=== PATIENT | female | born 1945 | race Caucasian/White ===

== ENCOUNTER → 2018-03-02 09:19 | Outpatient (CLI) | payer MEDICARE, SELFPAY ==
--- NOTE | 2018-03-02 09:23 | MM_ITS ---
. MM Dig screening mamm BI w/CAD CAD Screening ORDERING PHYSICIAN : Khalif William MD PATIENT AGE: 72 years GENDER: Female COMPARISON: Previous mammograms: 2014, 2016 mammogram studies INDICATION: No hormones. No new complaints. Mother with breast cancer in her 70s TECHNIQUE: Standard CC and MLO images were obtained. R2 CAD reviewed. FINDINGS: Lower density breast bilaterally with no dominant mass nor suspicious calcifications in either breast. Areas of mild asymmetry of appear stable. No significant architectural distortion. RIGHT BREAST: Minor asymmetric area of density Superior retroareolar region appear stable. Not of concern LEFT BREAST: No significant new findings. Stable IMPRESSION: Stable bilateral mammogram no new areas of concern Stable mild asymmetry BI-RADS Category: 2 Benign Finding(s) RECOMMENDED FOLLOW-UP: 1YR - 1 YEAR FOLLOW-UP (A letter has been sent to the patient regarding results of the study.)
== END ==
PROVIDERS: Family Provider Family Medicine; PCP Family Medicine; Visit Provider Family Medicine
DX: Z12.31 Encounter for screening mammogram for malignant neoplasm of breast (principal)
CPT/HCPCS: 77067

== ENCOUNTER → 2018-03-14 11:14 | Outpatient (CLI) | payer MEDICARE, MEDICAID, SELFPAY ==
--- NOTE | 2018-03-14 11:20 | XR_ITS ---
XR chest 2V HISTORY: ITS.REASON: HTN ORDERING PHYSICIAN: Juan Ramachandran MD PATIENT AGE: 73 years COMPARISON: 07/08/2017 FINDINGS: The cardiomediastinal silhouette and pulmonary vascularity are within normal limits. Atelectatic or fibrotic changes are present within the lingula. The remaining lungs are clear. Gastric lap band is present. No acute bony anomalies. IMPRESSION: Atelectatic or fibrotic changes within the lingula otherwise negative chest.
== END ==
PROVIDERS: PCP Family Medicine; Visit Provider Family Medicine
DX: R10.11 Right upper quadrant pain (principal)
CPT/HCPCS: 71046

== ENCOUNTER → 2018-12-13 09:38 | Outpatient (CLI) | payer MEDICARE, MEDICAID, SELFPAY ==
--- NOTE | 2018-12-13 09:47 | XR_ITS ---
XR DEXA axial skeleton HISTORY: ITS.REASON: POST MENOPAUSAL ORDERING PHYSICIAN: Khalif William MD PATIENT AGE: 73 years COMPARISON: None FINDINGS: The BMD measured at the Left femoral neck is 0.694 g/cm squared with a T score of -2.5. This is considered Osteoporotic according to the World Health Organization criteria. Fracture risk is High. Treatment is advised. IMPRESSION: Osteoporosis with high fracture risk. Treatment is advised. Suggest follow-up exam November 2019
== END ==
PROVIDERS: PCP Family Medicine; Visit Provider Family Medicine
DX: Z78.0 Asymptomatic menopausal state (principal)
CPT/HCPCS: 77080

== ENCOUNTER 2019-01-30 10:35 | Outpatient (CLI) | payer MEDICARE, MEDICAID, SELFPAY ==
[2019-01-30 10:41] VITALS: BMI 31.8
[2019-01-30 11:09] LABS: Calcium 8.5 mg/dL (8.5-10.1); Creatinine Clearance Estimated 50 mL/min (50-200); Creatinine,Serum 1.27 mg/dL (0.55-1.02); Estimated Glomerular Filt Rate 41 ml/min (>60); GFR (African American) 50 ML/MIN (>60)
[2019-01-30 11:37] VITALS: BP 158/87; PULSE 80; RESP 18; TEMP 36.6; O2SAT 96
[2019-01-30 12:00] VITALS: BP 160/91; PULSE 80; RESP 18
== END 2019-01-30 12:00 | disposition home or self-care (01) ==
LOC: INF 11:13
PROVIDERS: Visit Provider Family Medicine
DX: M81.0 Age-related osteoporosis without current pathological fracture (principal)
CPT/HCPCS: 82040; 82310; 82565; 96374; J3489

== ENCOUNTER → 2019-05-13 08:03 | Outpatient (POV) | payer MEDICARE, MEDICAID, SELFPAY | PROVIDERS: Visit Provider Nurse Practitioner Family | DX: Z00.00 Encounter for general adult medical examination without abnormal findings (principal) ==

== ENCOUNTER → 2019-07-23 12:52 | Outpatient (CLI) | payer MEDICARE, MEDICAID, SELFPAY | PROVIDERS: PCP Family Medicine; Visit Provider Internal Medicine Gastroenterology | DX: E11.9 Type 2 diabetes mellitus without complications (principal); Z79.4 Long term (current) use of insulin | CPT/HCPCS: 97802 ==

== ENCOUNTER → 2019-08-19 08:37 | Outpatient (CLI) | payer MEDICARE, MEDICAID, SELFPAY ==
--- NOTE | 2019-08-19 08:40 | FL_ITS ---
PROCEDURE: FL SMALL BOWEL FOLLOW THROUGH CLINICAL INDICATION: CHRONIC REGURGITATION, DIARRHEA COMPARISON: ABDPELWO CT abdomen pelvis wo con from 03/14/2018 FINDINGS: Fluoroscopy time: 33 seconds The center mgr exam demonstrates a left gastric lap band in place. Small bowel has an unremarkable appearance. No dilatation obstruction or mucosal abnormalities or strictures are evident. No masses apparent. Spot views of the terminal ileum are unremarkable. There was fairly rapid transit of the contrast through the small bowel with contrast noted throughout the colon at the 45 minutes exam. IMPRESSION: 1. Unremarkable small bowel follow-through other than mild rapid transit time 2. Gastric lap band in place Dictated by: Jasper Pedraza MD 08/19/2019 10:23 Electronically signed by Jasper Pedraza MD in [place] 08/19/2019 10:23
== END ==
PROVIDERS: PCP Family Medicine; Visit Provider Internal Medicine Gastroenterology
DX: R11.10 Vomiting, unspecified (principal); R19.7 Diarrhea, unspecified
CPT/HCPCS: 74250

== ENCOUNTER → 2019-09-09 08:21 | Outpatient (POV) | payer MEDICARE, MEDICAID, SELFPAY | PROVIDERS: PCP Family Medicine; Visit Provider Nurse Practitioner Family | DX: Z00.00 Encounter for general adult medical examination without abnormal findings (principal) ==

== ENCOUNTER → 2019-12-16 08:14 | Outpatient (POV) | payer MEDICARE, MEDICAID, SELFPAY | PROVIDERS: Visit Provider Nurse Practitioner Family | DX: Z00.00 Encounter for general adult medical examination without abnormal findings (principal) ==

== ENCOUNTER → 2019-12-18 08:23 | Outpatient (CLI) | payer MEDICARE, MEDICAID, SELFPAY ==
[2019-12-18 08:30] LABS: Adenovirus F 40/41, stool Not Detected (NotDetected); Astrovirus Not Detected (NotDetected); Campylobacter Not Detected (NotDetected); Clostridium Difficile A/B, PCR Not Detected (NotDetected); Cryptosporidium Not Detected (NotDetected); Cyclospora Cayetanesis Not Detected (NotDetected); Entamoeba histolytica Not Detected (NotDetected); Enteroaggregative E coli Not Detected (NotDetected); Enteropathogenic E coli Not Detected (NotDetected); Enterotoxigenic E coli Not Detected (NotDetected); Giardia lamblia Not Detected (NotDetected); Norovirus Not Detected (NotDetected); Plesimonas Shigalloides, PCR Not Detected (NotDetected); Rotavirus A Not Detected (NotDetected); Salmonella, PCR Not Detected (NotDetected); Sapovirus Not Detected (NotDetected); Shiga-like toxin E coli Not Detected (NotDetected); Shigella Enterovasive E coli Not Detected (NotDetected); Vibrio Cholerae Not Detected (NotDetected); Vibrio, PCR Not Detected (NotDetected); Yersinia Entercolitica, PCR Not Detected (NotDetected)
== END ==
PROVIDERS: Visit Provider Nurse Practitioner Family
DX: R19.7 Diarrhea, unspecified (principal); R11.10 Vomiting, unspecified; R14.0 Abdominal distension (gaseous); R19.4 Change in bowel habit; K30 Functional dyspepsia; E74.31 Sucrase-isomaltase deficiency
CPT/HCPCS: 87506

== ENCOUNTER 2020-01-01 10:53 | Outpatient (CLI) | payer MEDICARE, MEDICAID, SELFPAY ==
[2020-01-01 11:22] VITALS: BP 168/81; PULSE 71; RESP 20; TEMP 36.8; O2SAT 96
[2020-01-01 11:55] VITALS: BP 156/74; PULSE 63; RESP 20; O2SAT 99
== END 2020-01-01 12:00 | disposition home or self-care (01) ==
LOC: INF 10:53
PROVIDERS: Visit Provider Family Medicine
DX: D50.9 Iron deficiency anemia, unspecified (principal); T45.4X5A Adverse effect of iron and its compounds, initial encounter
CPT/HCPCS: 96365; J1439

== ENCOUNTER 2020-01-08 10:44 | Outpatient (CLI) | payer MEDICARE, MEDICAID, SELFPAY ==
[2020-01-08 10:55] VITALS: BP 152/79; PULSE 75; RESP 18; TEMP 36.6; O2SAT 98
[2020-01-08 11:35] VITALS: BP 154/82; PULSE 71; RESP 18
== END 2020-01-08 11:35 | disposition home or self-care (01) ==
LOC: INF 10:44
PROVIDERS: Visit Provider Family Medicine
DX: D50.9 Iron deficiency anemia, unspecified (principal); T45.4X5A Adverse effect of iron and its compounds, initial encounter
CPT/HCPCS: 96365; J1439

== ENCOUNTER → 2020-11-23 09:15 | Outpatient (POV) | payer MEDICARE, MEDICAID, SELFPAY | PROVIDERS: Visit Provider Nurse Practitioner Family | DX: Z00.00 Encounter for general adult medical examination without abnormal findings (principal) ==

== ENCOUNTER → 2021-04-27 09:37 | Outpatient (POV) | payer MEDICARE, MEDICAID, SELFPAY | PROVIDERS: Visit Provider Dermatology | DX: Z00.00 Encounter for general adult medical examination without abnormal findings (principal) ==

== ENCOUNTER → 2021-10-11 11:44 | Outpatient (CLI) | payer MEDICARE, MEDICAID, SELFPAY ==
--- NOTE | 2021-10-11 | CA_ITS ---
APPROVED REPORT Exam: Pharmacologic Technologist: Rachana Abbott Ht: 5 ft 2 in Wt: 190 lbs BSA: 1.87 m2 HR: 87 bpm BP: 126/64 mmHg Indications: Chest tightness Medical History Medications: Lisinopril,,,,, Omeprazole,,,,, Levothyroxine,,,,, Pravastatin,,,,, FOLIC ACID,,,,, Methotrexate,,,,, NovOLOG,,,,, LeveMIR,,,,, Centrum,,,,, AmlodOPINE,,,,, Stress Test Details Test: LEXISCAN HR Resting HR: 87 bpm Max Heart Rate (APMHR): 143.149716 bpm Max HR Achieved: 98 bpm Target HR (85% APMHR): 121.142257 bpm % of APMHR: 68.53 Recovery HR: 86 bpm BP Resting BP: 126.0/64.0 mmHg Max BP: 132.0/66.0 mmHg Recovery BP: 132.0/66.0 mmHg ECG Resting ECG: Normal sinus rhythm Clinical Reason for Termination: Completed Protocol Exercise duration: 04:20 min Highest Stage Achieved: Stress ECG Conclusion Non-diagnostic lexiscan stress test. Patient received the infusion per protocol without chest pain, ST segment changes or arrhythmias. See the nuclear report for further information. Test Summary RECOVERY 04:00 . . 77 . 93/ 44 . . REST 04:06 . . 87 . 126/ 64 . . Stage 1 01:00 . . 93 . . . . Stage 2 01:00 . . 76 . 89/ 44 . . Stage 3 01:00 . . 76 . . . . Stage 4 01:00 . . 77 . 88/ 40 . . Stage 4 01:20 . . 79 . 92/ 48 . Stop exercise at 04:20 RECOVERY 01:00 . . 77 . 97/ 47 . . RECOVERY 02:00 . . 70 . 97/ 47 . . RECOVERY 03:00 . . 54 . 93/ 44 . . RECOVERY 04:00 . . 77 . 93/ 44 . . RECOVERY 05:00 . . 80 . 93/ 44 . . RECOVERY 06:00 . . 96 . 93/ 44 . . RECOVERY 07:00 . . 85 . 93/ 44 . . RECOVERY 07:27 . . 87 . 132/ 66 . . Electronically signed by : Miguel Lynn MD 10/11/2021 19:03:46
--- NOTE | 2021-10-11 11:48 | NM_ITS ---
APPROVED REPORT Exam: Nuclear Stress Test Indication: Chest pain, HTN, DM, High cholesterol Patient Location: Outpatient Stress Tech: Rachana Abbott ME Tech:Marie Rubi, ARRT, RT (R)(N) Ht: 5 ft 2 in Wt: 190 lbs Bra Size: 40B HR: 87 bpm BP: 126/64 mmHg BSA: 1.87 m2 BMI: 34.7 History: Chest pain, HTN, DM, High cholesterol Procedure: Patient received a 0.4 mg of intravenous Lexiscan, resting heart rate 87 bpm, resting blood pressure 126/64 mmHg, with Lexiscan maximum heart rate achived was 98 bpm which is Less than 85 % of the maximum predicted heart rate and blood pressure was 132/66 mmHg. With Lexiscan, patient denied any complaint of chest pain. Electrocardiogram Resting electrocardiogram showed sinus rhythm, with Lexiscan there is less than 1.[address] segment depression noted from the baseline EKG. The EKG portion of the Lexiscan is nondiagnostic. Cardiac Stress and Resting SPECT Images: Cardiac Stress and Resting SPECT images were obtained using technetium 99m Myoview 31.0 mCi stress and 10.43 mCi at rest. Gated SPECT for analysis of segmental wall motion and calculation of the ejection fraction also done. Prone images were also obtained. Cardiac stress and resting SPECT images show uniform myocardial activity without segmental perfusion abnormality, compared right ejection fraction is over 65% with no regional wall motion abnormality, right ventricle is normal size and contractility. Conclusion: 1. The EKG portion of the Lexiscan is nondiagnostic. 2. No scintigraphic evidence of reversible ischemia seen, compared right ejection fraction is over 65% with no regional wall motion abnormality, right ventricle is normal size and contractility. 3. Normal Lexiscan Myoview study. Electronically signed by : Miguel Lynn MD 10/11/2021 19:25:53
--- NOTE | 2021-10-11 12:58 | CA_ITS ---
APPROVED REPORT EXAM: Comprehensive 2D, Doppler, and color-flow Echocardiogram Sales Attendant: Maggi Buitrago CRT Ht: 5 ft 2 in Wt: 109lbs BSA: 1.48 BP: 110/70 mmHg Indications: EDEMA,CP,OBESITY,HTN,DM,HLD 2D Dimensions LVOT 1.60 cm (M/F) 1.5-2.5 LA Volume 34.90 mL LA Volume Index 23.74 mL/m2 (M/F) 16-34 M-Mode Dimensions RVDd 2.81 cm (0.9-2.6) LA Diam 2.95 cm (1.9-4.0) LVDd 3.00 cm (3.5-5.7) Ao Diam 3.70 cm (2.0-3.7) LVDs 2.05 cm (3.5-5.7) IVSd 1.94 cm (0.6-1.1) PWd 0.68 cm (0.6-1.1) EF (Teich) 61.10% FS 31.70% EDV (Teich) 35.00 mL TAPSE 1.69 (<1.7) ESV (Teich) 13.60 mL LV Diastology E Decel Time 147.00 (160-240 msec) E/A Ratio 0.47 MED E' 2.60 (< 7 cm/sec) MED A' 11.60 cm/s E'/MED E' Ratio 20.12 (>14) LAT E' 8.40 (<10 cm/sec) LAT A' 9.40 cm/s E/LAT E' Ratio 6.23 (>14) Aortic Valve AO Peak GR. 8.50 mmHg Mitral Valve MV A Velocity 110.00 (40-130 cm/s) E/A Ratio 0.47 MV Decel. Time 147.00 (160-240 ms) Pulmonary Valve PV Peak Velocity 120.00 (50-150 cm/s) Tricuspid Valve TR P. Velocity 195.00 cm/s RAP Estimate 10.00 mmHg RVSP 25.20 mmHg Left Ventricle Technically difficult study because of the patient factors and poor acoustic windows. Left atrium is mildly enlarged, left ventricle is normal size, mild concentric left ventricular hypertrophy, visually estimated ejection fraction 55% with no regional wall motion abnormality, grade 1 diastolic dysfunction seen without tissue Doppler evidence of raise left atrial pressure. Right Ventricle Right atrium and right ventricle mildly enlarged with normal contractility. Aortic Valve Aortic valve is minimally thickened and fibrosed, there is no aortic stenosis or aortic insufficiency. Mitral Valve Mitral valve is grossly normal, there is trace mitral regurgitation. Tricuspid Valve Tricuspid valve grossly normal, there is trace tricuspid regurgitation, tricuspid regurgitation jet velocity is inadequate for calculation of the right ventricular systolic pressure. Pulmonic Valve Pulmonic valve is poorly visualized. Great Vessels Aortic root is normal size. Inferior vena cava is poorly visualized. Pericardium No significant pericardial effusion noted. Conclusion 1. Technically difficult study because of the patient factors and poor acoustic windows. 2. Mild biatrial alignment, normal left ventricular size, mild concentric left ventricular hypertrophy, visually estimated ejection fraction 55% with no significant motion abnormality, grade 1 diastolic dysfunction seen without tissue Doppler evidence of raise left atrial pressure. 3. Mildly enlarged right ventricle with normal contractility. 4. Trace mitral and tricuspid regurgitation. 5. No significant pericardial effusion noted. 6. Inferior vena cava is poorly visualized. Electronically signed by : Miguel Lynn MD 10/11/2021 21:05:17
--- NOTE | 2021-10-11 13:24 | HMH.ITSHM ---
Current Home Medications as stated by this patient Babs Bruno or claim service representative. []METHOTREXATE CALCIUM SACROSIDASE PROBIOTIC RIFAXIMIN PRAVASTATIN OMEPRAZOLE MULTIVITAMIN METOCLOPRAMIDE LEVOTHYROXINE INSULIN AMLODIPINE
== END ==
PROVIDERS: PCP Family Medicine; Visit Provider Family Medicine
DX: R07.89 Other chest pain (principal); I10 Essential (primary) hypertension; E03.9 Hypothyroidism, unspecified; E11.9 Type 2 diabetes mellitus without complications; R60.0 Localized edema; Z79.4 Long term (current) use of insulin
CPT/HCPCS: 78452; 93017; 93306; A9502; J2785

== ENCOUNTER → 2021-10-13 09:32 | Outpatient (CLI) | payer MEDICARE, MEDICAID, SELFPAY | PROVIDERS: PCP Family Medicine; Visit Provider Nurse Practitioner | DX: Z20.822 Contact with and (suspected) exposure to COVID-19 (principal) | CPT/HCPCS: C9803; U0003; U0005 ==

== ENCOUNTER → 2021-11-15 15:23 | Outpatient (CLI) | payer MEDICARE, MEDICAID, SELFPAY ==
--- NOTE | 2021-11-15 15:25 | MM_ITS ---
PROCEDURE INFORMATION: Exam: MG Bilateral Screening 3D Mammography Exam date and time: 11/15/2021 3:25 PM Age: 76 years old Clinical indication: Encounter for screening mammogram for malignant neoplasm of breast TECHNIQUE: Imaging protocol: Bilateral screening tomosynthesis and 2D mammography including computer-aided detection (CAD) when performed. COMPARISON: 1. MG SCBI MM Dig screening mamm BI w/CAD 03/02/2018 9:39 AM 2. MG DMSB DIG MAMM-SCREEN LESIA 05/06/2016 9:55 AM FINDINGS: MAMMOGRAPHY: Breast composition: The breast tissue is heterogeneously dense, which may obscure small masses. Mass: None. Architectural distortion: None. Calcifications: No suspicious calcifications. Asymmetric density: None. Skin thickening: None. Axillary adenopathy: None. IMPRESSION: No mammographic evidence of malignancy. Annual screening is recommended unless otherwise clinically indicated. ASSESSMENT: BI-RADS Category 1: Negative
== END ==
PROVIDERS: PCP Family Medicine; Visit Provider Family Medicine
DX: Z12.31 Encounter for screening mammogram for malignant neoplasm of breast (principal); N64.4 Mastodynia
CPT/HCPCS: 77063; 77067

== ENCOUNTER → 2021-11-29 15:27 | Outpatient (CLI) | payer MEDICARE, MEDICAID, SELFPAY ==
--- NOTE | 2021-11-29 15:32 | XR_ITS ---
FINAL REPORT CLINICAL HISTORY: THORACIC RADICULOPATHY FINDINGS: THORACIC SPINE SERIES Two views demonstrate no acute fracture. There are mild hypertrophic changes throughout the mid and lower thoracic spine. There is no malalignment. A lap band device is seen in the left upper quadrant. IMPRESSION: No acute process. Reviewed, Interpreted and Dictated by Floyd Abraham MD Transcribed by Za Luna Authenticated by Floyd Abraham MD on 11/29/2021 04:57:54 PM [facility]
== END ==
PROVIDERS: PCP Family Medicine; Visit Provider Family Medicine
DX: M54.14 Radiculopathy, thoracic region (principal)
CPT/HCPCS: 72072

== ENCOUNTER 2021-12-04 10:48 | Emergency (ER) | payer MEDICARE, MEDICAID, SELFPAY ==
[2021-12-04 11:25] VITALS: BP 115/73; PULSE 76; RESP 19; TEMP 37; O2SAT 99; BMI 29.7
--- NOTE | 2021-12-04 11:43 | HMH.EDUTC ---
[facility] [place] Clinical Impression: Sinusitis Qualifiers: Sinusitis location: unspecified location Chronicity: unspecified Qualified Code(s): J32.9 - Chronic sinusitis, unspecified Disposition: Home, Self-Care Condition on Discharge: Good Instructions: Sinusitis, DI for Sinusitis, Amoxicillin and Clavulanic Acid Additional Instructions: *Monitor Temp, Over the counter Motrin or Tylenol as directed/as needed Tylenol every 4 hours and Motrin every 6 hours (as long as your family doctor has told you that you can take it) for fever or pain. and straight to ER if unable to lower temp less than 101.0 after medication given *Warm salt water gargles may help to soothe the throat *Throat Lozenges *Warm fluids like tea with honey may help to soothe the throat *Sleep elevated *Humidifier/Vaporizer *Flonase 2 sprays in each nostril daily but be aware that it may take 2-3 days before you notice improvement Follow up IMMEDIATELY for new or worsening symptoms or no Noticeable improvement over the next 48-72 hours. 911 for difficulty breathing or swallowing You were tested for today for COVID19 your test result should be back in the next 24-48 hours, you may check your results on the [facility] My Health Portal if you have trouble logging on you may call You was given a handout with instructions for Self Quarantine and Self isolation for while you wait on test results and what to do if they are positive If you are positive the Health Dept will be contacting you also Make sure to take your Vitamins Vit. C Vit D and Zinc if you can take them Prescriptions: Benzonatate [Benzonatate 100mg cap] 100 mg PO Q8HP PRN #15 cap PRN Reason: Cough Transmission Status: Pending to [id number] Amoxicillin/Potassium Clav [Augmentin 875-125 Tablet] 1 tab PO Q12H 7 Days #14 tab Transmission Status: Pending to [id number] Referrals: Khalif William MD [Primary Care Provider] - As needed Time of Disposition: 11:55 Medical Decision Making - Yash Inquiry Pt receiving controlled substance: No Yash was queried for this patient: No Vital Signs: 12/04/21 11:25 Temperature 98.6 F Temperature Source Oral Pulse Rate [Right Brachial] 76 Respiratory Rate 19 Blood Pressure [Right Arm] 115/73 Blood Pressure Mean [Right Arm] 87 Blood Pressure Source [Right Arm] Automatic Cuff Blood Pressure Position [Right Arm] Sitting 02 Sat by Pulse Oximetry 99 Oxygen Delivery Method Room Air - Lab Data Lab results reviewed: Yes: I reviewed the patient's lab results. Orders (Tests/Meds): ORDERS Category Date Time Status Covid-19 Nasal PCR ([facility]) Routine Lab 12/04/21 11:34 [place] [facility] [place] - General Stated complaint: cough,runny nose Time Seen by Provider: 12/04/21 11:43 Mode of Arrival: Ambulatory Source of Information: Patient Limitations: No Limitations Description of Symptoms (Recalled from Triage Doc. by RN): PATIENT C/O DRY COUGH, CHEST CONGESTION AND RUNNY NOSE X 2 WEEKS HEENT Symptoms (Recalled from RN notes): Yes Resp Symptoms (Recalled from RN notes): Yes Skin Symptoms (Recalled from RN notes): No MS Symptoms (Recalled from RN notes): No Functional Status (Recalled from RN notes): WNL - History of Present Illness Provider Complaint: Patient state that she has been having cough, sinus congestion and pressure for about 2 weeks that has continued to get worse State that today she wanted to come in and get checked and get tested to make sure she didnt have COVID when it wasnt getting better - Related Data Home Medications Medication Instructions Recorded Confirmed Amlodipine Besylate [Norvasc 5mg 5 mg PO DAILY 03/14/18 01/08/20 tablet] Insulin Detemir [Levemir 100 40 units SQ HS 03/14/18 01/08/20 units/mL 10mL vial] Levothyroxine Sodium 88 mcg PO DAILY 03/14/18 01/08/20 [Levothyroxine 88mcg (0.088mg) Tab] Omeprazole [Omeprazole 40mg 40 mg PO DAILY 03/14/18 01/08/20 Capsule] Pravastatin So
[2021-12-04 11:54] LABS: UTC Influenza A Antigen Negative (Negative); UTC Influenza B Antigen Negative (Negative)
[2021-12-04 12:06] VITALS: BP 115/73; PULSE 76; RESP 19; TEMP 37; O2SAT 99
== END 2021-12-04 12:24 | disposition home or self-care (01) ==
PROVIDERS: Emergency Provider Nurse Practitioner; PCP Family Medicine
DX: J32.9 Chronic sinusitis, unspecified (principal); Z20.822 Contact with and (suspected) exposure to COVID-19; I10 Essential (primary) hypertension; E78.5 Hyperlipidemia, unspecified; E11.9 Type 2 diabetes mellitus without complications; Z79.899 Other long term (current) drug therapy
CPT/HCPCS: G0463; 87804; 99202; C9803; U0003; U0005

== ENCOUNTER → 2021-12-08 10:52 | Outpatient (CLI) | payer MEDICARE, MEDICAID, SELFPAY ==
--- NOTE | 2021-12-08 10:55 | US_ITS ---
PROCEDURE INFORMATION: Exam: US Right Breast, Complete US Left Breast, Complete Exam date and time: 12/08/2021 10:55 AM Age: 76 years old Clinical indication: Bilateral breast and axillary pain x 2 months TECHNIQUE: Imaging protocol: Complete ultrasound of all four quadrants of the Right breast and the retroareolar regions, including ultrasound of the axilla when performed. Complete ultrasound of all four quadrants of the Left breast and the retroareolar regions, including ultrasound of the axilla when performed. COMPARISON: MG MM DIG SCREENING MAMM BI W/CAD 11/15/2021 3:26 PM FINDINGS: Breast: No solid or cystic lesions. Other findings: Sonographic images of both breasts including the retroareolar regions, all 4 quadrants and the axilla do not demonstrate any solid or cystic masses. No architectural distortion or acoustical shadowing. No skin thickening or axillary adenopathy. IMPRESSION: No sonographic evidence of malignancy. Annual mammographic screening is recommended unless otherwise clinically indicated. ASSESSMENT: BI-RADS Category 1: Negative
== END ==
PROVIDERS: PCP Family Medicine; Visit Provider Family Medicine
DX: M54.14 Radiculopathy, thoracic region (principal); N64.4 Mastodynia
CPT/HCPCS: 76641

== ENCOUNTER 2022-02-24 12:46 | Outpatient (CLI) | payer MEDICARE, MEDICAID, SELFPAY ==
[2022-02-24 13:03] VITALS: BP 181/82; PULSE 87; RESP 18; TEMP 36.4; O2SAT 98
[2022-02-24 13:50] VITALS: BP 182/76; PULSE 77; RESP 18
== END 2022-02-24 13:50 | disposition home or self-care (01) ==
LOC: INF 12:48
PROVIDERS: PCP Family Medicine; Visit Provider Family Medicine
DX: D50.8 Other iron deficiency anemias (principal)
CPT/HCPCS: 96365; J1439

== ENCOUNTER 2022-03-02 12:44 | Outpatient (CLI) | payer MEDICARE, MEDICAID, SELFPAY ==
[2022-03-02 13:20] VITALS: BP 146/67; PULSE 81; RESP 18; O2SAT 98
[2022-03-02 13:50] VITALS: BP 127/65; PULSE 75; RESP 16
== END 2022-03-02 13:55 | disposition home or self-care (01) ==
LOC: INF 12:45
PROVIDERS: PCP Internal Medicine; Visit Provider Family Medicine
DX: D50.8 Other iron deficiency anemias (principal)
CPT/HCPCS: 96365; J1439

== ENCOUNTER → 2022-04-05 12:22 | Outpatient (CLI) | payer MEDICARE, MEDICAID, SELFPAY ==
[2022-04-05 14:18] LABS: Basophils % 0.6 % (0.1-2.0); Eosinophils # 0.1 K/mm3 (0.0-0.4); Hematocrit 36.3 % (37.0-47.0); Hemoglobin 11.6 g/dL (12.2-16.2); Lymphocytes # 1.3 K/mm3 (0.7-4.5); Lymphocytes % 24.8 % (10-50); Mean Corpuscular HGB Conc 31.9 g/dL (31.8-35.4); Mean Corpuscular Hemoglobin 28.9 pg (27.0-31.2); Mean Corpuscular Volume 90.5 fl (81-99); Mean Platelet Volume 9.1 fl (7.4-10.4); Monocytes # 0.3 K/mm3 (0.1-1.0); Monocytes % 6.4 % (1.7-9.3); Neutrophils # 3.6 K/mm3 (1.8-7.8); Neutrophils % 66.2 % (37.0-80.0); Platelet Count 247 K/mm3 (142-424); Red Blood Count 4.01 M/mm3 (4.20-5.40); Red Cell Distribution Width 21.6 % (11.5-17.5); White Blood Count 5.4 K/mm3 (4.8-10.8)
[2022-04-05 14:20] LABS: Chloride 102 mmol/L (98-107); Potassium 4.6 mmoL/L (3.5-5.1); Sodium 135 mmol/L (136-145)
[2022-04-05 14:23] LABS: Alanine Aminotransferase 40 U/L (12-78); Albumin Level 3.5 g/dl (3.5-5.0); Albumin/Globulin Ratio 1.2 (1.1-1.8); Alkaline Phosphatase 135 U/L (38-126); Anion Gap 10.6 mEq/L (5-15); Aspartate Amino Transferase 65 U/L (14-36); Bilirubin,Total 0.6 mg/dl (0.2-1.3); Blood Urea Nitrogen 9 mg/dl (7-17); Calcium 9.5 mg/dl (8.4-10.2); Carbon Dioxide 27 mmol/L (22.0-30.0); Cholesterol 150 mg/dl (140-200); Estimated Glomerular Filt Rate 54 ml/min (>60); GFR (African American) 65 ML/MIN (>60); Glucose 246 mg/dl (74-100); Total Protein,Serum 6.5 g/dl (6.3-8.2); Triglycerides 177 mg/dl (30-150); VLDL Cholesterol 35 mg/dL (0-40)
[2022-04-05 14:24] LABS: Chol/HDL Ratio 3.6 (1-3.5); HDL Cholesterol 42 mg/dl (40-60)
[2022-04-05 14:34] LABS: Direct LDL Cholesterol 72.45 mg/dL (100-129)
[2022-04-05 14:54] LABS: Thyroid Stimulating Hormone < 0.02 uIU/mL (0.465-4.68)
[2022-04-05 17:32] LABS: Hemoglobin A1C 6.6 % (4.0-6.0)
[2022-04-05 17:39] LABS: Creatinine,Urine Random 75 mg/dL (Not Estab.)
[2022-04-05 17:40] LABS: Microalbumin/Creatinine Ratio 65.8
== END ==
PROVIDERS: PCP Internal Medicine; Visit Provider Internal Medicine
DX: E11.42 Type 2 diabetes mellitus with diabetic polyneuropathy (principal); E03.9 Hypothyroidism, unspecified; E78.5 Hyperlipidemia, unspecified; I10 Essential (primary) hypertension; Z79.4 Long term (current) use of insulin
CPT/HCPCS: 80053; 80061; 82043; 82570; 83036; 84443; 85025

== ENCOUNTER → 2022-08-16 10:12 | Outpatient (CLI) | payer MEDICARE, MEDICAID, SELFPAY | PROVIDERS: PCP Internal Medicine; Visit Provider Internal Medicine | DX: U07.1 COVID-19 (principal) | CPT/HCPCS: C9803; U0003; U0005 ==

== ENCOUNTER → 2022-10-05 12:41 | Outpatient (CLI) | payer MEDICARE, MEDICAID, SELFPAY ==
[2022-10-05 14:43] LABS: Chloride 95 mmol/L (98-107)
[2022-10-05 14:44] LABS: Potassium 4.6 mmoL/L (3.5-5.1); Sodium 134 mmol/L (136-145)
[2022-10-05 14:46] LABS: Alanine Aminotransferase 45 U/L (12-78); Alkaline Phosphatase 100 U/L (38-126); Aspartate Amino Transferase 79 U/L (14-36); Bilirubin,Total 0.9 mg/dl (0.2-1.3); Blood Urea Nitrogen 10 mg/dl (7-17); Estimated Glomerular Filt Rate 43 ml/min (>60); GFR (African American) 53 ML/MIN (>60)
[2022-10-05 14:47] LABS: Albumin Level 3.9 g/dl (3.5-5.0); Albumin/Globulin Ratio 1.3 (1.1-1.8); Anion Gap 15.6 mEq/L (5-15); Calcium 9.4 mg/dl (8.4-10.2); Carbon Dioxide 28 mmol/L (22.0-30.0); Chol/HDL Ratio 3.2 (1-3.5); Cholesterol 182 mg/dl (140-200); Glucose 344 mg/dl (74-100); HDL Cholesterol 57 mg/dl (40-60); Total Protein,Serum 6.9 g/dl (6.3-8.2); Triglycerides 132 mg/dl (30-150); VLDL Cholesterol 26 mg/dL (0-40)
[2022-10-05 14:58] LABS: Direct LDL Cholesterol 82.84 mg/dL (100-129)
[2022-10-05 18:43] LABS: Hemoglobin A1C 8.9 % (4.0-6.0)
== END ==
PROVIDERS: PCP Internal Medicine; Visit Provider Internal Medicine
DX: E11.42 Type 2 diabetes mellitus with diabetic polyneuropathy (principal); I10 Essential (primary) hypertension; E78.5 Hyperlipidemia, unspecified; Z79.4 Long term (current) use of insulin
CPT/HCPCS: 80053; 80061; 83036

== ENCOUNTER → 2023-03-29 11:46 | Outpatient (CLI) | payer MEDICARE, MEDICAID, SELFPAY ==
[2023-03-29 12:42] LABS: Basophils % 0.7 % (0.1-2.0); Eosinophils # 0.2 K/mm3 (0.0-0.4); Hematocrit 38.8 % (37.0-47.0); Hemoglobin 12.2 g/dL (12.2-16.2); Lymphocytes # 1.7 K/mm3 (0.7-4.5); Lymphocytes % 30.8 % (10-50); Mean Corpuscular HGB Conc 31.5 g/dL (31.8-35.4); Mean Corpuscular Hemoglobin 28.6 pg (27.0-31.2); Mean Corpuscular Volume 90.8 fl (81-99); Mean Platelet Volume 9.2 fl (7.4-10.4); Monocytes # 0.3 K/mm3 (0.1-1.0); Monocytes % 5.5 % (1.7-9.3); Neutrophils # 3.2 K/mm3 (1.8-7.8); Platelet Count 268 K/mm3 (142-424); Red Blood Count 4.28 M/mm3 (4.20-5.40); Red Cell Distribution Width 16.9 % (11.5-17.5); White Blood Count 5.4 K/mm3 (4.8-10.8)
[2023-03-29 13:01] LABS: Chloride 95 mmol/L (98-107); Potassium 4.6 mmoL/L (3.5-5.1); Sodium 135 mmol/L (136-145)
[2023-03-29 13:03] LABS: Blood Urea Nitrogen 14 mg/dl (7-17); Estimated Glomerular Filt Rate 36 ml/min (>60); GFR (African American) 44 ML/MIN (>60)
[2023-03-29 13:04] LABS: Alanine Aminotransferase 49 U/L (12-78); Albumin Level 3.8 g/dl (3.5-5.0); Albumin/Globulin Ratio 1.2 (1.1-1.8); Alkaline Phosphatase 93 U/L (38-126); Anion Gap 17.6 mEq/L (5-15); Aspartate Amino Transferase 84 U/L (14-36); Calcium 9.2 mg/dl (8.4-10.2); Carbon Dioxide 27 mmol/L (22.0-30.0); Chol/HDL Ratio 2.5 (1-3.5); Cholesterol 169 mg/dl (140-200); Globulin 3.3 g/dL (1.3-3.2); Glucose 162 mg/dl (74-100); HDL Cholesterol 68 mg/dl (40-60); Total Protein,Serum 7.1 g/dl (6.3-8.2); Triglycerides 160 mg/dl (30-150); VLDL Cholesterol 32 mg/dL (0-40)
[2023-03-29 13:10] LABS: Microalbumin/Creatinine Ratio 33.9
[2023-03-29 13:16] LABS: Creatinine,Urine Random 173 mg/dL (Not Estab.)
[2023-03-29 13:27] LABS: Direct LDL Cholesterol 82.99 mg/dL (100-129)
[2023-03-29 13:33] LABS: Thyroid Stimulating Hormone 6.52 uIU/mL (0.465-4.68)
[2023-03-29 14:44] LABS: Hemoglobin A1C 9.1 % (4.0-6.0)
== END ==
PROVIDERS: PCP Internal Medicine; Visit Provider Internal Medicine
DX: E11.40 Type 2 diabetes mellitus with diabetic neuropathy, unspecified (principal); E03.9 Hypothyroidism, unspecified; E78.5 Hyperlipidemia, unspecified; I10 Essential (primary) hypertension; Z79.4 Long term (current) use of insulin
CPT/HCPCS: 80053; 80061; 82043; 82570; 83036; 84443; 85025

== ENCOUNTER → 2023-04-06 10:14 | Outpatient (CLI) | payer MEDICARE, MEDICAID, SELFPAY ==
--- NOTE | 2023-04-06 10:18 | US_ITS ---
FINAL REPORT CLINICAL HISTORY: LUQ PAIN FINDINGS: Sonographic images of the abdomen were obtained. There is fatty infiltration of the liver. The gallbladder is surgically absent. The common duct is within normal limits. Limited images of the pancreas are unremarkable. There is borderline splenomegaly. The right kidney measures 9.6 cm in length. The left kidney measures 9.7 cm in length. There is moderate global renal atrophy. There is no evidence of hydronephrosis. The aorta has an unremarkable appearance. Limited images of the inferior vena cava are unremarkable. IMPRESSION: Fatty liver. Borderline splenomegaly. Reviewed, Interpreted and Dictated by Moses Frederick MD Transcribed by Alfreda Burnett Authenticated and [facility]
== END ==
PROVIDERS: PCP Internal Medicine; Visit Provider Internal Medicine
DX: R10.12 Left upper quadrant pain (principal)
CPT/HCPCS: 76700

== ENCOUNTER → 2023-05-10 12:49 | Outpatient (CLI) | payer MEDICARE, MEDICAID, SELFPAY ==
--- NOTE | 2023-05-10 12:57 | CT_ITS ---
FINAL REPORT TECHNIQUE: Axial images through the abdomen and pelvis were performed without contrast. This study was performed with techniques to keep radiation doses as low as reasonably achievable, (ALARA). Individualized dose reduction techniques using automated exposure control or adjustment of mA and/or kV according to the patient's size were employed. CLINICAL HISTORY: Right sided abd pain FINDINGS: ABDOMEN: There is mild scarring in the lung bases. The heart size is normal. The liver has an irregular contour of uncertain significance, may represent cirrhosis. The patient is status post cholecystectomy. Gastric lap band is present. The spleen is normal. No adrenal mass is identified. The aorta is normal in caliber. There is no significant free fluid or adenopathy. There is no nephrolithiasis. There is no hydronephrosis. PELVIS: The appendix is normal. The uterus is heterogeneous with small calcifications, may represent fibroids. There is a questionable cyst in left ovary measuring 2.8 cm. The urinary bladder is unremarkable. There is no significant free fluid or adenopathy. IMPRESSION: Questionable left ovarian cyst. Recommend follow-up ultrasound. Irregular contour of the liver, may represent cirrhosis. Reviewed, Interpreted and Dictated by Raffy Mason III, MD Transcribed by Alfreda Burnett Authenticated and [facility]
== END ==
PROVIDERS: PCP Internal Medicine; Visit Provider Internal Medicine
DX: R10.11 Right upper quadrant pain (principal)
CPT/HCPCS: 74176; 80053; 82150; 85025

== ENCOUNTER → 2023-05-10 14:46 | Outpatient (CLI) | payer MEDICARE, MEDICAID, SELFPAY ==
[2023-05-10 16:25] LABS: Basophils % 0.4 % (0.1-2.0); Eosinophils # 0.2 K/mm3 (0.0-0.4); Eosinophils % 2.4 % (0.1-12.0); Hematocrit 38.9 % (37.0-47.0); Hemoglobin 11.9 g/dL (12.2-16.2); Lymphocytes # 1.3 K/mm3 (0.7-4.5); Lymphocytes % 20.5 % (10-50); Mean Corpuscular HGB Conc 30.6 g/dL (31.8-35.4); Mean Corpuscular Hemoglobin 28.2 pg (27.0-31.2); Mean Platelet Volume 9.4 fl (7.4-10.4); Monocytes # 0.2 K/mm3 (0.1-1.0); Monocytes % 3.9 % (1.7-9.3); Neutrophils # 4.4 K/mm3 (1.8-7.8); Neutrophils % 72.8 % (37.0-80.0); Platelet Count 270 K/mm3 (142-424); Red Blood Count 4.23 M/mm3 (4.20-5.40); Red Cell Distribution Width 17.3 % (11.5-17.5); White Blood Count 6.1 K/mm3 (4.8-10.8)
[2023-05-10 16:45] LABS: Chloride 98 mmol/L (98-107); Sodium 136 mmol/L (136-145)
[2023-05-10 16:46] LABS: Potassium 4.9 mmoL/L (3.5-5.1)
[2023-05-10 16:48] LABS: Alanine Aminotransferase 44 U/L (12-78); Amylase 101 U/L (30-110); Anion Gap 16.9 mEq/L (5-15); Aspartate Amino Transferase 75 U/L (14-36); Blood Urea Nitrogen 14 mg/dl (7-17); Carbon Dioxide 26 mmol/L (22.0-30.0); Estimated Glomerular Filt Rate 36 ml/min (>60); GFR (African American) 44 ML/MIN (>60)
[2023-05-10 16:49] LABS: Albumin Level 3.9 g/dl (3.5-5.0); Albumin/Globulin Ratio 1.2 (1.1-1.8); Alkaline Phosphatase 90 U/L (38-126); Bilirubin,Total 0.6 mg/dl (0.2-1.3); Calcium 9.4 mg/dl (8.4-10.2); Globulin 3.3 g/dL (1.3-3.2); Glucose 169 mg/dl (74-100); Total Protein,Serum 7.2 g/dl (6.3-8.2)
== END ==
PROVIDERS: PCP Internal Medicine; Visit Provider Internal Medicine
DX: R10.11 Right upper quadrant pain (principal)
CPT/HCPCS: 80053; 82150; 85025

== ENCOUNTER 2023-07-01 10:38 | Emergency (ER) | payer MEDICARE, MEDICAID, SELFPAY ==
[2023-07-01 10:44] VITALS: BP 119/52; PULSE 93; O2SAT 95
[2023-07-01 10:46] VITALS: BP 119/52; PULSE 95; RESP 16; TEMP 37.4; O2SAT 96; BMI 31.1
--- NOTE | 2023-07-01 10:47 | HMH.EDGENADL ---
Discharge Plan Disposition Patient Disposition: Home, Self-Care Prescriptions Prescriptions: No Action levothyroxine 75 mcg tablet 75 mcg PO DAILY Patient Comments: TAKE 1 TABLET BY MOUTH ONCE DAILY losartan 100 mg tablet 100 mg PO DAILY Patient Comments: TAKE 1 TABLET BY MOUTH ONCE DAILY folic acid 1 mg tablet 1 mg PO Patient Comments: TAKE 1 TABLET BY MOUTH ONCE DAILY EXCEPT SUNDAYS Farxiga 10 mg tablet 10 mg PO DAILY Patient Comments: TAKE 1 TABLET BY MOUTH ONCE DAILY Rybelsus 3 mg tablet 3 mg PO DAILY amlodipine 5 MG tablet 5 mg PO DAILY Patient Comments: omeprazole 40 MG capsule,delayed release(DR/EC) 40 mg PO DAILY Patient Comments: pravastatin 80 MG tablet 80 mg PO HS Patient Comments: methotrexate sodium 2.5 MG tablet 6 tab PO WEEKLY Patient Comments: insulin detemir U-100 [Levemir U-100 Insulin] 100 UNIT/ML solution 55 units SQ HS Patient Comments: insulin aspart U-100 100 UNIT/ML insulin pen 20 units IN BID Referrals Follow up/Referrals: Luis Maradiaga MD [Primary Care Provider] - See instructions Activity Restrictions/Add. Instructions Additional Instructions/Restrictions: Return to the emergency part with any worsening symptoms or if you change your mind about having a more comprehensive evaluation. Clinical Impressions Clinical Impression: URI (upper respiratory infection) Discharge ED Provider: Jillian Riley General Adult HPI General Chief complaint: Upper Respiratory Infection Stated complaint: cough, diarrhea, weakness Time Seen by Provider: 07/01/23 10:44 History of Present Illness HPI narrative: Patient is a 78-year-old female presenting today stating she just wants to be tested for COVID. She states she has been having some cough myalgias and feeling fatigued. She specifically states that she does not want any other diagnostic testing to be done and just wants to know whether or not she has COVID. She denies any significant shortness of breath any fevers at home or any other symptoms. Related Data Home Medications Medication Instructions Recorded Confirmed amlodipine 5 mg tablet 5 mg PO DAILY blood pressure 03/14/18 06/08/23 insulin detemir U-100 100 unit/mL 55 units SQ HS Diabetes 03/14/18 06/08/23 subcutaneous solution (Levemir U-100 Insulin) methotrexate sodium 2.5 mg tablet 6 tab PO WEEKLY psoriasis 03/14/18 06/08/23 omeprazole 40 mg capsule,delayed 40 mg PO DAILY GERD 03/14/18 06/08/23 release pravastatin 80 mg tablet 80 mg PO HS Cholesterol 03/14/18 06/08/23 insulin aspart U-100 100 unit/mL 20 units IN BID Diabetes 07/11/19 06/08/23 (3 mL) subcutaneous pen dapagliflozin propanediol 10 mg 10 mg PO DAILY 06/08/23 06/08/23 tablet (Farxiga) folic acid 1 mg tablet 1 mg PO 06/08/23 06/08/23 levothyroxine 75 mcg tablet 75 mcg PO DAILY 06/08/23 06/08/23 losartan 100 mg tablet 100 mg PO DAILY 06/08/23 06/08/23 semaglutide 3 mg tablet (Rybelsus) 3 mg PO DAILY 06/08/23 06/08/23 Allergies Allergy/AdvReac Type Severity Reaction Status Date / Time morphine AdvReac Unknown NA-NAUSEA/V Verified 06/08/23 12:41 OMITING PFSH PFSH Disclaimer: The information contained in this section may have been updated after the patient was seen, as this information can be updated by other users. Medical History (Updated 07/01/23 @ 10:49 by Jillian Riley MD) HLD (hyperlipidemia) HTN (hypertension), benign T2DM (type 2 diabetes mellitus) Thyroid disorder Surgical History (Updated 06/08/23 @ 12:44 by Fawn Bowling CMA) History of cholecystectomy Social History Smoking Status: Never smoker alcohol intake: never current occupational status: retired Travel in the last 8 weeks: None household members: spouse housing: house caffeine: Yes ROS Obtained: Yes All systems reviewed & no additional complaints ex
[2023-07-01 10:48] VITALS: BMI 31.1
[2023-07-01 11:00] VITALS: BP 117/60; PULSE 92; O2SAT 96
[2023-07-01 11:11] LABS: Coronavirus 19, PCR Not Detected (NotDetected); Influenza A, PCR Not Detected (NotDetected); Influenza B, PCR Not Detected (NotDetected)
[2023-07-01 11:30] VITALS: BP 124/75; PULSE 91; O2SAT 96
[2023-07-01 11:56] VITALS: BP 124/75; PULSE 90; RESP 19; TEMP 37.4; O2SAT 96
== END 2023-07-01 11:58 | disposition home or self-care (01) ==
PROVIDERS: Emergency Provider Student in an Organized Health Care Education/Training Program; PCP Internal Medicine
DX: J06.9 Acute upper respiratory infection, unspecified (principal); R19.7 Diarrhea, unspecified; R53.1 Weakness; E11.9 Type 2 diabetes mellitus without complications; I10 Essential (primary) hypertension; E78.5 Hyperlipidemia, unspecified; E07.9 Disorder of thyroid, unspecified
CPT/HCPCS: 87636; 99283

== ENCOUNTER → 2023-07-04 13:03 | Outpatient (CLI) | payer MEDICARE, MEDICAID, SELFPAY ==
[2023-07-04 16:14] LABS: Alanine Aminotransferase 44 U/L (12-78); Albumin Level 3.2 g/dl (3.5-5.0); Alkaline Phosphatase 106 U/L (38-126); Anion Gap 13.4 mEq/L (5-15); Aspartate Amino Transferase 114 U/L (14-36); Bilirubin,Total 0.6 mg/dl (0.2-1.3); Blood Urea Nitrogen 16 mg/dl (7-17); Calcium 8.3 mg/dl (8.4-10.2); Carbon Dioxide 25 mmol/L (22.0-30.0); Chloride 102 mmol/L (98-107); Cholesterol 111 mg/dl (140-200); Estimated Glomerular Filt Rate 36 ml/min (>60); GFR (African American) 44 ML/MIN (>60); Globulin 3.2 g/dL (1.3-3.2); Glucose 95 mg/dl (74-100); HDL Cholesterol 22 mg/dl (40-60); Iron 55 ug/dL (37-170); Potassium 4.4 mmoL/L (3.5-5.1); Sodium 136 mmol/L (136-145); Total Protein,Serum 6.4 g/dl (6.3-8.2); Triglycerides 160 mg/dl (30-150); VLDL Cholesterol 32 mg/dL (0-40)
[2023-07-04 16:25] LABS: Direct LDL Cholesterol 63.24 mg/dL (100-129)
[2023-07-04 16:35] LABS: Total Iron Binding Capacity 282 ug/dL (265-497)
[2023-07-20 09:42] LABS: Hepatitis B Core Antibody, IgM Negative; Hepatitis B Surf Ab Quant <3.1; Hepatitis C Antibody Non Reactive
== END ==
PROVIDERS: PCP Internal Medicine; Visit Provider Internal Medicine
DX: E11.42 Type 2 diabetes mellitus with diabetic polyneuropathy (principal); Z79.4 Long term (current) use of insulin; I10 Essential (primary) hypertension; E03.9 Hypothyroidism, unspecified; K74.60 Unspecified cirrhosis of liver
CPT/HCPCS: 80053; 80061; 83036; 83540; 83550; 86706; 87380

== ENCOUNTER → 2023-07-10 08:24 | Outpatient (CLI) | payer MEDICARE, MEDICAID, SELFPAY ==
[2023-07-11 21:08] LABS: Calprotectin, Fecal 262 ug/g (0-120)
[2023-07-13 18:19] LABS: Pancreatic Elastase, Fecal 266 (>200)
[2023-07-20 10:38] LABS: Fibrosis Score 0.58; Fibrosis Stage F2
[2023-07-20 10:39] LABS: NASH Grade N3-SEVERE NASH; NASH Score 0.84; Steatosis Grade S2-S3
[2023-07-20 10:40] LABS: Alpha 2-Macroglobulins, Qn 274; Apolipoprotein A-1 82; Bilirubin, Total 0.3; GGT 43; Haptoglobin 153
[2023-07-20 10:41] LABS: ALT (SGPT) P5P 26; AST (SGOT) P5P 49; Cholesterol, Total 90
[2023-07-20 10:42] LABS: Glucose 111; Triglycerides 120
== END ==
PROVIDERS: PCP Internal Medicine; Visit Provider Nurse Practitioner
DX: K76.0 Fatty (change of) liver, not elsewhere classified (principal); R19.5 Other fecal abnormalities
CPT/HCPCS: 82656; 83993

== ENCOUNTER → 2023-07-12 09:46 | Outpatient (CLI) | payer MEDICARE, MEDICAID, SELFPAY ==
--- NOTE | 2023-07-12 09:46 | NM_ITS ---
FINAL REPORT TECHNIQUE: Sequential anterior images were obtained after the ingestion of 2 whole eggs, white bread toast 2 with butter, and a 6 ounce cup of water radiolabeled with 0.51 mCi technetium 99M sulfur colloid. CLINICAL HISTORY: vomiting /fullness 10:00 am .51 mci tc sulfur colloid injected into 2 whole eggs white bread toasted with butter 6 oz cup of water COMPARISON: None FINDINGS: GASTRIC EMPTYING SCAN Static images show normal emptying of the stomach into the small bowel. Based on the time activity curve, the estimated half-emptying time is 93 minutes. IMPRESSION: Normal gastric emptying study. Reviewed, Interpreted and Dictated by Raffy Mason III, MD Transcribed by Tracey Jones Authenticated and . [facility]
== END ==
PROVIDERS: PCP Internal Medicine; Visit Provider Nurse Practitioner
DX: K76.0 Fatty (change of) liver, not elsewhere classified (principal); R19.5 Other fecal abnormalities
CPT/HCPCS: 78264; A9541

== ENCOUNTER 2023-08-03 07:54 | Day surgery (SDC) | payer MEDICARE, MEDICAID, SELFPAY ==
[2023-08-03 08:12] VITALS: BP 151/64; PULSE 86; RESP 18; TEMP 37.1; O2SAT 96; BMI 34.9
[2023-08-03 08:29] LABS: POC Glucose,Bedside 135 (70-110)
--- NOTE | 2023-08-03 08:32 | P.PNANES_ITS ---
[facility] Disclaimer: The information contained in this section may have been updated after the patient was seen, as this information can be updated by other users. Medical History HLD (hyperlipidemia) HTN (hypertension), benign T2DM (type 2 diabetes mellitus) Thyroid disorder Surgical History History of cholecystectomy Hx of laparoscopic gastric banding Family History Other Family history of cancer Family history of stroke Social History Smoking Status: Never smoker alcohol intake: never substance use type: denies use current occupational status: retired Travel in the last 8 weeks: None household members: spouse housing: house lives independently: No marital status: caffeine: No H Anesthesia Checklist Patient Identification Patient Identification: Arm Band and Other: Structural Data Admitted From: Home Planned Operative Procedure/s: EGD Consent for Planned Operative Procedure(s) Verified: Yes Verified Documents: Surgical Consent and History and Physical NPO Status Verified Time NPO: 00:00 Additional verifications Patient : No Anesthesia Reactions: No Hx Blood Transfusions: No Blood Transfusion Reaction: No Cephalosporin Allergy: No Previous Colonoscopy: Yes Airway Assessment Mallampati Score:: Class II C-Spine Mobility Assessed: Yes TMJ Mobility Assessed: Yes Dentition: Partials Neurological Assessment Level of Consciousness: Awake, Alert, Appropriate and Follows Commands Hx Seizures: No Numbness or tingling in extremities: No Anesthesia Plan Anesthesia Risk discussed: Yes ASA Class: II Anesthesia Type: MAC Preoperative Comments Pre-Operative Comments: IDDM. Acid reflux. History of banding 14 yearsago.
[2023-08-03 08:56] VITALS: O2SAT 92
--- NOTE | 2023-08-03 09:08 | HMH.SCOPE ---
Procedure: Date: 08/03/23 Patient Date of :: 1945 Procedure Performed:: EGD & bougie dilation Indications:: Nausea/Vomiting, Dysphagia Performing Provider:: Annie Hicks MD Referring Provider:: Chika Hicks APRN Sedation:: Propofol Procedure:: The gastroscope was gently passed through the incisoral orifice into the oral cavity and under direct visualization the esophagus was intubated. The endoscope was passed down the esophagus, through the stomach, and into the duodenum. Color, texture, mucosa, and anatomy of the esophagus, stomach, and duodenum were carefully examined with the scope. Findings:: Oropharynx: normal Esophagus: normal EG Junction: intact at 40 cm, bougie dilation performed with 56F dilator Cardia: Superior migration of lap band noted, now positioned near EG Junction, out of position Fundus: normal Body: normal Antrum: normal Duodenal bulb: normal Duodenum (second and third portion): normal Impression: Previously placed lap band out of position causing dysphagia symptoms Nausea/vomiting secondary to overflow of food due to volume consumed Recommendations:: Removal of lap band will improve symptoms, especially since patient has already gained all of her previous weight back. Complications:: None Estimated blood obtained (mL): 0 Colonoscopy Component Colonoscopy Component Was a colonoscopy performed during today's procedure?: No
[2023-08-03 09:15] VITALS: BP 145/78; PULSE 80; RESP 18; TEMP 36.4; O2SAT 96
[2023-08-03 09:25] VITALS: BP 137/72; PULSE 79; RESP 18; TEMP 36.4; O2SAT 97
[2023-08-03 09:35] VITALS: BP 132/69; PULSE 72; RESP 18; TEMP 36.4; O2SAT 98
[2023-08-03 09:51] VITALS: BP 139/70; PULSE 70; RESP 18; TEMP 36.6; O2SAT 96
== END 2023-08-03 09:51 | disposition home or self-care (01) ==
PROVIDERS: PCP Internal Medicine; Visit Provider Internal Medicine Gastroenterology
PROC: 0DJ08ZZ Inspection of Upper Intestinal Tract, Via Natural or Artificial Opening Endoscopic (ICD-10-PCS; CPT 43235; principal; 2023-08-03 09:00)
DX: K95.09 Other complications of gastric band procedure (principal); R13.10 Dysphagia, unspecified; R11.2 Nausea with vomiting, unspecified; E11.9 Type 2 diabetes mellitus without complications
CPT/HCPCS: 43248; 82962

== ENCOUNTER 2023-11-02 23:43 | Emergency (ER) | payer MEDICARE, MEDICAID, SELFPAY ==
[2023-11-02 23:44] VITALS: BP 149/99; PULSE 90; RESP 18; TEMP 36.9; O2SAT 96; BMI 36.6
--- NOTE | 2023-11-02 23:45 | ECG_ITS ---
APPROVED REPORT Exam: Resting ECG HR:90 bpm ECG Measurements Heart Rate 90 AXES WY 199 P 68 QRSd 81 QRS 68 QT 380 T 76 QTc 428 Conclusion SINUS RHYTHM LOW QRS VOLTAGE IN PRECORDIAL LEADS [QRS DEFLECTION < 1.0 mV IN CHEST LEADS] BORDERLINE ECG UNCONFIRMED REPORT Electronically signed by : Khalif Cleveland MD 11/03/2023 08:26:52
--- NOTE | 2023-11-02 23:45 | XR_ITS ---
PROCEDURE INFORMATION: Exam: XR Chest Exam date and time: 11/02/2023 11:52 PM Age: 78 years old Clinical indication: Sternal or substernal pain; Additional info: Cp TECHNIQUE: Imaging protocol: Radiologic exam of the chest. Views: 1 view. COMPARISON: DX CXR2V XR chest 2V 03/14/2018 11:27 AM FINDINGS: Lungs: Unremarkable. No consolidation. Pleural spaces: Unremarkable. No pleural effusion. No pneumothorax. Heart/Mediastinum: Unremarkable. No cardiomegaly. Bones/joints: Unremarkable. IMPRESSION: No acute findings.
--- NOTE | 2023-11-02 23:45 | HMH.EDGENADL ---
Discharge Plan Disposition Patient Disposition: Home, Self-Care Condition: Good Chief Complaint: Chest Pain Prescriptions Prescriptions: No Action losartan 100 mg tablet 100 mg PO DAILY Patient Comments: TAKE 1 TABLET BY MOUTH ONCE DAILY Farxiga 10 mg tablet 10 mg PO DAILY Patient Comments: TAKE 1 TABLET BY MOUTH ONCE DAILY folic acid 1 mg tablet 1 mg PO WEEKLY Patient Comments: TAKE 1 TABLET BY MOUTH ONCE DAILY EXCEPT SUNDAYS levothyroxine 75 mcg tablet 88 mcg PO DAILY Patient Comments: TAKE 1 TABLET BY MOUTH ONCE DAILY Rybelsus 7 mg tablet PO furosemide 40 mg tablet 40 mg PO DAILY (DME) Accu-Chek Guide test strips Strip See Rx Instructions .ROUTE .MEDSUPPLY Qty: 10 Rx Instructions: As directed (DME) insulin syringe-needle U-100 [BD Veo Insulin Syringe UF] 1 mL 31 gauge x 15/64 syringe See Rx Instructions .ROUTE .MEDSUPPLY Qty: 10 Patient Comments: USE 1 SYRINGE ONCE DAILY Rx Instructions: As directed (DME) pen needle, diabetic [BD Ultra-Fine Short Pen Needle] 31 gauge x 5/16 needle See Rx Instructions .ROUTE .MEDSUPPLY Qty: 1200 Patient Comments: USE DIRECTED FOR INSULIN PENS Rx Instructions: As directed amlodipine 5 MG tablet 5 mg PO DAILY Patient Comments: omeprazole 40 MG capsule,delayed release(DR/EC) 40 mg PO DAILY Patient Comments: pravastatin 80 MG tablet 80 mg PO HS Patient Comments: methotrexate sodium 2.5 MG tablet 6 tab PO WEEKLY Patient Comments: Levemir U-100 Insulin 100 UNIT/ML solution 55 units SQ HS Patient Comments: insulin aspart U-100 [Novolog FlexPen U-100 Insulin] 100 UNIT/ML insulin pen 20 units IN BID Referrals Follow up/Referrals: Provider,Referral, MD [Primary Care Provider] - See instructions Clinical Impressions Clinical Impression: Chest pain Instructions Patient Instructions: DI for Atypical Chest Pain, DI for Chest Pain, Heart Failure Discharge ED Provider: Bertram Hong General Adult HPI General Chief complaint: Chest Pain Stated complaint: Chest pain Time Seen by Provider: 11/02/23 23:44 History of Present Illness HPI narrative: Patient has a PMHx significant for hypertension, hyperlipidemia, diabetes, hypothyroidism who presents to the ED with complaints of chest pain. Patient notes that around 11:00 this evening, she was watching a movie when she had sudden onset of chest pain. Patient denies any nausea, vomiting, diaphoresis associated with the chest pain. Patient notes that the chest pain was on the left side of her chest, not radiating anywhere. Patient describes the pain as a pressure sensation. Patient denies any prior cardiac history. Negative blood thinners. Related Data Home Medications Medication Instructions Recorded Confirmed amlodipine 5 mg tablet 5 mg PO DAILY blood pressure 03/14/18 11/01/23 insulin detemir U-100 100 unit/mL 55 units SQ HS Diabetes 03/14/18 11/01/23 subcutaneous solution (Levemir U-100 Insulin) methotrexate sodium 2.5 mg tablet 6 tab PO WEEKLY psoriasis 03/14/18 11/01/23 omeprazole 40 mg capsule,delayed 40 mg PO DAILY GERD 03/14/18 11/01/23 release pravastatin 80 mg tablet 80 mg PO HS Cholesterol 03/14/18 11/01/23 insulin aspart U-100 100 unit/mL 20 units IN BID Diabetes 07/11/19 11/01/23 (3 mL) subcutaneous pen (Novolog FlexPen U-100 Insulin aspart) dapagliflozin propanediol 10 mg 10 mg PO DAILY . 06/08/23 11/01/23 tablet (Farxiga) losartan 100 mg tablet 100 mg PO DAILY BP 06/08/23 11/01/23 blood sugar diagnostic (Accu-Chek #10 ea 10/05/23 11/01/23 Guide test strips) folic acid 1 mg tablet 1 mg PO WEEKLY . 10/05/23 11/01/23 furosemide 40 mg tablet 40 mg PO DAILY 10/05/23 11/01/23 insulin syringe-needle U-100 1 mL #10 ea 10/05/23 11/01/23 31 gauge x 15/64 (BD Veo Insulin Syringe Ultra-F
[2023-11-02 23:57] LABS: Basophils % 0.3 % (0.1-2.0); Eosinophils # 0.1 K/mm3 (0.0-0.4); Hematocrit 30.7 % (37.0-47.0); Lymphocytes # 1.1 K/mm3 (0.7-4.5); Lymphocytes % 17.9 % (10-50); Mean Corpuscular HGB Conc 32.7 g/dL (31.8-35.4); Mean Corpuscular Volume 82.7 fl (81-99); Mean Platelet Volume 8.9 fl (7.4-10.4); Monocytes # 0.3 K/mm3 (0.1-1.0); Monocytes % 4.6 % (1.7-9.3); Neutrophils # 4.5 K/mm3 (1.8-7.8); Neutrophils % 75.2 % (37.0-80.0); Platelet Count 281 K/mm3 (142-424); Red Blood Count 3.71 M/mm3 (4.20-5.40)
[2023-11-03 00:01] VITALS: BP 130/54; PULSE 86; RESP 16; O2SAT 95
[2023-11-03 00:03] LABS: Lactic Acid 2.4 mmol/L (0.7-2.1)
[2023-11-03 00:04] LABS: Alanine Aminotransferase 39 U/L (12-78); Albumin Level 3.8 g/dl (3.5-5.0); Alkaline Phosphatase 95 U/L (38-126); Anion Gap 9.2 mEq/L (5-15); Aspartate Amino Transferase 56 U/L (14-36); Bilirubin,Total 0.5 mg/dl (0.2-1.3); Blood Urea Nitrogen 14 mg/dl (7-17); Calcium 8.5 mg/dl (8.4-10.2); Carbon Dioxide 28 mmol/L (22.0-30.0); Chloride 94 mmol/L (98-107); Creatinine Clearance Estimated 41 mL/min (50-200); Estimated Glomerular Filt Rate 31 ml/min (>60); GFR (African American) 38 ML/MIN (>60); Globulin 3.8 g/dL (1.3-3.2); Glucose 209 mg/dl (74-100); Potassium 3.2 mmoL/L (3.5-5.1); Sodium 128 mmol/L (136-145); Total Protein,Serum 7.6 g/dl (6.3-8.2)
[2023-11-03 00:30] VITALS: BP 130/60; PULSE 82; RESP 15; O2SAT 97
[2023-11-03 00:51] LABS: Troponin I < 0.01 ng/ml (0.00-0.034)
[2023-11-03 01:00] VITALS: BP 129/63; PULSE 80; RESP 20; O2SAT 94
[2023-11-03 02:13] LABS: Troponin I < 0.01 ng/ml (0.00-0.034)
--- NOTE | 2023-11-03 02:16 | PC.NURSE ---
in room talking with patient at this time.
[2023-11-03 02:27] VITALS: BP 134/63; PULSE 83; RESP 18; TEMP 36.7; O2SAT 96
== END 2023-11-03 02:35 | disposition home or self-care (01) ==
PROVIDERS: Emergency Provider Emergency Medicine; PCP Internal Medicine
DX: R07.9 Chest pain, unspecified (principal); I10 Essential (primary) hypertension; E78.5 Hyperlipidemia, unspecified; E11.9 Type 2 diabetes mellitus without complications; E03.9 Hypothyroidism, unspecified
CPT/HCPCS: 71045; 80053; 83605; 84484; 85025; 93005; 99285

== ENCOUNTER → 2023-11-10 10:53 | Outpatient (CLI) | payer MEDICARE, MEDICAID, SELFPAY ==
--- NOTE | 2023-11-10 10:53 | CA_ITS ---
APPROVED REPORT EXAM: Comprehensive 2D, Doppler, and color-flow Echocardiogram Windows Application Packager: Sparkle Lincoln RT(R) Ht: 5 ft 2 in Wt: 200lbs BSA: 1.91 BP: 117/69 mmHg Indications: abn EKG, pre op to remove lap band, DM, HTN, hyperlipidemia, CP 2D Dimensions Left Atrium 2.94 cm F: 2.7 - 3.8 LA Volume 19.90 mL LVOT 1.78 cm (M/F) 1.5-2.5 LA Volume Index 10.42 mL/m2 (M/F) 16-34 EF AP4 52.20 % GL Strain -15.9 % M-Mode Dimensions RVDd 2.85 cm (0.9-2.6) LVDd 3.99 cm (3.5-5.7) Ao Diam 2.56 cm (2.0-3.7) LVDs 2.85 cm (3.5-5.7) IVSd 1.15 cm (0.6-1.1) PWd 1.10 cm (0.6-1.1) EF (Teich) 55.60% FS 28.60% EDV (Teich) 69.60 mL ESV (Teich) 30.90 mL LV Diastology E Decel Time 181 (160-240 msec) E/A Ratio 0.5 MED E' 6.2 (>= 7 cm/sec) E'/MED E' Ratio 9.95 (<= 14) LAT E' 9.7 (>= 10 cm/sec) E/LAT E' Ratio 6.36 (<= 14) Mitral Valve MV E Max Daron. 62.0 (40-130 cm/s) MV A Velocity 127.0 (40-130 cm/s) E/A Ratio 0.49 MV Decel. Time 181 (160-240 ms) Left Ventricle The left ventricle is normal size. The left ventricular systolic function is normal. The left ventricular ejection fraction is within the normal range. There is increased LV wall thickness. There is normal LV segmental wall motion. Transmitral Doppler flow pattern suggests impaired LV relaxation. LVEF is 55%. Right Ventricle The right ventricle is mildly dilated. The right ventricular systolic function is normal. Atria The left atrium size is normal. The right atrium size is normal. There is no Doppler evidence of interatrial shunt. Aortic Valve The aortic valve is mildly thickened. Aortic sclerosis, but no evidence of aortic stenosis. Trace aortic regurgitation. Mitral Valve The mitral valve leaflets are mildly thickened. No evidence of mitral valve stenosis. Trace mitral regurgitation. Tricuspid Valve The tricuspid valve leaflets are thin and pliable. Trace tricuspid regurgitation. There is insufficient TR jet to estimate RVSP. Pulmonic Valve The pulmonary valve is normal in structure. Trace pulmonic regurgitation. Great Vessels The aortic root is normal in size. IVC is normal in size and collapses >50% with inspiration. Pericardium There is no pericardial effusion. Other Information Study Quality: Fair Conclusion Normal biventricular systolic function. Mild RV dilation. No hemodynamically significant aortic stenosis or regurgitation. Electronically signed by : Anupama Stevens MD 11/14/2023 10:39:10
== END ==
PROVIDERS: PCP Internal Medicine; Visit Provider Nurse Practitioner Family
DX: I10 Essential (primary) hypertension (principal); R07.9 Chest pain, unspecified
CPT/HCPCS: 93306

== ENCOUNTER 2024-01-08 17:01 | Outpatient (CLI) | payer MEDICARE, SELFPAY ==
[2024-01-08 17:30] LABS: Basophils % 0.2 % (0.1-2.0); Eosinophils # 0.3 K/mm3 (0.0-0.4); Eosinophils % 4.1 % (0.1-12.0); Hematocrit 30.4 % (37.0-47.0); Hemoglobin 9.7 g/dL (12.2-16.2); Lymphocytes # 1.4 K/mm3 (0.7-4.5); Lymphocytes % 19.5 % (10-50); Mean Corpuscular HGB Conc 31.9 g/dL (31.8-35.4); Mean Corpuscular Hemoglobin 26.4 pg (27.0-31.2); Mean Corpuscular Volume 82.7 fl (81-99); Monocytes # 0.7 K/mm3 (0.1-1.0); Neutrophils # 4.9 K/mm3 (1.8-7.8); Neutrophils % 66.3 % (37.0-80.0); Platelet Count 234 K/mm3 (142-424); Red Blood Count 3.68 M/mm3 (4.20-5.40); Red Cell Distribution Width 20.5 % (11.5-17.5); White Blood Count 7.4 K/mm3 (4.8-10.8)
[2024-01-08 17:50] LABS: Alanine Aminotransferase 36 U/L (12-78); Albumin Level 3.6 g/dl (3.5-5.0); Albumin/Globulin Ratio 1.1 (1.1-1.8); Alkaline Phosphatase 103 U/L (38-126); Aspartate Amino Transferase 57 U/L (14-36); Bilirubin,Total 0.5 mg/dl (0.2-1.3); Blood Urea Nitrogen 19 mg/dl (7-17); Calcium 9.1 mg/dl (8.4-10.2); Carbon Dioxide 26 mmol/L (22.0-30.0); Chloride 101 mmol/L (98-107); Chol/HDL Ratio 3.1 (1-3.5); Cholesterol 153 mg/dl (140-200); Estimated Glomerular Filt Rate 36 ml/min (>60); GFR (African American) 44 ML/MIN (>60); Globulin 3.3 g/dL (1.3-3.2); Glucose 196 mg/dl (74-100); HDL Cholesterol 50 mg/dl (40-60); Sodium 136 mmol/L (136-145); Total Protein,Serum 6.9 g/dl (6.3-8.2); Triglycerides 147 mg/dl (30-150); VLDL Cholesterol 29 mg/dL (0-40)
[2024-01-08 18:01] LABS: Direct LDL Cholesterol 68.89 mg/dL (100-129)
[2024-01-08 18:58] LABS: Microalbumin/Creatinine Ratio 50.8
[2024-01-08 19:03] LABS: Creatinine,Urine Random 82 mg/dL (Not Estab.)
[2024-01-08 20:04] LABS: Hemoglobin A1C 8.6 % (4.0-6.0)
[2024-01-09 11:59] LABS: Iron 37 ug/dL (37-170)
[2024-01-09 12:13] LABS: Total Iron Binding Capacity 402 ug/dL (265-497)
[2024-01-09 12:34] LABS: Vitamin B12 896 pg/mL (239-931)
[2024-01-09 12:35] LABS: Folate > 20.00 ng/mL
== END 2024-01-08 23:59 ==
LOC: LAB.DROPOF 17:01
PROVIDERS: PCP Internal Medicine; Visit Provider Internal Medicine
DX: E11.42 Type 2 diabetes mellitus with diabetic polyneuropathy; D64.9 Anemia, unspecified; E78.5 Hyperlipidemia, unspecified; I10 Essential (primary) hypertension; E03.9 Hypothyroidism, unspecified; K74.60 Unspecified cirrhosis of liver; Z79.4 Long term (current) use of insulin
CPT/HCPCS: 80053; 80061; 82043; 82570; 82607; 82746; 83036; 83540; 83550; 84443; 85025

== ENCOUNTER 2024-04-08 12:58 | Outpatient (CLI) | payer MEDICARE, SELFPAY ==
[2024-04-08 14:03] LABS: Basophils % 0.6 % (0.1-2.0); Eosinophils # 0.2 K/mm3 (0.0-0.4); Eosinophils % 2.9 % (0.1-12.0); Hematocrit 29.9 % (37.0-47.0); Hemoglobin 8.9 g/dL (12.2-16.2); Lymphocytes % 15.9 % (10-50); Mean Corpuscular HGB Conc 29.7 g/dL (31.8-35.4); Mean Corpuscular Hemoglobin 24.9 pg (27.0-31.2); Mean Corpuscular Volume 83.8 fl (81-99); Mean Platelet Volume 8.8 fl (7.4-10.4); Monocytes # 0.8 K/mm3 (0.1-1.0); Monocytes % 12.5 % (1.7-9.3); Neutrophils # 4.2 K/mm3 (1.8-7.8); Platelet Count 216 K/mm3 (142-424); Red Blood Count 3.57 M/mm3 (4.20-5.40); Red Cell Distribution Width 21.5 % (11.5-17.5); White Blood Count 6.1 K/mm3 (4.8-10.8)
[2024-04-08 14:46] LABS: Alanine Aminotransferase 33 U/L (12-78); Albumin Level 3.7 g/dl (3.5-5.0); Albumin/Globulin Ratio 1.1 (1.1-1.8); Alkaline Phosphatase 86 U/L (38-126); Amylase 80 U/L (30-110); Anion Gap 13.5 mEq/L (5-15); Aspartate Amino Transferase 51 U/L (14-36); Bilirubin,Total 0.6 mg/dl (0.2-1.3); Blood Urea Nitrogen 21 mg/dl (7-17); Carbon Dioxide 28 mmol/L (22.0-30.0); Chloride 97 mmol/L (98-107); Estimated Glomerular Filt Rate 36 ml/min (>60); GFR (African American) 44 ML/MIN (>60); Globulin 3.5 g/dL (1.3-3.2); Glucose 322 mg/dl (74-100); Potassium 4.5 mmoL/L (3.5-5.1); Sodium 134 mmol/L (136-145); Total Protein,Serum 7.2 g/dl (6.3-8.2)
[2024-04-08 15:58] LABS: Hemoglobin A1C 9.2 % (4.0-6.0)
== END 2024-04-08 23:59 | disposition home or self-care (01) ==
LOC: LAB.DROPOF 13:00
PROVIDERS: PCP Internal Medicine; Visit Provider Internal Medicine
DX: E03.9 Hypothyroidism, unspecified (principal); E11.42 Type 2 diabetes mellitus with diabetic polyneuropathy; I10 Essential (primary) hypertension; R10.11 Right upper quadrant pain; K74.60 Unspecified cirrhosis of liver; Z79.4 Long term (current) use of insulin; Z79.84 Long term (current) use of oral hypoglycemic drugs
CPT/HCPCS: 80053; 82150; 83036; 85025

== ENCOUNTER 2024-07-15 14:31 | Outpatient (CLI) | payer MEDICARE, SELFPAY ==
[2024-07-15 12:36] LABS: Basophils % 0.3 % (0.1-2.0); Eosinophils # 0.1 K/mm3 (0.0-0.4); Eosinophils % 1.6 % (0.1-12.0); Hematocrit 34.5 % (37.0-47.0); Hemoglobin 10.2 g/dL (12.2-16.2); Lymphocytes # 0.7 K/mm3 (0.7-4.5); Lymphocytes % 9.1 % (10-50); Mean Corpuscular HGB Conc 29.5 g/dL (31.8-35.4); Mean Corpuscular Hemoglobin 26.1 pg (27.0-31.2); Mean Corpuscular Volume 88.3 fl (81-99); Mean Platelet Volume 8.8 fl (7.4-10.4); Monocytes # 0.3 K/mm3 (0.1-1.0); Monocytes % 3.9 % (1.7-9.3); Neutrophils # 6.7 K/mm3 (1.8-7.8); Neutrophils % 85.2 % (37.0-80.0); Platelet Count 249 K/mm3 (142-424); Red Blood Count 3.91 M/mm3 (4.20-5.40); Red Cell Distribution Width 19.5 % (11.5-17.5); White Blood Count 7.9 K/mm3 (4.8-10.8)
[2024-07-15 12:39] LABS: MANUAL DIFFERENTIAL MANUAL DIFFERENTIAL (MANUAL DIFF)
[2024-07-15 12:54] LABS: Hemoglobin A1C 9.9 % (4.0-6.0)
[2024-07-15 13:02] LABS: Lymphocytes % 11 % (10-50); Monocytes % 4 % (2-9); Neutrophils % 85 % (42-76); Total Cells Counted 100
[2024-07-15 13:03] LABS: Platelet Estimate Normal; RBC Morphology Normal
[2024-07-15 13:15] LABS: Alanine Aminotransferase 34 U/L (12-78); Albumin Level 3.1 g/dl (3.5-5.0); Albumin/Globulin Ratio 0.9 (1.1-1.8); Alkaline Phosphatase 89 U/L (38-126); Anion Gap 8.9 mEq/L (5-15); Aspartate Amino Transferase 56 U/L (14-36); Bilirubin,Total 0.6 mg/dl (0.2-1.3); Blood Urea Nitrogen 15 mg/dl (7-17); Calcium 8.9 mg/dl (8.4-10.2); Carbon Dioxide 26 mmol/L (22.0-30.0); Chloride 101 mmol/L (98-107); Chol/HDL Ratio 3.2 (1-3.5); Cholesterol 126 mg/dl (140-200); Estimated Glomerular Filt Rate 43 ml/min (>60); GFR (African American) 52 ML/MIN (>60); Globulin 3.3 g/dL (1.3-3.2); Glucose 234 mg/dl (74-100); HDL Cholesterol 40 mg/dl (40-60); Potassium 3.9 mmoL/L (3.5-5.1); Sodium 132 mmol/L (136-145); Total Protein,Serum 6.4 g/dl (6.3-8.2); Triglycerides 160 mg/dl (30-150); VLDL Cholesterol 32 mg/dL (0-40)
[2024-07-15 13:27] LABS: Direct LDL Cholesterol 54.92 mg/dL (100-129)
[2024-07-15 13:44] LABS: Thyroid Stimulating Hormone 3.78 uIU/mL (0.465-4.68)
[2024-07-15 14:15] LABS: Vitamin B12 > 1000 pg/mL (239-931)
== END 2024-07-15 23:59 | disposition home or self-care (01) ==
LOC: LAB.DROPOF 14:31
PROVIDERS: PCP Internal Medicine; Visit Provider Internal Medicine
DX: E11.42 Type 2 diabetes mellitus with diabetic polyneuropathy (principal); I10 Essential (primary) hypertension; E78.5 Hyperlipidemia, unspecified; E03.9 Hypothyroidism, unspecified; D64.9 Anemia, unspecified; Z79.4 Long term (current) use of insulin; Z79.84 Long term (current) use of oral hypoglycemic drugs; Z79.85 Long-term (current) use of injectable non-insulin antidiabetic drugs
CPT/HCPCS: 80050; 80053; 80061; 82607; 83036; 84443; 85007; 85025

== ENCOUNTER 2024-10-21 07:15 | Outpatient (CLI) | payer MEDICARE, MEDICAID, SELFPAY ==
--- NOTE | 2024-10-21 07:16 | CA_ITS ---
APPROVED REPORT EXAM: Comprehensive 2D, Doppler, and color-flow Echocardiogram Ship Runner: Maggi Buitrago CRT Ht: 5 ft 1 in Wt: 231lbs BSA: 2.01 BP: 136/74 mmHg Indications: Abnormal ECG, Murmur, Diabetes, Obesity, Hyperlipidemia, Hypertension/HDD M-Mode Dimensions RVDd 3.45 cm (0.9-2.6) LA Diam 3.41 cm (1.9-4.0) LVDd 3.89 cm (3.5-5.7) LVDs 2.49 cm (3.5-5.7) IVSd 1.57 cm (0.6-1.1) PWd 0.96 cm (0.6-1.1) EF (Teich) 66.30% FS 36.00% EDV (Teich) 65.50 mL TAPSE 2.30 (<1.7) ESV (Teich) 22.10 mL LV Diastology E Decel Time 390 (160-240 msec) E/A Ratio 0.69 MED A' 15.70 cm/s LAT A' 16.20 cm/s Aortic Valve XAVIER Index 1.17 cm2/m2 AoV Peak Daron. 186.0 (50-130 cm/s) AO Peak GR. 14.10 mmHg AO Mean GR. 7.20 (<5 mmHg) AO VTI 39.0 (18-25 cm) XAVIER (VTI) 2.40 (2.5-4.5 cm2) Mitral Valve MV A Velocity 119.0 (40-130 cm/s) E/A Ratio 0.69 Tricuspid Valve TR P. Velocity 270.00 cm/s RAP Estimate 10.00 mmHg RVSP 39.10 mmHg Left Ventricle The left ventricle is normal size. The left ventricular systolic function is normal. The left ventricular ejection fraction is within the normal range. There is increased LV wall thickness. There is normal LV segmental wall motion. Transmitral Doppler flow pattern suggests impaired LV relaxation. LVEF is 55%. Right Ventricle The right ventricle is mildly dilated. The right ventricular systolic function is normal. Atria The left atrium size is normal. The right atrium size is normal. There is no Doppler evidence of interatrial shunt. Aortic Valve Aortic valve is mildly thickened. Trace aortic regurgitation. Borderline mild aortic stenosis is present. Peak velocity 2.1 m/s. Mean AV gradient 11 mmHg. Max AV gradient 20 mmHg. XAVIER by continuity equation is 2.0 cm???. Mitral Valve The mitral valve is normal in structure. No evidence of mitral valve stenosis. Trace mitral regurgitation. Tricuspid Valve Tricuspid valve is grossly normal in structure and function. Trace tricuspid regurgitation. There is insufficient TR jet to estimate RVSP. Pulmonic Valve The pulmonary valve is normal in structure. Mild pulmonic regurgitation. Great Vessels The aortic root is normal in size. The ascending aorta is normal in size. IVC is normal in size and collapses >50% with inspiration. Pericardium There is no pericardial effusion. Other Information Study Quality: Fair Conclusion Normal biventricular systolic function. Mild RV dilation Borderline mild (Peak velocity 2.1 m/s. Mean AV gradient 11 mmHg. Max AV gradient 20 mmHg. XAVIER by continuity equation is 2.0 cm???). Mild PI. Electronically signed by : Anupama Stevens MD 10/28/2024 14:16:37
--- NOTE | 2024-10-21 07:16 | US_ITS ---
FINAL REPORT TECHNIQUE: Sonographic images of the abdomen were obtained in all four quadrants. CLINICAL HISTORY: Suspect ascites COMPARISON: 04/06/2023 FINDINGS: LIVER: There is increased echogenicity consistent with fatty infiltration.. No focal hepatic lesion or intrahepatic biliary dilatation. GALLBLADDER: The gallbladder is surgically absent. The common duct measures 4 mm. This is within normal limits for age. PANCREAS: Unremarkable. RIGHT KIDNEY: 10.8 cm. No hydronephrosis, mass or stone. LEFT KIDNEY: 10.5 cm. No hydronephrosis, mass or stone. SPLEEN: 14.8 cm, enlarged. No focal splenic lesion. AORTA/IVC: No abdominal aortic aneurysm. Visualized IVC within normal limits. OTHER: No ascites. IMPRESSION: Fatty infiltration of the liver. Splenomegaly. Gallbladder surgically absent, without evidence of biliary ductal dilatation. Reviewed, Interpreted and Dictated by Felipa Solano MD Transcribed by Any Braun Authenticated and [facility]
--- NOTE | 2024-10-21 07:16 | XR_ITS ---
FINAL REPORT CLINICAL HISTORY: Posterior neck pain FINDINGS: 5 views of the cervical spine were obtained. There is no prior exam for comparison. There is no acute fracture or malalignment through C6. The cervicothoracic junction is not well-evaluated due to overlapping soft tissue. There is mild multilevel degenerative disc disease. The precervical soft tissues are normal. IMPRESSION: Limited evaluation of the cervicothoracic junction, otherwise no acute cervical spine abnormality. Degenerative disc disease. Consider CT or MRI if pain persists. Reviewed, Interpreted and Dictated by Felipa Solano MD Transcribed by Portia [place] Authenticated and . [facility]
--- NOTE | 2024-10-21 07:16 | XR_ITS ---
FINAL REPORT CLINICAL HISTORY: Mid back pain COMPARISON: 11/29/2021 FINDINGS: AP, lateral, and swimmer's views of the thoracic spine were obtained. There is no acute fracture or acute malalignment. There is multilevel degenerative disc disease that has progressed since the prior exam. There is no acute paraspinal abnormality. IMPRESSION: Progressing degenerative disc disease without acute abnormality. If pain persists, consider MRI or CT. Reviewed, Interpreted and Dictated by Felipa Solano MD Transcribed by Portia Park Authenticated and [facility]
== END 2024-10-21 23:59 | disposition home or self-care (01) ==
LOC: RAD 07:16
PROVIDERS: PCP Internal Medicine; Visit Provider Internal Medicine
DX: M54.6 Pain in thoracic spine (principal); K76.0 Fatty (change of) liver, not elsewhere classified; R16.1 Splenomegaly, not elsewhere classified; R19.8 Other specified symptoms and signs involving the digestive system and abdomen; R01.1 Cardiac murmur, unspecified; R60.0 Localized edema; M54.2 Cervicalgia
CPT/HCPCS: 72052; 72072; 76700; 93306

== ENCOUNTER 2024-12-26 15:26 | Outpatient (CLI) | payer MEDICARE, MEDICAID, SELFPAY ==
--- NOTE | 2024-12-26 15:33 | CA_ITS ---
FINAL REPORT TECHNIQUE: Multiple transverse and longitudinal images were performed of the right femoral-popliteal deep venous system with augmentation and compression maneuvers. CLINICAL HISTORY: redness and swelling of right lower leg x 3 days COMPARISON: None FINDINGS: Right lower extremity duplex ultrasound demonstrates normal flow in the deep venous system. There is no abnormal echogenicity to suggest thrombus. There is normal compression and augmentation. IMPRESSION: No evidence of right lower extremity DVT. Reviewed, Interpreted and Dictated by Floyd Abraham MD Transcribed by Any Braun Authenticated and [facility]
[2024-12-26 17:34] LABS: Basophils # 0.1 K/mm3 (0-0.2); Basophils % 0.6 % (0.1-2.0); Eosinophils # 0.4 K/mm3 (0.0-0.4); Eosinophils % 4.6 % (0.1-12.0); Hematocrit 25.7 % (37.0-47.0); Hemoglobin 7.4 g/dL (12.2-16.2); Lymphocytes # 1.8 K/mm3 (0.7-4.5); Mean Corpuscular HGB Conc 28.8 g/dL (31.8-35.4); Mean Corpuscular Hemoglobin 22.2 pg (27.0-31.2); Mean Corpuscular Volume 76.9 fl (81-99); Mean Platelet Volume 10.9 fl (7.4-10.4); Monocytes # 1.2 K/mm3 (0.1-1.0); Monocytes % 15.2 % (1.7-9.3); Neutrophils # 4.4 K/mm3 (1.8-7.8); Platelet Count 237 K/mm3 (142-424); Red Blood Count 3.34 M/mm3 (4.20-5.40); Red Cell Distribution Width 16.6 % (11.5-17.5); White Blood Count 7.9 K/mm3 (4.8-10.8)
[2024-12-26 19:01] LABS: Alanine Aminotransferase 25 U/L (12-78); Albumin Level 3.7 g/dl (3.5-5.0); Alkaline Phosphatase 116 U/L (38-126); Anion Gap 13.8 mEq/L (5-15); Aspartate Amino Transferase 49 U/L (14-36); Bilirubin,Total 0.5 mg/dl (0.2-1.3); Blood Urea Nitrogen 17 mg/dl (7-17); Calcium 8.8 mg/dl (8.4-10.2); Carbon Dioxide 25 mmol/L (22.0-30.0); Chloride 102 mmol/L (98-107); Chol/HDL Ratio 2.2 (1-3.5); Cholesterol 120 mg/dl (140-200); Estimated Glomerular Filt Rate 36 ml/min (>60); GFR (African American) 44 ML/MIN (>60); Globulin 3.8 g/dL (1.3-3.2); Glucose 219 mg/dl (74-100); HDL Cholesterol 54 mg/dl (40-60); Magnesium 2.1 mg/dl (1.6-2.3); Potassium 3.8 mmoL/L (3.5-5.1); Sodium 137 mmol/L (136-145); Total Protein,Serum 7.5 g/dl (6.3-8.2); Triglycerides 108 mg/dl (30-150); VLDL Cholesterol 22 mg/dL (0-40)
[2024-12-26 19:12] LABS: Direct LDL Cholesterol 47.19 mg/dL (100-129)
[2024-12-27 05:13] LABS: Hemoglobin A1C 10.8 % (4.0-6.0)
[2024-12-27 05:34] LABS: Microalbumin/Creatinine Ratio 190.8
[2024-12-27 05:38] LABS: Creatinine,Urine Random 12 mg/dL (Not Estab.)
[2024-12-27 11:02] LABS: Iron 35 ug/dL (37-170)
[2024-12-27 11:11] LABS: Total Iron Binding Capacity 402 ug/dL (265-497)
== END 2024-12-26 23:59 | disposition home or self-care (01) ==
LOC: RT 15:28
PROVIDERS: PCP Internal Medicine; Visit Provider Internal Medicine
DX: M79.604 Pain in right leg (principal); R60.0 Localized edema; I10 Essential (primary) hypertension; E03.9 Hypothyroidism, unspecified; E11.42 Type 2 diabetes mellitus with diabetic polyneuropathy; E11.22 Type 2 diabetes mellitus with diabetic chronic kidney disease; N18.9 Chronic kidney disease, unspecified; K74.60 Unspecified cirrhosis of liver; E78.2 Mixed hyperlipidemia; R25.2 Cramp and spasm; D64.9 Anemia, unspecified
CPT/HCPCS: 80053; 80061; 82043; 82570; 83036; 83540; 83550; 83735; 84443; 85025; 93971

== ENCOUNTER 2024-12-29 14:21 | Observation (INO) | payer MEDICARE, MEDICAID, SELFPAY ==
[2024-12-29] VITALS (15 sets, daily range): BP systolic 121–159; BP diastolic 51–71; PULSE 67–78; RESP 17–20; TEMP 36.7–36.8; O2SAT 92–99; BMI 45.7; BMI 44.1
--- NOTE | 2024-12-29 15:01 | HMH.EDGENADL ---
Discharge Plan Disposition Patient Disposition: Admitted Condition: Fair Clinical Impressions Clinical Impression: Anemia Discharge ED Provider: Julio Moreno Adult HPI <Julio Moreno MD - Last Filed: 12/29/24 23:05> General Chief complaint: Extremity Problem,Nontraumatic Stated complaint: pain in R leg Time Seen by Provider: 12/29/24 15:01 Mode of Arrival: Wheelchair Limitations: No Limitations Description of Symptoms (Recalled from ER Triage Doc. by RN): Patient presents with pain to the right hip/thigh. Patient states she has been having these pain intermittently. States she was seen at the PCP on and was told she may have shingles on her back and was also given an antibiotic shot for a bacterial infection in her bilateral lower legs. Patient states she also had an ultrasound done here at [facility] and it was negative. History of Present Illness HPI narrative: Patient is an 79-year-old female with a history of diabetes, neuropathy, lower extremity edema on furosemide, LACEY cirrhosis, CKD. Patient presents today due to worsening pain in her right leg. Per my review the MR, she was seen on and had Levaquin prescribed for cellulitis of her right lower extremity, she reports that that is been improving, however her pain has been getting worse. She was also diagnosed with shingles recently. She reports the pain has been throughout her right lower extremity, but is now focal in her right groin area. She denies any vomiting, diarrhea, dysuria, hematuria. She is still passing gas and having bowel movements. She reports that there used to be a rash over this area, but has improved. Patient was reports worsening swelling of the right lower extremity, per my review the EMR she had a DVT study that was -3 days ago. Per my review of the EMR, her hemoglobin was 7.6 earlier this week, she is denying any signs or symptoms of bleeding. Related Data Home Medications ?Medication ?Instructions ?Recorded ?Confirmed blood sugar diagnostic (Accu-Chek #10 ea 10/05/23 12/29/24 Guide test strips) polysaccharide iron complex 180 mg 180 mg PO DAILY 07/15/24 12/29/24 iron capsule (Pro Fe) levofloxacin 750 mg tablet 750 mg PO Q48H 12/30/24 12/30/24 Previous Rx's ?Medication ?Instructions ?Recorded folic acid 1 mg tablet 1 mg PO .COMPLEX . #72 tabs 07/17/24 dapagliflozin propanediol 10 mg 10 mg PO DAILY . #90 tabs 07/03/24 tablet (Farxiga) insulin syringe-needle U-100 1 mL #10 ea 07/22/24 31 gauge x 15/64 (BD Veo Insulin Syringe Ultra-Fine) pen needle, diabetic 31 gauge x #1,200 ea 07/23/24 5/16 (BD Ultra-Fine Short Pen Needle) pravastatin 80 mg tablet 80 mg PO HS Cholesterol #90 tabs 08/02/24 losartan 100 mg tablet See Rx Instructions .Route 09/03/24 .COMPLEX #90 tabs omeprazole 40 mg capsule,delayed 40 mg PO DAILY GERD #90 caps 09/12/24 release furosemide 40 mg tablet 40 mg PO DAILY #90 tabs 10/14/24 insulin glargine 100 unit/mL (3 60 unit (0.6 mL) SQ HS #15 mL 10/14/24 mL) subcutaneous pen (Lantus Solostar U-100 Insulin) semaglutide 2 mg/dose (8 mg/3 mL) 2 mg (0.75 mL) SQ WEEKLY #3 mL 10/14/24 subcutaneous pen injector insulin aspart U-100 100 unit/mL 20 unit (0.2 mL) SQ BID Diabetes 12/25/24 (3 mL) subcutaneous pen (Novolog #15 mL FlexPen U-100 Insulin aspart) spironolactone 50 mg tablet 100 mg (2 x 50 mg) PO DAILY #60 12/26/24 tabs levothyroxine 100 mcg capsule 100 mcg PO DAILY #90 caps 12/27/24 Allergies Allergy/AdvReac Type Severity Reaction Status Date / Time morphine AdvReac Unknown NA-NAUSEA/V Verified 12/26/24 14:05 OMITING [facility] <Julio Moreno MD - Last Filed: 12/29/24 23:05> [facility] Disclaimer: The information contained in this section may have been updated after the patient was seen, as this information can be updated by other users. Medical History Abnormal electrocardiogram [ECG] [EKG] Pre-operative cardiovascular examination HLD (hyperlipidemia) HTN (hypertension), benign Thyroid disorder T2DM (type 2 diabetes mellitus) Surgical History Hx of laparoscopic gastric banding History of cholecystectomy Family History Other Family history of cancer Family history of stroke Social History (Updated 12/29/24 @ 23:22 by Sherine Zavala RN) Smoking Status: Never smoker alcohol intake: never substance use type: denies use current occupational status: retired Travel in the last 8 weeks: None household members: spouse housing: house lives independently: No marital status: caffeine: No Have you lived/traveled outside [place] in past 30 days?: No Contact w/someone who lives/traveled outside [place] past 30 days?: No Exposure to someone with infectious disease in past 14 days?: No Do you have a fever (greater than 100.4 F or 38 C)?: No Have you tested positive for COVID-19: No Exposed to someone with COVID-19 in past 14 days?: No Do you have a sore throat?: No Do you have a cough?: No Do you have any weakness?: No Are you experiencing any nausea/vomitting?: No Do you have any diarrhea?: No Are you experiencing any unusual bleeding?: No Do you have any muscle aches/pain?: No Do you have any abdominal pain?: No Are you experiencing loss of taste or smell?: No Other Medical History Have you received the Flu Vaccine for this season: Yes Have you received the Pneumonia Vaccine: Yes <Julio Moreno MD - Last Filed: 12/29/24 23:05> ROS Obtained: Yes All systems reviewed & no additional complaints except as documented Physical Exam <Julio Moreno MD - Last Filed: 12/29/24 23:05> General General appearance: alert and in no apparent distress Head Head exam: atraumatic and normocephalic Eye Eye exam: Present PERRL and EOMI ENT ENT exam: Present normal oropharynx Neck Neck exam: Present full ROM and trachea midline Chest Chest inspection: Present symmetric chest wall rise Respiratory Respiratory exam: Present normal lung sounds bilaterally; Absent stridor Cardiovascular Cardiovascular exam: Present regular rate and normal rhythm Abdominal Exam Abdominal exam: Present soft and tenderness (rlq); Absent distention Extremities Exam Extremities exam: Present full ROM Neurological Exam Neurological exam: Present alert and oriented X3 Psychiatric Psychiatric exam: Present normal mood Skin Skin exam: Present warm, dry and rash (Erythematous, macules over the right flank extending in a linear distribution around to the right lower quadrant of the abdomen, various stages of healing, no active drainage. Also confluent erythema over the distal right foreleg improving per patient blanching) Medical Decision Making <Julio Moreno MD - Last Filed: 12/29/24 23:05> Medical Records Screening: Per USPSTF and CDC recommendations, given the prevalence of disease in our region, it is our hospital?s policy to screen for HIV and viral Hepatitis for all patients aged 18 and over and those with ongoing risk factors. Yash Inquiry Pt receiving controlled substance: Yes Yash was queried for this patient: Yes Risks and benefits of using a controlled substance: were discussed with pt by me Vital Signs: 12/29/24 14:39 12/29/24 15:00 12/29/24 15:48 Pulse Rate 67 69 Pulse Rate [Radial] 67 Respiratory Rate 20 Blood Pressure 135/60 133/71 Blood Pressure [R Arm] 159/60 H Blood Pressure Mean [R Arm] 93 Blood Pressure Source [R Arm] Automatic Cuff 02 Sat by Pulse Oximetry 99 95 98 Oxygen Delivery Method Room Air Room Air Room Air 12/29/24 16:31 12/29/24 16:45 12/29/24 17:00 Pulse Rate 73 70 72 Pulse Rate [Radial] Respiratory Rate Blood Pressure 130/62 125/55 L 138/57 L Blood Pressure [R Arm] Blood Pressure Mean [R Arm] Blood Pressure Source [R Arm] 02 Sat by Pulse Oximetry 94 L 96 95 Oxygen Delivery Method Room Air Room Air Room Air 12/29/24 17:15 12/29/24 17:31 12/29/24 17:45 Pulse Rate 72 69 68 Pulse Rate [Radial] Respiratory Rate Blood Pressure 130/59 L 122/51 L 125/57 L Blood Pressure [R Arm] Blood Pressure Mean [R Arm] Blood Pressure Source [R Arm] 02 Sat by Pulse Oximetry 96 95 94 L Oxygen Delivery Method Room Air Room Air Room Air 12/29/24 18:01 12/29/24 18:15 12/29/24 18:30 Pulse Rate 70 75 72 Pulse Rate [Radial] Respiratory Rate Blood Pressure 121/59 L 126/58 L 128/63 Blood Pressure [R Arm] Blood Pressure Mean [R Arm] Blood Pressure Source [R Arm] 02 Sat by Pulse Oximetry 95 96 96 Oxygen Delivery Method Room Air Room Air Room Air Lab Data Lab Results 12/29/24 15:05: WBC 7.8, RBC 3.26 L, Hgb 7.1 L, Hct 24.4 L, MCV 74.8 L, MCH 21.8 L, MCHC 29.1 L, RDW 16.8, Plt Count 232, MPV 10.3, Neut % (Auto) 55.2, Lymph % (Auto) 25.6, Mckenzie % (Auto) 14.9 H, Eos % (Auto) 2.6, Baso % (Auto) 0.8, Neut # (Auto) 4.3, Lymph # (Auto) 2.0, Mckenzie # (Auto) 1.2 H, Eos # (Auto) 0.2, Baso # (Auto) 0.1, Sodium 133 L, Potassium 4.1, Chloride 97 L, Carbon Dioxide 26, Anion Gap 14.1, BUN 21 H, Creatinine 1.50 H, Estimated Creat Clear 24, Estimated GFR 33 L, Est GFR ( Amer) 40 L, Glucose 366 H, Lactate 1.8, Calcium 8.9, Magnesium 1.4 L, Total Bilirubin 0.7, AST 56 H, ALT 28, Alkaline Phosphatase 109, NT-Pro-B Natriuret Pep 143, Total Protein 7.9, Albumin 3.9, Globulin 4.0 H, Albumin/Globulin Ratio 1.0 L, Lipase 55, HIV Ag/Ab Combo Qual Negative 12/29/24 16:00: Blood Type A Positive, Antibody Screen Negative 12/30/24 06:50 12/29/24 15:05 Orders (Tests/Meds): ED MEDICATIONS Generic Name Dose Route Start Last Admin Trade Name Freq PRN Reason Stop Dose Admin Acetaminophen 650 mg 12/29/24 19:35 12/30/24 03:51 Acetaminophen 325mg Tab PO 01/28/25 19:34 650 mg Q4HP PRN Administration Fever or Mild Pain (1-3) Dapagliflozin 10 mg 12/30/24 09:00 Dapagliflozin Propanediol 10 Mg Tablet PO 01/29/25 08:59 DAILY REGGIE Furosemide 40 mg 12/30/24 09:00 Furosemide 40 Mg Tablet PO 01/29/25 08:59 DAILY REGGIE Gabapentin 100 mg 12/30/24 09:00 Gabapentin 100mg Capsule PO 01/29/25 08:59 TID REGGIE Insulin Glargine 60 unit 12/29/24 21:00 12/29/24 21:53 Insulin Glargine 100 Units/Ml 3ml Flexpen SUBCUT 01/28/25 20:59 60 units HS REGGIE Administration Insulin Human Lispro 20 unit 12/30/24 09:00 Humalog 100 Units/Ml 10ml Vial (Ssi) SUBCUT 01/29/25 08:59 BID REGGIE Protocol Insulin Human Lispro 0 unit 12/30/24 06:00 12/30/24 06:30 Humalog 100 Units/Ml 10ml Vial (Ssi) SUBCUT 01/29/25 05:59 6 unit ACHS REGGIE Administration Protocol Levothyroxine Sodium 100 mcg 12/30/24 09:00 Levothyroxine 100mcg (0.1mg) Tab PO 01/29/25 08:59 DAILYDM [facility] Methocarbamol 500 mg 12/30/24 07:15 Methocarbamol 500mg Tablet PO 01/29/25 01:17 BIDP PRN Muscle Pain Ondansetron HCl 4 mg 12/29/24 19:35 Ondansetron 4mg/2ml Vial IV 01/28/25 19:34 Q8HP PRN Nausea Pantoprazole Sodium 40 mg 12/29/24 21:00 12/29/24 21:52 Pantoprazole 40mg Tablet PO 01/28/25 20:59 40 mg HS REGGIE Administration Pravastatin Sodium 80 mg 12/30/24 21:00 Pravastatin 40mg Tab PO 01/29/25 20:59 HS [facility] Spironolactone 100 mg 12/30/24 09:00 Spironolactone 25mg Tablet PO 01/29/25 08:59 DAILY [facility] Discontinued Medications Generic Name Dose Route Start Last Admin Trade Name Freq PRN Reason Stop Dose Admin Acetaminophen 500 mg 12/29/24 15:33 12/29/24 15:42 Acetaminophen 500mg Tab PO 12/29/24 15:34 500 mg ONCE ONE Administration Hydrocodone Bitart/Acetaminophen 1 tab 12/29/24 16:44 12/29/24 16:50 Hydrocodone/Apap 5/325 Mg Tablet PO 12/29/24 16:45 1 tab ONCE ONE Administration Gabapentin 200 mg 12/29/24 15:33 12/29/24 15:42 Gabapentin 100mg Capsule PO 12/29/24 15:34 200 mg ONCE ONE Administration Insulin Human Lispro 0 unit 12/29/24 21:00 12/29/24 21:54 Humalog 100 Units/Ml 10ml Vial (Ssi) SUBCUT 01/28/25 20:59 12 unit ACHS REGGIE Administration Protocol Iopamidol 75 ml 12/29/24 16:07 12/29/24 16:07 Iopamidol-370 (76%);100ml Bottle IV 12/29/24 16:08 75 ml ONCE ONE Administration Lidocaine 1 each 12/29/24 17:56 12/29/24 17:59 Lidocaine 5% Transdermal Patch TP 12/29/24 17:57 1 each ONCE ONE Administration Methocarbamol 500 mg 12/29/24 18:09 12/29/24 18:11 Methocarbamol 500mg Tablet PO 12/29/24 18:10 500 mg ONCE ONE Administration Methocarbamol 500 mg 12/30/24 01:18 12/30/24 01:36 Methocarbamol 500mg Tablet PO 01/29/25 08:59 500 mg BID PRN Administration Muscle Pain Non-Formulary Medication 20 unit 12/29/24 21:00 12/29/24 21:37 Insulin Aspart U-100 [Novolog Flexpen U-100 Insulin] SUBCUT 01/28/25 20:59 Not Given BID REGGIE Non-Formulary Medication 80 mg 12/29/24 21:00 12/29/24 21:52 Pravastatin PO 01/28/25 20:59 80 mg HS REGGIE Administration Sodium Chloride 10 ml 12/29/24 16:07 12/29/24 16:07 Sodium Chloride 0.9% 10ml Syr (Rad Only) IV 01/28/25 16:06 10 ml NEEDED PRN Administration Maintain IV Site ORDERS Category Date Time Status Type and Screen Stat BBK 12/29/24 16:[address] abdomen pelvis w con Stat Cat Scan 12/29/24 15:33 Completed Consult to Case Management [CONS] Routine Cons 12/29/24 19:35 Active BNP [NT Pro Brain Natriuretic Pep.] Stat Lab 12/29/24 15:05 Completed Basic Metabolic Panel AMLAB Lab 12/30/24 06:50 Received Basic Metabolic Panel AMLAB Lab 12/31/24 06:00 Ordered Basic Metabolic Panel AMLAB Lab 01/01/25 06:00 Ordered Complete Blood Count Auto Diff AMLAB Lab 12/30/24 06:50 Completed Complete Blood Count Auto Diff AMLAB Lab 12/31/24 06:00 Ordered Complete Blood Count Auto Diff AMLAB Lab 01/01/25 06:00 Ordered Complete Blood Count Auto Diff AMLAB Lab 01/02/25 06:00 Ordered Complete Blood Count Auto Diff Stat Lab 12/29/24 15:05 Completed Comprehensive Metabolic Panel Stat Lab 12/29/24 15:05 Completed HIV Combo Stat Lab 12/29/24 15:05 Completed Hepatitis C Ab Qual. W/ RFX Stat Lab 12/29/24 06:50 Received Lactic Acid Stat Lab 12/29/24 15:05 Completed Lipase Stat Lab 12/29/24 15:05 Completed Magnesium AMLAB Lab 12/30/24 06:50 Received Magnesium Stat Lab 12/29/24 15:05 Completed Medical Decision Narrative: In summary, this 79-year-old female presents to the emergency department today with rash, right lower quadrant abdominal pain, . On initial evaluation patient is afebrile, hemodynamically stable and in no acute distress. On exam, has a confluent rash consistent with shingles over the right flank in a dermatomal distribution, improving she is focally tender over right lower quadrant of her abdomen, suspect that this could just be secondary to her shingles that was previously there, although there is no rash currently present, given this in conjunction with her comorbidities, felt reasonable to proceed with CT abdomen. Will treat with Neurontin and Tylenol for pain and obtain labs.. Differential diagnosis includes but is not limited to shingles, neuropathy, appendicitis, intra-abdominal abscess, bowel obstruction, GI bleeding, acute blood loss anemia. Based on these concerns, I ordered CBC, CMP, lipase, magnesium, lactate. I reviewed prior records including as above in the HPI. Patient received Tylenol, Robaxin, [place], lidocaine patch for treatment. Labs personally reviewed demonstrate mildly elevated creatinine, consistent when compared with prior, mild hyponatremia, mild hypomagnesemia, otherwise unremarkable. Lipase in the normal limits. Notably, patient is anemic with a hemoglobin of 7.1, which is down from 7.42 days ago 7.42 days ago and 10 as of June. Reports generalized weakness, has had falls at home, lives at home alone, does not feel safe going home in this current condition. CT imaging personally interpreted demonstrate complex cyst versus neoplasm on kidney, adnexal cystic lesion, esophageal edema and inflammation, cirrhosis and portal hypertension without decompensation, inguinal external iliac chain adenopathy, inflammatory changes around the right iliopsoas muscle, small pleural effusion, scattered lung nodules acute fracture lateral segment right seventh rib. Not in any acute respiratory distress.. I suspect most likely that this is neuropathy secondary to patient's Vesicular likely shingles rash in that dermatome, treated with gabapentin and Robaxin and feels better on reassessment. Nevertheless, given that she is anemic and continuing to drop, I suspect that she will be below 7 within the coming days. Her hemodynamics are stable here, but after shared decision making, risks and benefits were discussed and ultimately decided that admission to the hospital would be safest given patient lives at home alone. I had an interactive discussion with the hospitalist who agrees to admit the patient to service for further workup and further management patient returns to their service in hemodynamically stable. Of note, social determinants of health include poor health literacy. At this time it was felt that the patient was safe to be discharged home. The patient was in agreement with this plan. The patient was given strict return precautions prior to being discharged from the emergency department. <Donovan Hawthorne MD - Last Filed: 12/30/24 07:47> Vital Signs: 12/29/24 14:39 12/29/24 15:00 12/29/24 15:48 Pulse Rate 67 69 Pulse Rate [Radial] 67 Respiratory Rate 20 Blood Pressure 135/60 133/71 Blood Pressure [R Arm] 159/60 H Blood Pressure Mean [R Arm] 93 Blood Pressure Source [R Arm] Automatic Cuff 02 Sat by Pulse Oximetry 99 95 98 Oxygen Delivery Method Room Air Room Air Room Air 12/29/24 16:31 12/29/24 16:45 12/29/24 17:00 Pulse Rate 73 70 72 Pulse Rate [Radial] Respiratory Rate Blood Pressure 130/62 125/55 L 138/57 L Blood Pressure [R Arm] Blood Pressure Mean [R Arm] Blood Pressure Source [R Arm] 02 Sat by Pulse Oximetry 94 L 96 95 Oxygen Delivery Method Room Air Room Air Room Air 12/29/24 17:15 12/29/24 17:31 12/29/24 17:45 Pulse Rate 72 69 68 Pulse Rate [Radial] Respiratory Rate Blood Pressure 130/59 L 122/51 L 125/57 L Blood Pressure [R Arm] Blood Pressure Mean [R Arm] Blood Pressure Source [R Arm] 02 Sat by Pulse Oximetry 96 95 94 L Oxygen Delivery Method Room Air Room Air Room Air 12/29/24 18:01 12/29/24 18:15 12/29/24 18:30 Pulse Rate 70 75 72 Pulse Rate [Radial] Respiratory Rate Blood Pressure 121/59 L 126/58 L 128/63 Blood Pressure [R Arm] Blood Pressure Mean [R Arm] Blood Pressure Source [R Arm] 02 Sat by Pulse Oximetry 95 96 96 Oxygen Delivery Method Room Air Room Air Room Air Lab Data Lab Results 12/29/24 15:05: WBC 7.8, RBC 3.26 L, Hgb 7.1 L, Hct 24.4 L, MCV 74.8 L, MCH 21.8 L, MCHC 29.1 L, RDW 16.8, Plt Count 232, MPV 10.3, Neut % (Auto) 55.2, Lymph % (Auto) 25.6, Mckenzie % (Auto) 14.9 H, Eos % (Auto) 2.6, Baso % (Auto) 0.8, Neut # (Auto) 4.3, Lymph # (Auto) 2.0, Mckenzie # (Auto) 1.2 H, Eos # (Auto) 0.2, Baso # (Auto) 0.1, Sodium 133 L, Potassium 4.1, Chloride 97 L, Carbon Dioxide 26, Anion Gap 14.1, BUN 21 H, Creatinine 1.50 H, Estimated Creat Clear 24, Estimated GFR 33 L, Est GFR ( Amer) 40 L, Glucose 366 H, Lactate 1.8, Calcium 8.9, Magnesium 1.4 L, Total Bilirubin 0.7, AST 56 H, ALT 28, Alkaline Phosphatase 109, NT-Pro-B Natriuret Pep 143, Total Protein 7.9, Albumin 3.9, Globulin 4.0 H, Albumin/Globulin Ratio 1.0 L, Lipase 55, HIV Ag/Ab Combo Qual Negative 12/29/24 16:00: Blood Type A Positive, Antibody Screen Negative Orders (Tests/Meds): ED MEDICATIONS Generic Name Dose Route Start Last Admin Trade Name Freq PRN Reason Stop Dose Admin Acetaminophen 650 mg 12/29/24 19:35 12/30/24 03:51 Acetaminophen 325mg Tab PO 01/28/25 19:34 650 mg Q4HP PRN Administration Fever or Mild Pain (1-3) Dapagliflozin 10 mg 12/30/24 09:00 Dapagliflozin Propanediol 10 Mg Tablet PO 01/29/25 08:59 DAILY REGGIE Furosemide 40 mg 12/30/24 09:00 Furosemide 40 Mg Tablet PO 01/29/25 08:59 DAILY REGGIE Gabapentin 100 mg 12/30/24 09:00 Gabapentin 100mg Capsule PO 01/29/25 08:59 TID REGGIE Insulin Glargine 60 unit 12/29/24 21:00 12/29/24 21:53 Insulin Glargine 100 Units/Ml 3ml Flexpen SUBCUT 01/28/25 20:59 60 units HS REGGIE Administration Insulin Human Lispro 20 unit 12/30/24 09:00 Humalog 100 Units/Ml 10ml Vial (Ssi) SUBCUT 01/29/25 08:59 BID REGGIE Protocol Insulin Human Lispro 0 unit 12/30/24 06:00 12/30/24 06:30 Humalog 100 Units/Ml 10ml Vial (Ssi) SUBCUT 01/29/25 05:59 6 unit ACHS REGGIE Administration Protocol Levothyroxine Sodium 100 mcg 12/30/24 09:00 Levothyroxine 100mcg (0.1mg) Tab PO 01/29/25 08:59 DAILYDM REGGIE Methocarbamol 500 mg 12/30/24 07:15 Methocarbamol 500mg Tablet PO 01/29/25 01:17 BIDP PRN Muscle Pain Ondansetron HCl 4 mg 12/29/24 19:35 Ondansetron 4mg/2ml Vial IV 01/28/25 19:34 Q8HP PRN Nausea Pantoprazole Sodium 40 mg 12/29/24 21:00 12/29/24 21:52 Pantoprazole 40mg Tablet PO 01/28/25 20:59 40 mg HS REGGIE Administration Pravastatin Sodium 80 mg 12/30/24 21:00 Pravastatin 40mg Tab PO 01/29/25 20:59 HS REGGIE Spironolactone 100 mg 12/30/24 09:00 Spironolactone 25mg Tablet PO 01/29/25 08:59 DAILY REGGIE Discontinued Medications Generic Name Dose Route Start Last Admin Trade Name Freq PRN Reason Stop Dose Admin Acetaminophen 500 mg 12/29/24 15:33 12/29/24 15:42 Acetaminophen 500mg Tab PO 12/29/24 15:34 500 mg ONCE ONE Administration Hydrocodone Bitart/Acetaminophen 1 tab 12/29/24 16:44 12/29/24 16:50 Hydrocodone/Apap 5/325 Mg Tablet PO 12/29/24 16:45 1 tab ONCE ONE Administration Gabapentin 200 mg 12/29/24 15:33 12/29/24 15:42 Gabapentin 100mg Capsule PO 12/29/24 15:34 200 mg ONCE ONE Administration Insulin Human Lispro 0 unit 12/29/24 21:00 12/29/24 21:54 Humalog 100 Units/Ml 10ml Vial (Ssi) SUBCUT 01/28/25 20:59 12 unit ACHS REGGIE Administration Protocol Iopamidol 75 ml 12/29/24 16:07 12/29/24 16:07 Iopamidol-370 (76%);100ml Bottle IV 12/29/24 16:08 75 ml ONCE ONE Administration Lidocaine 1 each 12/29/24 17:56 12/29/24 17:59 Lidocaine 5% Transdermal Patch TP 12/29/24 17:57 1 each ONCE ONE Administration Methocarbamol 500 mg 12/29/24 18:09 12/29/24 18:11 Methocarbamol 500mg Tablet PO 12/29/24 18:10 500 mg ONCE ONE Administration Methocarbamol 500 mg 12/30/24 01:18 12/30/24 01:36 Methocarbamol 500mg Tablet PO 01/29/25 08:59 500 mg BID PRN Administration Muscle Pain Non-Formulary Medication 20 unit 12/29/24 21:00 12/29/24 21:37 Insulin Aspart U-100 [Novolog Flexpen U-100 Insulin] SUBCUT 01/28/25 20:59 Not Given BID REGGIE Non-Formulary Medication 80 mg 12/29/24 21:00 12/29/24 21:52 Pravastatin PO 01/28/25 20:59 80 mg HS REGGIE Administration Sodium Chloride 10 ml 12/29/24 16:07 12/29/24 16:07 Sodium Chloride 0.9% 10ml Syr (Rad Only) IV 01/28/25 16:06 10 ml NEEDED PRN Administration Maintain IV Site ORDERS Category Date Time Status Type and Screen Stat BBK 12/29/24 16:[address] abdomen pelvis w con Stat Cat Scan 12/29/24 15:33 Completed Consult to Case Management [CONS] Routine Cons 12/29/24 19:35 Active BNP [NT Pro Brain Natriuretic Pep.] Stat Lab 12/29/24 15:05 Completed Basic Metabolic Panel AMLAB Lab 12/30/24 06:50 Received Basic Metabolic Panel AMLAB Lab 12/31/24 06:00 Ordered Basic Metabolic Panel AMLAB Lab 01/01/25 06:00 Ordered Complete Blood Count Auto Diff AMLAB Lab 12/30/24 06:50 Completed Complete Blood Count Auto Diff AMLAB Lab 12/31/24 06:00 Ordered Complete Blood Count Auto Diff AMLAB Lab 01/01/25 06:00 Ordered Complete Blood Count Auto Diff AMLAB Lab 01/02/25 06:00 Ordered Complete Blood Count Auto Diff Stat Lab 12/29/24 15:05 Completed Comprehensive Metabolic Panel Stat Lab 12/29/24 15:05 Completed HIV Combo Stat Lab 12/29/24 15:05 Completed Hepatitis C Ab Qual. W/ RFX Stat Lab 12/29/24 06:50 Received Lactic Acid Stat Lab 12/29/24 15:05 Completed Lipase Stat Lab 12/29/24 15:05 Completed Magnesium AMLAB Lab 12/30/24 06:50 Received Magnesium Stat Lab 12/29/24 15:05 Completed Medical Decision Narrative: In summary, this 79-year-old female presents to the emergency department today with rash, right lower quadrant abdominal pain, . On initial evaluation patient is afebrile, hemodynamically stable and in no acute distress. On exam, has a confluent rash consistent with shingles over the right flank in a dermatomal distribution, improving she is focally tender over right lower quadrant of her abdomen, suspect that this could just be secondary to her shingles that was previously there, although there is no rash currently present, given this in conjunction with her comorbidities, felt reasonable to proceed with CT abdomen. Will treat with Neurontin and Tylenol for pain and obtain labs.. Differential diagnosis includes but is not limited to shingles, neuropathy, appendicitis, intra-abdominal abscess, bowel obstruction, GI bleeding, acute blood loss anemia. Based on these concerns, I ordered CBC, CMP, lipase, magnesium, lactate. I reviewed prior records including as above in the HPI. Patient received Tylenol, Robaxin, [place], lidocaine patch for treatment. Labs personally reviewed demonstrate mildly elevated creatinine, consistent when compared with prior, mild hyponatremia, mild hypomagnesemia, otherwise unremarkable. Lipase in the normal limits. Notably, patient is anemic with a hemoglobin of 7.1, which is down from 7.42 days ago 7.42 days ago and 10 as of June. Reports generalized weakness, has had falls at home, lives at home alone, does not feel safe going home in this current condition. CT imaging personally interpreted demonstrate complex cyst versus neoplasm on kidney, adnexal cystic lesion, esophageal edema and inflammation, cirrhosis and portal hypertension without decompensation, inguinal external iliac chain adenopathy, inflammatory changes around the right iliopsoas muscle, small pleural effusion, scattered lung nodules acute fracture lateral segment right seventh rib. Not in any acute respiratory distress.. I suspect most likely that this is neuropathy secondary to patient's Vesicular likely shingles rash in that dermatome, treated with gabapentin and Robaxin and feels better on reassessment. Nevertheless, given that she is anemic and continuing to drop, I suspect that she will be below 7 within the coming days. Her hemodynamics are stable here, but after shared decision making, risks and benefits were discussed and ultimately decided that admission to the hospital would be safest given patient lives at home alone. I had an interactive discussion with the hospitalist who agrees to admit the patient to service for further workup and further management patient returns to their service in hemodynamically stable. Of note, social determinants of health include poor health literacy. Critical Care <Julio Moreno MD - Last Filed: 12/29/24 23:05> Critical Care Time Critical Care Time: No
[2024-12-29 15:25] LABS: Lactic Acid 1.8 mmol/L (0.7-2.1)
[2024-12-29 15:26] LABS: Alanine Aminotransferase 28 U/L (12-78); Albumin Level 3.9 g/dl (3.5-5.0); Alkaline Phosphatase 109 U/L (38-126); Anion Gap 14.1 mEq/L (5-15); Aspartate Amino Transferase 56 U/L (14-36); Bilirubin,Total 0.7 mg/dl (0.2-1.3); Blood Urea Nitrogen 21 mg/dl (7-17); Calcium 8.9 mg/dl (8.4-10.2); Carbon Dioxide 26 mmol/L (22.0-30.0); Chloride 97 mmol/L (98-107); Creatinine Clearance Estimated 24 mL/min (50-200); Estimated Glomerular Filt Rate 33 ml/min (>60); GFR (African American) 40 ML/MIN (>60); Glucose 366 mg/dl (74-100); Potassium 4.1 mmoL/L (3.5-5.1); Sodium 133 mmol/L (136-145); Total Protein,Serum 7.9 g/dl (6.3-8.2)
[2024-12-29 15:28] LABS: Basophils # 0.1 K/mm3 (0-0.2); Basophils % 0.8 % (0.1-2.0); Eosinophils # 0.2 K/mm3 (0.0-0.4); Eosinophils % 2.6 % (0.1-12.0); Hematocrit 24.4 % (37.0-47.0); Hemoglobin 7.1 g/dL (12.2-16.2); Lymphocytes % 25.6 % (10-50); Mean Corpuscular HGB Conc 29.1 g/dL (31.8-35.4); Mean Corpuscular Hemoglobin 21.8 pg (27.0-31.2); Mean Corpuscular Volume 74.8 fl (81-99); Mean Platelet Volume 10.3 fl (7.4-10.4); Monocytes # 1.2 K/mm3 (0.1-1.0); Monocytes % 14.9 % (1.7-9.3); Neutrophils # 4.3 K/mm3 (1.8-7.8); Neutrophils % 55.2 % (37.0-80.0); Platelet Count 232 K/mm3 (142-424); Red Blood Count 3.26 M/mm3 (4.20-5.40); Red Cell Distribution Width 16.8 % (11.5-17.5); White Blood Count 7.8 K/mm3 (4.8-10.8)
--- NOTE | 2024-12-29 15:33 | CT_ITS ---
PROCEDURE INFORMATION: Exam: CT Abdomen And Pelvis With Contrast Exam date and time: 12/29/2024 3:59 PM Age: 79 years old Clinical indication: Abdominal pain; Localized; Right lower quadrant (rlq); Additional info: Rlq abd ttp TECHNIQUE: Imaging protocol: Computed tomography of the abdomen and pelvis with contrast. Radiation optimization: All CT scans at this facility use at least one of these dose optimization techniques: automated exposure control; mA and/or kV adjustment per patient size (includes targeted exams where dose is matched to clinical indication); or iterative reconstruction. Contrast material: ISOVUE; Contrast volume: 75 ml; Contrast route: IV; COMPARISON: CT ABDOMEN PELVIS WO CON 05/10/2023 1:47 PM FINDINGS: Lungs: Scarring/atelectasis at the lung bases without acute findings. Scattered sub 6 mm lung nodules. Pleural spaces: Small right pleural effusion with right basal compressive atelectasis. Esophagus: Mild thickening of the distal esophagus. Diaphragm: Moderate hiatal hernia. Liver: Liver has a nodular contour and there is relative hypertrophy of the caudate lobe, consistent with cirrhosis. Diffuse decrease in hepatic parenchymal density, consistent with fatty infiltration. Gallbladder and biliary ducts: Cholecystectomy. There is no evidence of biliary ductal dilation. Pancreas: Diffuse atrophy of the pancreatic parenchyma. There is no pancreatic duct dilation. Spleen: Normal. No splenomegaly. Adrenal glands: Normal. No mass. Kidneys and ureters: Bilateral renal cortical scarring. 9 mm exophytic right kidney lower pole enhancing lesion. Bilateral extrarenal pelvises. No definitive hydronephrosis or hydroureter. Portosystemic collateral circulation through the left renal and gonadal plexus. Stomach and bowel: Gastric band is in place and without complications. Diffuse colonic diverticulosis. Severe constipation. There is no evidence of intestinal obstruction. Appendix: No evidence of appendicitis. Intraperitoneal space: Unremarkable. No free air. No significant fluid collection. Vasculature: Portal venous system is patent. Mild atherosclerotic calcification of the arterial vasculature. Lymph nodes: Slightly prominent lymph nodes in the right inguinal region and right external iliac chain, measuring 1.4 cm and retaining normal morphology. Urinary bladder: Unremarkable as visualized. Reproductive: 6 cm x 4.4 cm cystic lesion in the left adnexa with internal septations. Punctate calcified uterine myomas or vascular calcifications. Bones/joints: There are healed right rib fractures. Displaced acute fracture lateral segment right 7th rib. Moderate multilevel degenerative changes of the spine. Soft tissues: Mild thickening and surrounding inflammatory changes throughout the right iliopsoas muscles and slightly surrounding the right iliac vessels. Chronic focal skin thickening in the ventral abdominal wall (probably injection sites). Mild left body wall edema. IMPRESSION: 1. Subcentimeter right kidney lower pole exophytic complex cyst or small neoplasm (RCC). Follow-up nonemergent ultrasound is recommended for better characterization. 2. 6 x 4.4 cm complex left adnexal cystic lesion.Further evaluation with prompt non-emergent ultrasound or prompt non-emergent MRI is recommended to characterize. (Reference: Hal) 3. Mild distal esophageal edema or esophageal inflammation suggested. 4. Cirrhosis and sequela of portal hypertension without decompensation. 5. Right inguinal and external iliac chain adenopathy, felt to be reactive. 6. Mild inflammatory changes surrounding the right iliopsoas muscle (with suggested mild intramuscular edema) and right iliac vessels, etiology of which is unclear (no large hematomas or fluid collections). Question muscle strain or recent catheterization. 7. Small right pleural effusion with right basal compressive atelectasis. 8. Scattered sub 6 mm lung nodules. For patients at low risk (minimal or absent history of smoking and of other known risk factors), no routine follow-up is indicated. For patients at high risk (history of smoking or of other known risk factors), consider optional CT Chest at 12 months. (Reference: Hilton) 9. Displaced acute fracture lateral segment right 7th rib. REFERENCES: 1. Hal et al. Management of Incidental Adnexal Findings on CT and MRI: A White Paper of the ACR Incidental Findings Committee, J Am Leonie Radiol. 2019;17(2):248-254. 2. Hilton Gaspar, et al. Guidelines for Management of Incidental Pulmonary Nodules Detected on CT Images: From the Fleischner Society 2017. Radiology. 2017;284(1):228-243.
[2024-12-29 15:35] LABS: NT Pro Brain Natriuretic Pep. 143 pg/mL (0-450)
[2024-12-29] MEDS: ACETAMINOPHEN 500MG TAB 500 MG PO (15:42)
[2024-12-29] MEDS: GABAPENTIN 100MG CAPSULE 200 MG PO (15:42)
--- NOTE | 2024-12-29 15:53 | PC.NURSE ---
family at bs
--- NOTE | 2024-12-29 15:55 | HMH.ITSTN ---
no fluids needed before ct scan per
--- NOTE | 2024-12-29 15:59 | PC.NURSE ---
pt back to room
[2024-12-29] MEDS: IOPAMIDOL-370 (76%);100ML BOTTLE 75 ML IV (16:07)
[2024-12-29] MEDS: SODIUM CHLORIDE 0.9% 10ML SYR (RAD ONLY) 10 ML IV (16:07)
[2024-12-29 16:11] LABS: Lipase 55 U/L (23-300); Magnesium 1.4 mg/dl (1.6-2.3)
--- NOTE | 2024-12-29 16:44 | PC.NURSE ---
rounded on pt at this time, pt adjusted in the bed.
[2024-12-29] MEDS: HYDROCODONE/APAP 5/325 MG TABLET 1 TAB PO (16:50)
--- NOTE | 2024-12-29 16:52 | PC.NURSE ---
I rounded on the pt. I took her a warm blanket. no needs voiced. call butler in reach.
[2024-12-29 17:43] LABS: HIV Combo NEGATIVE (Negative)
--- NOTE | 2024-12-29 17:51 | PC.NURSE ---
pt complains of increased pain. repositioned pt. awaiting
[2024-12-29] MEDS: LIDOCAINE 5% TRANSDERMAL PATCH 1 EACH TP (17:59)
[2024-12-29] MEDS: METHOCARBAMOL 500MG TABLET 500 MG PO (18:11)
--- NOTE | 2024-12-29 18:41 | PC.NURSE ---
HS aware of admission
--- NOTE | 2024-12-29 19:17 | PC.NURSE ---
report called to [facility]. pt reports her pain is much improved
--- NOTE | 2024-12-29 19:30 | PC.WOUNDNOTE ---
patient states feeling much better at this time. Waiting to be transported to floor
--- NOTE | 2024-12-29 19:54 | PC.NURSE ---
Patient arrived to floor from ED at 19:47.
[2024-12-29 21:08] LABS: POC Glucose,Bedside 449 (70-110)
[2024-12-29] MEDS: PATIENT'S OWN HOME MEDICATION (Pravastatin 80 mg tablet) 80 EACH PO (21:52)
[2024-12-29] MEDS: PANTOPRAZOLE 40MG TABLET 40 MG PO (21:52)
[2024-12-29] MEDS: INSULIN GLARGINE 100 UNITS/ML 3ML FLEXPEN 60 UNIT SUBCUT (21:53)
[2024-12-29] MEDS: humaLOG 100 UNITS/ML 10ML VIAL (SSI) SUBCUT (21:54)
--- NOTE | 2024-12-29 22:06 | P.HP_ITS ---
<Statement entered by Don Ayoub MD - 12/31/24 12:46> I personally evaluated patient and agree with plan of care outlined by the BOTTOM MAN. History of Present Illness *Admission Date: 12/29/24 *Reason for visit:: Right lower extremity pain *History of present illness: This is an 79-year-old female with multiple comorbidities, including type 2 diabetes mellitus, neuropathy, lower extremity edema on furosemide, nonalcoholic steatohepatitis (LACEY) cirrhosis, and chronic kidney disease, presents with escalating right lower extremity pain. She was seen several days ago and prescribed levofloxacin for right leg cellulitis, which appears to have improved clinically; however, her pain has intensified and now primarily involves her right groin region. She also has a recent history of shingles, initially manifesting as a dermatomal rash over her right flank and lower abdomen, which is now resolving. The patient denies gastrointestinal or urinary symptoms and reports ongoing bowel movements. A prior DVT ultrasound study in November was negative. Adult daughter reports patient's spouse committed suicide earlier this last year after undergoing treatment for throat cancer. States that since that she has had an overall decline in health and ability to care for self. On examination, she is afebrile, hemodynamically stable, and not in acute distress. Laboratory workup reveals microcytic anemia (hemoglobin 7.1 g/dL) and an elevated creatinine of 1.50 mg/dL, consistent with her known chronic kidney disease. Blood glucose is high at 366 mg/dL. Abdominal and pelvic CT imaging demonstrates a subcentimeter, possibly complex cystic or neoplastic lesion in the right renal lower pole, a larger complex cystic lesion in the left adnexa, and radiologic evidence of cirrhosis with portal hypertension but no evidence of new or acute decompensation. There is also a small right pleural effusion with associated atelectasis and mild inflammatory changes surrounding the right iliopsoas muscle and iliac vessels, possibly related to muscle strain or a recent procedure. These findings, coupled with her reported improvement in cellulitis and resolution of the shingles rash, raise the possibility that her persistent right groin pain may be largely neuropathic (post-herpetic neuralgia) or musculoskeletal in origin. The patient?s anemia, diabetes management, and pain control will also need further evaluation and hospitalization given her overall clinical complexity. [facility] Disclaimer: The information contained in this section may have been updated after the patient was seen, as this information can be updated by other users. Medical History Abnormal electrocardiogram [ECG] [EKG] Pre-operative cardiovascular examination HLD (hyperlipidemia) HTN (hypertension), benign Thyroid disorder T2DM (type 2 diabetes mellitus) Surgical History Hx of laparoscopic gastric banding History of cholecystectomy Family History Other Family history of cancer Family history of stroke Social History (Updated 12/29/24 @ 23:22 by Sherine Zavala RN) Smoking Status: Never smoker alcohol intake: never substance use type: denies use current occupational status: retired Travel in the last 8 weeks: None household members: spouse housing: house lives independently: No marital status: caffeine: No Have you lived/traveled outside [place] in past 30 days?: No Contact w/someone who lives/traveled outside US past 30 days?: No Exposure to someone with infectious disease in past 14 days?: No Do you have a fever (greater than 100.4 F or 38 C)?: No Have you tested positive for COVID-19: No Exposed to someone with COVID-19 in past 14 days?: No Do you have a sore throat?: No Do you have a cough?: No Do you have any weakness?: No Are you experiencing any nausea/vomitting?: No Do you have any diarrhea?: No Are you experiencing any unusual bleeding?: No Do you have any muscle aches/pain?: No Do you have any abdominal pain?: No Are you experiencing loss of taste or smell?: No Other Medical History Have you received the Flu Vaccine for this season: Yes Have you received the Pneumonia Vaccine: Yes Review of Systems Review of Systems Review of systems (narrative): 13 point review of systems negative except as listed in HPI Meds Home Medications and Allergies Home Medications ?Medication ?Instructions ?Recorded ?Confirmed ?Type blood sugar diagnostic (Accu-Chek #10 ea 10/05/23 12/29/24 History Guide test strips) folic acid 1 mg tablet 1 mg PO .COMPLEX . #72 tabs 06/12/24 12/29/24 Rx dapagliflozin propanediol 10 mg 10 mg PO DAILY . #90 tabs 07/03/24 12/29/24 Rx tablet (Farxiga) polysaccharide iron complex 180 mg 180 mg PO DAILY 07/15/24 12/29/24 History iron capsule (Pro Fe) insulin syringe-needle U-100 1 mL #10 ea 07/22/24 12/29/24 Rx 31 gauge x 15/64 (BD Veo Insulin Syringe Ultra-Fine) pen needle, diabetic 31 gauge x #1,200 ea 07/23/24 12/29/24 Rx 5/16 (BD Ultra-Fine Short Pen Needle) pravastatin 80 mg tablet 80 mg PO HS Cholesterol #90 tabs 08/02/24 12/29/24 Rx losartan 100 mg tablet See Rx Instructions .Route 09/03/24 12/29/24 Rx .COMPLEX #90 tabs omeprazole 40 mg capsule,delayed 40 mg PO DAILY GERD #90 caps 09/12/24 12/29/24 Rx release furosemide 40 mg tablet 40 mg PO DAILY #90 tabs 10/14/24 12/29/24 Rx insulin glargine 100 unit/mL (3 60 unit (0.6 mL) SQ HS #15 mL 10/14/24 12/29/24 Rx mL) subcutaneous pen (Lantus Solostar U-100 Insulin) semaglutide 2 mg/dose (8 mg/3 mL) 2 mg (0.75 mL) SQ WEEKLY #3 mL 10/14/24 12/29/24 Rx subcutaneous pen injector insulin aspart U-100 100 unit/mL 20 unit (0.2 mL) SQ BID Diabetes 12/25/24 12/29/24 Rx (3 mL) subcutaneous pen (Novolog #15 mL FlexPen U-100 Insulin aspart) levofloxacin 750 mg tablet 750 mg PO .COMPLEX #7 tabs 12/26/24 12/29/24 Rx spironolactone 50 mg tablet 100 mg (2 x 50 mg) PO DAILY #60 12/26/24 12/29/24 Rx tabs levothyroxine 100 mcg capsule 100 mcg PO DAILY #90 caps 12/27/24 12/29/24 Rx New Prescriptions to Start Prescriptions: Allergies Allergy/AdvReac Type Severity Reaction Status Date / Time morphine AdvReac Unknown NA-NAUSEA/V Verified 12/26/24 14:05 OMITING Exam Data for Last 24 hours Vital signs and Labs for Last 24 Hours: Temp Pulse Resp BP Pulse Ox O2 Del Method 98.0 F 69 17 131/57 L 92 L Room Air 12/29/24 20:05 12/29/24 20:05 12/29/24 20:05 12/29/24 20:05 12/29/24 20:05 12/29/24 20:05 Laboratory Results - last 24 hr 12/29/24 15:05: WBC 7.8, RBC 3.26 L, Hgb 7.1 L, Hct 24.4 L, MCV 74.8 L, MCH 21.8 L, MCHC 29.1 L, RDW 16.8, Plt Count 232, MPV 10.3, Neut % (Auto) 55.2, Lymph % (Auto) 25.6, [place] % (Auto) 14.9 H, Eos % (Auto) 2.6, Baso % (Auto) 0.8, Neut # (Auto) 4.3, Lymph # (Auto) 2.0, [place] # (Auto) 1.2 H, Eos # (Auto) 0.2, Baso # (Auto) 0.1, Sodium 133 L, Potassium 4.1, Chloride 97 L, Carbon Dioxide 26, Anion Gap 14.1, BUN 21 H, Creatinine 1.50 H, Estimated Creat Clear 24, Estimated GFR 33 L, Est GFR ( Amer) 40 L, Glucose 366 H, Lactate 1.8, Calcium 8.9, Magnesium 1.4 L, Total Bilirubin 0.7, AST 56 H, ALT 28, Alkaline Phosphatase 109, NT-Pro-B Natriuret Pep 143, Total Protein 7.9, Albumin 3.9, Globulin 4.0 H, Albumin/Globulin Ratio 1.0 L, Lipase 55, HIV Ag/Ab Combo Qual Negative 12/29/24 16:00: Blood Type A Positive, Antibody Screen Negative 12/29/24 20:56: POC Glucose 449 H* I & O for Last 24 hours: Intake & Output 12/26/24 12/27/24 12/28/24 12/29/24 23:59 23:59 23:59 23:59 Output Total 0 / 0 Balance 0 / 0 Weight 108.862 kg Constitutional Constitutional: no acute distress *Routine HEENT Exam Head: Present normocephalic Eye: Present EOMI and PERRL ENT: Present mucous membranes moist *Routine Neck Exam Neck: Present supple; Absent lymphadenopathy *Routine Respiratory Exam Respiratory: Present CTA bilaterally *Routine Cardiovascular Exam Cardiovascular: Present RRR *Routine Abdominal Exam Abdominal: Present soft and normoactive bowel sounds; Absent tenderness *Routine Rectal Exam Rectal:: deferred *Routine Genitalia Exam Genitalia:: deferred *Routine Extremities Exam Extremities: Absent cyanosis, clubbing or edema *Routine Skin Exam Skin: Present erythema, warm and rash Comments: Skin is warm, dry. Erythematous macules over the right flank, extending linearly to the right lower quadrant, in various stages of healing without active drainage. Confluent erythema over the distal right foreleg is improving per patient and blanches on exam. *Routine Neurological Exam Neurological: Present alert and oriented X3 Assessment and Plan *Assessment and plan (1) Anemia: Status: Acute Category: Medical Code(s): D64.9 - Anemia, unspecified (2) Cellulitis of right leg without foot: Status: Acute Category: Medical Code(s): L03.115 - Cellulitis of right lower limb (3) Fatty liver disease, nonalcoholic: Problem Comment: I suspect the patient also has cirrhosis of the liver with fluid retention and peripheral edema. Status: Chronic Category: Medical Code(s): K76.0 - Fatty (change of) liver, not elsewhere classified (4) Thyroid disorder: Status: Acute Category: Medical Code(s): E07.9 - Disorder of thyroid, unspecified (5) 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 Qualifiers: Diabetes mellitus prison insulin use: with prison use Qualified Code(s): E11.42 - Type 2 diabetes mellitus with diabetic polyneuropathy; Z79.4 - snf (current) use of insulin Category: Medical Code(s): E11.42 - Type 2 diabetes mellitus with diabetic polyneuropathy (6) Edema of right lower leg: Status: Acute Category: Medical Code(s): R60.0 - Localized edema Plan Medical decision making: The patient presents with worsening right lower extremity and groin pain in the setting of recently treated cellulitis and a history of shingles, raising concern for post-herpetic neuralgia, musculoskeletal strain, or a developing deep infection. Given the increasing focal pain, right inguinal lymphadenopathy, and mild inflammatory changes on imaging near the iliopsoas muscle, further evaluation is warranted to rule out a deep-seated infection, abscess, or evolving osteomyelitis. Laboratory findings reveal microcytic anemia (Hgb 7.1 g/dL), CKD (eGFR 33 mL/min/1.73m?), and controlled inflammatory markers, though no overt signs of systemic infection. Given the patient?s recent functional decline following her spouse?s suicide, case management consultation to assist factors contributing to her worsening health status. Right Lower Extremity and Groin Pain * Likely multifactorial: previously treated cellulitis (improved with levofloxacin), recent shingles suggesting possible post-herpetic neuralgia, and mild inflammatory changes near the right iliopsoas muscle on imaging. * Continue to monitor for infection signs, continue prescribed Levaquin * Continue gabapentin * Recommend Tylenol for minor pain due to CKD * Encourage physical therapy or gentle exercises to prevent deconditioning. * Reevaluate imaging if symptoms persist or worsen. Shingles (Herpes Zoster), Improving Rash * Rash is healing, no active drainage. * Ensure adequate analgesia for possible residual neuralgic pain. * Consider antiviral therapy if any concern for ongoing viral activity (most effective if started early). * Watch for skin breakdown or secondary infection. Diabetes Mellitus type II * Poorly controlled, recent A1c 10.1 * Glucose was elevated at 366 mg/dL. * Continue Lantus 60 units nightly, convert NovoLog 20 units twice daily for Humalog due to formulary * Add sliding scale * Monitor blood glucose closely * Consider diabetic education or endocrinology referral given current poor control. Chronic Kidney Disease and Anemia * Creatinine 1.50 mg/dL (eGFR ~33 mL/min/1.73 m?), hemoglobin 7.1 g/dL with microcytic indices. * Check for iron deficiency (iron studies, reticulocyte count). * Consider IV iron supplementation if oral iron is ineffective or not tolerated. * Avoid nephrotoxic agents and reassess furosemide dosing/volume status. * Monitor hemoglobin LACEY Cirrhosis * Known cirrhosis with no acute decompensation per imaging. * Continue routine surveillance * Minimize hepatotoxic medications. Psychosocial / Functional Decline * Daughter reports significant decline following spouse?s suicide earlier this year. * Consult case management * Encourage mental health evaluation or grief counseling. Patient is DNR/DNI Recommend diabetic diet Right renal lesion recommend outpatient renal ultrasound for characterization. Complex left adnexal cystic lesion recommend non-emergent ultrasound or MRI. Hold anticoagulant due to anemia, DVT prophylaxis with SCDs not recommended due to cellulitis GI prophylaxis continue Protonix
[2024-12-30] VITALS (14 sets, daily range): BP systolic 117–155; BP diastolic 53–79; PULSE 69–86; RESP 17–20; TEMP 36.3–36.9; O2SAT 93–99; BMI 44.1
[2024-12-30] MEDS: METHOCARBAMOL 500MG TABLET 500 MG PO (01:36)
[2024-12-30 01:44] LABS: POC Glucose,Bedside 282 (70-110)
[2024-12-30] MEDS: ACETAMINOPHEN 325MG TAB 650 MG PO ×4 (03:51→21:09)
--- NOTE | 2024-12-30 03:57 | PC.NURSE ---
Pt is A/O X 4. She is able to ambulate to BR with standby assist and use of walker. Pt complains of pain to right groin, medicated with Robaxin and Tylenol this shift. FSBS at 449 at 9 pm. Novalog ordered from med rec but not available. Notified DATA SECURITY COORDINATOR Daljit Montesinos of pts BS and med not being available. Plan to continue with Lantus and Humalog, see MAR . Random FSBS around 2 am was 282. Pt also reports that she has an appointment with GI, Dr Hernandez on to f/u with cirrhosis.
[2024-12-30] MEDS: humaLOG 100 UNITS/ML 10ML VIAL (SSI) SUBCUT ×4 (06:30→21:13)
[2024-12-30 06:41] LABS: POC Glucose,Bedside 267 (70-110)
[2024-12-30 07:05] LABS: Basophils # 0.1 K/mm3 (0-0.2); Basophils % 0.7 % (0.1-2.0); Eosinophils # 0.3 K/mm3 (0.0-0.4); Eosinophils % 4.3 % (0.1-12.0); Hematocrit 23.4 % (37.0-47.0); Lymphocytes # 2.1 K/mm3 (0.7-4.5); Lymphocytes % 28.2 % (10-50); Mean Corpuscular HGB Conc 28.6 g/dL (31.8-35.4); Mean Corpuscular Hemoglobin 21.6 pg (27.0-31.2); Mean Corpuscular Volume 75.5 fl (81-99); Mean Platelet Volume 9.7 fl (7.4-10.4); Monocytes # 1.1 K/mm3 (0.1-1.0); Monocytes % 14.4 % (1.7-9.3); Neutrophils # 3.9 K/mm3 (1.8-7.8); Neutrophils % 51.7 % (37.0-80.0); Platelet Count 208 K/mm3 (142-424); Red Cell Distribution Width 16.8 % (11.5-17.5); White Blood Count 7.5 K/mm3 (4.8-10.8)
[2024-12-30 07:21] LABS: Hemoglobin 6.7 g/dL (12.2-16.2)
[2024-12-30 07:29] LABS: Anion Gap 11.9 mEq/L (5-15); Blood Urea Nitrogen 21 mg/dl (7-17); Calcium 8.6 mg/dl (8.4-10.2); Carbon Dioxide 26 mmol/L (22.0-30.0); Chloride 100 mmol/L (98-107); Creatinine Clearance Estimated 23 mL/min (50-200); Estimated Glomerular Filt Rate 33 ml/min (>60); GFR (African American) 40 ML/MIN (>60); Glucose 219 mg/dl (74-100); Magnesium 2.2 mg/dl (1.6-2.3); Potassium 3.9 mmoL/L (3.5-5.1); Sodium 134 mmol/L (136-145)
[2024-12-30 07:49] LABS: Iron 30 ug/dL (37-170)
[2024-12-30 08:09] LABS: Total Iron Binding Capacity 348 ug/dL (265-497)
--- NOTE | 2024-12-30 08:19 | HMH.PHAINT1 ---
Pharmacy Intervention Comments: home medication list verified using list from outpatient pharmacy, PCP office notes and pt interview
[2024-12-30] MEDS: DAPAGLIFLOZIN PROPANEDIOL 10 MG TABLET PO (08:24)
[2024-12-30] MEDS: humaLOG 100 UNITS/ML 10ML VIAL (SSI) 20 UNIT SUBCUT ×2 (08:24→21:13)
[2024-12-30] MEDS: LEVOTHYROXINE 100MCG (0.1MG) TAB 100 MCG PO (08:24)
[2024-12-30] MEDS: FUROSEMIDE 40 MG TABLET PO (08:24)
[2024-12-30] MEDS: GABAPENTIN 100MG CAPSULE 100 MG PO ×3 (08:24→21:10)
[2024-12-30 09:25] LABS: Ferritin 8.25 ng/ml (11.1-264)
--- NOTE | 2024-12-30 09:46 | US_ITS ---
PROCEDURE: US PELVIC CLINICAL INDICATION: right adnexal pain with complex cyst on CT COMPARISON: CT CT ABDOMEN PELVIS W CON from 12/29/2024 FINDINGS: Transabdominal sonographic images of the pelvis were obtained. UTERUS: 10.3cm x 5.7 cmx 4.0cm anteverted with a combined endometrial thickness of 4.8mm. There are multiple small calcifications throughout the myometrium. LEFT OVARY: 3.7 cmx5.7 cmx2.9cm with a volume of 32.5ml. There is a cyst measuring 3.7 cm x 2.9 cm x 2.5 cm There are 2 other small cysts within the ovary measuring 2.2 cm in size. There are thin baez between these cysts and no excrescences within the cysts. RIGHT OVARY: 2.5cmx 2.2cmx1.9 cm with a volume of 5.4ml. Both ovaries are seen. Doppler flow to both ovaries are seen. There is no fluid in the cul-de-sac. IMPRESSION: 1. Anteverted uterus enlarged in size and normal in shape. The endometrium is thin measuring 4.8 mm. 2. There are multiple calcifications throughout the uterus, likely age related. 3. The right ovary is seen and appears atrophic. The left ovary contains at least 3 cysts, the largest of which is 3.7 cm. The cysts have thin baez and no solid components or excrescences. ( Low malignant potential 1-10%.) Suggest an outpatient gynecology consult. 4. No fluid in the cul-de-sac. Dictated by: Alirio Morocho MD 12/30/2024 11:26 Alirio Morocho MD in [place] 12/30/2024 11:26
[2024-12-30 10:24] LABS: Hepatitis C Ab Qual. W/ RFX NEGATIVE (Negative)
[2024-12-30 10:28] LABS: Vitamin B12 > 1000 pg/mL (239-931)
[2024-12-30] MEDS: SPIRONOLACTONE 25MG TABLET 50 MG PO (11:28)
[2024-12-30] MEDS: levoFLOXacin 750 MG TABLET PO (11:28)
[2024-12-30 11:42] LABS: POC Glucose,Bedside 221 (70-110)
[2024-12-30] MEDS: FUROSEMIDE 40MG/4ML VIAL 40 MG IV ×2 (12:18→16:10)
--- NOTE | 2024-12-30 12:21 | HMH.PTEV ---
Physical Therapy Evaluation Rehab PT IP Evaluation Start: 12/29/24 22:30 Freq: ONCE Status: Active Protocol: Document 12/30/24 12:16 VIPUL (Rec: 12/30/24 12:21 PHORANGIE [id number]) Subjective/History History History 79-year-old female with multiple comorbidities, including type 2 diabetes mellitus, neuropathy, lower extremity edema on furosemide, nonalcoholic steatohepatitis (LACEY) cirrhosis, and chronic kidney disease, presents with escalating right lower extremity pain. She was seen several days ago and prescribed levofloxacin for right leg cellulitis, which appears to have improved clinically; however, her pain has intensified and now primarily involves her right groin region. She also has a recent history of shingles, initially manifesting as a dermatomal rash over her right flank and lower abdomen, which is now resolving. She reports she lives alone, 2-3 NATALY the home, and now uses a RW for all ambulation. She has difficulty getting in/out of bathtub due to R LE pain now. Subjective Subjective Currently she reports tenderness in her R lower leg, but no pain. She agrees to OOB mobility assessment. Currently getting 1 unit PRBCs due to low Hg of 6.7 this am. No symptoms due to her anemia at this time. Rehab PT IP Eval Objective Appearance Patient Behavior Appropriate Patient Orientation Person,Place,Time Difficulty following instructions none Speech Pattern Clear Ambulation Patient Able to Ambulate Yes Ambulation Observation IP General Gait Pattern Observation Wide Based Gait Ambulation Distance (feet) 20 Ambulation Assistive Device Rolling Walker Ambulation Ability Contact Guard/Hand Hold Balance Ability to Arise Able, uses arms to help Sitting Balance Steady, safe Standing Balance Steady, wide stance Dynamic Sitting Balance Ability Good Dynamic Standing Balance Ability Good Transfers Bed Transfer Ability Minimal x 1 (25% assist) Chair Transfer Ability Contact Guard/Hand Hold Sit to Stand Bed Transfer Ability Contact Guard/Hand Hold Sit to Stand Chair Transfer Ability Contact Guard/Hand Hold MMT All Extremities PT MMT WFL Rehab PT IP prob,goals,plan Problems Date of Evaluation: 12/30/24 PT IP Problems Bed Mobility,Transfers,Gait Rehab Potential Rehab Potential Good Plan PT Intervention Plan Bed Mobility,Transfers,Gait, Therapeutic Exercise PT Plan Frequency Daily Duration LOS Discharge Goals Bed Transfer Ability Contact Guard/Hand Hold Sit to Stand Chair Transfer Ability Supervision/Stand by Ambulation Assistive Device Rolling Walker Ambulation Distance (feet) 40 Discharge Plan PT Discharge Plan Pt is currently appropriate to return home once medically stable for d/c. Recommend BSC and home health therapy after return home. Skilled therapy is indicated to improve pt transfers, increase ambulation tolerance, and improve strength in order to return pt to [facility]. Eval Complexity Eval Charge Codes 89138 - High Complexity PHYSICIAN CERTIFICATION: I certify the specified therapy services for Babs Bruno are required, authorized, and reviewed every 30 days.
[2024-12-30 14:32] LABS: Microscopic, Urine URINE MICROSCOPIC (MICROSCOPIC)
[2024-12-30 14:44] LABS: Hematocrit 28.2 % (37.0-47.0)
[2024-12-30 14:50] LABS: Hemoglobin 8.4 g/dL (12.2-16.2)
[2024-12-30 14:58] LABS: Appearance,Urine CLEAR (Clear); Bilirubin,Urine Negative (Negative); Blood, Urine Negative (Negative); Color,Urine YELLOW (Yellow); Glucose,Urine (UA) 1+ (Negative); Ketones,Urine Negative (Negative); Leukocyte Esterase,Urine Negative (Negative); Nitrate,Urine Negative (Negative); Protein,Urine Negative (Negative); Urobilinogen,Urine 0.2 EU/dl (0.2)
[2024-12-30 15:49] LABS: WBC,Urine Occasional #/hpf (0-3)
--- NOTE | 2024-12-30 15:56 | P.CONS_ITS ---
History of Present Illness *Admission Date: 12/29/24 *History of present illness: This is an 79-year-old female with multiple comorbidities, including type 2 diabetes mellitus, neuropathy, lower extremity edema on furosemide, nonalcoholic steatohepatitis (SALINAS) cirrhosis, and chronic kidney disease, presents with escalating right lower extremity pain. She was seen several days ago and prescribed levofloxacin for right leg cellulitis, which appears to have improved clinically; however, her pain has intensified and now primarily involves her right groin region. She also has a recent history of shingles, initially manifesting as a dermatomal rash over her right flank and lower abdomen, which is now resolving. The patient denies gastrointestinal or urinary symptoms and reports ongoing bowel movements. A prior DVT ultrasound study in November was negative. Adult daughter reports patient's spouse committed suicide earlier this last year after undergoing treatment for throat cancer. States that since that she has had an overall decline in health and ability to care for self. On examination, she is afebrile, hemodynamically stable, and not in acute distress. Laboratory workup reveals microcytic anemia (hemoglobin 7.1 g/dL) and an elevated creatinine of 1.50 mg/dL, consistent with her known chronic kidney disease. Blood glucose is high at 366 mg/dL. Abdominal and pelvic CT imaging demonstrates a subcentimeter, possibly complex cystic or neoplastic lesion in the right renal lower pole, a larger complex cystic lesion in the left adnexa, and radiologic evidence of cirrhosis with portal hypertension but no evidence of new or acute decompensation. There is also a small right pleural effusion with associated atelectasis and mild inflammatory changes surrounding the right iliopsoas muscle and iliac vessels, possibly related to muscle strain or a recent procedure. These findings, coupled with her reported improvement in cellulitis and resolution of the shingles rash, raise the possibility that her persistent right groin pain may be largely neuropathic (post-herpetic neuralgia) or musculoskeletal in origin. The patient?s anemia, diabetes management, and pain control will also need further evaluation and hospitalization given her overall clinical complexity. per admission H&P - The patient was seen in [address] Chika Hicks after imaging found splenomegaly. She was diagnosed with [place] and estimated stage II fibrosis on lab work. Repeat CT scan does note early changes of cirrhosis with splenomegaly in 2022. Patient has no memory of any of these diagnoses. Seen by primary care this past fall and noted findings of fatty liver disease and cirrhosis. She was scheduled for outpatient appointment with our GI office tomorrow for the findings of cirrhosis but had an incidental fall at home and is currently inpatient. Hemoglobin found to be as low as 6.7. Patient reports she was diagnosed with anemia placed on iron supplements about 6 weeks ago. She received 1 unit packed red cells since admission and hemoglobin has improved to 8.4. CT scan upon admission noted cirrhosis with portal hypertension and possible atrophied pancreas. She also had severe constipation. She reports she has a bowel movement daily and did not know that she was constipated. She does report abdominal distention and bloating. Her last EGD was likely 10 years or more ago. Last colonoscopy 6 or 7 years ago. She denies any melena or hematochezia. She denies any alcohol or NSAID use. She does have a history of a Lap-Band placement. Concern for portal hypertension given the splenomegaly and bilateral lower extremity edema. She is on spironolactone and Lasix. [facility] Disclaimer: The information contained in this section may have been updated after the patient was seen, as this information can be updated by other users. Medical History Abnormal electrocardiogram [ECG] [EKG] Pre-operative cardiovascular examination HLD (hyperlipidemia) HTN (hypertension), benign Thyroid disorder T2DM (type 2 diabetes mellitus) Surgical History Hx of laparoscopic gastric banding History of cholecystectomy Family History Other Family history of cancer Family history of stroke Social History (Updated 12/29/24 @ 23:22 by Sherine Zavala RN) Smoking Status: Never smoker alcohol intake: never substance use type: denies use current occupational status: retired Travel in the last 8 weeks: None household members: spouse housing: house lives independently: No marital status: caffeine: No Have you lived/traveled outside [place] in past 30 days?: No Contact w/someone who lives/traveled outside [place] past 30 days?: No Exposure to someone with infectious disease in past 14 days?: No Do you have a fever (greater than 100.4 F or 38 C)?: No Have you tested positive for COVID-19: No Exposed to someone with COVID-19 in past 14 days?: No Do you have a sore throat?: No Do you have a cough?: No Do you have any weakness?: No Are you experiencing any nausea/vomitting?: No Do you have any diarrhea?: No Are you experiencing any unusual bleeding?: No Do you have any muscle aches/pain?: No Do you have any abdominal pain?: No Are you experiencing loss of taste or smell?: No Review of Systems Review of Systems Review of systems:: pertinent systems reviewed and negative unless documented below Constitutional Constitutional: Reports system reviewed and no additional complaints, except as documented and Reports frequent falls Eyes Eyes: Reports system reviewed and no additional complaints, except as documented ENT Ears, Nose, Mouth, and Throat: Reports system reviewed and no additional complaints, except as documented *Cardiovascular Cardiovascular: Reports system reviewed and no additional complaints, except as documented *Respiratory Respiratory: Reports system reviewed and no additional complaints, except as documented *Gastrointestinal Gastrointestinal: Denies abdominal pain, Reports bloating, Reports constipation, Denies hematochezia, Denies melena, Denies nausea and Denies vomiting *Genitourinary Genitourinary: Reports system reviewed and no additional complaints, except as documented *Musculoskeletal Musculoskeletal: Reports system reviewed and no additional complaints, except as documented Integumentary/Breasts Skin/Breast: Denies rash *Neurologic Neurologic: Reports system reviewed and no additional complaints, except as documented and Reports frequent falls Meds Home Medications and Allergies Home Medications ?Medication ?Instructions ?Recorded ?Confirmed ?Type blood sugar diagnostic (Accu-Chek #10 ea 10/05/23 12/29/24 History Guide test strips) polysaccharide iron complex 180 mg 180 mg PO DAILY 07/15/24 12/29/24 History iron capsule (Pro Fe) insulin syringe-needle U-100 1 mL #10 ea 07/22/24 12/29/24 Rx 31 gauge x 15/64 (BD Veo Insulin Syringe Ultra-Fine) pen needle, diabetic 31 gauge x #1,200 ea 07/23/24 12/29/24 Rx 5/16 (BD Ultra-Fine Short Pen Needle) pravastatin 80 mg tablet 80 mg PO HS Cholesterol #90 tabs 08/02/24 12/29/24 Rx furosemide 40 mg tablet 40 mg PO DAILY #90 tabs 10/14/24 12/29/24 Rx insulin glargine 100 unit/mL (3 60 unit (0.6 mL) SQ HS #15 mL 10/14/24 12/29/24 Rx mL) subcutaneous pen (Lantus Solostar U-100 Insulin) semaglutide 2 mg/dose (8 mg/3 mL) 2 mg (0.75 mL) SQ WEEKLY #3 mL 10/14/24 12/29/24 Rx subcutaneous pen injector spironolactone 50 mg tablet 100 mg (2 x 50 mg) PO DAILY #60 12/26/24 12/29/24 Rx tabs dapagliflozin propanediol 10 mg 10 mg PO DAILY 12/30/24 12/29/24 History tablet (Farxiga) folic acid 1 mg tablet 1 mg PO MOTUWETHFRSA 12/30/24 12/30/24 History insulin aspart U-100 100 unit/mL 20 unit SQ BID 12/30/24 12/29/24 History (3 mL) subcutaneous pen (Novolog FlexPen U-100 Insulin aspart) levofloxacin 750 mg tablet 750 mg PO Q48H 12/30/24 12/30/24 History levothyroxine 88 mcg tablet 88 mcg PO DAILY 12/30/24 12/30/24 History losartan 100 mg tablet 100 mg PO DAILY 12/30/24 12/30/24 History omeprazole 40 mg capsule,delayed 40 mg PO DAILY 12/30/24 12/29/24 History release New Prescriptions to Start Prescriptions: Allergies Allergy/AdvReac Type Severity Reaction Status Date / Time morphine AdvReac Unknown NA-NAUSEA/V Verified 12/26/24 14:05 OMITING Exam (Inpt) Vital signs and Labs for Last 24 Hours: Temp Pulse Resp BP Pulse Ox O2 Del Method 97.7 F 72 18 143/65 H 96 Room Air 12/30/24 13:15 12/30/24 13:15 12/30/24 13:15 12/30/24 13:15 12/30/24 13:15 12/30/24 14:32 Laboratory Results - last 24 hr 12/29/24 06:50: HCV Ab FACUNDO w/Rflx PCR Qn Negative 12/29/24 15:05: Magnesium 1.4 L, Lipase 55, HIV Ag/Ab Combo Qual Negative 12/29/24 16:00: Blood Type A Positive, Antibody Screen Negative, Crossmatch (AHG) See Detail 12/29/24 20:56: POC Glucose 449 H* 12/30/24 01:35: POC Glucose 282 H 12/30/24 06:26: POC Glucose 267 H 12/30/24 06:50: WBC 7.5, RBC 3.10 L, Hgb 6.7 L*, Hct 23.4 L, MCV 75.5 L, MCH 21.6 L, MCHC 28.6 L, RDW 16.8, Plt Count 208, MPV 9.7, Neut % (Auto) 51.7, Lymph % (Auto) 28.2, [place] % (Auto) 14.4 H, Eos % (Auto) 4.3, Baso % (Auto) 0.7, Neut # (Auto) 3.9, Lymph # (Auto) 2.1, [place] # (Auto) 1.1 H, Eos # (Auto) 0.3, Baso # (Auto) 0.1, Sodium 134 L, Potassium 3.9, Chloride 100, Carbon Dioxide 26, Anion Gap 11.9, BUN 21 H, Creatinine 1.50 H, Estimated Creat Clear 23, Estimated GFR 33 L, Est GFR ( Amer) 40 L, Glucose 219 H D, Calcium 8.6, Magnesium 2.2 D, Iron 30 L, TIBC 348, Iron Saturation 8.71584 L, Ferritin 8.25 L, Vitamin B12 > 1000 H, Blood Type Confirm A Positive 12/30/24 11:32: POC Glucose 221 H 12/30/24 14:20: Hgb 8.4 L D, Hct 28.2 L 12/30/24 14:25: Urine Color Yellow, Urine Appearance Clear, Urine pH 6.0, Ur Specific [place] 1.010, Urine Protein Negative, Urine Glucose (UA) 1+, Urine Ketones Negative, Urine Blood Negative, Urine Nitrate Negative, Urine Bilirubin Negative, Urine Urobilinogen 0.2, Ur Leukocyte Esterase Negative, Urine RBC None, Urine WBC Occasional, Ur Squamous Epith Cells 5-10, Urine Bacteria None I & O for Labs for Last 24 Hours: Intake & Output 12/28/24 12/29/24 12/30/24 12/31/24 11:59 11:59 11:59 11:59 Intake Total 0 250 Output Total 0 600 Balance 0 -350 Weight 108.862 kg Constitutional: no acute distress, obese and cooperative Head: Present normocephalic and atraumatic Neck: Present normal inspection Respiratory: Present CTA bilaterally Cardiac: Present Regular Rate and Regular Rhythm GI: Present soft, distention (Moderately distended with gas) and normal bowel sounds; Absent tenderness Skin: Absent rash Results Labs 12/30/24 14:20 12/30/24 06:50 Labs: Laboratory Results - last 24 hr 12/29/24 06:50: HCV Ab FACUNDO w/Rflx PCR Qn Negative 12/29/24 15:05: Magnesium 1.4 L, Lipase 55, HIV Ag/Ab Combo Qual Negative 12/29/24 16:00: Blood Type A Positive, Antibody Screen Negative, Crossmatch (AHG) See Detail 12/29/24 20:56: POC Glucose 449 H* 12/30/24 01:35: POC Glucose 282 H 12/30/24 06:26: POC Glucose 267 H 12/30/24 06:50: WBC 7.5, RBC 3.10 L, Hgb 6.7 L*, Hct 23.4 L, MCV 75.5 L, MCH 21.6 L, MCHC 28.6 L, RDW 16.8, Plt Count 208, MPV 9.7, Neut % (Auto) 51.7, Lymph % (Auto) 28.2, [place] % (Auto) 14.4 H, Eos % (Auto) 4.3, Baso % (Auto) 0.7, Neut # (Auto) 3.9, Lymph # (Auto) 2.1, [place] # (Auto) 1.1 H, Eos # (Auto) 0.3, Baso # (Auto) 0.1, Sodium 134 L, Potassium 3.9, Chloride 100, Carbon Dioxide 26, Anion Gap 11.9, BUN 21 H, Creatinine 1.50 H, Estimated Creat Clear 23, Estimated GFR 33 L, Est GFR ( Amer) 40 L, Glucose 219 H D, Calcium 8.6, Magnesium 2.2 D, Iron 30 L, TIBC 348, Iron Saturation 8.99544 L, Ferritin 8.25 L, Vitamin B12 > 1000 H, Blood Type Confirm A Positive 12/30/24 11:32: POC Glucose 221 H 12/30/24 14:20: Hgb 8.4 L D, Hct 28.2 L 12/30/24 14:25: Urine Color Yellow, Urine Appearance Clear, Urine pH 6.0, Ur Specific [place] 1.010, Urine Protein Negative, Urine Glucose (UA) 1+, Urine Ketones Negative, Urine Blood Negative, Urine Nitrate Negative, Urine Bilirubin Negative, Urine Urobilinogen 0.2, Ur Leukocyte Esterase Negative, Urine RBC None, Urine WBC Occasional, Ur Squamous Epith Cells 5-10, Urine Bacteria None Assessment and Plan *Assessment and plan (1) Anemia: Status: Acute Category: Medical Code(s): D64.9 - Anemia, unspecified (2) Cirrhosis of liver: Status: Chronic Category: Medical Code(s): K74.60 - Unspecified cirrhosis of liver (3) Peripheral edema: Status: Chronic Category: Medical Code(s): R60.0 - Localized edema (4) Portal hypertension: Status: Acute Category: Medical Code(s): K76.6 - Portal hypertension (5) Fatty liver disease, nonalcoholic: Problem Comment: I suspect the patient also has cirrhosis of the liver with fluid retention and peripheral edema. Status: Chronic Category: Medical Code(s): K76.0 - Fatty (change of) liver, not elsewhere classified Plan 1. anemia Hemoglobin as low as 7.1 even though patient has been on iron supplements for 6 weeks. She denies any melena even prior to starting the iron supplements. She did get 1 unit packed red cells bringing her hemoglobin up to 8.4. She is on Protonix. Concern for active GI bleed due to varices or other abnormality related to cirrhosis. See below. After discussion with Dr. Hernandez will schedule panendoscopy tomorrow n.p.o. at midnight bowel prep tonight. 2. Fatty liver disease/cirrhosis of liver/peripheral edema/portal hypertension Looks like possible findings of fatty liver disease and cirrhosis on CT scan as far back as 2022, FibroSure testing estimated stage II fibrosis and stage III SALINAS in 2022 after seeing Chika Hicks. Findings concerning for cirrhosis including splenomegaly seen this past fall with primary care and she was scheduled for appointment with our office tomorrow for possible cirrhosis. CT scan during this hospitalization notes likely findings of cirrhosis splenomegaly and portal hypertension. Patient is obese with a BMI greater than 44, hyperlipidemia, type 2 diabetes. Patient denies any known history of liver disease in herself or her family. She denies any history of cirrhosis and did not remember having seen GI for liver disease in 2022. Would recommend a full liver workup as an outpatient. She has had mild elevations of AST persistently over multiple lab draws over the past couple of years. I would like to see her after discharge in the office for cirrhosis follow-up. Continue furosemide and spironolactone. Will estimate MELD score in the morning.
[2024-12-30 16:26] LABS: POC Glucose,Bedside 187 (70-110)
--- NOTE | 2024-12-30 17:00 | PC.NURSE ---
Patient alert and oriented. VSS. On room air. 1 unit PRBC's transfused for Hgb of 6.7 with recheck hgb of 8.4 posttransfusion. Up with 1 and FWW to BR for voids. One BM. NPO throughout day pending GI consult. Currently scheduled for EGD and colonoscopy 12/31/24. Family at bedside throughout shift. States understanding of plan.
[2024-12-30 19:47] LABS: Occult Blood,Stool Negative (Negative)
[2024-12-30] MEDS: PRAVASTATIN 40MG TAB 80 MG PO (21:10)
[2024-12-30] MEDS: INSULIN GLARGINE 100 UNITS/ML 3ML FLEXPEN 60 UNIT SUBCUT (21:10)
[2024-12-30] MEDS: PANTOPRAZOLE 40MG TABLET 40 MG PO (21:10)
[2024-12-30] MEDS: PEG-ELECTROLYTE SOLN 4000ML BOTTLE 4000 ML PO (21:17)
[2024-12-30 21:43] LABS: POC Glucose,Bedside 374 (70-110)
--- NOTE | 2024-12-30 22:33 | EXP.PN ---
Subjective *Date: 12/30/24 *Time: 22:33 Exam Data for Last 24 hours Vital signs and Labs for Last 24 Hours: Temp Pulse Resp BP Pulse Ox O2 Del Method 97.5 F L 75 18 120/53 L 94 L Room Air 12/30/24 20:00 12/30/24 20:00 12/30/24 20:00 12/30/24 20:00 12/30/24 20:00 12/30/24 21:00 Laboratory Results - last 24 hr 12/29/24 06:50: HCV Ab FACUNDO w/Rflx PCR Qn Negative 12/29/24 16:00: Blood Type A Positive, Antibody Screen Negative, Crossmatch (AHG) See Detail 12/30/24 01:35: POC Glucose 282 H 12/30/24 06:26: POC Glucose 267 H 12/30/24 06:50: WBC 7.5, RBC 3.10 L, Hgb 6.7 L*, Hct 23.4 L, MCV 75.5 L, MCH 21.6 L, MCHC 28.6 L, RDW 16.8, Plt Count 208, MPV 9.7, Neut % (Auto) 51.7, Lymph % (Auto) 28.2, [place] % (Auto) 14.4 H, Eos % (Auto) 4.3, Baso % (Auto) 0.7, Neut # (Auto) 3.9, Lymph # (Auto) 2.1, [place] # (Auto) 1.1 H, Eos # (Auto) 0.3, Baso # (Auto) 0.1, Sodium 134 L, Potassium 3.9, Chloride 100, Carbon Dioxide 26, Anion Gap 11.9, BUN 21 H, Creatinine 1.50 H, Estimated Creat Clear 23, Estimated GFR 33 L, Est GFR ( Amer) 40 L, Glucose 219 H D, Calcium 8.6, Magnesium 2.2 D, Iron 30 L, TIBC 348, Iron Saturation 8.90755 L, Ferritin 8.25 L, Vitamin B12 > 1000 H, Blood Type Confirm A Positive 12/30/24 11:32: POC Glucose 221 H 12/30/24 14:20: Hgb 8.4 L D, Hct 28.2 L 12/30/24 14:25: Urine Color Yellow, Urine Appearance Clear, Urine pH 6.0, Ur Specific [place] 1.010, Urine Protein Negative, Urine Glucose (UA) 1+, Urine Ketones Negative, Urine Blood Negative, Urine Nitrate Negative, Urine Bilirubin Negative, Urine Urobilinogen 0.2, Ur Leukocyte Esterase Negative, Urine RBC None, Urine WBC Occasional, Ur Squamous Epith Cells 5-10, Urine Bacteria None 12/30/24 16:09: POC Glucose 187 H 12/30/24 18:46: Stool Occult Blood Negative 12/30/24 21:02: POC Glucose 374 H* I & O for Last 24 hours: Intake & Output 12/27/24 12/28/24 12/29/24 12/30/24 23:59 23:59 23:59 23:59 Intake Total 250 / 250 Output Total 0 / 0 600 / 600 Balance 0 / 0 -350 / -350 Weight 108.862 kg 108.862 kg Assessment and Plan *Assessment and plan (1) Cirrhosis of liver: Status: Chronic Category: Medical Code(s): K74.60 - Unspecified cirrhosis of liver Plan Babs Bruno is a 79-year-old female who was admitted for acute on chronic anemia. #Decompensated cirrhosis, suspected LACEY #Acute on chronic microcytic anemia ? Suspected LACEY cirrhosis, no alcohol use. No history of hepatitis. ? Initial hemoglobin 6.7 MCV 75.5, improved to 8.4 after 1 unit PRBC. ? Calculate MELD score after PT/INR results. ? Bilateral lower extremity pitting edema 2+. ? No evidence of ascites on CT abdomen/pelvis. ? Acute anemia suspicious for variceal bleed. GI consulted, plan for scope in the morning. ? IV Lasix 40 mg twice daily, spironolactone 50 mg. ? Follow-up hepatitis panel, AFP, ceruloplasmin. ? Follow up CBC, CMP, PT/INR in the morning. #Uncontrolled type 2 diabetes ? Hemoglobin A1c 10.8%. ? Lantus 60 units nightly scheduled. ? Start Lantus 20 units in the morning. ? Continue Farxiga 10 mg. ? Consider starting metformin on discharge. #Right kidney lesion, complex cyst versus neoplasm. ? Seen on CT. Follow-up renal ultrasound. #Right inguinal pain ? CT abdomen/pelvis suggests inflammation. Also suggests right seventh rib fracture. Suspect fall. Will follow-up tomorrow. #Physical deconditioning ? PT/OT consulted, recommend home health with PT on discharge. DNR DVT prophylaxis: SCDs
[2024-12-31] VITALS (16 sets, daily range): BP systolic 103–157; BP diastolic 39–72; PULSE 65–81; RESP 15–20; TEMP 36.3–37.1; O2SAT 94–98
--- NOTE | 2024-12-31 | US_ITS ---
FINAL REPORT TECHNIQUE: Ultrasound images of the kidneys and bladder were obtained. CLINICAL HISTORY: .rt cyst noted on ct-- obesity FINDINGS: The right kidney measures 10 cm in length. It is normal in echogenicity. There is no hydronephrosis. The left kidney measures 10 cm in length. It is normal in echogenicity. There is no hydronephrosis. The urinary bladder is unremarkable. IMPRESSION: No hydronephrosis. Reviewed, Interpreted and Dictated by Floyd Abraham MD Transcribed by Sonja Vicente Authenticated and [facility]
[2024-12-31 00:38] LABS: POC Glucose,Bedside 145 (70-110)
[2024-12-31] MEDS: ACETAMINOPHEN 325MG TAB 650 MG PO ×3 (01:02→14:19)
--- NOTE | 2024-12-31 01:38 | PC.NURSE ---
SCD's at bedside but unable to wear at this time because pt is getting bowel prep and toileting frequently
--- NOTE | 2024-12-31 02:53 | PC.NURSE ---
Contacted Moses Rojas at this time, Pt c/o 09/05 pain in left groin, pt crying and upset. New orders for dilaudid 0.5 mg IV ONCE
[2024-12-31] MEDS: HYDROMORPHONE 2MG/ML SYRINGE 0.5 MG IV (03:01)
[2024-12-31 03:13] LABS: POC Glucose,Bedside 127 (70-110)
--- NOTE | 2024-12-31 05:11 | PC.NURSE ---
Pt has c/o mild to severe groin pain this shift and has been treated per JAN. Pt has tolerated Golytely well this shift and has had several BM's this shift. Pt BM's are not quite clear at this time, however pt has approx 480ml left of Golytely left to consume. Pt had remained in good spirits and admits that she hasn't rested at all this shift.
[2024-12-31 06:06] LABS: POC Glucose,Bedside 151 (70-110)
[2024-12-31 06:09] LABS: Basophils # 0.1 K/mm3 (0-0.2); Basophils % 0.6 % (0.1-2.0); Eosinophils # 0.4 K/mm3 (0.0-0.4); Eosinophils % 4.2 % (0.1-12.0); Hematocrit 27.8 % (37.0-47.0); Hemoglobin 8.2 g/dL (12.2-16.2); Lymphocytes # 2.4 K/mm3 (0.7-4.5); Lymphocytes % 24.4 % (10-50); Mean Corpuscular HGB Conc 29.5 g/dL (31.8-35.4); Mean Corpuscular Hemoglobin 21.9 pg (27.0-31.2); Mean Corpuscular Volume 74.3 fl (81-99); Monocytes # 1.3 K/mm3 (0.1-1.0); Monocytes % 13.4 % (1.7-9.3); Neutrophils # 5.5 K/mm3 (1.8-7.8); Neutrophils % 56.6 % (37.0-80.0); Platelet Count 252 K/mm3 (142-424); Red Blood Count 3.74 M/mm3 (4.20-5.40); Red Cell Distribution Width 16.6 % (11.5-17.5); White Blood Count 9.8 K/mm3 (4.8-10.8)
[2024-12-31 06:11] LABS: Chloride 96 mmol/L (98-107)
[2024-12-31 06:12] LABS: Potassium 3.6 mmoL/L (3.5-5.1); Sodium 132 mmol/L (136-145)
[2024-12-31 06:14] LABS: Blood Urea Nitrogen 21 mg/dl (7-17); Creatinine Clearance Estimated 21 mL/min (50-200); Estimated Glomerular Filt Rate 31 ml/min (>60); GFR (African American) 38 ML/MIN (>60)
[2024-12-31 06:15] LABS: Anion Gap 12.6 mEq/L (5-15); Calcium 8.3 mg/dl (8.4-10.2); Carbon Dioxide 27 mmol/L (22.0-30.0); Glucose 140 mg/dl (74-100)
[2024-12-31 06:16] LABS: INR 0.99 (0.9-1.1); Prothrombin Time 10.9 seconds (9.2-12.1)
[2024-12-31 08:13] LABS: AFP, Tumor Marker 2.2 ng/mL (0.0-9.2); HBsAg Screen Negative (Negative); HCV Ab Non Reactive (Non Reactive); Hep A Ab, IGM Negative (Negative); Hep B Core Ab, IgM Negative (Negative)
[2024-12-31 08:32] LABS: Albumin Level 3.7 g/dl (3.5-5.0); Chloride 96 mmol/L (98-107); Potassium 3.7 mmoL/L (3.5-5.1); Sodium 132 mmol/L (136-145)
[2024-12-31 08:35] LABS: Alanine Aminotransferase 27 U/L (12-78); Albumin/Globulin Ratio 0.9 (1.1-1.8); Alkaline Phosphatase 118 U/L (38-126); Anion Gap 14.7 mEq/L (5-15); Aspartate Amino Transferase 53 U/L (14-36); Bilirubin,Total 0.7 mg/dl (0.2-1.3); Blood Urea Nitrogen 21 mg/dl (7-17); Calcium 8.3 mg/dl (8.4-10.2); Carbon Dioxide 25 mmol/L (22.0-30.0); Creatinine Clearance Estimated 21 mL/min (50-200); Estimated Glomerular Filt Rate 31 ml/min (>60); GFR (African American) 38 ML/MIN (>60); Globulin 4.3 g/dL (1.3-3.2); Glucose 140 mg/dl (74-100)
[2024-12-31] MEDS: GABAPENTIN 100MG CAPSULE 100 MG PO ×3 (09:22→20:44)
[2024-12-31] MEDS: DAPAGLIFLOZIN PROPANEDIOL 10 MG TABLET PO (09:22)
[2024-12-31] MEDS: INSULIN GLARGINE 100 UNITS/ML 10ML VIAL 20 UNIT SUBCUT (09:23)
[2024-12-31] MEDS: LEVOTHYROXINE 100MCG (0.1MG) TAB 100 MCG PO (09:23)
[2024-12-31] MEDS: SPIRONOLACTONE 25MG TABLET 50 MG PO (09:23)
[2024-12-31] MEDS: FUROSEMIDE 40MG/4ML VIAL 40 MG IV (09:25)
[2024-12-31 11:36] LABS: POC Glucose,Bedside 198 (70-110)
--- NOTE | 2024-12-31 11:40 | PC.NURSE ---
Patient to preop holding area
--- NOTE | 2024-12-31 11:55 | EXP.HP ---
History of Present Illness *Admission Date: 12/29/24 *History of present illness: This is an 79-year-old female with multiple comorbidities, including type 2 diabetes mellitus, neuropathy, lower extremity edema on furosemide, nonalcoholic steatohepatitis (SALINAS) cirrhosis, and chronic kidney disease, presents with escalating right lower extremity pain. She was seen several days ago and prescribed levofloxacin for right leg cellulitis, which appears to have improved clinically; however, her pain has intensified and now primarily involves her right groin region. She also has a recent history of shingles, initially manifesting as a dermatomal rash over her right flank and lower abdomen, which is now resolving. The patient denies gastrointestinal or urinary symptoms and reports ongoing bowel movements. A prior DVT ultrasound study in November was negative. Adult daughter reports patient's spouse committed suicide earlier this last year after undergoing treatment for throat cancer. States that since that she has had an overall decline in health and ability to care for self. On examination, she is afebrile, hemodynamically stable, and not in acute distress. Laboratory workup reveals microcytic anemia (hemoglobin 7.1 g/dL) and an elevated creatinine of 1.50 mg/dL, consistent with her known chronic kidney disease. Blood glucose is high at 366 mg/dL. Abdominal and pelvic CT imaging demonstrates a subcentimeter, possibly complex cystic or neoplastic lesion in the right renal lower pole, a larger complex cystic lesion in the left adnexa, and radiologic evidence of cirrhosis with portal hypertension but no evidence of new or acute decompensation. There is also a small right pleural effusion with associated atelectasis and mild inflammatory changes surrounding the right iliopsoas muscle and iliac vessels, possibly related to muscle strain or a recent procedure. These findings, coupled with her reported improvement in cellulitis and resolution of the shingles rash, raise the possibility that her persistent right groin pain may be largely neuropathic (post-herpetic neuralgia) or musculoskeletal in origin. The patient?s anemia, diabetes management, and pain control will also need further evaluation and hospitalization given her overall clinical complexity. per admission H&P The patient was seen in [address] Chika Hicks after imaging found splenomegaly. She was diagnosed with Salinas and estimated stage II fibrosis on lab work. Repeat CT scan does note early changes of cirrhosis with splenomegaly in 2022. Patient has no memory of any of these diagnoses. Seen by primary care this past fall and noted findings of fatty liver disease and cirrhosis. She was scheduled for outpatient appointment with our GI office tomorrow for the findings of cirrhosis but had an incidental fall at home and is currently inpatient. Hemoglobin found to be as low as 6.7. Patient reports she was diagnosed with anemia placed on iron supplements about 6 weeks ago. She received 1 unit packed red cells since admission and hemoglobin has improved to 8.4. CT scan upon admission noted cirrhosis with portal hypertension and possible atrophied pancreas. She also had severe constipation. She reports she has a bowel movement daily and did not know that she was constipated. She does report abdominal distention and bloating. Her last EGD was likely 10 years or more ago. Last colonoscopy 6 or 7 years ago. She denies any melena or hematochezia. She denies any alcohol or NSAID use. She does have a history of a Lap-Band placement. Concern for portal hypertension given the splenomegaly and bilateral lower extremity edema. She is on spironolactone and Lasix. [facility] Disclaimer: The information contained in this section may have been updated after the patient was seen, as this information can be updated by other users. Medical History Abnormal electrocardiogram [ECG] [EKG] Pre-operative cardiovascular examination HLD (hyperlipidemia) HTN (hypertension), benign Thyroid disorder T2DM (type 2 diabetes mellitus) Surgical History Hx of laparoscopic gastric banding History of cholecystectomy Family History Other Family history of cancer Family history of stroke Social History (Updated 12/29/24 @ 23:22 by Sherine Zavala RN) Smoking Status: Never smoker alcohol intake: never substance use type: denies use current occupational status: retired Travel in the last 8 weeks: None household members: spouse housing: house lives independently: No marital status: caffeine: No Other Medical History Have you received the Flu Vaccine for this season: Yes Have you received the Pneumonia Vaccine: Yes Review of Systems Review of Systems Review of systems (narrative): Negative Constitutional Constitutional: Reports frequent falls *Cardiovascular Comments: Negative *Gastrointestinal Comments: Negative *Genitourinary Comments: Negative *Musculoskeletal Comments: Negative *Neurologic Neurologic: Reports system reviewed and no additional complaints, except as documented and Reports frequent falls Comments: Negative Meds Home Medications and Allergies Home Medications ?Medication ?Instructions ?Recorded ?Confirmed ?Type blood sugar diagnostic (Accu-Chek #10 ea 10/05/23 12/29/24 History Guide test strips) polysaccharide iron complex 180 mg 180 mg PO DAILY 07/15/24 12/29/24 History iron capsule (Pro Fe) insulin syringe-needle U-100 1 mL #10 ea 07/22/24 12/29/24 Rx 31 gauge x 15/64 (BD Veo Insulin Syringe Ultra-Fine) pen needle, diabetic 31 gauge x #1,200 ea 07/23/24 12/29/24 Rx 5/16 (BD Ultra-Fine Short Pen Needle) pravastatin 80 mg tablet 80 mg PO HS Cholesterol #90 tabs 08/02/24 12/29/24 Rx furosemide 40 mg tablet 40 mg PO DAILY #90 tabs 10/14/24 12/29/24 Rx insulin glargine 100 unit/mL (3 60 unit (0.6 mL) SQ HS #15 mL 10/14/24 12/29/24 Rx mL) subcutaneous pen (Lantus Solostar U-100 Insulin) semaglutide 2 mg/dose (8 mg/3 mL) 2 mg (0.75 mL) SQ WEEKLY #3 mL 10/14/24 12/29/24 Rx subcutaneous pen injector spironolactone 50 mg tablet 100 mg (2 x 50 mg) PO DAILY #60 12/26/24 12/29/24 Rx tabs dapagliflozin propanediol 10 mg 10 mg PO DAILY 12/30/24 12/29/24 History tablet (Farxiga) folic acid 1 mg tablet 1 mg PO MOTUWETHFRSA 12/30/24 12/30/24 History insulin aspart U-100 100 unit/mL 20 unit SQ BID 12/30/24 12/29/24 History (3 mL) subcutaneous pen (Novolog FlexPen U-100 Insulin aspart) levofloxacin 750 mg tablet 750 mg PO Q48H 12/30/24 12/30/24 History levothyroxine 88 mcg tablet 88 mcg PO DAILY 12/30/24 12/30/24 History losartan 100 mg tablet 100 mg PO DAILY 12/30/24 12/30/24 History omeprazole 40 mg capsule,delayed 40 mg PO DAILY 12/30/24 12/29/24 History release New Prescriptions to Start Prescriptions: Allergies Allergy/AdvReac Type Severity Reaction Status Date / Time morphine AdvReac Unknown NA-NAUSEA/V Verified 12/26/24 14:05 OMITING Exam Data for Last 24 hours Vital signs and Labs for Last 24 Hours: Temp Pulse Resp BP Pulse Ox O2 Del Method 97.6 F 76 20 135/68 97 Room Air 12/31/24 08:00 12/31/24 08:00 12/31/24 08:00 12/31/24 08:00 12/31/24 08:00 12/31/24 11:00 Laboratory Results - last 24 hr 12/29/24 16:00: Crossmatch (AHG) See Detail 12/30/24 10:20: Tumor Marker AFP 2.2, Hepatitis A IgM Ab Negative, Hep Bs Antigen Negative, Hep B Core IgM Ab Negative, Hepatitis C Antibody Non reactive, HCV RNA PCR Test Info Comment 12/30/24 14:20: Hgb 8.4 L D, Hct 28.2 L 12/30/24 14:25: Urine Color Yellow, Urine Appearance Clear, Urine pH 6.0, Ur Specific [place] 1.010, Urine Protein Negative, Urine Glucose (UA) 1+, Urine Ketones Negative, Urine Blood Negative, Urine Nitrate Negative, Urine Bilirubin Negative, Urine Urobilinogen 0.2, Ur Leukocyte Esterase Negative, Urine RBC None, Urine WBC Occasional, Ur Squamous Epith Cells 5-10, Urine Bacteria None 12/30/24 16:09: POC Glucose 187 H 12/30/24 18:46: Stool Occult Blood Negative 12/30/24 21:02: POC Glucose 374 H* 12/31/24 00:24: POC Glucose 145 H 12/31/24 02:59: POC Glucose 127 H 12/31/24 05:54: POC Glucose 151 H 12/31/24 06:00: WBC 9.8 D, RBC 3.74 L, Hgb 8.2 L, Hct 27.8 L, MCV 74.3 L, MCH 21.9 L, MCHC 29.5 L, RDW 16.6, Plt Count 252, MPV 10.0, Neut % (Auto) 56.6, Lymph % (Auto) 24.4, [place] % (Auto) 13.4 H, Eos % (Auto) 4.2, Baso % (Auto) 0.6, Neut # (Auto) 5.5, Lymph # (Auto) 2.4, [place] # (Auto) 1.3 H, Eos # (Auto) 0.4, Baso # (Auto) 0.1, PT 10.9, INR 0.99, Sodium 132 L 12/31/24 06:00: Sodium 132 L, Potassium 3.6 12/31/24 06:00: Potassium 3.7, Chloride 96 L 12/31/24 06:00: Chloride 96 L, Carbon Dioxide 27 12/31/24 06:00: Carbon Dioxide 25, Anion Gap 12.6 12/31/24 06:00: Anion Gap 14.7, BUN 21 H 12/31/24 06:00: BUN 21 H, Creatinine 1.60 H 12/31/24 06:00: Creatinine 1.60 H, Estimated Creat Clear 21 12/31/24 06:00: Estimated Creat Clear 21, Estimated GFR 31 L 12/31/24 06:00: Estimated GFR 31 L, Est GFR ( Amer) 38 L 12/31/24 06:00: Est GFR ( Amer) 38 L, Glucose 140 H D 12/31/24 06:00: Glucose 140 H, Calcium 8.3 L 12/31/24 06:00: Calcium 8.3 L, Total Bilirubin 0.7, AST 53 H, ALT 27, Alkaline Phosphatase 118, Total Protein 8.0, Albumin 3.7, Globulin 4.3 H, Albumin/Globulin Ratio 0.9 L 12/31/24 11:20: POC Glucose 198 H I & O for Last 24 hours: Intake & Output 12/28/24 12/29/24 12/30/24 12/31/24 23:59 23:59 23:59 23:59 Intake Total 250 / 250 Output Total 0 / 0 600 / 600 0 / 0 Balance 0 / 0 -350 / -350 0 / 0 Weight 240 lb 240 lb *Routine HEENT Exam Head: Present normocephalic Eye: Present EOMI and PERRL ENT: Present mucous membranes moist *Routine Neck Exam Neck: Present supple *Routine Respiratory Exam Respiratory: Present CTA bilaterally *Routine Cardiovascular Exam Cardiovascular: Present RRR *Routine Abdominal Exam Abdominal: Present soft and normoactive bowel sounds; Absent tenderness *Routine Rectal Exam Rectal:: deferred *Routine Genitalia Exam Genitalia:: deferred *Routine Extremities Exam Extremities: Absent cyanosis, clubbing or edema *Routine Skin Exam Skin: Present warm; Absent rash *Routine Neurological Exam Neurological: Present alert and oriented X3 Assessment and Plan *Assessment and plan (1) Anemia: Status: Acute Category: Medical Code(s): D64.9 - Anemia, unspecified (2) Portal hypertension: Status: Acute Category: Medical Code(s): K76.6 - Portal hypertension (3) Cirrhosis of liver: Status: Chronic Category: Medical Code(s): K74.60 - Unspecified cirrhosis of liver Plan A/P: 1. Anemia with evidence of cirrhosis and portal hypertension is the preprocedural diagnosis. The patient will be anesthetized/sedated using MAC sedation. The patient has been seen and examined. Cardiac and lung assessment prior to the examination is stable. Proceed with planned diagnostic panendoscopy
--- NOTE | 2024-12-31 11:56 | HMH.PROCNOTE ---
[facility] Procedure Note Date: 12/31/24 Time: 12:13 Procedure Note:: Upper Endoscopy Procedure Report: Esophagogastroduodenoscopy with cold biopsies and APC ablation Endoscopost: George Hernandez II, MD Referring Physician: Luis Maradiaga MD Date of Procedure: December 31, 2024 Equipment: Olympus GIF 190 standard upper endoscope Sedation: MAC sedation Indications: Mrs. Bruno is an 79-year-old female with Salinas and cirrhosis. Her CAT scan does note early changes of cirrhosis with splenomegaly from 2022. Her CAT scan on admission this time shows cirrhosis with portal hypertension and atrophied pancreas. She has had regular bowel function but CAT scan showed marked obstipation. The patient also has anemia and her hemoglobin was 6.7. She was started on iron supplements about 6 weeks ago. She received 1 unit of PRBCs. She still has microcytic indices with hemoglobin 7.1. Iron is 30. Her iron saturation is 8.6% and her ferritin was 8.25. The patient reports no melena, hematochezia or bright red blood per rectum. She reports no hematemesis. She has no abdominal pain, heartburn, reflux or dysphagia. Procedure: Prior to the procedure, a history and physical exam was performed, and patient's medications and allergies were reviewed. The risks, benefits and alternatives of the sedation and procedure were discussed with the patient. All questions were answered and informed consent was obtained. The patient was brought to the procedure room. Patient identification and proposed procedure were verified by the physician and the nurse. The patient was placed in a left lateral decubitus position and the scope was passed under direct vision. Throughout the procedure, the patient's blood pressure, pulse, and oxygen saturations were monitored continuously. The upper GI endoscopy was accomplished without difficulty. The patient tolerated the procedure well. Findings: The scope was passed directly into the upper esophagus and advanced to the third portion of the duodenum. The post bulbar duodenum and duodenal bulb were normal with normal mucosa and conniventes. The scope was withdrawn through a normal duodenal bulb and pylorus into the stomach. The antrum was normal. There was some micronodular reticular chronic gastritis of the body and fundus and biopsies were taken to rule out H. pylori. There was no evidence of portal gastropathy or GAVE. There was a AVMs/angiodysplasia in the cardia region near the GE junction upon retroflexion was some small amount of heme identified and was slightly larger AVM. This was ablated using APC ablation. Upon retroflexion there was no gastric or fundic varices. There was evidence of prior fundoplication with some recurrent 2 to 3 cm hiatal hernia. The scope was then withdrawn into the esophagus. There was no evidence of reflux esophagitis. There were very faint small grade 1 esophageal varices without stigmata. The remainder of the esophageal mucosa was normal. Impression: 1. 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 Nodular/micronodular chronic gastritis?rule out H. pylori 3. Very small flat grade 1 esophageal varices without stigmata?no other signs of portal hypertension 4. Prior fundoplication with small recurrent hiatal hernia Plan: I will follow-up the biopsies and proceed with diagnostic colonoscopy. I will order Venofer parenteral iron infusion.
--- NOTE | 2024-12-31 12:13 | P.PCN_ITS ---
[facility] Procedure Note Date: 12/31/24 Time: 12:28 Procedure Note:: Colonoscopy Procedure Report: Colonoscopy with cold snare polypectomy Endoscopist: George Hernandez II, MD Referring physician: Luis Maradiaga MD Date of Procedure: December 31, 2024 Equipment: Olympus 190 variable stiffness pediatric colonoscope Sedation: MAC sedation Indication: Mrs. Bruno is an 79-year-old female with Salinas and cirrhosis. Her CAT scan does note early changes of cirrhosis with splenomegaly from 2022. Her CAT scan on admission this time shows cirrhosis with portal hypertension and atrophied pancreas. She has had regular bowel function but CAT scan showed marked obstipation. The patient also has anemia and her hemoglobin was 6.7. She was started on iron supplements about 6 weeks ago. She received 1 unit of PRBCs. She still has microcytic indices with hemoglobin 7.1. Iron is 30. Her iron saturation is 8.6% and her ferritin was 8.25. The patient reports no melena, hematochezia or bright red blood per rectum. The patient's last colonoscopy was 6 or 7 years ago. She reports no use of alcohol or NSAIDs. She reports no abdominal pain or weight loss. Procedure: Prior to the procedure, a history and physical exam was performed, and patient's medications and allergies were reviewed. The risks, benefits and alternatives of the sedation and procedure were discussed with the patient. All questions were answered and informed consent was obtained. The patient was brought to the procedure room. Patient identification and proposed procedure were verified by the physician and the nurse. The patient was placed in a left lateral decubitus position and the scope was passed under direct vision. Throughout the procedure, the patient's blood pressure, pulse, and oxygen saturations were monitored continuously. The colonoscopy was accomplished without difficulty. The patient tolerated the procedure well. Findings: On digital rectal examination there was normal rectal tone. There were no external hemorrhoids. The colonoscope was introduced through the anal canal to the rectum and advanced to the cecum. The ileocecal valve and appendiceal orifice were identified. There was a marked amount of fecal residue in the cecum impairing visualization of the cecal cap. There were 5 polyps (ascending x 2 (4 and 5 mm), transverse x 2 (6 and 9 mm) and sigmoid x 1 (3 mm)). These were all removed via cold snare polypectomy. There were scattered diverticuli throughout the descending and sigmoid colon (LEFT colon). The rectum itself was normal. Upon retroflexion within the rectum there were grade 1-2 internal hemorrhoids. The preparation was fair throughout with [place] Preparation Score of 6-7 out of 9. The cecal time was 14 minutes. Impression: 1. Colonic polyps x 5 (ranging in size from 3 to 9 mm) 2. Left-sided diverticulosis 3. Grade 1-2 internal hemorrhoids Plan: I will follow-up the polyp histology. There was no etiology for the patient's iron deficiency anemia or chronic GI blood loss from the lower digestive tract. I am going to recommend Hemoccult testing and if positive would consider PillCam. I would also recommend parenteral Venofer iron infusion. Would recommend carvedilol 3.125 mg twice daily for primary pharmacologic prophylaxis of her portal hypertension and small varices. The patient did have a prior fecal elastase that was borderline (fecal elastase 266 mcg/g) with evidence of pancreatic atrophy on scan. Would consider adding Creon. I will follow-up polyp histology. The patient did not have full preparation with good visibility of the cecum and a couple of areas in colon. However, with her comorbidities, I am not convinced that she will need repeat surveillance. I will discuss findings with patient and family.
--- NOTE | 2024-12-31 12:36 | EXP.ANES.CKL ---
[facility] Disclaimer: The information contained in this section may have been updated after the patient was seen, as this information can be updated by other users. Medical History Abnormal electrocardiogram [ECG] [EKG] Pre-operative cardiovascular examination HLD (hyperlipidemia) HTN (hypertension), benign Thyroid disorder T2DM (type 2 diabetes mellitus) Surgical History Hx of laparoscopic gastric banding History of cholecystectomy Family History Other Family history of cancer Family history of stroke Social History (Updated 12/29/24 @ 23:22 by Sherine Zavala RN) Smoking Status: Never smoker alcohol intake: never substance use type: denies use current occupational status: retired Travel in the last 8 weeks: None household members: spouse housing: house lives independently: No marital status: caffeine: No [facility] Anesthesia Checklist Patient Identification Patient Identification: Arm Band Structural Data Admitted From: Home Planned Operative Procedure/s: EGD/Colonoscopy Consent for Planned Operative Procedure(s) Verified: Yes Verified Documents: Surgical Consent and History and Physical NPO Status Verified Time NPO: 00:00 Additional verifications Anesthesia Reactions: No Hx Blood Transfusions: No Blood Transfusion Reaction: No Airway Assessment Mallampati Score:: Class II C-Spine Mobility Assessed: Yes TMJ Mobility Assessed: Yes Neurological Assessment Level of Consciousness: Awake, Alert and Appropriate Anesthesia Plan Anesthesia Risk discussed: Yes Anesthesia Plan: Verified ASA Class: III Anesthesia Type: MAC
--- NOTE | 2024-12-31 12:42 | CARE MANAGER ---
Most recent lab results Calcium 8.3 mg/dl (8.4-10.2) L 12/31/24 06:00 Calcium 8.3 mg/dl (8.4-10.2) L 12/31/24 06:00 Magnesium 2.2 mg/dl (1.6-2.3) D 12/30/24 06:50
--- NOTE | 2024-12-31 13:07 | P.PN_ITS ---
Subjective *Date: 12/31/24 *Time: 21:32 Interval history: Patient still having some right inguinal spasming pain intermittently. No nausea or vomiting. Denies any chest pain or shortness of breath. Stable on room air. Afebrile Medical Exam Vital signs and Labs for Last 24 Hours: Vital Signs Temp Pulse Pulse Resp BP BP Pulse Ox 12/31/24 12:53 79 17 132/69 97 12/31/24 12:43 78 16 111/43 L 96 12/31/24 12:33 97.3 F L 81 15 103/39 L 95 12/31/24 11:59 12/31/24 11:00 12/31/24 09:37 12/31/24 09:20 12/31/24 08:00 97.6 F 76 20 135/68 97 12/31/24 06:48 12/31/24 05:00 12/31/24 03:04 98.8 F 75 18 139/62 96 12/31/24 03:00 12/31/24 01:00 12/30/24 21:00 12/30/24 20:00 12/30/24 20:00 97.5 F L 75 18 120/53 L 94 L 12/30/24 18:49 12/30/24 17:00 12/30/24 15:58 98 F 73 19 138/60 95 12/30/24 14:32 12/30/24 13:15 12/30/24 13:15 97.7 F 72 18 143/65 H 96 O2 Del Method O2 Flow Rate 12/31/24 12:53 Room Air 12/31/24 12:43 Room Air 12/31/24 12:33 Nasal Cannula 2 12/31/24 11:59 Nasal Cannula 5 12/31/24 11:00 Room Air 12/31/24 09:37 Room Air 12/31/24 09:20 Room Air 12/31/24 08:00 Room Air 12/31/24 06:48 Room Air 12/31/24 05:00 Room Air 12/31/24 03:04 12/31/24 03:00 Room Air 12/31/24 01:00 Room Air 12/30/24 21:00 Room Air 12/30/24 20:00 Room Air 12/30/24 20:00 Room Air 12/30/24 18:49 Room Air 12/30/24 17:00 Room Air 12/30/24 15:58 Room Air 12/30/24 14:32 Room Air 12/30/24 13:15 Room Air 12/30/24 13:15 Intake and Output 12/30/24 12/31/24 12/31/24 23:59 07:59 15:59 Output Total 0 / 600 0 / 0 0 / 0 Balance 0 / -350 0 / 0 0 / 0 Output: Output, Urine Amount 0 / 600 0 / 0 0 / 0 Other: Number of Unmeasured Voids 2 1 1 Number of Bowel Movements 3 2 1 Laboratory Results - last 24 hr 12/29/24 16:00: Crossmatch (AHG) See Detail 12/30/24 10:20: Ceruloplasmin 31.0, Tumor Marker AFP 2.2, Hepatitis A IgM Ab Negative, Hep Bs Antigen Negative, Hep B Core IgM Ab Negative, Hepatitis C Antibody Non reactive, HCV RNA PCR Test Info Comment 12/30/24 14:20: Hgb 8.4 L D, Hct 28.2 L 12/30/24 14:25: Urine Color Yellow, Urine Appearance Clear, Urine pH 6.0, Ur Specific [place] 1.010, Urine Protein Negative, Urine Glucose (UA) 1+, Urine Ketones Negative, Urine Blood Negative, Urine Nitrate Negative, Urine Bilirubin Negative, Urine Urobilinogen 0.2, Ur Leukocyte Esterase Negative, Urine RBC None, Urine WBC Occasional, Ur Squamous Epith Cells 5-10, Urine Bacteria None 12/30/24 16:09: POC Glucose 187 H 12/30/24 18:46: Stool Occult Blood Negative 12/30/24 21:02: POC Glucose 374 H* 12/31/24 00:24: POC Glucose 145 H 12/31/24 02:59: POC Glucose 127 H 12/31/24 05:54: POC Glucose 151 H 12/31/24 06:00: WBC 9.8 D, RBC 3.74 L, Hgb 8.2 L, Hct 27.8 L, MCV 74.3 L, MCH 21.9 L, MCHC 29.5 L, RDW 16.6, Plt Count 252, MPV 10.0, Neut % (Auto) 56.6, Lymph % (Auto) 24.4, [place] % (Auto) 13.4 H, Eos % (Auto) 4.2, Baso % (Auto) 0.6, Neut # (Auto) 5.5, Lymph # (Auto) 2.4, [place] # (Auto) 1.3 H, Eos # (Auto) 0.4, Baso # (Auto) 0.1, PT 10.9, INR 0.99, Sodium 132 L 12/31/24 06:00: Sodium 132 L, Potassium 3.6 12/31/24 06:00: Potassium 3.7, Chloride 96 L 12/31/24 06:00: Chloride 96 L, Carbon Dioxide 27 12/31/24 06:00: Carbon Dioxide 25, Anion Gap 12.6 12/31/24 06:00: Anion Gap 14.7, BUN 21 H 12/31/24 06:00: BUN 21 H, Creatinine 1.60 H 12/31/24 06:00: Creatinine 1.60 H, Estimated Creat Clear 21 12/31/24 06:00: Estimated Creat Clear 21, Estimated GFR 31 L 12/31/24 06:00: Estimated GFR 31 L, Est GFR ( Amer) 38 L 12/31/24 06:00: Est GFR ( Amer) 38 L, Glucose 140 H D 12/31/24 06:00: Glucose 140 H, Calcium 8.3 L 12/31/24 06:00: Calcium 8.3 L, Total Bilirubin 0.7, AST 53 H, ALT 27, Alkaline Phosphatase 118, Total Protein 8.0, Albumin 3.7, Globulin 4.3 H, Albumin/Globulin Ratio 0.9 L 12/31/24 11:20: POC Glucose 198 H I & O for Labs for Last 24 Hours: Intake & Output 12/28/24 12/29/24 12/30/24 12/31/24 23:59 23:59 23:59 23:59 Intake Total 250 / 250 Output Total 0 / 0 600 / 600 0 / 0 Balance 0 / 0 -350 / -350 0 / 0 Weight 108.862 kg 108.862 kg Constitutional: Present no acute distress, morbidly obese and cooperative Head: Present atraumatic and normocephalic ENT: Present normal exam Respiratory: Present normal respiratory effort; Absent rhonchi, wheezes or crackles Cardiac: Present Reg Rate and Rhythm GI: Present soft, tenderness (Mild right lower quadrant and epigastric discomfort. No rebound or guarding) and normal bowel sounds; Absent distention Extremities: Present normal inspection, full ROM and edema (2+ to knees) Skin: Present intact; Absent erythema Comment:: Stasis changes of right lower extremity with flaking Neuro: Present Grossly Intact, alert, awake, oriented x 3 and moves all extremities Assessment and Plan *Assessment and plan (1) Anemia: Status: Acute Category: Medical Code(s): D64.9 - Anemia, unspecified (2) Cirrhosis of liver: Status: Chronic Category: Medical Code(s): K74.60 - Unspecified cirrhosis of liver (3) Portal hypertension: Status: Acute Category: Medical Code(s): K76.6 - Portal hypertension (4) Chronic kidney disease: Status: Chronic Category: Medical Code(s): N18.9 - Chronic kidney disease, unspecified (5) 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 Qualifiers: Diabetes mellitus 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 Qualified Code(s): E11.42 - Type 2 diabetes mellitus with diabetic polyneuropathy; 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 Taken for EGD and colonoscopy today. Discussed case with GI. Will monitor overnight. Overall doing better. Hemoglobin responded well to transfusion. Problems addressed as follows: #Decompensated cirrhosis, suspected LACEY #Acute on chronic microcytic anemia ? Suspected LACEY cirrhosis, no alcohol use. No history of hepatitis. Portal hypertension on abdominal imaging. -Taken for EGD and colonoscopy today. Discussed case with GI, patient had AVMs and small varices that were not significant or needing banding. Recommend continue pantoprazole. Recommend initiating carvedilol 3.125 mg twice daily. -Hemoglobin stable after transfusion. 8.2 this morning. Repeat CBC, CMP, magnesium ordered for the morning. - Bilateral lower extremity pitting edema 2+. Concerning for secondary to cirr hosis versus CHF. Patient also complains of orthopnea. -Continue diuretics with IV Lasix 80 mg twice daily, spironolactone 50 mg p.o. daily. - Follow-up hepatitis panel, AFP, ceruloplasmin. #Uncontrolled type 2 diabetes ? Hemoglobin A1c 10.8%. ? Lantus 60 units nightly scheduled. ? Start Lantus 20 units in the morning. ? Continue Farxiga 10 mg. ? Sliding scale insulin and fingersticks ACHS. #Right kidney lesion, complex cyst versus neoplasm. ? Seen on CT. Follow-up renal ultrasound. #Right inguinal pain ? CT abdomen/pelvis suggests inflammation. Also suggests right seventh rib fracture. Suspect fall. Continue methocarbamol 500 mg every 6 hours as needed for muscle spasm. White count normal at 9.8. Low concern for infection. #Physical deconditioning ? PT/OT consulted, recommend home health with PT on discharge. DNR DVT prophylaxis: SCDs Diabetic diet
[2024-12-31] MEDS: IRON SUCROSE COMPLEX 200 MG in 0.9 % SODIUM CHLORIDE 100 ML 220 MG IV (14:20)
--- NOTE | 2024-12-31 15:02 | SW/DCPLANNER ---
Addendum entered by Martha Patel 01/02/25 10:04: I have updated Radha gresham/ [facility] that patient will discharge home today. Original Note: Therapy recommended home health services. Patient is agreeable to home health and does not have a preferred agency. Information sent to [facility] and accepted. GERALD Hunter
[2024-12-31] MEDS: METHOCARBAMOL 500MG TABLET 500 MG PO ×2 (15:37→21:46)
[2024-12-31] MEDS: humaLOG 100 UNITS/ML 10ML VIAL (SSI) SUBCUT ×2 (16:50→20:53)
[2024-12-31] MEDS: FUROSEMIDE 40MG/4ML VIAL 80 MG IV (16:51)
[2024-12-31 16:53] LABS: POC Glucose,Bedside 196 (70-110)
--- NOTE | 2024-12-31 17:00 | PC.NURSE ---
Patient sleeping and states she does not want to eat at this time. Family instructed to let nurse know when patient is ready to eat so Creon can be administered.
[2024-12-31 17:24] LABS: Hematocrit 27.2 % (37.0-47.0); Hemoglobin 7.9 g/dL (12.2-16.2)
--- NOTE | 2024-12-31 17:55 | PC.NURSE ---
Patient alert and oriented. VSS. Up with 1 to BR or BSC for voids. Robaxin and tylenol for bilateral groin pain. EGD and colonoscopy completed. Will continue aggressive diuresis. Family states understanding of measuring urine output. Possible discharge tomorrow pending morning labs. Family at bedside throughout shift
[2024-12-31] MEDS: LIPASE/PROTEASE/AMYLASE 1 EACH CAPSULE.DR PO (18:59)
[2024-12-31] MEDS: PRAVASTATIN 40MG TAB 80 MG PO (20:44)
[2024-12-31] MEDS: CARVEDILOL 3.125MG TABLET 3.125 MG PO (20:44)
[2024-12-31] MEDS: PANTOPRAZOLE 40MG TABLET 40 MG PO (20:44)
[2024-12-31] MEDS: INSULIN GLARGINE 100 UNITS/ML 3ML FLEXPEN 60 UNIT SUBCUT (20:53)
[2024-12-31 22:24] LABS: POC Glucose,Bedside 336 (70-110)
[2025-01-01] VITALS: BP 139/64; PULSE 77; RESP 17; TEMP 36.9; O2SAT 92
[2025-01-01] MEDS: METHOCARBAMOL 500MG TABLET 500 MG PO ×3 (03:07→20:22)
--- NOTE | 2025-01-01 03:46 | PC.NURSE ---
Pt. is alert and orientated x 4. She was sitting up in chair at change of shift. Pt. assisted into bedPt. states she sleeps in a recliner at home. Pt. c/o right groin pain. BLE swollen , scaley, . Pt. up to bathroom with assist x 1 and use of wheeled walker. pt. able to put weight on the right leg. Pt. medicated with Robaxin for pain and it has helped decrease the groin pain. at 0300 Pt. assisted outo fo bed to bathroom and than settled in the recliner. she did not want to go back to bed. legs elevated. Lotion applied to BLE. VSS> Personal items and call butler in reach.
[2025-01-01 04:00] VITALS: BP 136/58; PULSE 66; RESP 16; TEMP 36.7; O2SAT 97; BMI 44.1
[2025-01-01 06:13] LABS: POC Glucose,Bedside 273 (70-110)
[2025-01-01] MEDS: humaLOG 100 UNITS/ML 10ML VIAL (SSI) SUBCUT ×4 (06:15→20:24)
[2025-01-01 06:51] LABS: Basophils % 0.6 % (0.1-2.0); Eosinophils # 0.3 K/mm3 (0.0-0.4); Eosinophils % 3.4 % (0.1-12.0); Hematocrit 26.3 % (37.0-47.0); Hemoglobin 7.4 g/dL (12.2-16.2); Lymphocytes # 1.8 K/mm3 (0.7-4.5); Lymphocytes % 24.3 % (10-50); Mean Corpuscular HGB Conc 28.1 g/dL (31.8-35.4); Mean Corpuscular Hemoglobin 21.4 pg (27.0-31.2); Mean Corpuscular Volume 76.2 fl (81-99); Mean Platelet Volume 10.4 fl (7.4-10.4); Monocytes % 13.8 % (1.7-9.3); Neutrophils # 4.1 K/mm3 (1.8-7.8); Neutrophils % 56.5 % (37.0-80.0); Platelet Count 215 K/mm3 (142-424); Red Blood Count 3.45 M/mm3 (4.20-5.40); Red Cell Distribution Width 16.9 % (11.5-17.5); White Blood Count 7.3 K/mm3 (4.8-10.8)
[2025-01-01 06:58] LABS: Albumin Level 3.5 g/dl (3.5-5.0); Chloride 96 mmol/L (98-107); Sodium 132 mmol/L (136-145)
[2025-01-01 07:01] LABS: Alanine Aminotransferase 25 U/L (12-78); Alkaline Phosphatase 100 U/L (38-126); Aspartate Amino Transferase 61 U/L (14-36); Bilirubin,Total 0.4 mg/dl (0.2-1.3); Blood Urea Nitrogen 21 mg/dl (7-17); Carbon Dioxide 29 mmol/L (22.0-30.0); Creatinine Clearance Estimated 19 mL/min (50-200); Estimated Glomerular Filt Rate 27 ml/min (>60); GFR (African American) 33 ML/MIN (>60); Globulin 3.5 g/dL (1.3-3.2)
[2025-01-01 07:02] LABS: Calcium 8.2 mg/dl (8.4-10.2); Glucose 237 mg/dl (74-100)
[2025-01-01] MEDS: LIPASE/PROTEASE/AMYLASE 1 EACH CAPSULE.DR PO ×3 (07:04→17:23)
[2025-01-01] MEDS: LEVOTHYROXINE 100MCG (0.1MG) TAB 100 MCG PO (07:04)
[2025-01-01 07:41] VITALS: BP 117/57; PULSE 76; RESP 18; TEMP 36.8; O2SAT 96
[2025-01-01] MEDS: GABAPENTIN 100MG CAPSULE 100 MG PO ×3 (09:33→20:22)
[2025-01-01] MEDS: CARVEDILOL 3.125MG TABLET 3.125 MG PO ×2 (09:34→20:22)
[2025-01-01] MEDS: DAPAGLIFLOZIN PROPANEDIOL 10 MG TABLET PO (09:34)
[2025-01-01] MEDS: SPIRONOLACTONE 25MG TABLET 50 MG PO (09:34)
[2025-01-01] MEDS: FUROSEMIDE 40MG/4ML VIAL 80 MG IV ×2 (09:35→17:23)
[2025-01-01] MEDS: ACETAMINOPHEN 325MG TAB 650 MG PO ×2 (09:38→20:20)
[2025-01-01] MEDS: INSULIN GLARGINE 100 UNITS/ML 10ML VIAL 20 UNIT SUBCUT (09:42)
--- NOTE | 2025-01-01 09:42 | PC.NURSE ---
Unable to scan 20 unit lantus. Dose confirmed by Loli DUARTE. Order confirmed by Jane DUARTE
[2025-01-01 11:18] LABS: POC Glucose,Bedside 286 (70-110)
[2025-01-01 11:24] VITALS: BP 110/45; PULSE 70; RESP 20; TEMP 36.4; O2SAT 96
--- NOTE | 2025-01-01 11:50 | PC.NURSE ---
Patient sleeping. Family request to let patient sleep and give meds when she wakes up
[2025-01-01] MEDS: levoFLOXacin 500MG TAB 500 MG PO (12:23)
[2025-01-01 14:41] VITALS: BMI 44.1
--- NOTE | 2025-01-01 15:07 | P.PN_ITS ---
Subjective *Date: 01/01/25 *Time: 16:19 Interval history: Feeling this morning. Diuresing well. -2-1/2 L since admission. Upper leg/groin pain responded well to muscle relaxer. Slept well last night. Stable on room air. No bowel movements in the past 24 hours. Denies any chest pain or shortness of breath. Medical Exam Vital signs and Labs for Last 24 Hours: Vital Signs Temp Pulse Resp BP Pulse Ox O2 Del Method 01/01/25 14:56 Room Air 01/01/25 13:00 Room Air 01/01/25 11:24 97.5 F L 70 20 110/45 L 96 Room Air 01/01/25 11:00 Room Air 01/01/25 09:20 Room Air 01/01/25 07:41 98.3 F 76 18 117/57 L 96 Room Air 01/01/25 06:42 Room Air 01/01/25 05:00 Room Air 01/01/25 04:00 98.0 F 66 16 136/58 L 97 Room Air 01/01/25 03:00 Room Air 01/01/25 01:00 Room Air 01/01/25 00:00 98.5 F 77 17 139/64 92 L Room Air 12/31/24 23:00 Room Air 12/31/24 21:00 Room Air 12/31/24 20:00 Room Air 12/31/24 20:00 98.4 F 73 16 157/72 H 97 Room Air 12/31/24 18:45 Room Air 12/31/24 16:44 Room Air 12/31/24 16:20 97.7 F 65 16 122/53 L 94 L Room Air 12/31/24 15:20 Room Air 12/31/24 15:10 70 16 129/61 96 Room Air Intake and Output 12/31/24 01/01/25 01/01/25 23:59 07:59 15:59 Intake Total 120 / 720 240 / 1460 1220 / 1460 Output Total 1150 / 1850 1100 / 1600 500 / 1600 Balance -1030 / -1130 -860 / -140 720 / -140 Intake: Intake, Oral Amount 120 / 720 240 / 1460 1220 / 1460 Output: Output, Urine Amount 1150 / 1850 1100 / 1600 500 / 1600 Other: Number of Voids 1 Number of Unmeasured Voids 1 0 Number of Bowel Movements 1 Weight 108.862 kg 109 kg Patient Weight 01/01/25 23:59 Weight 109 kg Laboratory Results - last 24 hr 12/31/24 16:42: POC Glucose 196 H 12/31/24 17:15: Hgb 7.9 L, Hct 27.2 L 12/31/24 20:41: POC Glucose 336 H* 01/01/25 05:19: WBC 7.3 D, RBC 3.45 L, Hgb 7.4 L, Hct 26.3 L, MCV 76.2 L, MCH 21.4 L, MCHC 28.1 L, RDW 16.9, Plt Count 215, MPV 10.4, Neut % (Auto) 56.5, Lymph % (Auto) 24.3, [place] % (Auto) 13.8 H, Eos % (Auto) 3.4, Baso % (Auto) 0.6, Neut # (Auto) 4.1, Lymph # (Auto) 1.8, [place] # (Auto) 1.0, Eos # (Auto) 0.3, Baso # (Auto) 0.0, Sodium 132 L, Potassium 4.0, Chloride 96 L, Carbon Dioxide 29, Anion Gap 11.0, BUN 21 H, Creatinine 1.80 H, Estimated Creat Clear 19, Estimated GFR 27 L, Est GFR ( Amer) 33 L, Glucose 237 H D, Calcium 8.2 L, Magnesium 2.0, Total Bilirubin 0.4, AST 61 H, ALT 25, Alkaline Phosphatase 100, Total Protein 7.0, Albumin 3.5, Globulin 3.5 H, Albumin/Globulin Ratio 1.0 L 01/01/25 06:03: POC Glucose 273 H 01/01/25 11:09: POC Glucose 286 H I & O for Labs for Last 24 Hours: Intake & Output 12/29/24 12/30/24 12/31/24 01/01/25 23:59 23:59 23:59 23:59 Intake Total 250 / 250 480 / 720 1460 / 1460 Output Total 0 / 0 600 / 600 1550 / 1850 1600 / 1600 Balance 0 / 0 -350 / -350 -1070 / -1130 -140 / -140 Weight 108.862 kg 108.862 kg 109 kg Constitutional: Present no acute distress, morbidly obese and cooperative Head: Present atraumatic and normocephalic ENT: Present normal exam Respiratory: Present normal respiratory effort; Absent rhonchi, wheezes or crackles Cardiac: Present Reg Rate and Rhythm GI: Present soft, tenderness (Mild right lower quadrant and epigastric discomfort. No rebound or guarding) and normal bowel sounds; Absent distention Extremities: Present normal inspection, full ROM and edema (2+ to knees) Skin: Present intact; Absent erythema Comment:: Stasis changes of right lower extremity with flaking Neuro: Present Grossly Intact, alert, awake, oriented x 3 and moves all extremities Assessment and Plan *Assessment and plan (1) Anemia: Status: Acute Category: Medical Code(s): D64.9 - Anemia, unspecified (2) Cirrhosis of liver: Status: Chronic Category: Medical Code(s): K74.60 - Unspecified cirrhosis of liver (3) Portal hypertension: Status: Acute Category: Medical Code(s): K76.6 - Portal hypertension (4) Chronic kidney disease: Status: Chronic Category: Medical Code(s): N18.9 - Chronic kidney disease, unspecified (5) 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 Qualifiers: Diabetes mellitus fdc 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 Qualified Code(s): E11.42 - Type 2 diabetes mellitus with diabetic polyneuropathy; Z79.4 - 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 Taken for EGD and colonoscopy today. Discussed case with GI. Will monitor overnight. Overall doing better. Hemoglobin responded well to trans fusion. Slight drop in hemoglobin today. Bump in kidney function. Will monitor 1 more night. Problems addressed as follows: #Decompensated cirrhosis, suspected LACEY #Acute on chronic microcytic anemia ? Suspected LACEY cirrhosis, no alcohol use. No history of hepatitis. Portal hypertension on abdominal imaging. -Taken for EGD and colonoscopy 12/31/2024. Found to have AVMs. No overt signs of bleeding however hemoglobin dropped today to 7.4. Will order repeat CBC, CMP, magnesium for the morning. -Continue carvedilol 3.125 mg twice daily -Continue pantoprazole 40 mg nightly - Bilateral lower extremity pitting edema 2+. Concerning for secondary to cirrhosis versus CHF. Patient also complains of orthopnea. -Continue diuretics with IV Lasix 80 mg twice daily, spironolactone 50 mg p.o. daily. -2-1/2 L since admission. -Slight bump in kidney function, BUN 21, creatinine 1.8. Close monitoring with diuresis. Repeat BMP ordered for this evening - Follow-up hepatitis panel, AFP, ceruloplasmin. #Uncontrolled type 2 diabetes ? Hemoglobin A1c 10.8%. Morning glucose 237 ? Lantus 60 units nightly scheduled. ? Continue Lantus 20 units in the morning. ? Continue Farxiga 10 mg. ? Sliding scale insulin and fingersticks ACHS. #Right kidney lesion, complex cyst versus neoplasm. ? Seen on CT. no hydronephrosis on ultrasound. #Right inguinal pain ? CT abdomen/pelvis suggests inflammation. Also suggests right seventh rib fracture. Suspect fall. Continue methocarbamol 500 mg every 6 hours as needed for muscle spasm. White count normal at 7.3. Low concern for infection. #Physical deconditioning: PT/OT consulted, recommend home health with PT on discharge. DNR DVT prophylaxis: SCDs Diabetic diet
[2025-01-01 16:00] VITALS: BP 121/56; PULSE 66; RESP 19; TEMP 36.6; O2SAT 97
--- NOTE | 2025-01-01 16:17 | EXP.MED.FU ---
Subjective *Date: 01/01/25 *Time: 16:23 Interval history: Patient tolerated panendoscopy well. She is sitting up in a chair out of bed interacting with family. She has no current complaints. Hemoglobin has dropped from 7.9 down to 7.4 overnight. MELD score equals to 17 but with low sodium since admission and mild elevation of creatinine. Has received 1 units of packed red cells since admission and 1 infusion IV iron, Venofer. APC ablation on AVM/angiodysplasia on EGD. No findings of blood loss on colonoscopy yesterday. Exam Data for Last 24 hours Vital signs and Labs for Last 24 Hours: Temp Pulse Resp BP Pulse Ox O2 Del Method O2 Flow Rate 97.5 F L 70 20 110/45 L 96 Room Air 2 01/01/25 11:24 01/01/25 11:24 01/01/25 11:24 01/01/25 11:24 01/01/25 11:24 01/01/25 14:56 12/31/24 12:33 Laboratory Results - last 24 hr 12/31/24 16:42: POC Glucose 196 H 12/31/24 17:15: Hgb 7.9 L, Hct 27.2 L 12/31/24 20:41: POC Glucose 336 H* 01/01/25 05:19: WBC 7.3 D, RBC 3.45 L, Hgb 7.4 L, Hct 26.3 L, MCV 76.2 L, MCH 21.4 L, MCHC 28.1 L, RDW 16.9, Plt Count 215, MPV 10.4, Neut % (Auto) 56.5, Lymph % (Auto) 24.3, [place] % (Auto) 13.8 H, Eos % (Auto) 3.4, Baso % (Auto) 0.6, Neut # (Auto) 4.1, Lymph # (Auto) 1.8, [place] # (Auto) 1.0, Eos # (Auto) 0.3, Baso # (Auto) 0.0, Sodium 132 L, Potassium 4.0, Chloride 96 L, Carbon Dioxide 29, Anion Gap 11.0, BUN 21 H, Creatinine 1.80 H, Estimated Creat Clear 19, Estimated GFR 27 L, Est GFR ( Amer) 33 L, Glucose 237 H D, Calcium 8.2 L, Magnesium 2.0, Total Bilirubin 0.4, AST 61 H, ALT 25, Alkaline Phosphatase 100, Total Protein 7.0, Albumin 3.5, Globulin 3.5 H, Albumin/Globulin Ratio 1.0 L 01/01/25 06:03: POC Glucose 273 H 01/01/25 11:09: POC Glucose 286 H I & O for Last 24 hours: Intake & Output 12/30/24 12/31/24 01/01/25 01/02/25 11:59 11:59 11:59 11:59 Intake Total 0 250 1220 720 Output Total 0 600 3150 Balance 0 -350 -1930 720 Weight 108.862 kg 108.862 kg 109 kg Assessment and Plan *Assessment and plan (1) Portal hypertension: Status: Acute Category: Medical Code(s): K76.6 - Portal hypertension (2) Anemia: Status: Acute Category: Medical Code(s): D64.9 - Anemia, unspecified (3) Cirrhosis of liver: Status: Chronic Category: Medical Code(s): K74.60 - Unspecified cirrhosis of liver (4) Gastritis: Status: Acute Category: Medical Code(s): K29.70 - Gastritis, unspecified, without bleeding (5) Morbid obesity: Status: Chronic Category: Medical Code(s): E66.01 - Morbid (severe) obesity due to excess calories (6) Fatty liver disease, nonalcoholic: Status: Chronic Category: Medical Code(s): K76.0 - Fatty (change of) liver, not elsewhere classified Plan 1. iron deficiency anemia EGD/colonoscopy yesterday. 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 No etiology for the ABEL on colonoscopy. Patient will need Hemoccult testing and if positive may need PillCam. She did get 1 unit of packed red cells while hospitalized and 1 dose of parenteral Venofer. Hemoglobin is 7.4 this morning. Continue p.o. iron. 2. Cirrhosis carvedilol 3.125 mg twice daily for primary pharmacologic prophylaxis of her portal hypertension and small varices. CT scan during this hospitalization notes likely findings of cirrhosis splenomegaly and portal hypertension. Patient is obese with a BMI greater than 44, hyperlipidemia, type 2 diabetes. Would recommend a full liver workup as an outpatient. She has had mild elevations of AST persistently over multiple lab draws over the past couple of years. I would like to see her after discharge in the office for cirrhosis follow-up. Continue furosemide and spironolactone. Current MELD score equals 17 but with persistent low sodium and elevated creatinine since admission affecting result. Would likely improve as an outpatient and we can repeat labs then.
[2025-01-01 16:41] LABS: Hematocrit 27.1 % (37.0-47.0); Hemoglobin 7.8 g/dL (12.2-16.2)
[2025-01-01 16:53] LABS: Anion Gap 11.3 mEq/L (5-15); Blood Urea Nitrogen 22 mg/dl (7-17); Calcium 8.5 mg/dl (8.4-10.2); Carbon Dioxide 29 mmol/L (22.0-30.0); Chloride 96 mmol/L (98-107); Creatinine Clearance Estimated 17 mL/min (50-200); Estimated Glomerular Filt Rate 24 ml/min (>60); GFR (African American) 29 ML/MIN (>60); Glucose 293 mg/dl (74-100); Potassium 4.3 mmoL/L (3.5-5.1); Sodium 132 mmol/L (136-145)
--- NOTE | 2025-01-01 17:41 | PC.NURSE ---
Patient alert and oriented. VSS. On room air. Up to BR with 1 and FWW for voids. Robaxin one time for bilateral groin discomfort. Possible discharge home tomorrow pending morning labs. Family at bedside throughout day
[2025-01-01 20:00] VITALS: BP 140/80; PULSE 69; RESP 18; TEMP 36.7; O2SAT 96
[2025-01-01] MEDS: PRAVASTATIN 40MG TAB 80 MG PO (20:22)
[2025-01-01] MEDS: PANTOPRAZOLE 40MG TABLET 40 MG PO (20:22)
[2025-01-01] MEDS: INSULIN GLARGINE 100 UNITS/ML 3ML FLEXPEN 60 UNIT SUBCUT (20:24)
[2025-01-01 21:02] LABS: POC Glucose,Bedside 279 (70-110)
--- NOTE | 2025-01-01 22:49 | PC.NURSE ---
At this time, the patient started to complain of 10/10 pain in both of her legs. Patient appeared tearful upon assessment and could not get comfortable. Crystal VEGA was paged to obtain new orders to address her severe pain. Recent blood pressure (140/80) and allergy to morphine was noted.
[2025-01-01] MEDS: HYDROMORPHONE 2MG/ML SYRINGE 0.25 MG IV (23:56)
[2025-01-02] VITALS: BP 115/63; PULSE 70; RESP 17; TEMP 36.9; O2SAT 94
[2025-01-02 04:00] VITALS: BP 127/59; PULSE 75; RESP 18; TEMP 36.9; O2SAT 93; BMI 43.4
--- NOTE | 2025-01-02 04:23 | PC.NURSE ---
Patient is alert and oriented x4. Patient was observed to have wakeful periods and resting periods (eyes closed, respirations even and unlabored on room air) throughout the night. Her friend has remained at the bedside this shift. She has had complaints of significant leg pains/spasms this shift. Methocarbamol and Tylenol were administered per MAR due to left leg pain, first; a one time dose of Dilautid was administered per JAN due to a second round of severe pain, concerning both legs. Patient has reported satisfaction and relief of her pain since after receiving Dilautid. Other scheduled medications were administered per MAR as well. ACHS fingersticks performed. She has remained up to chair for the majority of the shift, stating that she is more comfortable. Her legs have remained elevated; SCDs remained removed due to leg pain/cellulitis. Both lower extremities have moderate swelling, and the right leg appeared to be more red than the left upon assessment. She has an abrasion on her nose due to a fall at home. During auscultation, lung sounds were diminished, S1/S2 heart sounds could be heard, and bowel sounds were active. Patient has been ambulating to the bathroom with assistance by friend/staff; she tolerates ambulation fairly. Vital signs remain relatively stable. At this time, the patient is resting up to chair without any further complaints. No acute changes noted thus far. Call light within reach.
[2025-01-02] MEDS: humaLOG 100 UNITS/ML 10ML VIAL (SSI) SUBCUT (06:10)
[2025-01-02] MEDS: LEVOTHYROXINE 100MCG (0.1MG) TAB 100 MCG PO (06:11)
[2025-01-02 06:15] LABS: Basophils # 0.1 K/mm3 (0-0.2); Basophils % 0.5 % (0.1-2.0); Eosinophils # 0.4 K/mm3 (0.0-0.4); Eosinophils % 3.8 % (0.1-12.0); Hematocrit 27.1 % (37.0-47.0); Hemoglobin 7.9 g/dL (12.2-16.2); Lymphocytes # 2.4 K/mm3 (0.7-4.5); Lymphocytes % 24.7 % (10-50); Mean Corpuscular HGB Conc 29.2 g/dL (31.8-35.4); Mean Corpuscular Hemoglobin 22.1 pg (27.0-31.2); Mean Corpuscular Volume 75.9 fl (81-99); Mean Platelet Volume 9.8 fl (7.4-10.4); Monocytes # 1.3 K/mm3 (0.1-1.0); Monocytes % 13.8 % (1.7-9.3); Neutrophils # 5.4 K/mm3 (1.8-7.8); Neutrophils % 55.2 % (37.0-80.0); Platelet Count 231 K/mm3 (142-424); Red Blood Count 3.57 M/mm3 (4.20-5.40); Red Cell Distribution Width 16.9 % (11.5-17.5); White Blood Count 9.7 K/mm3 (4.8-10.8)
[2025-01-02 06:19] LABS: Albumin Level 3.5 g/dl (3.5-5.0); Chloride 92 mmol/L (98-107); Potassium 4.3 mmoL/L (3.5-5.1); Sodium 130 mmol/L (136-145)
[2025-01-02 06:21] LABS: Blood Urea Nitrogen 26 mg/dl (7-17); Creatinine Clearance Estimated 17 mL/min (50-200); Estimated Glomerular Filt Rate 24 ml/min (>60); GFR (African American) 29 ML/MIN (>60)
[2025-01-02 06:22] LABS: Alanine Aminotransferase 26 U/L (12-78); Albumin/Globulin Ratio 0.9 (1.1-1.8); Alkaline Phosphatase 107 U/L (38-126); Anion Gap 11.3 mEq/L (5-15); Aspartate Amino Transferase 58 U/L (14-36); Bilirubin,Total 0.5 mg/dl (0.2-1.3); Calcium 8.3 mg/dl (8.4-10.2); Carbon Dioxide 31 mmol/L (22.0-30.0); Globulin 3.7 g/dL (1.3-3.2); Glucose 228 mg/dl (74-100); Total Protein,Serum 7.2 g/dl (6.3-8.2)
[2025-01-02 06:26] LABS: POC Glucose,Bedside 264 (70-110)
[2025-01-02] MEDS: LIPASE/PROTEASE/AMYLASE 1 EACH CAPSULE.DR PO (06:55)
[2025-01-02 07:43] VITALS: BP 118/83; PULSE 74; RESP 18; TEMP 36.7; O2SAT 95
[2025-01-02] MEDS: INSULIN GLARGINE 100 UNITS/ML 10ML VIAL 20 UNIT SUBCUT (08:15)
[2025-01-02] MEDS: GABAPENTIN 100MG CAPSULE 100 MG PO (08:15)
[2025-01-02] MEDS: FUROSEMIDE 40MG/4ML VIAL 40 MG IV (08:15)
[2025-01-02] MEDS: DAPAGLIFLOZIN PROPANEDIOL 10 MG TABLET PO (08:15)
[2025-01-02] MEDS: SPIRONOLACTONE 25MG TABLET 50 MG PO (08:15)
[2025-01-02] MEDS: CARVEDILOL 3.125MG TABLET 3.125 MG PO (08:15)
--- NOTE | 2025-01-02 09:27 | EXP.DC.SUM ---
General Admission date:: 12/29/24 Discharge date: 01/02/25 HPI HPI HPI: This is an 79-year-old female with multiple comorbidities, including type 2 diabetes mellitus, neuropathy, lower extremity edema on furosemide, nonalcoholic steatohepatitis (SALINAS) cirrhosis, and chronic kidney disease, presents with escalating right lower extremity pain. She was seen several days ago and prescribed levofloxacin for right leg cellulitis, which appears to have improved clinically; however, her pain has intensified and now primarily involves her right groin region. She also has a recent history of shingles, initially manifesting as a dermatomal rash over her right flank and lower abdomen, which is now resolving. The patient denies gastrointestinal or urinary symptoms and reports ongoing bowel movements. A prior DVT ultrasound study in November was negative. Adult daughter reports patient's spouse committed suicide earlier this last year after undergoing treatment for throat cancer. States that since that she has had an overall decline in health and ability to care for self. On examination, she is afebrile, hemodynamically stable, and not in acute distress. Laboratory workup reveals microcytic anemia (hemoglobin 7.1 g/dL) and an elevated creatinine of 1.50 mg/dL, consistent with her known chronic kidney disease. Blood glucose is high at 366 mg/dL. Abdominal and pelvic CT imaging demonstrates a subcentimeter, possibly complex cystic or neoplastic lesion in the right renal lower pole, a larger complex cystic lesion in the left adnexa, and radiologic evidence of cirrhosis with portal hypertension but no evidence of new or acute decompensation. There is also a small right pleural effusion with associated atelectasis and mild inflammatory changes surrounding the right iliopsoas muscle and iliac vessels, possibly related to muscle strain or a recent procedure. These findings, coupled with her reported improvement in cellulitis and resolution of the shingles rash, raise the possibility that her persistent right groin pain may be largely neuropathic (post-herpetic neuralgia) or musculoskeletal in origin. The patient?s anemia, diabetes management, and pain control will also need further evaluation and hospitalization given her overall clinical complexity. per admission H&P The patient was seen in [address] Chika Hicks after imaging found splenomegaly. She was diagnosed with Salinas and estimated stage II fibrosis on lab work. Repeat CT scan does note early changes of cirrhosis with splenomegaly in 2022. Patient has no memory of any of these diagnoses. Seen by primary care this past fall and noted findings of fatty liver disease and cirrhosis. She was scheduled for outpatient appointment with our GI office tomorrow for the findings of cirrhosis but had an incidental fall at home and is currently inpatient. Hemoglobin found to be as low as 6.7. Patient reports she was diagnosed with anemia placed on iron supplements about 6 weeks ago. She received 1 unit packed red cells since admission and hemoglobin has improved to 8.4. CT scan upon admission noted cirrhosis with portal hypertension and possible atrophied pancreas. She also had severe constipation. She reports she has a bowel movement daily and did not know that she was constipated. She does report abdominal distention and bloating. Her last EGD was likely 10 years or more ago. Last colonoscopy 6 or 7 years ago. She denies any melena or hematochezia. She denies any alcohol or NSAID use. She does have a history of a Lap-Band placement. Concern for portal hypertension given the splenomegaly and bilateral lower extremity edema. She is on spironolactone and Lasix. Hospital Course Hospital Course Hospital Course: Babs Bruno is a 79-year-old female who presented with right lower extremity pain. On exam found to have worsening acute on chronic anemia. Admitted for further workup of her acute on chronic anemia. Taken for EGD and colonoscopy during admission. Found to have AVM but no overt signs of bleeding. Responded to transfusion. Hemoglobin remained stable. Adjustments were made to her regimen with diuretics for her volume overload/edema. Also diagnosed with cirrhosis during admission. Will follow with GI as an outpatient. Stable to discharge home with family for further care as an outpatient. Problems addressed as follows: #Decompensated cirrhosis, suspected SALINAS #Acute on chronic microcytic anemia ? Suspected SALINAS cirrhosis, no alcohol use. No history of hepatitis. Portal hypertension on abdominal imaging. Taken for EGD and colonoscopy 12/31/2024. Found to have AVMs. No overt signs of bleeding however hemoglobin dropped today to 7.4. Small nonsignificant varices also seen. Continue carvedilol 3.125 mg twice daily and pantoprazole 40 mg nightly. Bilateral lower extremity pitting edema 2+. Concerning for secondary to cirrhosis versus CHF. Patient also complains of orthopnea. Treated with IV Lasix during admission along with initiation of Cipro Actamin. Was negative at least 2-2 mission continue Bumex 2 mg daily and spironolactone 50 mg daily. BUN 26, creatinine 2.0 on day of discharge. Electrolytes stable with potassium 4.3. Needs repeat labs in 1 to 2 weeks with follow-up. Further workup for cirrhosis etiology per GI. #Uncontrolled type 2 diabetes ? Hemoglobin A1c 10.8%. Morning glucoses remained elevated. Adjustments made to insulin regimen during admission. Transition to Lantus 45 units twice daily. Continue Farxiga 10 mg daily. Resume her mealtime insulin with NovoLog 20 units twice daily. Recommend repeat A1c in 3 months to evaluate for improvement. #Right kidney lesion, consistent with complex cyst: Seen on CT. no hydronephrosis on ultrasound. #Right inguinal pain: CT abdomen/pelvis suggests inflammation. Also suggests right seventh rib fracture. Suspect fall. Continue methocarbamol 500 mg every 6 hours as needed for muscle spasm. White count normal at 7.3. Low concern for infection. Intermittent spasms responded to methocarbamol. If no improvement in the coming weeks, recommend further management as an outpatient. #Physical deconditioning: PT/OT consulted, recommend home health with PT on discharge. Total time spent on discharge 35 minutes in counseling, documentation, chart review, and direct care with patient. Exam Data for Last 24 hours Vital signs and Labs for Last 24 Hours: Temp Pulse Resp BP Pulse Ox O2 Del Method O2 Flow Rate 98.1 F 74 18 118/83 95 Room Air 2 01/02/25 07:43 01/02/25 07:43 01/02/25 07:43 01/02/25 07:43 01/02/25 07:43 01/02/25 09:00 01/01/25 20:00 Laboratory Results - last 24 hr 01/01/25 11:09: POC Glucose 286 H 01/01/25 16:31: Hgb 7.8 L, Hct 27.1 L, Sodium 132 L, Potassium 4.3, Chloride 96 L, Carbon Dioxide 29, Anion Gap 11.3, BUN 22 H, Creatinine 2.00 H, Estimated Creat Clear 17, Estimated GFR 24 L, Est GFR ( Amer) 29 L, Glucose 293 H D, Calcium 8.5 01/01/25 20:15: POC Glucose 279 H 01/02/25 05:49: POC Glucose 264 H 01/02/25 05:58: WBC 9.7 D, RBC 3.57 L, Hgb 7.9 L, Hct 27.1 L, MCV 75.9 L, MCH 22.1 L, MCHC 29.2 L, RDW 16.9, Plt Count 231, MPV 9.8, Neut % (Auto) 55.2, Lymph % (Auto) 24.7, Weld % (Auto) 13.8 H, Eos % (Auto) 3.8, Baso % (Auto) 0.5, Neut # (Auto) 5.4, Lymph # (Auto) 2.4, Weld # (Auto) 1.3 H, Eos # (Auto) 0.4, Baso # (Auto) 0.1, Sodium 130 L, Potassium 4.3, Chloride 92 L, Carbon Dioxide 31 H, Anion Gap 11.3, BUN 26 H, Creatinine 2.00 H, Estimated Creat Clear 17, Estimated GFR 24 L, Est GFR ( Amer) 29 L, Glucose 228 H D, Calcium 8.3 L, Total Bilirubin 0.5, AST 58 H, ALT 26, Alkaline Phosphatase 107, Total Protein 7.2, Albumin 3.5, Globulin 3.7 H, Albumin/Globulin Ratio 0.9 L I & O for Last 24 hours: Intake & Output 12/30/24 12/31/24 01/01/25 01/02/25 23:59 23:59 23:59 23:59 Intake Total 250 / 250 480 / 720 2540 / 2894 474 / 474 Output Total 600 / 600 1550 / 1850 1600 / 1600 0 / 0 Balance -350 / -350 -1070 / -1130 940 / 1294 474 / 474 Weight 108.862 kg 109 kg 107.2 kg Constitutional Constitutional: no acute distress, morbidly obese, chronically ill appearing and cooperative *Routine HEENT Exam Head: Present normocephalic Eye: Present EOMI and PERRL ENT: Present mucous membranes moist Comments: Abrasion on tip of nose *Routine Neck Exam Neck: Present supple; Absent lymphadenopathy *Routine Respiratory Exam Respiratory: Present CTA bilaterally; Absent rhonchi, wheezes or crackles *Routine Cardiovascular Exam Cardiovascular: Present RRR *Routine Abdominal Exam Abdominal: Present soft and normoactive bowel sounds; Absent tenderness or distended *Routine Rectal Exam Patient deferred: visual exam *Routine Exam Patient deferred: external exam *Routine Extremities Exam Extremities: Present edema (2+ to knees); Absent cyanosis or clubbing *Routine Skin Exam Skin: Present intact and warm; Absent rash Comments: Stasis changes of right lower extremity *Routine Neurological Exam Neurological: Present alert, oriented X3 and moving all extremities; Absent altered mental status Results Data Completed and Pending Labs on day of discharge: Labs from last 24 hours 01/02/25 01/02/25 01/01/25 05:58 05:49 20:15 WBC 9.7 D RBC 3.57 L Hgb 7.9 L Hct 27.1 L MCV 75.9 L MCH 22.1 L MCHC 29.2 L RDW 16.9 Plt Count 231 MPV 9.8 Neut % (Auto) 55.2 Lymph % (Auto) 24.7 Weld % (Auto) 13.8 H Eos % (Auto) 3.8 Baso % (Auto) 0.5 Neut # (Auto) 5.4 Lymph # (Auto) 2.4 Weld # (Auto) 1.3 H Eos # (Auto) 0.4 Baso # (Auto) 0.1 Sodium 130 L Potassium 4.3 Chloride 92 L Carbon Dioxide 31 H Anion Gap 11.3 BUN 26 H Creatinine 2.00 H Estimated Creat Clear 17 Estimated GFR 24 L Est GFR ( Amer) 29 L Glucose 228 H D POC Glucose 264 H 279 H Calcium 8.3 L Total Bilirubin 0.5 AST 58 H ALT 26 Alkaline Phosphatase 107 Total Protein 7.2 Albumin 3.5 Globulin 3.7 H Albumin/Globulin Ratio 0.9 L 01/01/25 01/01/25 16:31 11:09 WBC RBC Hgb 7.8 L Hct 27.1 L MCV MCH MCHC RDW Plt Count MPV Neut % (Auto) Lymph % (Auto) Weld % (Auto) Eos % (Auto) Baso % (Auto) Neut # (Auto) Lymph # (Auto) Weld # (Auto) Eos # (Auto) Baso # (Auto) Sodium 132 L Potassium 4.3 Chloride 96 L Carbon Dioxide 29 Anion Gap 11.3 BUN 22 H Creatinine 2.00 H Estimated Creat Clear 17 Estimated GFR 24 L Est GFR ( Amer) 29 L Glucose 293 H D POC Glucose 286 H Calcium 8.5 Total Bilirubin AST ALT Alkaline Phosphatase Total Protein Albumin Globulin Albumin/Globulin Ratio DS: Diagnosis Discharge Diagnosis (1) Anemia: Status: Acute Code(s): D64.9 - Anemia, unspecified (2) Cirrhosis of liver: Status: Chronic Code(s): K74.60 - Unspecified cirrhosis of liver (3) Portal hypertension: Status: Acute Code(s): K76.6 - Portal hypertension (4) Gastritis: Status: Acute Code(s): K29.70 - Gastritis, unspecified, without bleeding (5) Morbid obesity: Status: Chronic Code(s): E66.01 - Morbid (severe) obesity due to excess calories (6) Fatty liver disease, nonalcoholic: Status: Chronic Code(s): K76.0 - Fatty (change of) liver, not elsewhere classified (7) Hypothyroidism: Status: Chronic Code(s): E03.9 - Hypothyroidism, unspecified (8) 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 Code(s): E11.42 - Type 2 diabetes mellitus with diabetic polyneuropathy Qualifiers: Diabetes mellitus exterminator termite insulin use: with prison use Qualified Code(s): E11.42 - Type 2 diabetes mellitus with diabetic polyneuropathy; Z79.4 - jail (current) use of insulin (9) Chronic kidney disease: Status: Chronic Code(s): N18.9 - Chronic kidney disease, unspecified (10) HTN (hypertension), benign: Status: Chronic Code(s): I10 - Essential (primary) hypertension Meds Home Medications and Allergies Home Medications ?Medication ?Instructions ?Recorded ?Confirmed ?Type blood sugar diagnostic (Accu-Chek #10 ea 10/05/23 12/29/24 History Guide test strips) polysaccharide iron complex 180 mg 180 mg PO DAILY 07/15/24 12/29/24 History iron capsule (Pro Fe) insulin syringe-needle U-100 1 mL #10 ea 07/22/24 12/29/24 Rx 31 gauge x 15/64 (BD Veo Insulin Syringe Ultra-Fine) pen needle, diabetic 31 gauge x #1,200 ea 07/23/24 12/29/24 Rx 5/16 (BD Ultra-Fine Short Pen Needle) pravastatin 80 mg tablet 80 mg PO HS Cholesterol #90 tabs 08/02/24 12/29/24 Rx semaglutide 2 mg/dose (8 mg/3 mL) 2 mg (0.75 mL) SQ WEEKLY #3 mL 10/14/24 12/29/24 Rx subcutaneous pen injector dapagliflozin propanediol 10 mg 10 mg PO DAILY 12/30/24 12/29/24 History tablet (Farxiga) folic acid 1 mg tablet 1 mg PO MOTUWETHFRSA 12/30/24 12/30/24 History insulin aspart U-100 100 unit/mL 20 unit SQ BID 12/30/24 12/29/24 History (3 mL) subcutaneous pen (Novolog FlexPen U-100 Insulin aspart) omeprazole 40 mg capsule,delayed 40 mg PO DAILY 12/30/24 12/29/24 History release bumetanide 2 mg tablet 2 mg PO DAILY #30 tabs 01/02/25 Rx carvedilol 3.125 mg tablet 3.125 mg PO BID 30 days #60 tabs 01/02/25 Rx gabapentin 100 mg capsule 100 mg PO TID 30 days #90 caps 01/02/25 Rx insulin glargine 100 unit/mL (3 45 unit (0.45 mL) SQ BID 30 days 01/02/25 Rx mL) subcutaneous pen (Lantus #27 mL Solostar U-100 Insulin) levothyroxine 100 mcg tablet 100 mcg PO DAILYDM 30 days #30 tabs 01/02/25 Rx (Synthroid) [id number] 1 cap PO AC 30 days #90 caps 01/02/25 Rx 36,000-114,000-180,000 unit capsule,delay rel (Creon) methocarbamol 500 mg tablet 500 mg PO Q12HP PRN Muscle Spasm 01/02/25 Rx 30 days #60 tabs pantoprazole 40 mg tablet,delayed 40 mg PO HS 30 days #30 tabs 01/02/25 Rx release spironolactone 50 mg tablet 50 mg PO DAILY #30 tabs 01/02/25 12/29/24 Rx New Prescriptions to Start Prescriptions: clayanide Gill,Caleb carvedilol Gill,Caleb gabapentin Gill,Caleb insulin glargine [Lantus Solostar U-100 Insulin] Gill,Caleb levothyroxine [Synthroid] Gill,Caleb bqnnjz-eegechid-efdqriv [Creon] Gill,Caleb methocarbamol Gill,Caleb pantoprazole Gill,Caleb Allergies Allergy/AdvReac Type Severity Reaction Status Date / Time morphine AdvReac Unknown NA-NAUSEA/V Verified 12/26/24 14:05 OMITING Discharge Plan Disposition Patient Disposition: Home Health Service Condition: Fair Discharge Order Discharge Orders: Discharge Order (Routine); Ordered 01/02/25 Ordered By: Caleb Garland Follow up Plan Follow up with: Luis Maradiaga MD [Primary Care Provider] - 01/08/25 11:00 am Saira Torrez APRN [Nurse Practitioner] - 01/23/25 10:30 am Prescriptions/Medication Reconciliation: New carvedilol 3.125 mg Tablet 3.125 mg PO BID 30 Days Qty: 60 0RF levothyroxine [Synthroid] 100 mcg Tablet 100 mcg PO DAILYDM 30 Days Qty: 30 0RF pantoprazole 40 mg Tablet,Delayed Release (Dr/Ec) 40 mg PO HS 30 Days Qty: 30 0RF Creon 36,000-114,000- 180,000 unit Capsule,Delayed Release(Dr/Ec) 1 cap PO AC 30 Days Qty: 90 0RF methocarbamol 500 mg Tablet 500 mg PO Q12HP PRN (Reason: Muscle Spasm) 30 Days Qty: 60 0RF gabapentin 100 mg Capsule 100 mg PO TID 30 Days Qty: 90 0RF bumetanide 2 mg tablet 2 mg PO DAILY Qty: 30 0RF Continued Pro Fe 180 mg iron capsule 180 mg PO DAILY Patient Comments: TAKE 1 CAPSULE BY MOUTH ONCE DAILY FOR 90 DAYS (DME) Accu-Chek Guide test strips Strip See Rx Instructions .ROUTE .MEDSUPPLY Qty: 10 Rx Instructions: As directed semaglutide 2 mg/dose (8 mg/3 mL) pen injector 2 mg SQ WEEKLY Qty: 3 2RF (DME) insulin syringe-needle U-100 [BD Veo Insulin Syringe UF] 1 mL 31 gauge x 15/64 syringe See Rx Instructions .ROUTE .MEDSUPPLY Qty: 10 6RF Rx Instructions: As directed (DME) pen needle, diabetic [BD Ultra-Fine Short Pen Needle] 31 gauge x 5/16 needle See Rx Instructions .ROUTE .MEDSUPPLY Qty: 1200 0RF Rx Instructions: use one 4 times daily pravastatin 80 mg tablet 80 mg PO HS Qty: 90 1RF folic acid 1 mg tablet 1 mg PO MOTUWETHFRSA Rx Instructions: 1 TAB EVERYDAY EXCEPT MONDAY insulin aspart U-100 [Novolog FlexPen U-100 Insulin] 100 unit/mL (3 mL) insulin pen 20 unit SQ BID dapagliflozin propanediol [Farxiga] 10 mg tablet 10 mg PO DAILY omeprazole 40 mg capsule,delayed release(DR/EC) 40 mg PO DAILY Changed spironolactone 50 mg tablet 50 mg PO DAILY Qty: 30 2RF insulin glargine [Lantus Solostar U-100 Insulin] 100 unit/mL (3 mL) insulin pen 45 unit SQ BID 30 Days Qty: 27 5RF Discontinued furosemide 40 mg tablet 40 mg PO DAILY Qty: 90 1RF levofloxacin 750 mg tablet 750 mg PO Q48H Rx Instructions: 750 mg orally Every other day; LAST DOSE ~01/11/25 levothyroxine 88 mcg tablet 88 mcg PO DAILY Patient Comments: TAKE 1 TABLET BY MOUTH ONCE DAILY losartan 100 mg tablet 100 mg PO DAILY Other Ambulatory Orders: Complete Blood Count Auto Diff (Routine) Timeframe: 3 Days Facility: [facility] - Location: Laboratory Ordered By: Caleb Garland Comprehensive Metabolic Panel (Routine) Timeframe: 3 Days Facility: [facility] - Location: Laboratory Ordered By: Caleb Garland Problem Reconciliation Problems Reviewed?: Yes Patient Discharge Instructions ACTIVITY: Continue current activity DIET: continue same diet Patient Instructions: DI for Cellulitis -- Adult, Cirrhosis, Anemia, DI for Cirrhosis Print Language: Tamazight Providers Primary Care Provider: Luis Maradiaga Admit Provider: Don Ayoub Attending Provider: Don Ayoub
--- NOTE | 2025-01-03 10:20 | SW/DCPLANNER ---
Spoke with patients child day care center worker on the phone. Patient's child day care center worker stated that patient had a rough night. Patient's child day care center worker stated that they were able to get most of her new medicine picked up and that the rest they were picking up today. Patient's child day care center worker stated that they are aware of her upcoming appointments. Patient's child day care center worker stated that they have no concerns or questions at this time. [employer]
== END 2025-01-02 10:36 | disposition home health service (06) ==
LOC: ER 15:04 → 2ND 18:49
PROVIDERS: Emergency Medicine; Internal Medicine Adolescent Medicine; Internal Medicine Gastroenterology; Nurse Practitioner Family; Admitting Provider Student in an Organized Health Care Education/Training Program; Emergency Provider Emergency Medicine; PCP Internal Medicine; Visit Provider Student in an Organized Health Care Education/Training Program
PROC: 0DJ08ZZ Inspection of Upper Intestinal Tract, Via Natural or Artificial Opening Endoscopic (ICD-10-PCS; CPT 45378; principal; 2024-12-31 12:00)
DX: R16.1 Splenomegaly, not elsewhere classified (principal); E11.65 Type 2 diabetes mellitus with hyperglycemia; E11.42 Type 2 diabetes mellitus with diabetic polyneuropathy; K75.81 Nonalcoholic steatohepatitis (NASH); E78.5 Hyperlipidemia, unspecified; E66.01 Morbid (severe) obesity due to excess calories; E83.42 Hypomagnesemia; E87.1 Hypo-osmolality and hyponatremia; E03.9 Hypothyroidism, unspecified; D50.8 Other iron deficiency anemias; K44.9 Diaphragmatic hernia without obstruction or gangrene; K64.1 Second degree hemorrhoids; K76.6 Portal hypertension; K29.50 Unspecified chronic gastritis without bleeding; K57.90 Diverticulosis of intestine, part unspecified, without perforation or abscess without bleeding; I85.10 Secondary esophageal varices without bleeding; B02.29 Other postherpetic nervous system involvement; Z79.4 Long term (current) use of insulin; Z68.41 Body mass index [BMI] 40.0-44.9, adult; Z79.85 Long-term (current) use of injectable non-insulin antidiabetic drugs; Z79.01 Long term (current) use of anticoagulants; Z79.890 Hormone replacement therapy; Z79.84 Long term (current) use of oral hypoglycemic drugs; Z91.81 History of falling; Z55.6 Problems related to health literacy; Z60.2 Problems related to living alone
CPT/HCPCS: 43239; 45385; 36415; 74177; 76770; 76856; 80048; 80053; 80074; 81001; 82105; 82272; 82390; 82607; 82728; 82962; 83540; 83550; 83605; 83690; 83735; 83880; 85014; 85018; 85025; 85610; 86803; 86850; 87389; 97163; 97530; 99285; G0328; G0378; J1171; J1756; J1940; P9016; Q9967

== ENCOUNTER 2025-01-08 15:40 | Outpatient (CLI) | payer MEDICARE, MEDICAID, SELFPAY ==
[2025-01-08 17:18] LABS: Basophils % 0.6 % (0.1-2.0); Eosinophils # 0.3 K/mm3 (0.0-0.4); Eosinophils % 3.6 % (0.1-12.0); Hematocrit 31.4 % (37.0-47.0); Hemoglobin 9.1 g/dL (12.2-16.2); Lymphocytes # 2.3 K/mm3 (0.7-4.5); Lymphocytes % 32.2 % (10-50); Mean Corpuscular Hemoglobin 22.4 pg (27.0-31.2); Mean Corpuscular Volume 77.1 fl (81-99); Monocytes % 13.5 % (1.7-9.3); Neutrophils # 3.6 K/mm3 (1.8-7.8); Neutrophils % 49.7 % (37.0-80.0); Platelet Count 242 K/mm3 (142-424); Red Blood Count 4.07 M/mm3 (4.20-5.40); White Blood Count 7.2 K/mm3 (4.8-10.8)
[2025-01-08 17:58] LABS: Alanine Aminotransferase 35 U/L (12-78); Albumin/Globulin Ratio 0.9 (1.1-1.8); Alkaline Phosphatase 119 U/L (38-126); Anion Gap 17.6 mEq/L (5-15); Aspartate Amino Transferase 67 U/L (14-36); Bilirubin,Total 0.8 mg/dl (0.2-1.3); Blood Urea Nitrogen 32 mg/dl (7-17); Calcium 9.4 mg/dl (8.4-10.2); Carbon Dioxide 30 mmol/L (22.0-30.0); Chloride 93 mmol/L (98-107); Estimated Glomerular Filt Rate 29 ml/min (>60); GFR (African American) 35 ML/MIN (>60); Globulin 4.3 g/dL (1.3-3.2); Glucose 261 mg/dl (74-100); Potassium 4.6 mmoL/L (3.5-5.1); Sodium 136 mmol/L (136-145); Total Protein,Serum 8.3 g/dl (6.3-8.2)
== END 2025-01-08 23:59 | disposition home or self-care (01) ==
LOC: LAB.DROPOF 01-09 12:49
PROVIDERS: PCP Internal Medicine; Visit Provider Internal Medicine
DX: K74.60 Unspecified cirrhosis of liver (principal); E11.42 Type 2 diabetes mellitus with diabetic polyneuropathy; Z79.4 Long term (current) use of insulin; I10 Essential (primary) hypertension; D64.9 Anemia, unspecified
CPT/HCPCS: 80053; 85025

== ENCOUNTER 2025-01-16 11:10 | Observation (INO) | payer MEDICARE, MEDICAID, SELFPAY ==
[2025-01-16] VITALS (13 sets, daily range): BP systolic 106–141; BP diastolic 56–97; PULSE 63–73; RESP 12–20; TEMP 36.3–36.8; O2SAT 95–99; BMI 42.5
[2025-01-16 11:44] LABS: Basophils % 0.5 % (0.1-2.0); Eosinophils # 0.2 K/mm3 (0.0-0.4); Eosinophils % 3.7 % (0.1-12.0); Hemoglobin 9.1 g/dL (12.2-16.2); Lymphocytes % 35.7 % (10-50); Mean Corpuscular HGB Conc 29.4 g/dL (31.8-35.4); Mean Corpuscular Hemoglobin 22.4 pg (27.0-31.2); Mean Corpuscular Volume 76.4 fl (81-99); Mean Platelet Volume 10.2 fl (7.4-10.4); Monocytes # 0.7 K/mm3 (0.1-1.0); Neutrophils # 2.7 K/mm3 (1.8-7.8); Neutrophils % 46.7 % (37.0-80.0); Platelet Count 254 K/mm3 (142-424); Red Blood Count 4.06 M/mm3 (4.20-5.40); Red Cell Distribution Width 18.9 % (11.5-17.5); White Blood Count 5.7 K/mm3 (4.8-10.8)
[2025-01-16 11:45] LABS: Albumin Level 4.2 g/dl (3.5-5.0); Chloride 99 mmol/L (98-107); Sodium 137 mmol/L (136-145)
[2025-01-16 11:48] LABS: Alanine Aminotransferase 31 U/L (12-78); Albumin/Globulin Ratio 0.8 (1.1-1.8); Alkaline Phosphatase 121 U/L (38-126); Aspartate Amino Transferase 42 U/L (14-36); Bilirubin,Total 0.7 mg/dl (0.2-1.3); Blood Urea Nitrogen 33 mg/dl (7-17); Calcium 9.1 mg/dl (8.4-10.2); Carbon Dioxide 28 mmol/L (22.0-30.0); Creatinine Clearance Estimated 15 mL/min (50-200); Estimated Glomerular Filt Rate 19 ml/min (>60); GFR (African American) 24 ML/MIN (>60); Glucose 288 mg/dl (74-100); Total Protein,Serum 9.2 g/dl (6.3-8.2)
--- NOTE | 2025-01-16 11:50 | ECG_ITS ---
APPROVED REPORT Exam: Resting ECG HR:68 bpm ECG Measurements Heart Rate 68 AXES AR 202 P 57 QRSd 98 QRS 13 QT 421 T 49 QTc 439 Conclusion SINUS RHYTHM LOW QRS VOLTAGE IN PRECORDIAL LEADS [QRS DEFLECTION < 1.0 mV IN CHEST LEADS] POSSIBLE ANTERIOR MYOCARDIAL INFARCTION , OF INDETERMINATE AGE [30 ms Q WAVE IN V3/V4, OR R < 0.2 mV IN V4] ABNORMAL ECG UNCONFIRMED REPORT Electronically signed by : Ying Palomo, 01/16/2025 16:36:29
[2025-01-16 11:55] LABS: Coronavirus 19, PCR Not Detected (NotDetected); Influenza A, PCR Not Detected (NotDetected); Influenza B, PCR Not Detected (NotDetected)
--- NOTE | 2025-01-16 11:58 | PC.NURSE ---
pt ambulatory to bathroom with walker and assistance with staff
[2025-01-16 12:03] LABS: Microscopic, Urine URINE MICROSCOPIC (MICROSCOPIC)
[2025-01-16 12:08] LABS: Free T4 (Free Thyroxine) 1.42 ng/dl (0.78-2.19)
--- NOTE | 2025-01-16 12:15 | PC.NURSE ---
pt resting in bed no needs at bs call light in reach and family in room
[2025-01-16 12:17] LABS: Appearance,Urine CLOUDY (Clear); Bilirubin,Urine Negative (Negative); Blood, Urine TRACE-I (Negative); Color,Urine YELLOW (Yellow); Glucose,Urine (UA) 3+ (Negative); Ketones,Urine Negative (Negative); Leukocyte Esterase,Urine 1+ (Negative); Nitrate,Urine Negative (Negative); Protein,Urine Negative (Negative); Specific Gravity, Urine 1.015 (1.005-1.030); Urobilinogen,Urine 0.2 EU/dl (0.2)
[2025-01-16 12:19] LABS: Thyroid Stimulating Hormone 7.93 uIU/mL (0.465-4.68)
--- NOTE | 2025-01-16 12:38 | PC.NURSE ---
EC RN rounded on the pt. no new complaints at this time. pt taken a bottle of water to drink. no other needs voiced. call butler in reach.
[2025-01-16 12:57] LABS: Bacteria,Urine 2+ /lpf; RBC,Urine Occasional #/hpf (0-3); Squamous Epithelial Cell,Urine 20-50 #/hpf (0-5); WBC,Urine 20-50 #/hpf (0-3); Yeast,Urine 4+ /lpf
--- NOTE | 2025-01-16 13:18 | PC.NURSE ---
rounded on pt at this time. pt assisted with adjustments in the bed.
--- NOTE | 2025-01-16 13:23 | XR_ITS ---
FINAL REPORT CLINICAL HISTORY: Weakness COMPARISON: 11/02/2023 FINDINGS: A portable view of the chest was obtained. Cardiac and mediastinal silhouettes are within normal limits. The lungs are clear. There is no pleural effusion or pneumothorax. IMPRESSION: No acute process on this portable exam. Reviewed, Interpreted and Dictated by Felipa Solano MD Transcribed by [place] Authenticated and [facility]
--- NOTE | 2025-01-16 13:24 | HMH.EDGENADL ---
Discharge Plan Disposition Patient Disposition: Admitted Condition: Fair Clinical Impressions Clinical Impression: Weakness, RADHA (acute kidney injury) Discharge ED Provider: Ying Palomo General Adult HPI General Chief complaint: Weakness Stated complaint: Stroke Symptoms Time Seen by Provider: 01/16/25 11:14 Mode of Arrival: Wheelchair Source of Information: Patient and Relative Limitations: No Limitations Description of Symptoms (Recalled from ER Triage Doc. by RN): pt presents with bilateral weakness. pt denies chest pain, SOA, abd pain, urinary symptoms, or N/V/D. BSFS 275 Pts daughters state she has had slurred speach and fatigue over the last two weeks. pt does not have slurred speach at this time. pt is A&O X4 with a GCS of 15. pts NIH is negative at 0. pt was seen here last week for BLE edema and epistaxis. pt has dried blood on her nares, no active epistaxis. pt still has BLE with the R being worse. History of Present Illness HPI narrative: Babs Bruno is a 79 y/o female presenting with multiple complaints. Patient presents with family who states patient has had increased weakness over the past 2 weeks. Patient continues to have intermittent nosebleeds for which she was recently transfused blood. Patient states she is on diuretics and has had decreased urine output. Family and patient concerned that her speech sounds slurred. Patient has increased right lower extremity weakness above her baseline. Patient still ambulatory with her walker. Patient denies recent fall or trauma. Patient denies fevers or chills, diarrhea or constipation, cough or nasal congestion. Related Data Home Medications ?Medication ?Instructions ?Recorded ?Confirmed blood sugar diagnostic (Accu-Chek #10 ea 10/05/23 01/16/25 Guide test strips) insulin aspart U-100 100 unit/mL 20 unit SQ BID 12/30/24 01/16/25 (3 mL) subcutaneous pen (Novolog FlexPen U-100 Insulin aspart) Previous Rx's ?Medication ?Instructions ?Recorded insulin syringe-needle U-100 1 mL #10 ea 07/22/24 31 gauge x 15/64 (BD Veo Insulin Syringe Ultra-Fine) pen needle, diabetic 31 gauge x #1,200 ea 07/23/24 5/16 (BD Ultra-Fine Short Pen Needle) gabapentin 100 mg capsule 100 mg PO TID 30 days #90 caps 01/02/25 insulin glargine 100 unit/mL (3 45 unit (0.45 mL) SQ BID 30 days 01/02/25 mL) subcutaneous pen (Lantus #27 mL Solostar U-100 Insulin) levothyroxine 100 mcg tablet 100 mcg PO DAILYDM 30 days #30 tabs 01/02/25 (Synthroid) methocarbamol 500 mg tablet 500 mg PO Q12HP PRN Muscle Spasm 01/02/25 30 days #60 tabs Farxiga 10 mg tablet See Rx Instructions .Route 01/16/25 (dapagliflozin propanediol) .COMPLEX #90 tabs bumetanide 2 mg tablet 2 mg PO DAILY #90 tabs 01/16/25 carvedilol 3.125 mg tablet 3.125 mg PO BID 30 days #180 tabs 01/16/25 folic acid 1 mg tablet 1 mg PO MOTUWETHFRSA #60 tabs 01/16/25 gzavaa-movjemxs-ztcdnxv 1 cap PO AC #90 caps 01/16/25 36,000-114,000-180,000 unit capsule,delay rel (Creon) pantoprazole 40 mg tablet,delayed 40 mg PO HS 30 days #90 tabs 01/16/25 release polysaccharide iron complex 180 mg 180 mg PO DAILY #90 caps 01/16/25 iron capsule (Pro Fe) pravastatin 80 mg tablet 80 mg PO HS Cholesterol #90 tabs 01/16/25 semaglutide 2 mg/dose (8 mg/3 mL) 2 mg (0.75 mL) SQ WEEKLY #3 mL 01/16/25 subcutaneous pen injector spironolactone 50 mg tablet 50 mg PO DAILY #90 tabs 01/16/25 Allergies Allergy/AdvReac Type Severity Reaction Status Date / Time morphine AdvReac Unknown NA-NAUSEA/V Verified 01/16/25 11:45 OMITING PFSH PFSH Disclaimer: The information contained in this section may have been updated after the patient was seen, as this information can be updated by other users. Medical History Anemia Abnormal electrocardiogram [ECG] [EKG] Pre-operative cardiovascular examination HLD (hyperlipidemia) HTN (hypertension), benign Thyroid disorder T2DM (type 2 diabetes mellitus) Surgical History Hx of laparoscopic gastric banding History of cholecystectomy Family History Family history of stroke Family history of cancer Social History Smoking Status: Former smoker alcohol intake: never substance use type: denies use current occupational status: retired Travel in the last 8 weeks: None household members: spouse housing: house lives independently: No marital status: caffeine: No Have you lived/traveled outside [place] in past 30 days?: No Contact w/someone who lives/traveled outside [place] past 30 days?: No Exposure to someone with infectious disease in past 14 days?: No Do you have a fever (greater than 100.4 F or 38 C)?: No Have you tested positive for COVID-19: No Exposed to someone with COVID-19 in past 14 days?: No Do you have a sore throat?: No Do you have a cough?: No Do you have any weakness?: No Do you have any diarrhea?: No Are you experiencing any unusual bleeding?: No Do you have any muscle aches/pain?: No Do you have any abdominal pain?: No Are you experiencing loss of taste or smell?: No Other Medical History Have you received the Flu Vaccine for this season: No Have you received the Pneumonia Vaccine: No ROS Obtained: Yes All systems reviewed & no additional complaints except as documented Physical Exam General General appearance: alert and in no apparent distress Head Head exam: atraumatic Eye Eye exam: Present EOMI; Absent scleral icterus Neck Neck exam: Present full ROM Chest Chest inspection: Present normal inspection Respiratory Respiratory exam: Present normal lung sounds bilaterally Cardiovascular Cardiovascular exam: Present regular rate and normal rhythm Abdominal Exam Abdominal exam: Present soft; Absent distention or tenderness Extremities Exam Extremities exam: Present full ROM and edema; Absent tenderness or calf tenderness Back Exam Back exam: Present full ROM Neurological Exam Neurological exam: Present alert and oriented X3 Psychiatric Psychiatric exam: Present normal mood Skin Skin exam: Present warm and dry Medical Decision Making Medical Records Medical records reviewed: Yes I reviewed the patient's medical records. Screening: Per USPSTF and CDC recommendations, given the prevalence of disease in our region, it is our hospital?s policy to screen for HIV and viral Hepatitis for all patients aged 18 and over and those with ongoing risk factors. Yash Inquiry Pt receiving controlled substance: No Yash was queried for this patient: No Vital Signs: 01/16/25 11:37 01/16/25 12:03 01/16/25 12:30 Temperature 98.2 F Temperature Source Oral Pulse Rate 68 67 Pulse Rate [Left] 73 Respiratory Rate 18 12 12 Blood Pressure 117/58 L 137/75 Blood Pressure [Right Arm] 141/56 H Blood Pressure Mean [Right Arm] 84 Blood Pressure Source [Right Arm] Automatic Cuff Blood Pressure Position [Right Arm] Sitting 02 Sat by Pulse Oximetry 98 99 98 Oxygen Delivery Method Room Air Room Air Room Air 01/16/25 12:45 01/16/25 13:14 01/16/25 13:30 Temperature Temperature Source Pulse Rate 66 Pulse Rate [Left] Respiratory Rate 13 12 14 Blood Pressure 106/63 L 129/78 122/63 Blood Pressure [Right Arm] Blood Pressure Mean [Right Arm] Blood Pressure Source [Right Arm] Blood Pressure Position [Right Arm] 02 Sat by Pulse Oximetry 96 96 98 Oxygen Delivery Method Room Air Room Air Room Air 01/16/25 14:01 01/16/25 14:31 01/16/25 15:01 Temperature Temperature Source Pulse Rate 64 66 68 Pulse Rate [Left] Respiratory Rate 13 14 12 Blood Pressure 123/68 133/67 136/68 Blood Pressure [Right Arm] Blood Pressure Mean [Right Arm] Blood Pressure Source [Right Arm] Blood Pressure Position [Right Arm] 02 Sat by Pulse Oximetry 98 98 97 Oxygen Delivery Method Room Air Room Air Room Air 01/16/25 15:31 01/16/25 16:00 Temperature Temperature Source Pulse Rate 63 65 Pulse Rate [Left] Respiratory Rate 15 15 Blood Pressure 123/66 115/97 H Blood Pressure [Right Arm] Blood Pressure Mean [Right Arm] Blood Pressure Source [Right Arm] Blood Pressure Position [Right Arm] 02 Sat by Pulse Oximetry 99 95 Oxygen Delivery Method Room Air Room Air Lab Data Lab results reviewed: Yes I reviewed the patient's lab results. Lab Results 01/16/25 11:25: WBC 5.7, RBC 4.06 L, Hgb 9.1 L, Hct 31.0 L, MCV 76.4 L, MCH 22.4 L, MCHC 29.4 L, RDW 18.9 H, Plt Count 254, MPV 10.2, Neut % (Auto) 46.7, Lymph % (Auto) 35.7, [place] % (Auto) 13.0 H, Eos % (Auto) 3.7, Baso % (Auto) 0.5, Neut # (Auto) 2.7, Lymph # (Auto) 2.0, [place] # (Auto) 0.7, Eos # (Auto) 0.2, Baso # (Auto) 0.0, Sodium 137, Potassium 4.0, Chloride 99, Carbon Dioxide 28, Anion Gap 14.0, BUN 33 H, Creatinine 2.40 H, Estimated Creat Clear 15, Estimated GFR 19 L*, Est GFR ( Amer) 24 L, Glucose 288 H, Calcium 9.1, Total Bilirubin 0.7, AST 42 H, ALT 31, Alkaline Phosphatase 121, Total Protein 9.2 H, Albumin 4.2, Globulin 5.0 H, Albumin/Globulin Ratio 0.8 L, TSH 7.93 H, Free T4 1.42 01/16/25 11:48: SARS-CoV-2 (PCR) Not detected, Influenza A Untype (PCR) Not detected, Influenza Type B (PCR) Not detected 01/16/25 11:59: Urine Color Yellow, Urine Appearance Cloudy, Urine pH 6.0, Ur Specific [place] 1.015, Urine Protein Negative, Urine Glucose (UA) 3+, Urine Ketones Negative, Urine Blood Trace-i, Urine Nitrate Negative, Urine Bilirubin Negative, Urine Urobilinogen 0.2, Ur Leukocyte Esterase 1+ A, Urine RBC Occasional, Urine WBC 20-50, Ur Squamous Epith Cells 20-50, Urine Bacteria 2+, Urine Yeast 4+ 01/16/25 11:25 01/16/25 11:25 Orders (Tests/Meds): ED MEDICATIONS Generic Name Dose Route Start Last Admin Trade Name Freq PRN Reason Stop Dose Admin Lipase/Protease/Amylase 1 each 01/16/25 16:30 Lipase/Protease/Amylase 1 Each Capsule. PO 02/15/25 16:29 AC REGGIE Carvedilol 3.125 mg 01/16/25 21:00 Carvedilol 3.125mg Tablet PO 02/15/25 20:59 BID REGGIE Gabapentin 100 mg 01/16/25 21:00 Gabapentin 100mg Capsule PO 02/15/25 20:59 TID REGGIE Insulin Glargine 25 unit 01/16/25 21:00 Insulin Glargine 100 Units/Ml 3ml Flexpen SUBCUT 02/15/25 20:59 BID REGGIE Insulin Human Lispro 0 unit 01/16/25 16:30 Humalog 100 Units/Ml 10ml Vial (Ssi) SUBCUT 02/15/25 16:29 ACHS [facility] Protocol Levothyroxine Sodium 125 mcg 01/17/25 07:00 Levothyroxine 125mcg (0.125mg) Tab PO 02/16/25 06:59 DAILYDM REGGIE Pantoprazole Sodium 40 mg 01/16/25 21:00 Pantoprazole 40mg Tablet PO 02/15/25 20:59 HS REGGIE Pravastatin Sodium 80 mg 01/16/25 21:00 Pravastatin 40mg Tab PO 02/15/25 20:59 HS REGGIE ORDERS Category Date Time Status CT head/brain wo con Stat Cat Scan 01/16/25 13:27 Completed CXR --portable [XR chest portable] Stat Exams 01/16/25 13:23 Completed CBC w/Auto Diff [Complete Blood Count Auto Diff] Stat Lab 01/16/25 11:25 Completed CMP [Comprehensive Metabolic Panel] Stat Lab 01/16/25 11:25 Completed Complete Blood Count Auto Diff AMLAB Lab 01/17/25 06:00 Ordered Comprehensive Metabolic Panel AMLAB Lab 01/17/25 06:00 Ordered Free T4 (Free Thyroxine) Stat Lab 01/16/25 11:25 Completed Magnesium AMLAB Lab 01/17/25 06:00 Ordered Rapid PCR Covid and Flu A/B Stat Lab 01/16/25 11:48 Completed TSH [Thyroid Stimulating Hormone] Stat Lab 01/16/25 11:25 Completed Urinalysis and Microscopic Stat Lab 01/16/25 11:59 Completed Urine Culture Stat Micro 01/16/25 11:59 Received ECG Data Tracing #1: I reviewed this ECG and interpreted as documented below: Sinus rhythm with a rate of 68. No QTc prolongation, no significant ST elevation/depression or evidence of acute ischemia. Medical Decision Narrative: In summary, this is an 79-year-old female presenting with weakness. Differential diagnosis includes but is not limited to, electrolyte abnormality, CVA, UTI, pneumonia, RADHA, functional decline, fluid overload, among others. Patient's symptoms are subacute and have been progressing over the past few weeks. Patient is on diuretics and states that she does not feel she has been urinating as much as usual. Patient does not weigh herself daily. Patient was recently treated for cellulitis of her right lower extremity. Patient has no focal neurologic deficits on exam and her last baseline neurologic status per family was approximately 2 weeks ago. Patient will be evaluated with labs, urine, XR and CT head. Patient's labs significant for RADHA with creatinine increased to 2.4 from 1.7 approximately 1 week prior. Patient's other labs significant for hemoglobin 9.1, no thrombocytopenia. Patient hyperglycemic to 288. Patient's urinalysis is grossly contaminated without nitrates. COVID/flu swab negative. Patient's CXR personally reviewed by me and significant for cardiomegaly without consolidation or obvious pleural effusion. CT head personally reviewed by me and negative for acute infarct or hemorrhage. I discussed patient's findings with the hospitalist. Requested admission for patient's significant RADHA in the setting of diuretic use and decreased urine output as well as generalized weakness. Dr. Garland in agreement with admission. Patient and family in agreement with plan for admission. Patient admitted in stable condition. Ying Palomo MD Critical Care Critical Care Time Critical Care Time: No
--- NOTE | 2025-01-16 13:27 | CT_ITS ---
FINAL REPORT TECHNIQUE: Thin section axial images were obtained from skull base to vertex without contrast. Coronal and sagittal reconstruction images were obtained from the axial data. This study was performed with techniques to keep radiation doses as low as reasonably achievable, (ALARA). Individualized dose reduction techniques using automated exposure control or adjustment of mA and/or kV according to the patient's size were employed. CLINICAL HISTORY: AMS COMPARISON: None FINDINGS: There is atrophy. No mass effect or midline shift. No intracranial hemorrhage. No hydrocephalus. Periventricular low density is likely related to changes of chronic small vessel ischemia. The basilar cisterns are preserved. The posterior fossa is without acute abnormality. The soft tissues are without acute abnormality. No acute osseous abnormality is identified. IMPRESSION: No acute intracranial abnormality. Atrophy and changes suggesting chronic small vessel ischemia. Reviewed, Interpreted and Dictated by Felipa Solano MD Transcribed by [place] Authenticated and [facility]
--- NOTE | 2025-01-16 15:31 | P.HP_ITS ---
History of Present Illness *Admission Date: 01/16/25 *Reason for visit:: weakness *History of present illness: Ms. Bruno is an 79-year-old female with multiple comorbidities including type 2 diabetes, morbid obesity, neuropathy, lower extremity edema, [place] cirrhosis. Was admitted earlier this month for anemia and concern for cellulitis. Also has resolving shingles lesion on her nose. She presents with some weakness and mild confusion. Continues to be short of breath with exertion. She denies chest pain, fever, nausea or vomiting. Daughters who presented whether state that she has had some slurred speech and fatigue over the last few weeks. Her symptoms wax and wane. Of note, she was started on gabapentin at her last admission due to neuropathy. Also started on diuretics and beta-blockers for her cirrhosis. Workup in the ER is concerning for UTI and RADHA with elevated creatinine at 2.4 (baseline 1.7-2) and urine with leuk esterase, bacteria, white cells. Medicine consulted for RADHA and weakness and confusion. On arrival to the floor, patient is alert and oriented x 4. Has asterixis on exam. Having minor epistaxis of right nare. This has been present for a week or 2. Intermittently has nosebleeds. Stable on room air. Denies chest pain. Had a bowel movement yesterday but not having bowel movements daily. Currently taking her meds as prescribed. TSH noted to be persistently elevated even after increasing levothyroxine at last visit. Daughters at bedside helps supplement history [facility] Disclaimer: The information contained in this section may have been updated after the patient was seen, as this information can be updated by other users. Medical History Anemia Abnormal electrocardiogram [ECG] [EKG] Pre-operative cardiovascular examination HLD (hyperlipidemia) HTN (hypertension), benign Thyroid disorder T2DM (type 2 diabetes mellitus) Surgical History Hx of laparoscopic gastric banding History of cholecystectomy Family History Family history of stroke Family history of cancer Social History Smoking Status: Former smoker alcohol intake: never substance use type: denies use current occupational status: retired Travel in the last 8 weeks: None household members: spouse housing: house lives independently: No marital status: caffeine: No Have you lived/traveled outside [place] in past 30 days?: No Contact w/someone who lives/traveled outside US past 30 days?: No Exposure to someone with infectious disease in past 14 days?: No Do you have a fever (greater than 100.4 F or 38 C)?: No Have you tested positive for COVID-19: No Exposed to someone with COVID-19 in past 14 days?: No Do you have a sore throat?: No Do you have a cough?: No Do you have any weakness?: No Do you have any diarrhea?: No Are you experiencing any unusual bleeding?: No Do you have any muscle aches/pain?: No Do you have any abdominal pain?: No Are you experiencing loss of taste or smell?: No Other Medical History Have you received the Flu Vaccine for this season: No Have you received the Pneumonia Vaccine: No Review of Systems Review of Systems Review of systems (narrative): 14 point review of systems performed, pertinent positives and negatives as per HPI Meds Home Medications and Allergies Home Medications ?Medication ?Instructions ?Recorded ?Confirmed ?Type blood sugar diagnostic (Accu-Chek #10 ea 10/05/23 01/16/25 History Guide test strips) insulin syringe-needle U-100 1 mL #10 ea 07/22/24 01/16/25 Rx 31 gauge x 15/64 (BD Veo Insulin Syringe Ultra-Fine) pen needle, diabetic 31 gauge x #1,200 ea 07/23/24 01/16/25 Rx 5/16 (BD Ultra-Fine Short Pen Needle) insulin aspart U-100 100 unit/mL 20 unit SQ BID 12/30/24 01/16/25 History (3 mL) subcutaneous pen (Novolog FlexPen U-100 Insulin aspart) gabapentin 100 mg capsule 100 mg PO TID 30 days #90 caps 01/02/25 01/16/25 Rx insulin glargine 100 unit/mL (3 45 unit (0.45 mL) SQ BID 30 days 01/02/25 01/16/25 Rx mL) subcutaneous pen (Lantus #27 mL Solostar U-100 Insulin) levothyroxine 100 mcg tablet 100 mcg PO DAILYDM 30 days #30 tabs 01/02/25 01/16/25 Rx (Synthroid) methocarbamol 500 mg tablet 500 mg PO Q12HP PRN Muscle Spasm 01/02/25 01/16/25 Rx 30 days #60 tabs Farxiga 10 mg tablet See Rx Instructions .Route 01/16/25 01/16/25 Rx (dapagliflozin propanediol) .COMPLEX #90 tabs bumetanide 2 mg tablet 2 mg PO DAILY #90 tabs 01/16/25 01/16/25 Rx carvedilol 3.125 mg tablet 3.125 mg PO BID 30 days #180 tabs 01/16/25 01/16/25 Rx folic acid 1 mg tablet 1 mg PO MOTUWETHFRSA #60 tabs 01/16/25 01/16/25 Rx yqvqhy-bxjmqsru-hurxcbt 1 cap PO AC #90 caps 01/16/25 01/16/25 Rx 36,000-114,000-180,000 unit capsule,delay rel (Creon) pantoprazole 40 mg tablet,delayed 40 mg PO HS 30 days #90 tabs 01/16/25 01/16/25 Rx release polysaccharide iron complex 180 mg 180 mg PO DAILY #90 caps 01/16/25 01/16/25 Rx iron capsule (Pro Fe) pravastatin 80 mg tablet 80 mg PO HS Cholesterol #90 tabs 01/16/25 01/16/25 Rx semaglutide 2 mg/dose (8 mg/3 mL) 2 mg (0.75 mL) SQ WEEKLY #3 mL 01/16/25 01/16/25 Rx subcutaneous pen injector spironolactone 50 mg tablet 50 mg PO DAILY #90 tabs 01/16/25 01/16/25 Rx New Prescriptions to Start Prescriptions: Allergies Allergy/AdvReac Type Severity Reaction Status Date / Time morphine AdvReac Unknown NA-NAUSEA/V Verified 01/16/25 11:45 OMITING Exam Data for Last 24 hours Vital signs and Labs for Last 24 Hours: Temp Pulse Resp BP Pulse Ox O2 Del Method 98.2 F 66 14 133/67 98 Room Air 01/16/25 11:37 01/16/25 14:31 01/16/25 14:31 01/16/25 14:31 01/16/25 14:31 01/16/25 14:31 Laboratory Results - last 24 hr 01/16/25 11:25: WBC 5.7, RBC 4.06 L, Hgb 9.1 L, Hct 31.0 L, MCV 76.4 L, MCH 22.4 L, MCHC 29.4 L, RDW 18.9 H, Plt Count 254, MPV 10.2, Neut % (Auto) 46.7, Lymph % (Auto) 35.7, [place] % (Auto) 13.0 H, Eos % (Auto) 3.7, Baso % (Auto) 0.5, Neut # (Auto) 2.7, Lymph # (Auto) 2.0, [place] # (Auto) 0.7, Eos # (Auto) 0.2, Baso # (Auto) 0.0, Sodium 137, Potassium 4.0, Chloride 99, Carbon Dioxide 28, Anion Gap 14.0, BUN 33 H, Creatinine 2.40 H, Estimated Creat Clear 15, Estimated GFR 19 L*, Est GFR ( Amer) 24 L, Glucose 288 H, Calcium 9.1, Total Bilirubin 0.7, AST 42 H, ALT 31, Alkaline Phosphatase 121, Total Protein 9.2 H, Albumin 4 .2, Globulin 5.0 H, Albumin/Globulin Ratio 0.8 L, TSH 7.93 H, Free T4 1.42 01/16/25 11:48: SARS-CoV-2 (PCR) Not detected, Influenza A Untype (PCR) Not detected, Influenza Type B (PCR) Not detected 01/16/25 11:59: Urine Color Yellow, Urine Appearance Cloudy, Urine pH 6.0, Ur Specific [place] 1.015, Urine Protein Negative, Urine Glucose (UA) 3+, Urine Ketones Negative, Urine Blood Trace-i, Urine Nitrate Negative, Urine Bilirubin Negative, Urine Urobilinogen 0.2, Ur Leukocyte Esterase 1+ A, Urine RBC Occasional, Urine WBC 20-50, Ur Squamous Epith Cells 20-50, Urine Bacteria 2+, Urine Yeast 4+ I & O for Last 24 hours: Intake & Output 01/13/25 01/14/25 01/15/25 01/16/25 23:59 23:59 23:59 23:59 Weight 108.862 kg Constitutional Constitutional: no acute distress, morbidly obese, chronically ill appearing and cooperative *Routine HEENT Exam Head: Present normocephalic Eye: Present EOMI and PERRL ENT: Present mucous membranes moist Comments: Blood in right nare with packing *Routine Neck Exam Neck: Present supple; Absent lymphadenopathy *Routine Respiratory Exam Respiratory: Present CTA bilaterally and distant breath sounds; Absent rhonchi, wheezes or crackles *Routine Cardiovascular Exam Cardiovascular: Present RRR *Routine Abdominal Exam Abdominal: Present soft, normoactive bowel sounds and distended; Absent tenderness, rebound or guarding *Routine Rectal Exam Rectal:: deferred *Routine Genitalia Exam Genitalia:: deferred *Routine Extremities Exam Extremities: Present edema (2+ to knees); Absent cyanosis or clubbing *Routine Skin Exam Skin: Present intact, erythema, warm and rash *Routine Neurological Exam Neurological: Present alert, oriented X3, moving all extremities and asterixis; Absent altered mental status Assessment and Plan *Assessment and plan (1) RADHA (acute kidney injury): Status: Acute Category: Medical Code(s): N17.9 - Acute kidney failure, unspecified (2) UTI (urinary tract infection): Status: Acute Category: Medical Code(s): N39.0 - Urinary tract infection, site not specified (3) Weakness: Status: Acute Category: Medical Code(s): R53.1 - Weakness (4) Portal hypertension: Status: Acute Category: Medical Code(s): K76.6 - Portal hypertension (5) Anemia: Status: Inactive Category: Medical Code(s): D64.9 - Anemia, unspecified (6) Cirrhosis of liver: Status: Chronic Category: Medical Code(s): K74.60 - Unspecified cirrhosis of liver (7) Gastritis: Status: Chronic Category: Medical Code(s): K29.70 - Gastritis, unspecified, without bleeding (8) Morbid obesity: Status: Chronic Category: Medical Code(s): E66.01 - Morbid (severe) obesity due to excess calories (9) Fatty liver disease, nonalcoholic: Status: Chronic Category: Medical Code(s): K76.0 - Fatty (change of) liver, not elsewhere classified (10) 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 Qualifiers: Diabetes mellitus long term acute care registered nurse insulin use: with retirement use Qualified Code(s): E11.42 - Type 2 diabetes mellitus with diabetic polyneuropathy; Z79.4 - assistant terminal manager (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) use of insulin Category: Medical Code(s): E11.42 - Type 2 diabetes mellitus with diabetic polyneuropathy (11) Thyroid disorder: Status: Acute Category: Medical Code(s): E07.9 - Disorder of thyroid, unspecified (12) HLD (hyperlipidemia): Status: Chronic Qualifiers: Hyperlipidemia type: mixed hyperlipidemia Qualified Code(s): E78.2 - Mixed hyperlipidemia Category: Medical Code(s): E78.5 - Hyperlipidemia, unspecified (13) HTN (hypertension), benign: Status: Chronic Category: Medical Code(s): I10 - Essential (primary) hypertension Plan Babs Bruno is a 79-year-old female who presented to the ER with weakness and fatigue. On workup found to have an RADHA and suspicion for UTI. Discussed case with ER physician, request admission for treatment of her acute kidney injury. I agreed to admit for further management. Of note was admitted earlier this month with acute on chronic anemia, new diagnosis of decompensated cirrhosis. Additionally has history of uncontrolled diabetes. Admitted for medical management and serial kidney function labs. Problems addressed as follows: Acute kidney injury Suspected UTI Weakness -Urine grossly abnormal with 20-50 white cells, leuk esterase positive, positive for bacteria. Urine culture pending. Will initiate ceftriaxone 1 g daily empirically -Creatinine 2.4, BUN 33. Has been on diuretics since last visit for cirrhosis and portal hypertension. Will hold diuretics. Repeat CBC, CMP, magnesium ordered for the morning. -Baseline creatinine 1.7-2. Hold on IV hydration in the setting of cirrhosis with edema -PT and OT to evaluate given her weakness. Has been working with home health. -Patient reports some mild confusion and forgetfulness. More alert and oriented at this time. Has asterixis on exam. Ammonia level pending. -Initiate lactulose 20 mg twice daily, goal 1-3 bowel movements a day Epistaxis: Initiate Afrin nasal spray twice daily Hypothyroid: TSH remains uncontrolled at 7.9. Was increased to 100 mcg last visit. Will increase to 125 mcg p.o. daily. Administer levothyroxine IV 100 mcg once #Decompensated cirrhosis, suspected LACEY #chronic microcytic anemia ? Suspected LACEY cirrhosis, no alcohol use. No history of hepatitis. Portal hypertension on abdominal imaging. -Taken for EGD and colonoscopy today earlier this month. patient had AVMs and small varices that were not significant or needing banding. -Continue pantoprazole 40 mg daily. Continue carvedilol 3.125 mg twice daily for cirrhosis, hold diuretics at this time -Hemoglobin 9.1, better than earlier this month. Platelets 254. Transfusion threshold hemoglobin less than 7 #Uncontrolled type 2 diabetes ? Hemoglobin A1c 10.8 on 12/26/2024. Continue Lantus 25 units twice daily. Initiate sliding scale insulin with fingersticks ACHS. -Holding Farxiga in the setting of possible UTI #Right inguinal pain ? CT abdomen/pelvis earlier this month suggested inflammation of iliopsoas muscle. Pain waxing and waning. Working with therapy. Hold on methocarbamol and gabapentin given confusion. W #Physical deconditioning ? PT/OT consulted, previous visit earlier this month recommended home health with PT at discharge. Will reevaluate needs at this time ecommend home health with PT on discharge. DNR DVT prophylaxis: SCDs Diabetic diet
--- NOTE | 2025-01-16 15:33 | PC.NURSE ---
assisted pt in moving pt up in bed
--- NOTE | 2025-01-16 15:39 | PC.NURSE ---
call made to dye house vat worker for bed placement. harvey santiago stated that he is taking a pt to CT scanner. TRN will call back.
--- NOTE | 2025-01-16 16:07 | PC.NURSE ---
spoke with household refrigerator mechanic for bed placement
--- NOTE | 2025-01-16 16:31 | PC.NURSE ---
report called to brock on second floor
[2025-01-16] MEDS: LIPASE/PROTEASE/AMYLASE 1 EACH CAPSULE.DR PO (17:58)
[2025-01-16] MEDS: humaLOG 100 UNITS/ML 10ML VIAL (SSI) SUBCUT ×2 (17:59→20:43)
[2025-01-16] MEDS: CEFTRIAXONE SODIUM 1 GM in 0.9 % SODIUM CHLORIDE 50 ML IV (18:40)
[2025-01-16 19:07] LABS: Ammonia 45 umol/L (9-30)
[2025-01-16] MEDS: PANTOPRAZOLE 40MG TABLET 40 MG PO (20:42)
[2025-01-16] MEDS: PRAVASTATIN 40MG TAB 80 MG PO (20:42)
[2025-01-16] MEDS: INSULIN GLARGINE 100 UNITS/ML 3ML FLEXPEN 25 UNIT SUBCUT (20:42)
[2025-01-16] MEDS: CARVEDILOL 3.125MG TABLET 3.125 MG PO (20:42)
[2025-01-16] MEDS: OXYMETAZOLINE NASAL SPRAY 0.05% 15ML NS (20:43)
[2025-01-16 21:07] LABS: POC Glucose,Bedside 322 (70-110)
[2025-01-17 04:00] VITALS: BP 121/68; PULSE 70; RESP 18; TEMP 36.9; O2SAT 98; BMI 40.1
--- NOTE | 2025-01-17 05:49 | PC.NURSE ---
patient is alert and oriented X3, ambulates with walker and assistance, tolerating room air with O2 sats 98-99%, patient refused lactulose stating she had multiple bowel movements since being here, no complaints of pain, call button in reach
[2025-01-17 06:25] LABS: POC Glucose,Bedside 171 (70-110)
[2025-01-17] MEDS: LEVOTHYROXINE 125MCG (0.125MG) TAB 125 MCG PO (06:30)
[2025-01-17] MEDS: humaLOG 100 UNITS/ML 10ML VIAL (SSI) SUBCUT ×4 (06:30→21:39)
[2025-01-17] MEDS: LIPASE/PROTEASE/AMYLASE 1 EACH CAPSULE.DR PO ×3 (06:30→16:19)
[2025-01-17 07:08] LABS: Chloride 98 mmol/L (98-107)
[2025-01-17 07:09] LABS: Albumin Level 3.6 g/dl (3.5-5.0); Potassium 3.9 mmoL/L (3.5-5.1); Sodium 135 mmol/L (136-145)
[2025-01-17 07:11] LABS: Anion Gap 13.9 mEq/L (5-15); Blood Urea Nitrogen 31 mg/dl (7-17); Carbon Dioxide 27 mmol/L (22.0-30.0); Creatinine Clearance Estimated 17 mL/min (50-200); Estimated Glomerular Filt Rate 23 ml/min (>60); GFR (African American) 27 ML/MIN (>60)
[2025-01-17 07:12] LABS: Alanine Aminotransferase 23 U/L (12-78); Albumin/Globulin Ratio 0.8 (1.1-1.8); Alkaline Phosphatase 112 U/L (38-126); Aspartate Amino Transferase 39 U/L (14-36); Bilirubin,Total 0.4 mg/dl (0.2-1.3); Calcium 8.4 mg/dl (8.4-10.2); Globulin 4.3 g/dL (1.3-3.2); Glucose 180 mg/dl (74-100); Magnesium 2.1 mg/dl (1.6-2.3); Total Protein,Serum 7.9 g/dl (6.3-8.2)
[2025-01-17 07:15] LABS: Basophils % 0.7 % (0.1-2.0); Eosinophils # 0.2 K/mm3 (0.0-0.4); Eosinophils % 3.7 % (0.1-12.0); Hematocrit 28.4 % (37.0-47.0); Hemoglobin 8.4 g/dL (12.2-16.2); Lymphocytes # 2.3 K/mm3 (0.7-4.5); Lymphocytes % 37.8 % (10-50); Mean Corpuscular HGB Conc 29.6 g/dL (31.8-35.4); Mean Corpuscular Hemoglobin 22.3 pg (27.0-31.2); Mean Corpuscular Volume 75.5 fl (81-99); Mean Platelet Volume 10.8 fl (7.4-10.4); Monocytes # 0.9 K/mm3 (0.1-1.0); Monocytes % 15.3 % (1.7-9.3); Neutrophils # 2.6 K/mm3 (1.8-7.8); Neutrophils % 42.2 % (37.0-80.0); Platelet Count 228 K/mm3 (142-424); Red Blood Count 3.76 M/mm3 (4.20-5.40); Red Cell Distribution Width 18.9 % (11.5-17.5); White Blood Count 6.1 K/mm3 (4.8-10.8)
[2025-01-17 08:00] VITALS: BP 125/51; PULSE 73; RESP 17; TEMP 36.6; O2SAT 92
--- NOTE | 2025-01-17 08:29 | HMH.PHAINT1 ---
Pharmacy Intervention Comments: MEDICATION RECONCILIATION COMPLETED ON PATIENT USING EXTERNAL FILL HISTORY FROM PHARMACY AND DISCHARGE SUMMARY FROM PREVIOUS ADMISSION. -TYREE GALE, ERAND
[2025-01-17] MEDS: LACTULOSE 20GM/30ML UDC 20 GM PO ×2 (08:54→21:39)
[2025-01-17] MEDS: OXYMETAZOLINE NASAL SPRAY 0.05% 15ML NS ×2 (08:55→21:41)
[2025-01-17] MEDS: CARVEDILOL 3.125MG TABLET 3.125 MG PO ×2 (08:58→21:41)
[2025-01-17] MEDS: IRON SUCROSE COMPLEX 200 MG in 0.9 % SODIUM CHLORIDE 100 ML 220 MG IV (08:59)
[2025-01-17] MEDS: INSULIN GLARGINE 100 UNITS/ML 3ML FLEXPEN 25 UNIT SUBCUT (09:08)
--- NOTE | 2025-01-17 10:34 | SW/DCPLANNER ---
Addendum entered by Martha Patel 01/17/25 12:26: Patient information has been faxed to [facility] to resume home health services. Original Note: I spoke w/ this patient regarding plans once medically stable for discharge. PT/OT evaluated patient and recommended home health services. Patient is currently established w/ [facility] and prefers to return home and resume services. Discharge date is unknown at this time. I will continue to follow up.
--- NOTE | 2025-01-17 10:55 | HMH.PTEV ---
Physical Therapy Evaluation Rehab PT IP Evaluation Start: 01/16/25 15:35 Freq: ONCE Status: Active Protocol: Document 01/17/25 08:00 VIPUL (Rec: 01/17/25 10:55 VIPUL [id number]) Subjective/History History History 79-year-old female with multiple comorbidities including type 2 diabetes, morbid obesity, neuropathy, lower extremity edema, [place] cirrhosis. Was admitted earlier this month for anemia and concern for cellulitis. Also has resolving shingles lesion on her nose. She presents with some weakness and mild confusion. Continues to be short of breath with exertion. She denies chest pain, fever, nausea or vomiting. She reports she lives with family, 1-2 NATALY the home, and is generally independent with mobility using a RW, but requires assist with most ADLs at baseline. Subjective Subjective She reports feeling generally weak this am with general R LE pain that she did not rate or localize. She does agree to mobility assessment. Rehab PT IP Eval Objective Appearance Patient Behavior Appropriate Patient Orientation Person,Place,Time Difficulty following instructions none Speech Pattern Clear Ambulation Patient Able to Ambulate Yes Ambulation Observation IP General Gait Pattern Observation No Deviations/Normal Ambulation Distance (feet) 25 Ambulation Assistive Device Rolling Walker Ambulation Ability Supervision/Stand by Balance Ability to Arise Able, uses arms to help Sitting Balance Steady, safe Standing Balance Steady, wide stance Dynamic Sitting Balance Ability Good Dynamic Standing Balance Ability Fair Transfers Bed Transfer Ability Minimal x 1 (25% assist) Chair Transfer Ability Supervision/Stand by Sit to Stand Bed Transfer Ability Supervision/Stand by Sit to Stand Chair Transfer Ability Supervision/Stand by Rehab PT IP prob,goals,plan Problems Date of Evaluation: 01/17/25 PT IP Problems Transfers,Gait Rehab Potential Rehab Potential Good Plan PT Intervention Plan Transfers,Gait,Therapeutic Exercise PT Plan Frequency Daily Duration LOS Discharge Goals Bed Transfer Ability Contact Guard/Hand Hold Sit to Stand Chair Transfer Ability Supervision/Stand by Ambulation Assistive Device Rolling Walker Ambulation Distance (feet) 40 Discharge Plan PT Discharge Plan Pt is currently appropriate to return home once medically stable for d/c. Recommend home health therapy after d/c. Skilled therapy is indicated to improve strength and increase ambulation ability in order to return pt to [facility]. Eval Complexity Eval Charge Codes 81241 - High Complexity PHYSICIAN CERTIFICATION: I certify the specified therapy services for Babs Franky Bruno are required, authorized, and reviewed every 30 days.
--- NOTE | 2025-01-17 12:30 | HMH.OTEV ---
OT Inpatient Evaluation Rehab OT IP Evaluation Start: 01/16/25 15:35 Freq: ONCE Status: Active Protocol: Document 01/17/25 11:06 [facility] (Rec: 01/17/25 12:30 [facility] [id number]) Rehab OT IP Assessment Subjective History 79-year-old female with multiple comorbidities including type 2 diabetes, morbid obesity, neuropathy, lower extremity edema, [place] cirrhosis. Was admitted earlier this month for anemia and concern for cellulitis. Also has resolving shingles lesion on her nose. She presents with some weakness and mild confusion. Continues to be short of breath with exertion. She denies chest pain, fever, nausea or vomiting. She reports she lives with family, 1-2 NATALY the home, and is generally independent with mobility using a RW, but requires assist with most ADLs at baseline. Subjective Pt complaining of right leg pain upon arrival. Pt's daughter present and supportive. Objective Patient Orientation Person,Place,Birthday Right Upper Extremity Gross ROM WFL Left Upper Extremity Gross ROM WFL Transfer Training Sit/Stand Transfer Assist Level Contact Guard/Hand Hold Chair Transfer Ability Contact Guard/Hand Hold Chair Transfer Technique Sit to/from Ambulatory Chair Transfer Assistive Devices Rolling Walker Rehab OT IP prob,goals,plan Problems Date of Evaluation: 01/17/25 OT IP Problems Bed Mobility,Transfers,Balance ,Self care,Safety Rehab Potential Rehab Potential Good Equipment Needs Assistive Devices Rolling / Wheeled Walker Plan OT intervention Plan Bed Mobility,Transfers,Balance ,Self care,Safety,Therapeutic Exercise OT Plan Frequency Daily Duration LOS Discharge Goals Bed Mobility Ability Standby Assistance Sit to Stand Chair Transfer Ability Supervision/Stand by Chair Transfer Ability Supervision/Stand by Chair Transfer Technique Sit to/from Ambulatory Chair Transfer Assistive Devices Rolling Walker Lower Body Dressing Ability Minimal Assistance Upper Body Dressing Ability Standby Assistance Bathing Ability Moderate Assistance Performing Toilet Hygiene Ability Moderate Assistance Overall Commode/Toilet Transfer Ability Standby Assistance,Contact Guard Commode/Toilet Transfer Technique Sit to/from Ambulatory Discharge Plan OT Discharge Plan Pt is currently appropriate to return home once medically stable for d/c. Recommend home health therapy after d/c. Skilled therapy is indicated to improve strength, safety, functional transfers, safety, and ADL independence to reach PLOF. Eval Complexity Eval Charge Codes 17050 - Moderate Complexity PHYSICIAN CERTIFICATION: I certify the specified therapy services for Babs S Bruno are required, authorized, and reviewed every 30 days.
[2025-01-17 12:44] LABS: POC Glucose,Bedside 354 (70-110)
[2025-01-17 12:44] LABS: POC Glucose,Bedside 355 (70-110)
[2025-01-17 16:00] VITALS: BP 178/70; PULSE 80; RESP 20; TEMP 36.5; O2SAT 97
[2025-01-17] MEDS: CEFTRIAXONE SODIUM 1 GM in 0.9 % SODIUM CHLORIDE 50 ML IV (16:19)
[2025-01-17 16:57] LABS: POC Glucose,Bedside 371 (70-110)
--- NOTE | 2025-01-17 17:30 | EXP.ACUTE.PN ---
Subjective *Date: 01/17/25 *Time: 17:58 Interval history: Patient stable on room air overnight. Has had multiple bowel movements. More alert, family states she is not slurring today. Still feels weak. No nausea or vomiting. Tolerating p.o. intake. Afebrile. Medical Exam Vital signs and Labs for Last 24 Hours: Vital Signs Temp Pulse Resp BP Pulse Ox O2 Del Method 01/17/25 15:00 Room Air 01/17/25 13:00 Room Air 01/17/25 11:00 Room Air 01/17/25 09:00 Room Air 01/17/25 08:00 Room Air 01/17/25 08:00 97.9 F 73 17 125/51 L 92 L Room Air 01/17/25 06:41 Room Air 01/17/25 05:00 Room Air 01/17/25 04:00 98.4 F 70 18 121/68 98 Room Air 01/17/25 03:00 Room Air 01/17/25 01:00 Room Air 01/16/25 23:00 Room Air 01/16/25 21:00 Room Air 01/16/25 20:00 Room Air 01/16/25 20:00 97.4 F L 72 18 132/67 99 Room Air 01/16/25 18:27 Room Air 01/16/25 18:23 Room Air Intake and Output 01/17/25 01/17/25 01/17/25 07:59 15:59 23:59 Intake Total 240 / 960 720 / 960 Output Total 0 / 0 0 / 0 Balance 240 / 960 720 / 960 Intake: Intake, Oral Amount 240 / 960 720 / 960 Output: Output, Urine Amount 0 / 0 0 / 0 Other: Number of Unmeasured Voids 1 1 Weight 102.648 kg Patient Weight 01/17/25 23:59 Weight 102.648 kg Laboratory Results - last 24 hr 01/16/25 18:30: Ammonia 45 H, NT-Pro-B Natriuret Pep 46.0 01/16/25 20:20: POC Glucose 322 H* 01/17/25 06:04: WBC 6.1, RBC 3.76 L, Hgb 8.4 L, Hct 28.4 L, MCV 75.5 L, MCH 22.3 L, MCHC 29.6 L, RDW 18.9 H, Plt Count 228, MPV 10.8 H, Neut % (Auto) 42.2, Lymph % (Auto) 37.8, Ellis % (Auto) 15.3 H, Eos % (Auto) 3.7, Baso % (Auto) 0.7, Neut # (Auto) 2.6, Lymph # (Auto) 2.3, Ellis # (Auto) 0.9, Eos # (Auto) 0.2, Baso # (Auto) 0.0, Sodium 135 L, Potassium 3.9, Chloride 98, Carbon Dioxide 27, Anion Gap 13.9, BUN 31 H, Creatinine 2.10 H, Estimated Creat Clear 17, Estimated GFR 23 L, Est GFR ( Amer) 27 L, Glucose 180 H D, Calcium 8.4, Magnesium 2.1, Total Bilirubin 0.4, AST 39 H, ALT 23 D, Alkaline Phosphatase 112, Total Protein 7.9, Albumin 3.6 D, Globulin 4.3 H, Albumin/Globulin Ratio 0.8 L 01/17/25 06:18: POC Glucose 171 H 01/17/25 09:06: POC Glucose 354 H* 01/17/25 11:59: POC Glucose 355 H* 01/17/25 16:13: POC Glucose 371 H* I & O for Labs for Last 24 Hours: Intake & Output 01/14/25 01/15/25 01/16/25 01/17/25 23:59 23:59 23:59 23:59 Intake Total 480 / 720 960 / 960 Output Total 0 / 0 0 / 0 Balance 480 / 720 960 / 960 Weight 108.862 kg 102.648 kg Constitutional: Present no acute distress, morbidly obese and cooperative Head: Present atraumatic and normocephalic ENT: Present normal exam Respiratory: Present normal respiratory effort; Absent rhonchi, wheezes or crackles Cardiac: Present Reg Rate and Rhythm GI: Present soft, distention and normal bowel sounds; Absent tenderness Extremities: Present normal inspection, full ROM and edema (2+ to knees) Skin: Present intact; Absent erythema Comment:: Stasis changes of BLE Neuro: Present Grossly Intact, alert, awake, oriented x 3 and moves all extremities Assessment and Plan *Assessment and plan (1) RADHA (acute kidney injury): Status: Acute Category: Medical Code(s): N17.9 - Acute kidney failure, unspecified (2) UTI (urinary tract infection): Status: Acute Category: Medical Code(s): N39.0 - Urinary tract infection, site not specified (3) Weakness: Status: Acute Category: Medical Code(s): R53.1 - Weakness (4) Portal hypertension: Status: Acute Category: Medical Code(s): K76.6 - Portal hypertension (5) Anemia: Status: Inactive Category: Medical Code(s): D64.9 - Anemia, unspecified (6) Cirrhosis of liver: Status: Chronic Category: Medical Code(s): K74.60 - Unspecified cirrhosis of liver (7) Gastritis: Status: Chronic Category: Medical Code(s): K29.70 - Gastritis, unspecified, without bleeding (8) Morbid obesity: Status: Chronic Category: Medical Code(s): E66.01 - Morbid (severe) obesity due to excess calories (9) Fatty liver disease, nonalcoholic: Status: Chronic Category: Medical Code(s): K76.0 - Fatty (change of) liver, not elsewhere classified (10) 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 Qualifiers: Diabetes mellitus termite control service representative insulin use: with termite control service representative use Qualified Code(s): E11.42 - Type 2 diabetes mellitus with diabetic polyneuropathy; Z79.4 - detention (current) use of insulin Category: Medical Code(s): E11.42 - Type 2 diabetes mellitus with diabetic polyneuropathy (11) Thyroid disorder: Status: Acute Category: Medical Code(s): E07.9 - Disorder of thyroid, unspecified (12) HLD (hyperlipidemia): Status: Chronic Qualifiers: Hyperlipidemia type: mixed hyperlipidemia Qualified Code(s): E78.2 - Mixed hyperlipidemia Category: Medical Code(s): E78.5 - Hyperlipidemia, unspecified (13) HTN (hypertension), benign: Status: Chronic Category: Medical Code(s): I10 - Essential (primary) hypertension Plan Babs Bruno is a 79-year-old female who presented to the ER with weakness and fatigue. On workup found to have an RADHA and suspicion for UTI. Discussed case with ER physician, request admission for treatment of her acute kidney injury. I agreed to admit for further management. Of note was admitted earlier this month with acute on chronic anemia, new diagnosis of decompensated cirrhosis. Additionally has history of uncontrolled diabetes. Admitted for medical management and serial kidney function labs. Showing some improvement today. Still awaiting urine culture. Remains quite weak. Working with therapy. Recommended home with home health. Problems addressed as follows: Acute kidney injury Suspected UTI Weakness -Urine grossly abnormal with 20-50 white cells, leuk esterase positive, positive for bacteria. Urine culture pending. Continue ceftriaxone 1 g daily empirically -Slight improvement in kidney function, BUN 31, creatinine 2.1. Baseline appears to be approximately 1.7-2. -Continue to hold diuretics -repeat CBC, CMP, magnesium ordered for the morning. Epistaxis: Initiate Afrin nasal spray twice daily Hypothyroid: TSH remains uncontrolled at 7.9. Was increased to 100 mcg last visit. Will increase to 125 mcg p.o. daily. Administer levothyroxine IV 100 mcg once #Decompensated cirrhosis, suspected LACEY #chronic microcytic anemia ? Suspected LACEY cirrhosis, no alcohol use. No history of hepatitis. Portal hypertension on abdominal imaging. -Ammonia elevated at 50. Initiated on lactulose twice daily. Having bowel movements. Seeing some improvement in mentation today. -Taken for EGD and colonoscopy earlier this month. patient had AVMs and small varices that were not significant or needing banding. -Continue pantoprazole 40 mg daily. Continue carvedilol 3.125 mg twice daily for cirrhosis, hold diuretics at this time -Hemoglobin 8.4. No active signs of bleeding. Microcytic anemia with MCV of 75. Will administer Venofer 200 mg once today. Platelets 228 transfusion threshold hemoglobin less than 7 #Uncontrolled type 2 diabetes ? Hemoglobin A1c 10.8 on 12/26/2024. Continue Lantus increased to 40 units twice daily. Initiate sliding scale insulin with fingersticks ACHS. -Holding Farxiga in the setting of possible UTI -Glucoses running 180 on morning labs, 300 after breakfast #Right inguinal pain ? CT abdomen/pelvis earlier this month suggested inflammation of iliopsoas muscle. Pain waxing and waning. Working with therapy. Hold on methocarbamol and gabapentin given confusion. W #Physical deconditioning ? PT/OT consulted, previous visit earlier this month recommended home health with PT at discharge. Will reevaluate needs at this time ecommend home health with PT on discharge. DNR DVT prophylaxis: SCDs Diabetic diet
--- NOTE | 2025-01-17 18:26 | PC.NURSE ---
aox4, has at up to chair for most of shift. tolerating room air.
[2025-01-17 19:52] VITALS: BP 119/50; PULSE 76; RESP 17; TEMP 36.8; O2SAT 96
[2025-01-17] MEDS: INSULIN GLARGINE 100 UNITS/ML 3ML FLEXPEN 40 UNIT SUBCUT (21:40)
[2025-01-17] MEDS: PRAVASTATIN 40MG TAB 80 MG PO (21:41)
[2025-01-17] MEDS: PANTOPRAZOLE 40MG TABLET 40 MG PO (21:41)
[2025-01-18 00:26] LABS: POC Glucose,Bedside 370 (70-110)
[2025-01-18 04:00] VITALS: BMI 40.1
[2025-01-18] MEDS: LEVOTHYROXINE 125MCG (0.125MG) TAB 125 MCG PO (06:39)
[2025-01-18] MEDS: LIPASE/PROTEASE/AMYLASE 1 EACH CAPSULE.DR PO (06:39)
[2025-01-18] MEDS: humaLOG 100 UNITS/ML 10ML VIAL (SSI) SUBCUT (06:39)
[2025-01-18 06:49] LABS: POC Glucose,Bedside 232 (70-110)
[2025-01-18 08:00] VITALS: BP 144/64; PULSE 69; RESP 18; TEMP 36.5; O2SAT 97
--- NOTE | 2025-01-18 08:06 | EXP.DC.SUM ---
General Admission date:: 01/16/25 Discharge date: 01/18/25 HPI HPI HPI: Ms. Bruno is an 79-year-old female with multiple comorbidities including type 2 diabetes, morbid obesity, neuropathy, lower extremity edema, [place] cirrhosis. Was admitted earlier this month for anemia and concern for cellulitis. Also has resolving shingles lesion on her nose. She presents with some weakness and mild confusion. Continues to be short of breath with exertion. She denies chest pain, fever, nausea or vomiting. Daughters who presented whether state that she has had some slurred speech and fatigue over the last few weeks. Her symptoms wax and wane. Of note, she was started on gabapentin at her last admission due to neuropathy. Also started on diuretics and beta-blockers for her cirrhosis. Workup in the ER is concerning for UTI and RADHA with elevated creatinine at 2.4 (baseline 1.7-2) and urine with leuk esterase, bacteria, white cells. Medicine consulted for RADHA and weakness and confusion. On arrival to the floor, patient is alert and oriented x 4. Has asterixis on exam. Having minor epistaxis of right nare. This has been present for a week or 2. Intermittently has nosebleeds. Stable on room air. Denies chest pain. Had a bowel movement yesterday but not having bowel movements daily. Currently taking her meds as prescribed. TSH noted to be persistently elevated even after increasing levothyroxine at last visit. Daughters at bedside helps supplement history Hospital Course Hospital Course Hospital Course: Babs Bruno is a 79-year-old female who presented to the ER with weakness and fatigue. On workup found to have an RADHA and suspicion for UTI. Discussed case with ER physician, request admission for treatment of her acute kidney injury. I agreed to admit for further management. Of note was admitted earlier this month with acute on chronic anemia, new diagnosis of decompensated cirrhosis. Additionally has history of uncontrolled diabetes. Admitted for medical management and serial kidney function labs. Showed gradual improvement in mentation. Found to have elevated ammonia level as well as held her gabapentin. She is mentating normally at this time, hemodynamically stable, will discharge home to continue treatment as an outpatient. Recommend close follow-up with PCP. Problems addressed as follows: Acute kidney injury Suspected UTI Weakness -Urine grossly abnormal with 20-50 white cells, leuk esterase positive, positive for bacteria. Urine culture pending. Treated with ceftriaxone during admission. Transition to cefdinir to complete 5 days of antibiotics. White count normal on day of discharge at 6.6. Weakness improved. Recommend resuming diuretics at discharge. Epistaxis: Initiate Afrin nasal spray twice daily, okay to use as needed [id number] Hypothyroid: TSH remains uncontrolled at 7.9. Levothyroxine increased to 125 mcg daily. Received 1 dose of IV levothyroxine due to weakness and mild confusion #Decompensated cirrhosis, suspected SALINAS #chronic microcytic anemia ? Suspected SALINAS cirrhosis, no alcohol use. No history of hepatitis. Portal hypertension on abdominal imaging last imaging. Ammonia elevated at 50. Initiated on lactulose twice daily. Having bowel movements. Mentation improved to baseline. During last visit she was taken for EGD and colonoscopy earlier this month. patient had AVMs and small varices that were not significant or needing banding. Continue pantoprazole 40 mg daily. Continue carvedilol 3.125 mg twice daily for cirrhosis, okay to resume diuretics for fluid management given improvement in kidney function. -Hemoglobin 8.6. No active signs of bleeding. Microcytic anemia with MCV of 75. Received 1 dose of Venofer 200 mg during admission. Recommend consideration of further IV doses of iron as an outpatient. #Uncontrolled type 2 diabetes ? Hemoglobin A1c 10.8 on 12/26/2024. Continue Lantus 45 units twice daily. Encouraged to monitor fingerstick glucose at least twice daily until follows up with PCP for further adjustment. - Holding Farxiga in the setting of possible UTI Resume home health at discharge. Total time spent on discharge 32 minutes in counseling, documentation, chart review, and direct care with patient. Exam Data for Last 24 hours Vital signs and Labs for Last 24 Hours: Temp Pulse Resp BP Pulse Ox O2 Del Method 98.2 F 76 17 119/50 L 96 Room Air 01/17/25 19:52 01/17/25 19:52 01/17/25 19:52 01/17/25 19:52 01/17/25 19:52 01/18/25 06:26 Laboratory Results - last 24 hr 01/17/25 09:06: POC Glucose 354 H* 01/17/25 11:59: POC Glucose 355 H* 01/17/25 16:13: POC Glucose 371 H* 01/17/25 21:08: POC Glucose 370 H* 01/18/25 06:23: POC Glucose 232 H I & O for Last 24 hours: Intake & Output 01/15/25 01/16/25 01/17/25 01/18/25 23:59 23:59 23:59 23:59 Intake Total 480 / 720 1320 / 1320 Output Total 0 / 0 0 / 0 0 / 0 Balance 480 / 720 1320 / 1320 0 / 0 Weight 108.862 kg 102.648 kg 102.648 kg Constitutional Constitutional: no acute distress, morbidly obese, chronically ill appearing and cooperative *Routine HEENT Exam Head: Present normocephalic Eye: Present EOMI and PERRL ENT: Present mucous membranes moist *Routine Neck Exam Neck: Present supple; Absent lymphadenopathy *Routine Respiratory Exam Respiratory: Present CTA bilaterally; Absent rhonchi, wheezes or crackles *Routine Cardiovascular Exam Cardiovascular: Present RRR *Routine Abdominal Exam Abdominal: Present soft, normoactive bowel sounds and distended; Absent tenderness *Routine Rectal Exam Patient deferred: visual exam *Routine Exam Patient deferred: external exam *Routine Extremities Exam Extremities: Present edema (1-2+ to knees); Absent cyanosis or clubbing *Routine Skin Exam Skin: Present intact and warm; Absent rash Comments: Stasis changes of right lower extremity *Routine Neurological Exam Neurological: Present alert, oriented X3 and moving all extremities; Absent altered mental status Results Data Completed and Pending Labs on day of discharge: Labs from last 24 hours 01/18/25 01/17/25 01/17/25 06:23 21:08 16:13 POC Glucose 232 H 370 H* 371 H* 01/17/25 01/17/25 11:59 09:06 POC Glucose 355 H* 354 H* DS: Diagnosis Discharge Diagnosis (1) RADHA (acute kidney injury): Status: Acute Code(s): N17.9 - Acute kidney failure, unspecified (2) UTI (urinary tract infection): Status: Acute Code(s): N39.0 - Urinary tract infection, site not specified (3) Weakness: Status: Acute Code(s): R53.1 - Weakness (4) Portal hypertension: Status: Acute Code(s): K76.6 - Portal hypertension (5) Anemia: Status: Inactive Code(s): D64.9 - Anemia, unspecified (6) Cirrhosis of liver: Status: Chronic Code(s): K74.60 - Unspecified cirrhosis of liver (7) Gastritis: Status: Chronic Code(s): K29.70 - Gastritis, unspecified, without bleeding (8) Morbid obesity: Status: Chronic Code(s): E66.01 - Morbid (severe) obesity due to excess calories (9) Fatty liver disease, nonalcoholic: Status: Chronic Code(s): K76.0 - Fatty (change of) liver, not elsewhere classified (10) 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 Code(s): E11.42 - Type 2 diabetes mellitus with diabetic polyneuropathy Qualifiers: Diabetes mellitus [facility] insulin use: with remote computer terminal operator use Qualified Code(s): E11.42 - Type 2 diabetes mellitus with diabetic polyneuropathy; Z79.4 - halfway (current) use of insulin (11) Thyroid disorder: Status: Acute Code(s): E07.9 - Disorder of thyroid, unspecified (12) HLD (hyperlipidemia): Status: Chronic Code(s): E78.5 - Hyperlipidemia, unspecified Qualifiers: Hyperlipidemia type: mixed hyperlipidemia Qualified Code(s): E78.2 - Mixed hyperlipidemia (13) HTN (hypertension), benign: Status: Chronic Code(s): I10 - Essential (primary) hypertension Meds Home Medications and Allergies Home Medications ?Medication ?Instructions ?Recorded ?Confirmed ?Type blood sugar diagnostic (Accu-Chek #10 ea 10/05/23 01/16/25 History Guide test strips) insulin syringe-needle U-100 1 mL #10 ea 07/22/24 01/16/25 Rx 31 gauge x 15/64 (BD Veo Insulin Syringe Ultra-Fine) pen needle, diabetic 31 gauge x #1,200 ea 07/23/24 01/16/25 Rx 5/16 (BD Ultra-Fine Short Pen Needle) insulin aspart U-100 100 unit/mL 20 unit SQ BID 12/30/24 01/16/25 History (3 mL) subcutaneous pen (Novolog FlexPen U-100 Insulin aspart) insulin glargine 100 unit/mL (3 45 unit (0.45 mL) SQ BID 30 days 01/02/25 01/16/25 Rx mL) subcutaneous pen (Lantus #27 mL Solostar U-100 Insulin) methocarbamol 500 mg tablet 500 mg PO Q12HP PRN Muscle Spasm 01/02/25 01/16/25 Rx 30 days #60 tabs carvedilol 3.125 mg tablet 3.125 mg PO BID 30 days #180 tabs 01/16/25 01/16/25 Rx folic acid 1 mg tablet 1 mg PO MOTUWETHFRSA #60 tabs 01/16/25 01/16/25 Rx hjzgtq-zbntpcxa-zhvilri 1 cap PO AC #90 caps 01/16/25 01/16/25 Rx 36,000-114,000-180,000 unit capsule,delay rel (Creon) pantoprazole 40 mg tablet,delayed 40 mg PO HS 30 days #90 tabs 01/16/25 01/16/25 Rx release polysaccharide iron complex 180 mg 180 mg PO DAILY #90 caps 01/16/25 01/16/25 Rx iron capsule (Pro Fe) pravastatin 80 mg tablet 80 mg PO HS Cholesterol #90 tabs 01/16/25 01/16/25 Rx semaglutide 2 mg/dose (8 mg/3 mL) 2 mg (0.75 mL) SQ WEEKLY #3 mL 01/16/25 01/16/25 Rx subcutaneous pen injector spironolactone 50 mg tablet 50 mg PO DAILY #90 tabs 01/16/25 01/16/25 Rx dapagliflozin propanediol 10 mg 10 mg PO DAILY 01/17/25 01/17/25 History tablet (Farxiga) bumetanide 2 mg tablet 1 mg (1/2 x 2 mg) PO DAILY #90 tabs 01/18/25 01/16/25 Rx cefdinir 300 mg capsule 300 mg PO BID 3 days #5 caps 01/18/25 Rx lactulose 20 gram oral packet 20 g PO DAILY #30 ea 01/18/25 Rx levothyroxine 125 mcg tablet 125 mcg PO DAILYDM 30 days #30 tabs 01/18/25 Rx (Synthroid) New Prescriptions to Start Prescriptions: Caleb Wright lactCaleb Giordano levothyroxine [Synthroid] Caleb Garland Allergies Allergy/AdvReac Type Severity Reaction Status Date / Time morphine AdvReac Unknown NA-NAUSEA/V Verified 01/16/25 11:45 OMITING Discharge Plan Disposition Patient Disposition: Home Health Service Condition: Fair Discharge Order Discharge Orders: Discharge Order (Routine); Ordered 01/18/25 Ordered By: Caleb Garland Follow up Plan Follow up with: Luis Maradiaga MD [Staff Physician] - 01/21/25 1:30 pm Prescriptions/Medication Reconciliation: New levothyroxine [Synthroid] 125 mcg Tablet 125 mcg PO DAILYDM 30 Days Qty: 30 0RF lactulose 20 gram packet 20 g PO DAILY Qty: 30 0RF cefdinir 300 mg capsule 300 mg PO BID 3 Days Qty: 5 0RF Continued (DME) Accu-Chek Guide test strips Strip See Rx Instructions .ROUTE .MEDSUPPLY Qty: 10 Rx Instructions: As directed (DME) insulin syringe-needle U-100 [BD Veo Insulin Syringe UF] 1 mL 31 gauge x 15/64 syringe See Rx Instructions .ROUTE .MEDSUPPLY Qty: 10 6RF Rx Instructions: As directed (DME) pen needle, diabetic [BD Ultra-Fine Short Pen Needle] 31 gauge x 5/16 needle See Rx Instructions .ROUTE .MEDSUPPLY Qty: 1200 0RF Rx Instructions: use one 4 times daily folic acid 1 mg tablet 1 mg PO MOTUWETHFRSA Qty: 60 3RF Rx Instructions: 1 TAB EVERYDAY EXCEPT MONDAY pravastatin 80 mg tablet 80 mg PO HS Qty: 90 1RF Pro Fe 180 mg iron capsule 180 mg PO DAILY Qty: 90 1RF semaglutide 2 mg/dose (8 mg/3 mL) pen injector 2 mg SQ WEEKLY Qty: 3 2RF Creon 36,000-114,000- 180,000 unit capsule,delayed release(DR/EC) 1 cap PO AC Qty: 90 1RF carvedilol 3.125 mg tablet 3.125 mg PO BID 30 Days Qty: 180 1RF pantoprazole 40 mg tablet,delayed release (DR/EC) 40 mg PO HS 30 Days Qty: 90 1RF spironolactone 50 mg tablet 50 mg PO DAILY Qty: 90 1RF insulin aspart U-100 [Novolog FlexPen U-100 Insulin] 100 unit/mL (3 mL) insulin pen 20 unit SQ BID methocarbamol 500 mg Tablet 500 mg PO Q12HP PRN (Reason: Muscle Spasm) 30 Days Qty: 60 0RF insulin glargine [Lantus Solostar U-100 Insulin] 100 unit/mL (3 mL) insulin pen 45 unit SQ BID 30 Days Qty: 27 5RF Changed bumetanide 2 mg tablet 1 mg PO DAILY Qty: 90 1RF Held dapagliflozin propanediol [Farxiga] 10 mg tablet 10 mg PO DAILY Hold Instructions: Hold while treating UTI. Discuss with PCP prior to resuming Discontinued levothyroxine [Synthroid] 100 mcg Tablet 100 mcg PO DAILYDM 30 Days Qty: 30 0RF gabapentin 100 mg Capsule 100 mg PO TID 30 Days Qty: 90 0RF cephalexin 500 mg capsule 500 mg PO QID Problem Reconciliation Problems Reviewed?: Yes Patient Discharge Instructions ACTIVITY: Continue current activity DIET: continue same diet Patient Instructions: Acute Kidney Injury, DI for Urinary Tract Infection (UTI), DI for Acute Kidney Injury Print Language: Khmer Providers Primary Care Provider: Provider,Referral Admit Provider: Caleb Garland Attending Provider: Caleb Garland
[2025-01-18] MEDS: FOLIC ACID 1MG TABLET 1 MG PO (08:32)
[2025-01-18] MEDS: CARVEDILOL 3.125MG TABLET 3.125 MG PO (08:32)
[2025-01-18] MEDS: OXYMETAZOLINE NASAL SPRAY 0.05% 15ML NS (08:32)
[2025-01-18] MEDS: LACTULOSE 20GM/30ML UDC 20 GM PO (08:32)
[2025-01-18] MEDS: INSULIN GLARGINE 100 UNITS/ML 3ML FLEXPEN 40 UNIT SUBCUT (08:44)
[2025-01-18 08:58] LABS: POC Glucose,Bedside 311 (70-110)
[2025-01-18 10:11] LABS: Basophils % 0.6 % (0.1-2.0); Eosinophils # 0.3 K/mm3 (0.0-0.4); Hematocrit 29.8 % (37.0-47.0); Hemoglobin 8.6 g/dL (12.2-16.2); Lymphocytes # 2.3 K/mm3 (0.7-4.5); Lymphocytes % 35.4 % (10-50); Mean Corpuscular HGB Conc 28.9 g/dL (31.8-35.4); Mean Corpuscular Volume 76.2 fl (81-99); Mean Platelet Volume 10.5 fl (7.4-10.4); Monocytes % 15.4 % (1.7-9.3); Neutrophils # 2.9 K/mm3 (1.8-7.8); Neutrophils % 44.3 % (37.0-80.0); Platelet Count 237 K/mm3 (142-424); Red Blood Count 3.91 M/mm3 (4.20-5.40); Red Cell Distribution Width 18.4 % (11.5-17.5); White Blood Count 6.6 K/mm3 (4.8-10.8)
[2025-01-18 10:29] LABS: Albumin Level 3.7 g/dl (3.5-5.0); Chloride 98 mmol/L (98-107); Sodium 132 mmol/L (136-145)
[2025-01-18 10:30] LABS: Potassium 4.8 mmoL/L (3.5-5.1)
[2025-01-18 10:32] LABS: Alanine Aminotransferase 26 U/L (12-78); Albumin/Globulin Ratio 0.8 (1.1-1.8); Alkaline Phosphatase 105 U/L (38-126); Anion Gap 13.8 mEq/L (5-15); Aspartate Amino Transferase 37 U/L (14-36); Bilirubin,Total 0.5 mg/dl (0.2-1.3); Blood Urea Nitrogen 25 mg/dl (7-17); Carbon Dioxide 25 mmol/L (22.0-30.0); Creatinine Clearance Estimated 21 mL/min (50-200); Estimated Glomerular Filt Rate 29 ml/min (>60); GFR (African American) 35 ML/MIN (>60); Globulin 4.5 g/dL (1.3-3.2); Total Protein,Serum 8.2 g/dl (6.3-8.2)
[2025-01-18 10:33] LABS: Glucose 321 mg/dl (74-100)
--- NOTE | 2025-01-20 10:48 | SW/DCPLANNER ---
Spoke with patient on the phone. Patient stated that she is aware of her upcoming appointments. Patient stated that [facility] pharmacy brought her new medicine to her bedside on the day she was discharged. Patient stated that she doing well and that she has people staying with her to help out. Patient stated that she has no concerns or questions at this time. Luisa Burnett
== END 2025-01-18 11:35 | disposition home health service (06) ==
LOC: ER 15:28 → 2ND 16:52 → ER 17:38
PROVIDERS: Admitting Provider Internal Medicine Adolescent Medicine; Emergency Provider Student in an Organized Health Care Education/Training Program; Visit Provider Internal Medicine Adolescent Medicine
DX: N39.0 Urinary tract infection, site not specified (principal); N17.9 Acute kidney failure, unspecified; R53.1 Weakness; K76.6 Portal hypertension; D64.9 Anemia, unspecified; K74.60 Unspecified cirrhosis of liver; K29.70 Gastritis, unspecified, without bleeding; E66.01 Morbid (severe) obesity due to excess calories; K76.0 Fatty (change of) liver, not elsewhere classified; E11.42 Type 2 diabetes mellitus with diabetic polyneuropathy; Z79.4 Long term (current) use of insulin; E07.9 Disorder of thyroid, unspecified; E78.2 Mixed hyperlipidemia; I10 Essential (primary) hypertension; Z68.41 Body mass index [BMI] 40.0-44.9, adult; Z79.85 Long-term (current) use of injectable non-insulin antidiabetic drugs; Z79.899 Other long term (current) drug therapy; R04.0 Epistaxis; K75.81 Nonalcoholic steatohepatitis (NASH)
CPT/HCPCS: 36415; 70450; 71045; 80053; 81001; 82140; 82962; 83735; 83880; 84439; 84443; 85025; 87086; 87636; 93005; 97116; 97163; 97166; 97530; 99285; G0378; J0696; J1756

== ENCOUNTER 2025-01-24 09:12 | Outpatient (CLI) | payer MEDICARE, MEDICAID, SELFPAY ==
[2025-01-24 09:18] LABS: Anti-Centromere B Antibodies ND; Anti-DNA (DS) Ab Qn ND; Anti-Jo-1 ND; Antichromatin Antibodies ND; Antiscleroderma-70 Antibodies ND; RNP Antibodies ND; Sjogren's Anti-SS-A ND; Sjogren's Anti-SS-B ND
[2025-01-24 10:03] LABS: INR 0.99 (0.9-1.1); Prothrombin Time 11.1 seconds (10.1-12.5)
[2025-01-24 10:41] LABS: Alanine Aminotransferase 28 U/L (12-78); Albumin Level 3.5 g/dl (3.5-5.0)
[2025-01-24 10:59] LABS: Albumin/Globulin Ratio 0.9 (1.1-1.8); Anion Gap 3.7 mEq/L (5-15); Aspartate Amino Transferase 42 U/L (14-36); Blood Urea Nitrogen 34 mg/dl (7-17); Calcium 9.3 mg/dl (8.4-10.2); Carbon Dioxide 23 mmol/L (22.0-30.0); Chloride 103 mmol/L (98-107); Estimated Glomerular Filt Rate 31 ml/min (>60); GFR (African American) 38 ML/MIN (>60); Globulin 4.1 g/dL (1.3-3.2); Glucose 196 mg/dl (74-100); Iron 49 ug/dL (37-170); Potassium 4.7 mmoL/L (3.5-5.1); Sodium 125 mmol/L (136-145); Total Protein,Serum 7.6 g/dl (6.3-8.2)
[2025-01-24 11:14] LABS: Alkaline Phosphatase 87 U/L (38-126); Bilirubin,Total 0.5 mg/dl (0.2-1.3)
[2025-01-24 14:27] LABS: Total Iron Binding Capacity 376 ug/dL (265-497)
[2025-01-24 19:12] LABS: Ferritin 33.3 ng/ml (11.1-264)
[2025-01-25 08:14] LABS: Hep A Ab, Total Negative (Negative); Hep B Surface Ab, Qual Non Reactive (.)
[2025-01-25 11:11] LABS: AFP, Tumor Marker 1.9 ng/mL (0.0-9.2); Ceruloplasmin 28.4 mg/dL (19.0-39.0); Immunoglobulin A, Qn 504 mg/dL (64-422); Immunoglobulin G, Qn 2678 mg/dL (586-1602); Immunoglobulin M, Qn 177 mg/dL (26-217)
[2025-01-25 13:26] LABS: Actin (Smooth Muscle) Antibody 9 Units (0-19)
[2025-01-27 12:24] LABS: Antinuclear Antibodies (ANA) Negative (Negative)
[2025-01-27 16:11] LABS: Angiotensin Converting Enzyme 106 U/L (14-82); Endomysial IgA Antibody Negative (Negative); Liver-Kidney Microsomal Ab <1.0 Units (0.0-20.0)
[2025-01-27 18:10] LABS: Deamidated Gliadin Abs, IgA 5 units (0-19); Deamidated Gliadin Abs, IgG 2 units (0-19); Tissue Transglutaminase IgA Ab <2 U/mL (0-3); Tissue Transglutaminase IgG Ab 24 U/mL (0-5)
[2025-01-28 20:12] LABS: Alpha-1-Antitrypsin 168 mg/dL (101-187)
[2025-01-29 02:12] LABS: ALT (SGPT) P5P 22 IU/L (0-40); AST (SGOT) P5P 37 IU/L (0-40); Alpha 2-Macroglobulins, Qn 309 mg/dL (110-276); Apolipoprotein A-1 147 mg/dL (116-209); Bilirubin, Total 0.2 mg/dL (0.0-1.2); Cholesterol, Total 135 mg/dL (100-199); Fibrosis Score 0.34 (0.00-0.21); Fibrosis Stage F1-F2 (.); GGT 22 IU/L (0-60); Glucose 196 mg/dL (70-99); Haptoglobin 131 mg/dL (42-346); NASH Score 0.71 (0.00-0.25); Steatosis Score 0.65 (0.00-0.40); Triglycerides 100 mg/dL (0-149)
[2025-01-29 10:12] LABS: Reticulin IgA Antibody Negative titer (Neg:<1:2.5)
== END 2025-01-24 23:59 | disposition home or self-care (01) ==
LOC: LAB 09:13
PROVIDERS: PCP Internal Medicine; Visit Provider Nurse Practitioner Family
DX: D50.9 Iron deficiency anemia, unspecified (principal); K74.60 Unspecified cirrhosis of liver; K55.20 Angiodysplasia of colon without hemorrhage; K75.81 Nonalcoholic steatohepatitis (NASH)
CPT/HCPCS: 36415; 80053; 81256; 82103; 82104; 82105; 82164; 82390; 82728; 82784; 83516; 83540; 83550; 85610; 86038; 86225; 86235; 86255; 86256; 86376; 86706; 86708

== ENCOUNTER 2025-01-28 12:11 | Outpatient (CLI) | payer MEDICARE, MEDICAID, SELFPAY ==
[2025-01-28 14:49] LABS: Occult Blood,Stool Negative (Negative)
[2025-01-28 14:50] LABS: Occult Blood,Stool Negative (Negative)
[2025-01-28 14:50] LABS: Occult Blood,Stool Negative (Negative)
== END 2025-01-28 23:59 | disposition home or self-care (01) ==
LOC: LAB 12:12
PROVIDERS: PCP Internal Medicine; Visit Provider Nurse Practitioner Family
DX: K74.60 Unspecified cirrhosis of liver (principal); K75.81 Nonalcoholic steatohepatitis (NASH); K76.6 Portal hypertension
CPT/HCPCS: 82272; G0328

== ENCOUNTER 2025-02-04 14:43 | Outpatient (RCR) | payer MEDICARE, MEDICAID, SELFPAY ==
--- NOTE | 2025-02-04 17:15 | HMH.PTOPWND ---
Rehab Outpt Wound Evaluation Rehab OP Wound Evaluation Start: 02/04/25 17:02 Freq: Status: Active Protocol: Document 02/04/25 17:02 VIPUL (Rec: 02/04/25 17:15 PHORANGIE [id number]) E-signed By Reji Ibanez, PT Subjective/History History History This is the initial PT lymphedema eval for Babs Bruno, 79 yowf who presents with c/o B LE increased edema x ~ 4-5 mos with insidious onset of symptoms. She reports her edema has started to decrease now since she has returned home from a recent hospitalization. She reports no c/o pain at this time, but does have some tenderness to palpation in B lower legs. She reports multiple bumps on B lower legs with no known cause that are not painful or tender. These also do not have any drainage noted and are not fluid filled. They present most likely as nodules or plaques. She reports PMH of Psoriasis, HTN, DM, stage IV liver failure with LACEY, lap band, CCY, anemia. Subjective Subjective Pt has 0/10 pain in B LE at this time, 2/4 TTP to B lower legs. 1+ pitting edema to B lower legs. Moderate blanchable erythema to R lower leg, minimal to L lower leg. No open wounds, but multiple papillomas, plaques, and nodules as noted. Pt reports she is currently receiving Home Health therapy services at this time. Lymphedema Eval Classification of Lymphedema Secondary Lymphedema Yes: likely liver and CVI Stemmer's sign Stemmer's Sign no Stage of Lymphedema Lymphedema stages Stage I (Pitting edema, reduces w/ elevation, no fibrosis) Skin Changes Dry Skin Yes Papillomatosis Yes Redness Yes Discoloration of Skin Yes Other Changes Yes Pain Scale Pain Scale (0-10) 0 Affected Extremities Areas Affected by Lymphedema/Edema Right Lower Extremity,Left Lower Extremity Wound Problems/Impairments Impairments Problems/Impairmments Palpation Tenderness,Impaired Endurance,Impaired Gait Pattern,Impaired Walking, Impaired Standing,Increased Edema,Lymphedema Present, Impaired Self Care/Self Management Prognosis Comment Currently pt edema is decreasing and after consultation, it was decided it is in her best interest to continue home health therapy in an effort to improve her general mobility. Especially in the setting of significant liver disease. Clinical Impression Consistent with Diagnosis Yes Outpatient Therapy Plan of Care Treatment Plan May Include Eval/Re-Eval Yes Frequency Times per week 0 Duration Number of Weeks 0 Addendums This patient is a candidate for social No or vocational rehab? Patient/Guardian verbally acknowledges Yes understanding of treatment program and consents to further treatment? Patient/Guardian verbally acknowledges Yes understanding of diagnosis, prognosis and goals for treatment? Eval Complexity PT Charges 15715 - High Complexity PHYSICIAN CERTIFICATION: I certify the specified therapy services for Babs Bruno are required, authorized, and reviewed every 30 days.
== END 2025-02-04 23:59 | disposition home or self-care (01) ==
LOC: PT 14:43
PROVIDERS: PCP Internal Medicine; Visit Provider Nurse Practitioner
DX: I89.0 Lymphedema, not elsewhere classified (principal)
CPT/HCPCS: 97163

== ENCOUNTER 2025-02-05 16:44 | Outpatient (CLI) | payer MEDICARE, MEDICAID, SELFPAY ==
[2025-02-05 17:27] LABS: Basophils # 0.1 K/mm3 (0-0.2); Basophils % 0.7 % (0.1-2.0); Eosinophils # 0.3 K/mm3 (0.0-0.4); Eosinophils % 3.6 % (0.1-12.0); Hematocrit 31.9 % (37.0-47.0); Hemoglobin 9.5 g/dL (12.2-16.2); Lymphocytes # 2.6 K/mm3 (0.7-4.5); Lymphocytes % 37.4 % (10-50); Mean Corpuscular HGB Conc 29.8 g/dL (31.8-35.4); Mean Corpuscular Hemoglobin 22.8 pg (27.0-31.2); Mean Corpuscular Volume 76.7 fl (81-99); Monocytes % 14.2 % (1.7-9.3); Neutrophils % 43.8 % (37.0-80.0); Platelet Count 240 K/mm3 (142-424); Red Blood Count 4.16 M/mm3 (4.20-5.40); Red Cell Distribution Width 19.2 % (11.5-17.5); White Blood Count 6.9 K/mm3 (4.8-10.8)
[2025-02-05 18:11] LABS: Alanine Aminotransferase 24 U/L (12-78); Albumin Level 4.1 g/dl (3.5-5.0); Alkaline Phosphatase 95 U/L (38-126); Anion Gap 12.8 mEq/L (5-15); Aspartate Amino Transferase 33 U/L (14-36); Bilirubin,Total 0.5 mg/dl (0.2-1.3); Blood Urea Nitrogen 30 mg/dl (7-17); Calcium 9.3 mg/dl (8.4-10.2); Carbon Dioxide 24 mmol/L (22.0-30.0); Chloride 104 mmol/L (98-107); Estimated Glomerular Filt Rate 29 ml/min (>60); GFR (African American) 35 ML/MIN (>60); Globulin 4.1 g/dL (1.3-3.2); Glucose 106 mg/dl (74-100); Potassium 3.8 mmoL/L (3.5-5.1); Sodium 137 mmol/L (136-145); Total Protein,Serum 8.2 g/dl (6.3-8.2)
== END 2025-02-05 23:59 | disposition home or self-care (01) ==
LOC: LAB.DROPOF 16:44
PROVIDERS: PCP Internal Medicine; Visit Provider Internal Medicine
DX: D50.9 Iron deficiency anemia, unspecified (principal); K75.81 Nonalcoholic steatohepatitis (NASH); K76.82 Hepatic encephalopathy; E11.22 Type 2 diabetes mellitus with diabetic chronic kidney disease; N18.9 Chronic kidney disease, unspecified; E11.42 Type 2 diabetes mellitus with diabetic polyneuropathy; Z79.4 Long term (current) use of insulin
CPT/HCPCS: 80053; 85025

== ENCOUNTER 2025-03-04 01:28 | Emergency (ER) | payer MEDICARE, MEDICAID, SELFPAY ==
--- NOTE | 2025-03-04 01:25 | ECG_ITS ---
APPROVED REPORT Exam: Resting ECG HR:73 bpm ECG Measurements Heart Rate 73 AXES OR 204 P 68 QRSd 101 QRS 50 QT 414 T 69 QTc 439 Conclusion SINUS RHYTHM LOW QRS VOLTAGE IN PRECORDIAL LEADS [QRS DEFLECTION < 1.0 mV IN CHEST LEADS] No STEMI Electronically signed by : ANNABEL VAZQUEZ, 03/04/2025 06:50:09
[2025-03-04 01:36] VITALS: BP 173/76; PULSE 66; RESP 18; TEMP 36.8; O2SAT 97; BMI 40.2
--- NOTE | 2025-03-04 01:36 | HMH.EDGENADL ---
Discharge Plan Disposition Patient Disposition: Home, Self-Care Condition: Good Prescriptions Prescriptions: No Action (DME) Accu-Chek Guide test strips Strip See Rx Instructions .ROUTE .MEDSUPPLY Qty: 10 Rx Instructions: As directed triamcinolone acetonide 0.1 % cream 1 applic topical TID PRN (Reason: Skin irritation on legs) Qty: 453.6 0RF Rx Instructions: Apply a thin application to both shins insulin glargine [Lantus Solostar U-100 Insulin] 100 unit/mL (3 mL) insulin pen 45 unit SQ BID 30 Days Qty: 30 2RF (DME) insulin syringe-needle U-100 [BD Veo Insulin Syringe UF] 1 mL 31 gauge x 15/64 syringe See Rx Instructions .ROUTE .MEDSUPPLY Qty: 10 6RF Rx Instructions: As directed (DME) pen needle, diabetic [BD Ultra-Fine Short Pen Needle] 31 gauge x 5/16 needle See Rx Instructions .ROUTE .MEDSUPPLY Qty: 1200 0RF Rx Instructions: use one 4 times daily folic acid 1 mg tablet 1 mg PO MOTUWETHFRSA Qty: 60 3RF Rx Instructions: 1 TAB EVERYDAY EXCEPT MONDAY pravastatin 80 mg tablet 80 mg PO HS Qty: 90 1RF Pro Fe 180 mg iron capsule 180 mg PO DAILY Qty: 90 1RF carvedilol 3.125 mg tablet 3.125 mg PO BID 30 Days Qty: 180 1RF pantoprazole 40 mg tablet,delayed release (DR/EC) 40 mg PO HS 30 Days Qty: 90 1RF spironolactone 50 mg tablet 50 mg PO DAILY Qty: 90 1RF lactulose 20 gram packet 20 g PO DAILY Qty: 30 2RF Creon 36,000-114,000- 180,000 unit capsule,delayed release(DR/EC) 1 cap PO AC Qty: 90 1RF levothyroxine [Synthroid] 125 mcg tablet 125 mcg PO DAILYDM Qty: 90 1RF insulin aspart U-100 [Novolog FlexPen U-100 Insulin] 100 unit/mL (3 mL) insulin pen 20 unit SQ BID methocarbamol 500 mg Tablet 500 mg PO Q12HP PRN (Reason: Muscle Spasm) 30 Days Qty: 60 0RF dapagliflozin propanediol [Farxiga] 10 mg tablet 10 mg PO DAILY cefdinir 300 mg capsule 300 mg PO BID 3 Days Qty: 5 0RF bumetanide 2 mg tablet 1 mg PO DAILY Qty: 90 1RF Referrals Follow up/Referrals: Provider,Referral, [Primary Care Provider] - See instructions Activity Restrictions/Add. Instructions Additional Instructions/Restrictions: You were evaluated in the ER and are appropriate for discharge at this time. Continue taking your home medications as prescribed. Please call the GI office immediately for close follow-up. Also follow-up closely in the next few days with your primary care doctor. Return to the ER with any new, worsening, or otherwise concerning symptoms. Clinical Impressions Clinical Impression: Bilateral upper abdominal pain Instructions Patient Instructions: DI for Acute Abdominal Pain Print Language Print Language: Libyan Discharge ED Provider: Mara Burgess Adult HPI General Chief complaint: Abdominal Pain Stated complaint: Stomach and Chest pain Time Seen by Provider: 03/04/25 01:28 History of Present Illness HPI narrative: 79-year-old female with history of iron deficiency on iron supplements, [place] cirrhosis, lymphedema, hypothyroid, type 2 diabetes, hypertension, hyperlipidemia presents to the ER with complaints of upper abdominal tightness and pain. Patient reports has been going on for 4 or more days but has been progressively worsening. She describes a band of tightness around her upper abdomen. She does not have pain radiating up into the chest or down into the low abdomen. She states she has had mild nausea but no vomiting, she has been having a few loose stools, 2 to 3/day. They are nonbloody, not melanotic. She is not having any difficulty breathing, numbness, tingling, or weakness. No fevers or chills. Patient has a hernia that has been previously known and is now hard to the touch which is new. She does not drink any alcohol. She reports no recent illness. No dysuria or hematuria. No other associated symptoms. Related Data Home Medications ?Medication ?Instructions ?Recorded ?Confirmed blood sugar diagnostic (Accu-Chek #10 ea 10/05/23 02/05/25 Guide test strips) insulin aspart U-100 100 unit/mL 20 unit SQ BID 12/30/24 02/05/25 (3 mL) subcutaneous pen (Novolog FlexPen U-100 Insulin aspart) dapagliflozin propanediol 10 mg 10 mg PO DAILY 01/17/25 02/05/25 tablet (Farxiga) Previous Rx's ?Medication ?Instructions ?Recorded insulin syringe-needle U-100 1 mL #10 ea 07/22/24 31 gauge x 15/64 (BD Veo Insulin Syringe Ultra-Fine) pen needle, diabetic 31 gauge x #1,200 ea 07/23/24 5/16 (BD Ultra-Fine Short Pen Needle) methocarbamol 500 mg tablet 500 mg PO Q12HP PRN Muscle Spasm 01/02/25 30 days #60 tabs carvedilol 3.125 mg tablet 3.125 mg PO BID 30 days #180 tabs 01/16/25 folic acid 1 mg tablet 1 mg PO MOTUWETHFRSA #60 tabs 01/16/25 pantoprazole 40 mg tablet,delayed 40 mg PO HS 30 days #90 tabs 01/16/25 release polysaccharide iron complex 180 mg 180 mg PO DAILY #90 caps 01/16/25 iron capsule (Pro Fe) pravastatin 80 mg tablet 80 mg PO HS Cholesterol #90 tabs 01/16/25 spironolactone 50 mg tablet 50 mg PO DAILY #90 tabs 01/16/25 bumetanide 2 mg tablet 1 mg (1/2 x 2 mg) PO DAILY #90 tabs 01/18/25 cefdinir 300 mg capsule 300 mg PO BID 3 days #5 caps 01/18/25 lactulose 20 gram oral packet 20 g PO DAILY #30 ea 01/31/25 insulin glargine 100 unit/mL (3 45 unit (0.45 mL) SQ BID 30 days 02/05/25 mL) subcutaneous pen (Lantus #30 mL Solostar U-100 Insulin) triamcinolone acetonide 0.1 % 1 applic topical TID PRN Skin 02/05/25 topical cream irritation on legs #453.6 grams xazawd-edipmtul-ciuqwag 1 cap PO AC #90 caps 02/13/25 36,000-114,000-180,000 unit capsule,delay rel (Creon) levothyroxine 125 mcg tablet 125 mcg PO DAILYDM #90 tabs 02/26/25 (Synthroid) Allergies Allergy/AdvReac Type Severity Reaction Status Date / Time morphine AdvReac Unknown NA-NAUSEA/V Verified 02/05/25 15:01 OMITING gabapentin AdvReac Verified 02/05/25 15:01 PFSH PFS Disclaimer: The information contained in this section may have been updated after the patient was seen, as this information can be updated by other users. Medical History Anemia Abnormal electrocardiogram [ECG] [EKG] Pre-operative cardiovascular examination HLD (hyperlipidemia) HTN (hypertension), benign Thyroid disorder T2DM (type 2 diabetes mellitus) Surgical History Hx of laparoscopic gastric banding History of cholecystectomy Family History Other Family history of cancer Family history of stroke Social History Smoking Status: Never smoker alcohol intake: never substance use type: denies use current occupational status: retired Travel in the last 8 weeks: None household members: spouse housing: house lives independently: No marital status: caffeine: No Do you have any abdominal pain?: Yes Other Medical History Have you received the Flu Vaccine for this season: No Have you received the Pneumonia Vaccine: Yes ROS Obtained: Yes Systems reviewed as appropriate & no additional complaints except as documented Per HPI Physical Exam General General appearance: alert and in no apparent distress Head Head exam: atraumatic and normocephalic Eye Eye exam: Present PERRL and EOMI ENT ENT exam: Present mucous membranes moist Neck Neck exam: Present normal inspection and full ROM Chest Chest inspection: Present symmetric chest wall rise Respiratory Respiratory exam: Present normal lung sounds bilaterally; Absent respiratory distress, wheezes or stridor Cardiovascular Cardiovascular exam: Present regular rate and normal rhythm Abdominal Exam Abdominal exam: Present soft, tenderness (Diffuse upper abdominal tenderness) and hernia (Ventral wall hernia over the epigastric area is firm to palpation and not reducible. Tender to palpation. No overlying skin changes); Absent distention, guarding or rebound Extremities Exam Extremities exam: Present full ROM and edema (Bilateral lower extremity edema) Neurological Exam Neurological exam: Present alert and oriented X3; Absent motor sensory deficit Psychiatric Psychiatric exam: Present normal affect and normal mood Skin Skin exam: Present warm and dry Medical Decision Making Medical Records Medical records reviewed: Yes I reviewed the patient's medical records. Screening: Per USPSTF and CDC recommendations, given the prevalence of disease in our region, it is our hospital?s policy to screen for HIV and viral Hepatitis for all patients aged 18 and over and those with ongoing risk factors. MR Comment: Patient was admitted to the hospitalist in December with RADHA, suspicion for UTI. She has previous admission for chronic anemia, decompensated cirrhosis. Yash Inquiry Pt receiving controlled substance: No Vital Signs: 03/04/25 01:36 03/04/25 04:29 Temperature 98.2 F 98.3 F Temperature Source Oral Oral Pulse Rate 64 Pulse Rate [Right] 66 Respiratory Rate 18 15 Blood Pressure 139/67 Blood Pressure [Right Arm] 173/76 H Blood Pressure Mean [Right Arm] 108 Blood Pressure Source Automatic Cuff Blood Pressure Position Supine Blood Pressure Position [Right Arm] Supine 02 Sat by Pulse Oximetry 97 Oxygen Delivery Method Room Air Room Air Lab Data Lab Results 03/04/25 01:36: WBC 5.8, RBC 3.90 L, Hgb 9.2 L, Hct 30.4 L, MCV 77.9 L, MCH 23.6 L, MCHC 30.3 L, RDW 18.1 H, Plt Count 217, MPV 10.7 H, Neut % (Auto) 41.8, Lymph % (Auto) 40.6, [place] % (Auto) 13.3 H, Eos % (Auto) 3.6, Baso % (Auto) 0.5, Neut # (Auto) 2.4, Lymph # (Auto) 2.4, [place] # (Auto) 0.8, Eos # (Auto) 0.2, Baso # (Auto) 0.0, Sodium 135 L, Potassium 4.2, Chloride 102, Carbon Dioxide 25, Anion Gap 12.2, BUN 22 H, Creatinine 1.80 H, Estimated Creat Clear 39, Estimated GFR 27 L, Est GFR ( Amer) 33 L, Glucose 294 H, Lactate 1.7, Calcium 9.1, Total Bilirubin 0.5, AST 35, ALT 22, Alkaline Phosphatase 108, Troponin I < 0.01, Total Protein 7.7, Albumin 3.4 L, Globulin 4.3 H, Albumin/Globulin Ratio 0.8 L, Lipase 109 03/04/25 03:00: Urine Color Yellow, Urine Appearance Clear, Urine pH 6.0, Ur Specific [place] 1.025, Urine Protein 1+ A, Urine Glucose (UA) 1+, Urine Ketones Negative, Urine Blood Trace-i, Urine Nitrate Negative, Urine Bilirubin Negative, Urine Urobilinogen 0.2, Ur Leukocyte Esterase Trace, Urine WBC 10-20, Ur Squamous Epith Cells 10-20, Urine Bacteria 1+, Urine Yeast 1+ 03/04/25 01:36 03/04/25 01:36 Orders (Tests/Meds): ORDERS Category Date Time Status CT abdomen pelvis wo con Stat Cat Scan 03/04/25 02:41 Completed CXR --portable [XR chest portable] Stat Exams 03/04/25 02:09 Completed POCUS Point of Care (ER Only) Stat Exams 03/04/25 03:16 Completed CBC w/Auto Diff [Complete Blood Count Auto Diff] Stat Lab 03/04/25 01:36 Completed CMP [Comprehensive Metabolic Panel] Stat Lab 03/04/25 01:36 Completed Lactic Acid Stat Lab 03/04/25 01:36 Completed Lipase Stat Lab 03/04/25 01:36 Completed Trop I [Troponin I] Stat Lab 03/04/25 01:36 Completed Troponin I Q3H Lab 03/04/25 08:15 Ordered Urinalysis and Microscopic Stat Lab 03/04/25 03:00 Completed Urine Culture Stat Micro 03/04/25 03:00 Received Medical Decision Narrative: In summary, this 79-year-old female with comorbidities described in the HPI which may not be at goal therapy presents to the emergency department today with upper abdominal pain, nausea, diarrhea. On initial evaluation patient is hemodynamically stable, afebrile, exam is notable for bilateral lower extremity edema consistent with her history of lymphedema, abdominal exam notable for diffuse upper abdominal tenderness with a firm, tender hernia overlying the epigastric region without overlying skin changes. Differential diagnosis includes but is not limited to viral syndrome, pancreatitis, cholelithiasis, cholecystitis, decompensated cirrhosis, incarcerated hernia, strangulated hernia, lactic acidosis, bowel obstruction, electrolyte abnormality, dehydration, kidney dysfunction, I also considered the possibility of atypical presentation of ACS, also considered the possibility of ascites or SBP though I have lower suspicion for this since patient has isolated upper abdominal discomfort, no abdominal distention, no fevers. Based on these concerns, I ordered serum labs, CT imaging. ECG personally interpreted demonstrates sinus rhythm, normal axis, rate 73, normal NM and QTc, no STEMI. Patient received IV fluids, for treatment. Labs personally reviewed demonstrate no leukocytosis, anemia stable from prior, platelets normal, CMP with stable kidney dysfunction, troponin undetectably low, lipase normal reassuring against pancreatitis, lactic normal at 1.7 which offer some reassurance against severe intra-abdominal pathology. Initial troponin undetectably low less than 0.01. In the setting of reassuring ECG, no chest pain, and patient's multiple days of symptoms, I do not believe serial troponins are indicated since if her symptoms were cardiac in etiology she should have elevated troponin by now. Chest x-ray personally interpreted does not demonstrate acute intrathoracic abnormality. See radiology read. CT abdomen pelvis personally interpreted demonstrates no acute intra-abdominal pathology on my personal interpretation. CT head to be performed without contrast secondary to patient's kidney dysfunction. I was reassured that her lactic was normal and lipase were normal which offered some reassurance against dangerous intra-abdominal pathology. 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 Patient reports she had Lap-Band surgery which explains this device. I do not appreciate evidence of bowel obstruction. Despite patient's report of [place] cirrhosis, she does not have large volume ascites on CT. Jeyha-ee-oqal ultrasound was performed and personally interpreted by me to evaluate for possible fluid pocket to aspirate fluid for peritonitis analysis. No appropriate pocket was identified. See procedure note for details. CT read demonstrates stable previously identified left adnexal cysts but no acute pathology. See radiology read for full interpretation. On reassessment patient continues to be stable and resting comfortably. Tolerating oral intake. On further discussion with the patient, she states her frequent, loose bowel movements are secondary to newly being on lactulose since her last admission. We discussed that this could be contributing to her symptoms with her more frequent, active bowel movements which could be causing mild inflammation. She and family at bedside are overall reassured by workup. I believe she is appropriate for discharge at this time and she and family are comfortable with this plan. She was given instructions on continued symptomatic monitoring and management, instructions to follow-up closely with GI and her primary care physician, as well as given strict return precautions for the ER. She and family indicated understanding and the patient was discharged in stable condition. Critical Care Critical Care Time Critical Care Time: No
--- NOTE | 2025-03-04 02:09 | XR_ITS ---
PROCEDURE INFORMATION: Exam: XR Chest Exam date and time: 03/04/2025 2:45 AM Age: 79 years old Clinical indication: Pain; Chest pressure; Additional info: Epigastric pain TECHNIQUE: Imaging protocol: Radiologic exam of the chest. Views: 1 view. COMPARISON: CR XR CHEST PORTABLE 01/16/2025 1:45 PM FINDINGS: Lungs: Unremarkable. No consolidation. Pleural spaces: Unremarkable. No pleural effusion. No pneumothorax. Heart/Mediastinum: Unremarkable. No cardiomegaly. Bones/joints: Unremarkable. IMPRESSION: No acute findings.
[2025-03-04 02:15] LABS: Basophils % 0.5 % (0.1-2.0); Eosinophils # 0.2 K/mm3 (0.0-0.4); Eosinophils % 3.6 % (0.1-12.0); Hematocrit 30.4 % (37.0-47.0); Hemoglobin 9.2 g/dL (12.2-16.2); Lymphocytes # 2.4 K/mm3 (0.7-4.5); Lymphocytes % 40.6 % (10-50); Mean Corpuscular HGB Conc 30.3 g/dL (31.8-35.4); Mean Corpuscular Hemoglobin 23.6 pg (27.0-31.2); Mean Corpuscular Volume 77.9 fl (81-99); Mean Platelet Volume 10.7 fl (7.4-10.4); Monocytes # 0.8 K/mm3 (0.1-1.0); Monocytes % 13.3 % (1.7-9.3); Neutrophils # 2.4 K/mm3 (1.8-7.8); Neutrophils % 41.8 % (37.0-80.0); Platelet Count 217 K/mm3 (142-424); Red Cell Distribution Width 18.1 % (11.5-17.5); White Blood Count 5.8 K/mm3 (4.8-10.8)
[2025-03-04 02:25] LABS: Alanine Aminotransferase 22 U/L (12-78); Albumin Level 3.4 g/dl (3.5-5.0); Albumin/Globulin Ratio 0.8 (1.1-1.8); Alkaline Phosphatase 108 U/L (38-126); Anion Gap 12.2 mEq/L (5-15); Aspartate Amino Transferase 35 U/L (14-36); Bilirubin,Total 0.5 mg/dl (0.2-1.3); Blood Urea Nitrogen 22 mg/dl (7-17); Calcium 9.1 mg/dl (8.4-10.2); Carbon Dioxide 25 mmol/L (22.0-30.0); Chloride 102 mmol/L (98-107); Creatinine Clearance Estimated 39 mL/min (50-200); Estimated Glomerular Filt Rate 27 ml/min (>60); GFR (African American) 33 ML/MIN (>60); Globulin 4.3 g/dL (1.3-3.2); Glucose 294 mg/dl (74-100); Lipase 109 U/L (23-300); Potassium 4.2 mmoL/L (3.5-5.1); Sodium 135 mmol/L (136-145); Total Protein,Serum 7.7 g/dl (6.3-8.2)
[2025-03-04 02:26] LABS: Lactic Acid 1.7 mmol/L (0.7-2.1)
--- NOTE | 2025-03-04 02:41 | CT_ITS ---
PROCEDURE INFORMATION: Exam: CT Abdomen And Pelvis Without Contrast Exam date and time: 03/04/2025 2:49 AM Age: 79 years old Clinical indication: Abdominal pain; Epigastric; Additional info: Upper abd pain, hernia firm and painful TECHNIQUE: Imaging protocol: Computed tomography of the abdomen and pelvis without contrast. Radiation optimization: All CT scans at this facility use at least one of these dose optimization techniques: automated exposure control; mA and/or kV adjustment per patient size (includes targeted exams where dose is matched to clinical indication); or iterative reconstruction. COMPARISON: CT ABDOMEN PELVIS W CON 12/29/2024 3:59 PM FINDINGS: Liver: The liver is nodular and cirrhotic. No focal masses are noted. Gallbladder and biliary ducts: Cholecystectomy. Pancreas: Normal. No ductal dilation. Spleen: Normal. No splenomegaly. Adrenal glands: Normal. No mass. Kidneys and ureters: Normal. No hydronephrosis. Stomach and bowel: Gastric band in good position. Appendix: No evidence of appendicitis. Intraperitoneal space: Unremarkable. No free air. No significant fluid collection. Vasculature: Unremarkable. No abdominal aortic aneurysm. Lymph nodes: Unremarkable. No enlarged lymph nodes. Urinary bladder: Unremarkable as visualized. Reproductive: There is a hypodense cystic lesion in the left adnexa measuring 6.2 x 5.6 x 3.7 cm not significantly changed from 6.6 x 4.4 cm on the 12/29/2024 CT examination and ultrasound on 12/30/2024.. Bones/joints: Unremarkable. No acute fracture. Soft tissues: Unremarkable. IMPRESSION: 1. No acute process noted to explain the patient's symptoms. 2. Stable cysts again seen within the left adnexa unchanged from 12/29/2024 exam. 3. Status post gastric band which is in good position. 4. Cholecystectomy. 5. Cirrhosis without evidence of mass.
[2025-03-04 02:57] LABS: Troponin I < 0.01 ng/ml (0.00-0.034)
[2025-03-04 03:05] LABS: Microscopic, Urine URINE MICROSCOPIC (MICROSCOPIC)
[2025-03-04 03:20] LABS: Appearance,Urine CLEAR (Clear); Bilirubin,Urine Negative (Negative); Blood, Urine TRACE-I (Negative); Color,Urine YELLOW (Yellow); Glucose,Urine (UA) 1+ (Negative); Ketones,Urine Negative (Negative); Leukocyte Esterase,Urine TRACE (Negative); Nitrate,Urine Negative (Negative); Protein,Urine 1+ (Negative); Specific Gravity, Urine 1.025 (1.005-1.030); Urobilinogen,Urine 0.2 EU/dl (0.2)
[2025-03-04 03:44] LABS: Bacteria,Urine 1+ /lpf; Yeast,Urine 1+ /lpf
[2025-03-04 04:29] VITALS: BP 139/67; PULSE 64; RESP 15; TEMP 36.8; O2SAT 97
--- OUTSIDE RECORDS SUMMARY | 2025-03-06 20:44 | XMS_ITS | Data Portability ---
Author Organization [facility] & SHERRY Montiel ADMIN Address [address] [place] [address] Assessment No assessment recorded. Plan of Treatment Reminders Order Date Submit Date Provider Last Modified By Organization Details Last Modified Time Details Appointments None recorded. Lab CBC w/ auto diff 2022 023 [email or web address] Not available 12:05:34 CMP, serum or plasma 2022 023 [email or web address] Not available 4 12:05:34 Referral None recorded. Procedures None recorded. Surgeries None recorded. Imaging electrocard iogram 2022 023 [email or web address] Not available 11:29:58 Medication Orders None recorded. Patient TargetsNo targets recorded. Patient InstructionsNo instructions recorded. Reason for Referral None Reported. Procedures Surgical History Date Name Laterality Status Provider Name and Address Organization Details Recorded Time 10/23/20 23 Gastric Band Adjustment completed MARY Lau [address] [facility], [place], [address], [facility] & [place] 10/23/2023 14:27:50 [facility]cyst[facility] & [place] 10/09/2023 14:37:27 laparoscopic adjustable gastric banding completed [facility] & [place] 10/09/2023 14:37:57 Imaging Results None recorded. Procedure Notes None recorded. Medical Equipment None Reported. Allergies Allergen ID Allergen Name Allergen Category Reaction Reaction Severity Criticality Documentation Date Start Date Code Code System Note Provider Name and Address Organization Details Recorded Time 168140 morphine medicatio n Not available Not available Not available 10/23/2023 7052 RxNorm Ena kam, [place] [facility] & [place] 3 13:53:15 Medications Name Sig Start Date Stop Date Status Note LastModified by Organization Details LastModified Time furosemide 40 mg tablet Take 1 tablet every day by oral route. active Not Available Not Available No t Available pravastatin 80 mg tablet Take 1 tablet every day by oral route. active Not Available Not Available No t Available losartan 100 mg tablet Take 1 tablet every day by oral route. active Not Available Not Available No t Available omeprazole 40 mg oral packet Take by oral route. active Not Available Not Available No t Available levothyroxine active Not Available Not Available Not Available folic acid active Not Available Not Av ailable Not Available methotrexate 2mg once a week (Monday) active Not Available Not Available No t Available amlodipine active Not Available Not Av ailable Not Available Centrum active Not Available Not Avail able Not Available Novolog FlexPen U-100 Insulin active Not Available Not Availabl e Not Available Levemir FlexPen active Not Available N ot Available Not Available Probiotic active Not Available Not Angela ilable Not Available Farxiga 10 mg tablet Take 1 tablet every day by oral route. active Not Available Not Available No t Available Rybelsus 3 mg tablet Take 1 tablet every day by oral route. active Not Available Not Available No t Available Vitals Date Recorded Body height Body temperature Body mass index (BMI) Body weight Heart rate Systolic blood pressure Diastolic blood pressure Provider Name and Address Organization Details Last Updated DateTime 3 157.48 cm 97.7 [degF] 36.2 kg/m2 17592.2 9 g 88 /min 122 mm[Hg] 58 mm[Hg] Ena Hutchinson AR[facility] & [place] 3 13:56:59 Social History Question Answer Notes LastModified by Organizat ion Details LastModified Time Tobacco Smoking Status Never Smoker Lou kam, ARANZA Gallego [facility] & [place] 10/09/2023 14:39:04 What Is Your Level Of Alcohol Consumption? None [email or web address] Information not available 10/09/2023 Sex: Unknown Functional Status None recorded. Mental Status None recorded. Family History Relationship Description Onset Age of this Age Resolved Age Notes LastModified by Organization Details LastModified Time Father Family history of stroke [email or web address] Not available 2022 13:54:27 Medical History Condition Response Diabetes Y None Y Anemia Y Arthritis Y Gynecological HistoryNo gynecological history recorded. Obstetrics History GPAL:G 0 P 0 0 0 0 Immunizations Vaccine Type Date Status Note Provider Nam e and Address Organization Details Recorded Time influenza, unspecified formulation 08/25/2023 completed Ena kam [place] - [facility] - [place] & [place] 10/23/2023 13:53:47 Past Encounters Encounter ID Performer Location Encounter Start Date Encounter Closed Date Diagnosis/Indication Diagnosis SNOMED-CT Code Diagnosis ICD10 Code Diagnosis Note [id number] MARY Lau [facility] Bariatric s and Adv Surg [address] [place] [address] 10/23/2023 13:37:34 10/23/2023 14:28:41 Pre-surgery evaluation 647121381 Z01.818 Dysphagia 58699311 R13.1 0 Pt had band adjustment /unfill today. They are advised to stay on soft foods for 24-48hrs and report any NV dysphagia heartburn s/p fill. Patient is to have adjustable gastric band and port removal. We have asked patient to have cardiac clearance prior to this.All risks, complicati ons, alternativ es were explained to the patient agreed upon. These include but not limited to nausea, vomiting, diarrhea, bowel/blad jeniffer/vessel injury, bile duct injury, bile leak and need for additional surgery or open surgery. Patient has been given education an opportunit y to voice all questions and agrees to proceed. Patient will return to clinic for postoperat kena visit 2 weeks after surgery. History of laparoscopic adjustable gastric banding 905059459 Z98.84 Health Concerns Section Related Observation LastModified by Organization Detai ls LastModified Time None Recorded Concern Status LastModified by Organization Details LastModified Time None Recorded Advance Directives Directive None Recorded Payers Encounter Date Sequence Insurance Name Policy Number Policy Tuttle Covered Member ID Tuttle Member ID Guarantor Name 10/23/2023 1 [employer] (MEDICARE REPLACEMENT/A DVANTAGE - PPO) Babs Bruno [id number] Babs Bruno Notes Date Note Type Note Provider Name and Address Organization Details Recorded Time 10/23/2023 text/html 78-year-old female status post adjustable gastric band and port placement [address] Hoffman presents today to discuss band removal. Patient has had issue with dysphagia nausea vomiting for the last 6-9 months. She is had workup to include abdominal ultrasound upper GI and upper endoscopy. EGD 08/03/[address] Annie Hicks at [facility] shows lap band out of position. Band removal has been advised.Patient states she lost 40 lb with band system. She is had no band care for many years. She is amiable to band removal. MARY Lau [address], [place], [address], [facility] - [place] - [place] & [place] 10/23/2023 14:32:29 OBGyn Episode No OBEpisode recorded.
--- NOTE | 2025-03-07 10:59 | PC.NURSE ---
I notified of the pts urine micro results. No new orders.
== END 2025-03-04 04:40 | disposition home or self-care (01) ==
PROVIDERS: Emergency Provider Emergency Medicine
DX: R10.11 Right upper quadrant pain (principal); R10.12 Left upper quadrant pain; R10.9 Unspecified abdominal pain; R07.89 Other chest pain; R11.0 Nausea; R19.7 Diarrhea, unspecified
CPT/HCPCS: 71045; 74176; 80053; 81001; 83605; 83690; 84484; 85025; 87086; 93005; 99284

== ENCOUNTER 2025-04-07 15:05 | Outpatient (CLI) | payer MEDICARE, MEDICAID, SELFPAY ==
[2025-04-07 16:25] LABS: Basophils % 0.4 % (0.1-2.0); Eosinophils # 0.2 Kmm3 (0.0-0.4); Eosinophils % 3.2 % (0.1-12.0); Hematocrit 31.5 % (37.0-47.0); Hemoglobin 9.6 g/dL (12.2-16.2); Immature Granulocytes # 0.03 10^3uL; Immature Granulocytes % 0.4 %; Lymphocytes # 2.3 K/mm3 (0.7-4.5); Mean Corpuscular HGB Conc 30.5 g/dL (31.8-35.4); Mean Corpuscular Hemoglobin 24.1 pg (27.0-31.2); Mean Corpuscular Volume 78.9 fl (81-99); Mean Platelet Volume 10.7 fl (7.4-10.4); Monocytes # 0.9 K/mm3 (0.1-1.0); Monocytes % 13.7 % (1.7-9.3); Neutrophils # 3.3 K/mm3 (1.8-7.8); Neutrophils % 48.3 % (37.0-80.0); Nucleated Red Blood Cells # 0 10^3/uL; Nucleated Red Blood Cells % 0 %; Platelet Count 219 K/mm3 (142-424); Red Blood Count 3.99 M/mm3 (4.20-5.40); Red Cell Distribution Width 15.7 % (11.5-17.5); Red Cell Distribution Width-SD 44.8 fL; White Blood Count 6.9 K/mm3 (4.8-10.8)
[2025-04-07 17:08] LABS: Albumin Level 3.7 g/dl (3.5-5.0); Chloride 99 mmol/L (98-107); Potassium 4.4 mmoL/L (3.5-5.1); Sodium 133 mmol/L (136-145)
[2025-04-07 17:10] LABS: Alanine Aminotransferase 16 U/L (12-78); Aspartate Amino Transferase 25 U/L (14-36); Blood Urea Nitrogen 21 mg/dl (7-17); Estimated Glomerular Filt Rate 31 ml/min (>60); GFR (African American) 37 ML/MIN (>60)
[2025-04-07 17:11] LABS: Alkaline Phosphatase 107 U/L (38-126); Anion Gap 9.4 mEq/L (5-15); Bilirubin,Total 0.6 mg/dl (0.2-1.3); Calcium 9.8 mg/dl (8.4-10.2); Carbon Dioxide 29 mmol/L (22.0-30.0); Chol/HDL Ratio 3.2 (1-3.5); Cholesterol 141 mg/dl (140-200); Globulin 3.6 g/dL (1.3-3.2); Glucose 305 mg/dl (74-100); HDL Cholesterol 44 mg/dl (40-60); Total Protein,Serum 7.3 g/dl (6.3-8.2); Triglycerides 164 mg/dl (30-150); VLDL Cholesterol 33 mg/dL (0-40)
[2025-04-07 17:22] LABS: Direct LDL Cholesterol 58.51 mg/dL (100-129)
[2025-04-07 17:41] LABS: Thyroid Stimulating Hormone 1.58 uIU/mL (0.465-4.68)
[2025-04-07 18:45] LABS: Hemoglobin A1C 9.8 % (4.0-6.0)
--- OUTSIDE RECORDS SUMMARY | 2025-04-08 14:31 | XMS_ITS | Data Portability ---
Author Organization [facility] & SHERRY Montiel ADMIN Address [address] [place] [phone] Assessment No assessment recorded. Plan of Treatment Reminders Order Date Submit Date Provider Last Modified By Organization Details Last Modified Time Details Appointments None recorded. Lab CBC w/ auto diff 2022 023 [email or web address] Not available 12:05:34 CMP, serum or plasma 2022 023 [email or web address] Not available 4 12:05:34 Referral None recorded. Procedures None recorded. Surgeries None recorded. Imaging electrocard iogram 2022 023 [email or web address] Not available 11:29:58 Medication Orders None recorded. Patient TargetsNo targets recorded. Patient InstructionsNo instructions recorded. Reason for Referral None Reported. Procedures Surgical History Date Name Laterality Status Provider Name and Address Organization Details Recorded Time 10/23/20 23 Gastric Band Adjustment completed MARY Lau [address] [facility], [place], [address], [facility] & [place] 10/23/2023 14:27:50 Cholecystectomy [facility] & [place] 10/09/2023 14:37:27 laparoscopic adjustable gastric banding completed [facility] & [place] 10/09/2023 14:37:57 Imaging Results None recorded. Procedure Notes None recorded. Medical Equipment None Reported. Allergies Allergen ID Allergen Name Allergen Category Reaction Reaction Severity Criticality Documentation Date Start Date Code Code System Note Provider Name and Address Organization Details Recorded Time 415186 morphine medicatio n Not available Not available Not available 10/23/[address] [facility] 3 13:53:15 Medications Name Sig Start Date [...] 3 157.48 cm 97.7 [degF] 36.2 kg/m2 62034.2 9 g 88 /min 122 mm[Hg] 58 mm[Hg] Ena Hutchinson [facility] 3 13:56:59 Social History None recorded. Functional Status Question Answer Note LastModified by Organization D etails LastModified Time What is your level of alcohol consumption? None [email or web address] Information not available 10/09/2023 Mental Status None recorded. Family History Relationship Description Onset Age of this Age Resolved Age Notes LastModified by Organization Details LastModified Time Father Family history of stroke [email or web address] Not available 2022 13:54:27 Medical History Condition Response None Y Arthritis Y Anemia Y Diabetes Y Gynecological HistoryNo gynecological history recorded. Obstetrics History GPAL:G 0 P 0 0 0 0 Immunizations Vaccine Type Date Status Note Provider Nam e and Address Organization Details Recorded Time influenza, unspecified formulation 08/25/2023 completed Ena Jasper [place], [place] - [facility] - [place] & [place] 10/23/2023 13:53:47 Past Encounters Encounter ID Performer Location Encounter Start Date Encounter Closed Date Diagnosis/Indication Diagnosis SNOMED-CT Code Diagnosis ICD10 Code Diagnosis Note [id number] MARY Lau [facility] Bariatric s and Adv Surg [address] [facility] [address] [facility] [address] 10/23/2023 13:37:34 10/23/2023 14:28:41 Pre-surgery evaluation 325940983 Z01.818 Dysphagia 03598810 R13.1 0 Pt had band adjustment /unfill [...] surgery. History of laparoscopic adjustable gastric banding 408979399 Z98.84 Health Concerns Section Related Observation LastModified by Organization Detai ls LastModified Time None Recorded Concern Status LastModified by Organization Details LastModified Time None Recorded Advance Directives Directive None Recorded Payers Insurance Date Sequence Insurance Name Policy Number Policy Tuttle Covered Member ID Tuttle Member ID Guarantor Name 03/24/2021 1 [employer] (PPO) Babs Bruno [id number] Babs Bruno 10/20/2023 1 [employer] (MEDICARE REPLACEMENT/A DVANTAGE - PPO) Babs Bruno [id number] Babs Bruno Notes Date Note Type Note [...] [facility] 08[facility]03[facility] [facility]. Band removal has been advised.Patient states she lost 40 lb with band system. She is had no band care for many years. She is amiable to band removal. MARY Lau [address], [place], [address], [facility] - [place] - [place] & [place] 10/23/2023 14:32:29 OBGyn Episode No OBEpisode recorded.
== END 2025-04-07 23:59 | disposition home or self-care (01) ==
LOC: LAB.DROPOF 04-08 14:29
PROVIDERS: PCP Internal Medicine; Visit Provider Internal Medicine
DX: K75.81 Nonalcoholic steatohepatitis (NASH) (principal); E11.42 Type 2 diabetes mellitus with diabetic polyneuropathy; Z79.4 Long term (current) use of insulin; N18.9 Chronic kidney disease, unspecified; E66.01 Morbid (severe) obesity due to excess calories; D50.9 Iron deficiency anemia, unspecified; E03.9 Hypothyroidism, unspecified; I12.9 Hypertensive chronic kidney disease with stage 1 through stage 4 chronic kidney disease, or unspecified chronic kidney disease; Z68.41 Body mass index [BMI] 40.0-44.9, adult
CPT/HCPCS: 80053; 80061; 83036; 84443; 85025

== ENCOUNTER 2025-04-24 10:22 | Outpatient (CLI) | payer MEDICARE, MEDICAID, SELFPAY ==
[2025-04-24 10:39] LABS: Basophils % 0.4 % (0.1-2.0); Eosinophils # 0.2 Kmm3 (0.0-0.4); Eosinophils % 2.7 % (0.1-12.0); Hematocrit 30.9 % (37.0-47.0); Hemoglobin 9.6 g/dL (12.2-16.2); Immature Granulocytes # 0.03 10^3uL; Immature Granulocytes % 0.4 %; Lymphocytes # 2.3 K/mm3 (0.7-4.5); Lymphocytes % 34.8 % (10-50); Mean Corpuscular HGB Conc 31.1 g/dL (31.8-35.4); Mean Corpuscular Hemoglobin 24.2 pg (27.0-31.2); Mean Corpuscular Volume 77.8 fl (81-99); Mean Platelet Volume 10.6 fl (7.4-10.4); Monocytes # 1.1 K/mm3 (0.1-1.0); Monocytes % 16.1 % (1.7-9.3); Neutrophils # 3.1 K/mm3 (1.8-7.8); Neutrophils % 45.6 % (37.0-80.0); Nucleated Red Blood Cells # 0 10^3/uL; Nucleated Red Blood Cells % 0 %; Platelet Count 215 K/mm3 (142-424); Red Blood Count 3.97 M/mm3 (4.20-5.40); Red Cell Distribution Width 15.7 % (11.5-17.5); White Blood Count 6.7 K/mm3 (4.8-10.8)
[2025-04-24 10:46] LABS: Ammonia 33 umol/L (9-30)
[2025-04-24 10:50] LABS: INR 1.02 (0.9-1.1); Prothrombin Time 11.3 seconds (10.1-12.5)
[2025-04-24 11:44] LABS: Albumin Level 3.6 g/dl (3.5-5.0); Chloride 102 mmol/L (98-107); Potassium 3.6 mmoL/L (3.5-5.1); Sodium 138 mmol/L (136-145)
[2025-04-24 11:46] LABS: Blood Urea Nitrogen 18 mg/dl (7-17); Estimated Glomerular Filt Rate 39 ml/min (>60); GFR (African American) 48 ML/MIN (>60)
[2025-04-24 11:47] LABS: Alanine Aminotransferase 15 U/L (12-78); Albumin/Globulin Ratio 0.9 (1.1-1.8); Alkaline Phosphatase 100 U/L (38-126); Anion Gap 10.6 mEq/L (5-15); Aspartate Amino Transferase 29 U/L (14-36); Bilirubin,Total 0.7 mg/dl (0.2-1.3); Calcium 9.4 mg/dl (8.4-10.2); Carbon Dioxide 29 mmol/L (22.0-30.0); Globulin 3.8 g/dL (1.3-3.2); Glucose 98 mg/dl (74-100); Iron 51 ug/dL (37-170); Total Protein,Serum 7.4 g/dl (6.3-8.2)
[2025-04-24 11:56] LABS: Total Iron Binding Capacity 384 ug/dL (265-497)
[2025-04-24 12:23] LABS: Ferritin 7.61 ng/ml (11.1-264)
[2025-04-25 05:29] LABS: AFP, Tumor Marker 1.9 ng/mL (0.0-8.7)
== END 2025-04-24 23:59 | disposition home or self-care (01) ==
LOC: LAB 10:23
PROVIDERS: PCP Internal Medicine; Visit Provider Nurse Practitioner Family
DX: K74.60 Unspecified cirrhosis of liver (principal)
CPT/HCPCS: 36415; 80053; 82105; 82140; 82728; 83540; 83550; 85025; 85610

== ENCOUNTER 2025-05-02 13:38 | Outpatient (CLI) | payer MEDICARE, MEDICAID, SELFPAY ==
--- OUTSIDE RECORDS SUMMARY | 2025-03-05 20:00 | XMS_ITS | Clinical Summary ---
Author Organization Unknown Care Team Providers Care Canteen Attendant Name Role Phone MANOJ BARTLETT, FABIAN Unavailable Unavailable CODY PT, JAIME Unavailable Unavailable CARLOS STORE STOCK HELP, TONY Unavailable Unavailable FIDEL FLEA MARKET SELLER, YARELI Unavailable Unavailable KVNG RN, TARIK Unavailable Unavailable Payers Payer Name Policy Type Policy Number Effective Date Expira tion Date [employer]..AUTH [id number] Problems Condition Name Condition Details Condition Category Status Onset Date Resolution Date Last Treatment Date Treating Clinician Comments ZOSTER WITHOUT COMPLICATION S Active 12-29 00:00: 00 CELLULITIS OF RIGHT LOWER LIMB Active 12-29 00:00: 00 HYPERTENSIVE CHRONIC KIDNEY DISEASE W STG 1-4/UNSP CHR KDNY Active 11-27 00:00: 00 TYPE 2 DIABETES MELLITUS W DIABETIC CHRONIC KIDNEY DISEASE Active 11-27 00:00: 00 CHRONIC KIDNEY DISEASE, UNSPECIFIED Active 11-27 00:00: 00 ANEMIA IN CHRONIC KIDNEY DISEASE Active 11-27 00:00: 00 TYPE 2 DIABETES MELLITUS WITH DIABETIC POLYNEUROPAT HY Active 11-27 00:00: 00 LOCALIZED EDEMA Active 11-27 00:00: 00 NONALCOHOLIC STEATOHEPATI TIS (LACEY) Active 11-27 00:00: 00 HYPERLIPIDEM IA, UNSPECIFIED Active 11-27 00:00: 00 DISORDER OF THYROID, UNSPECIFIED Active 11-27 00:00: 00 FATTY (CHANGE OF) LIVER, NOT ELSEWHERE CLASSIFIED Active 11-27 00:00: 00 FDC (CURRENT) USE OF INSULIN Active 11-27 00:00: 00 Allergies, Adverse Reactions, Alerts Allergy Name Allergy Type Status Severity Reaction(s) Onset Date Inactive Date Treating Clinician Comments MORPHINE Propensity to adverse reactions Active 2024-12 09:27:5 0 Medications Ordered Medication Name Filled Medication Name Start Date Stop Date Current Medication? Ordering Clinician Indication Dosage Frequency Signature (SIG) Comments Components levofloxaci n 750 mg tablet 12-26 00:00: 00 01-06 00:00 :00 No [id number] Per instruc tions EVERY OTHER DAY Per instructio ns EVERY OTHER DAY (route: oral) Med Classific ation: Anti-Infe ctive Agents cephalexin 500 mg capsule 12-18 00:00: 00 01-06 00:00 :00 No [id number] Per instruc tions Per instructio ns (route: oral) Med Classific ation: Anti-Infe ctive Agents spironolact one 50 mg tablet 12-18 00:00: 00 Yes [id number] BLOOD PRESSURE 1 tablet DAILY 1 tablet DAILY (route: oral) Med Classific ation: Cardiovas cular Therapy Agents omeprazole 40 mg capsule,del ayed release 1-16 00:00: 00 Yes [id number] GERD 1 capsule DAILY 1 capsule DAILY (route: oral) Med Classific ation: Gastroint estinal Therapy Agents Ozempic 2 mg/dose (8 mg/3 mL) subcutaneou s pen injector 12-06 00:00: 00 01-06 00:00 :00 No [id number] Per instruc tions 2 MG SUBCUTANEO USLY ONCE A WEEK Per instructio ns 2 MG SUBCUTANEO USLY ONCE A WEEK (route: subcutaneo us) Med Classific ation: Endocrine bumetanide 2 mg tablet - 00:00: 00 Yes [id number] EDEMA 1 tablet DAILY 1 tablet DAILY (route: oral) Med Classific ation: Cardiovas cular Therapy Agents carvedilol 3.125 mg tablet - 00:00: 00 Yes [id number] BLOOD PRESSURE 1 tablet 2 TIMES DAILY 1 tablet 2 TIMES DAILY (route: oral) Med Classific ation: Cardiovas cular Therapy Agents Creon 36,000 unit-114,00 0 unit-180,00 0 unit capsule,del ayed release 2- 00:00: 00 Yes [id number] DIGESTION 1 capsule 3 TIMES DAILY 1 capsule 3 TIMES DAILY (route: oral) Med Classific ation: Gastroint estinal Therapy Agents Farxiga 10 mg tablet 2-10 00:00: 00 Yes [id number] T2DM 1 tablet DAILY 1 tablet DAILY (route: oral) Med Classific ation: Endocrine gabapentin 100 mg capsule 2-10 00:00: 00 Yes [id number] NERVE PAIN 1 capsule 3 TIMES DAILY 1 capsule 3 TIMES DAILY (route: oral) Med Classific ation: Central Nervous System Agents Lantus Solostar U-100 Insulin 100 unit/mL (3 mL) subcutaneou s pen 2-10 00:00: 00 Yes [id number] T2DM 60 unit BEDTIME 60 unit BEDTIME ([facility] Med Classific ation: Endocrine levothyroxi ne 100 mcg tablet 2-10 00:00: 00 Yes [id number] THYROID 1 tablet DAILY 1 tablet DAILY (route: oral) Med Classific ation: Endocrine Novolog FlexPen U-100 Insulin aspart 100 unit/mL (3 mL) subcutaneou s 2-10 00:00: 00 Yes [id number] T2DM 20 unit 2 TIMES DAILY 20 unit 2 TIMES DAILY (route: subcutaneo us) Med Classific ation: Endocrine pantoprazol e 40 mg tablet,margarita yed release 2-10 00:00: 00 Yes [id number] REFLUX 1 tablet BEDTIME 1 tablet BEDTIME (route: oral) Med Classific ation: Gastroint estinal Therapy Agents pravastatin 80 mg tablet 2-10 00:00: 00 Yes [id number] CHOLESTEROL 1 tablet BEDTIME 1 tablet BEDTIME (route: oral) Med Classific ation: Cardiovas cular Therapy Agents triamcinolo ne acetonide 0.1 % lotion 3-12 00:00: 00 Yes [id number] FOR VESICLES ON LEGS 0.1 3 TIMES DAILY 0.1 % 3 TIMES DAILY (route: topical) Med Classific ation: Dermatolo gical Vital Signs Vital Name Observation Time Observation Value Commen ts Temperature 2025-03-06 16:33:00.000 98.5 [degF] Temperature 2025-03-05 11:59:00.000 97.1 [degF] Temperature 2025-02-21 11:19:00.000 97.4 [degF] Temperature 2025-02-11 14:22:00.000 98.6 [degF] Temperature 2025-02-07 11:10:00.000 97.8 [degF] Temperature 2025-02-05 13:20:00.000 97.6 [degF] Temperature 2025-01-30 14:03:00.000 97.3 [degF] Temperature 2025-01-30 10:45:00.000 96.8 [degF] Temperature 2025-01-23 16:13:00.000 98.6 [degF] Temperature 2025-01-22 14:44:00.000 96.8 [degF] Temperature 2025-01-14 13:14:00.000 98.6 [degF] Temperature 2025-01-10 10:35:00.000 97.8 [degF] Temperature 2025-01-06 13:36:00.000 98 [degF] BMI (%) 2025-02-07 11:15:00.000 40 kg/m2 BMI (%) 2025-01-06 13:35:14.000 45 kg/m2 Height 2025-02-07 11:15:00.000 62 [in_us] Height 2025-01-06 13:33:54.000 62 [in_us] Pulse 2025-03-06 16:33:00.000 70 /min Pulse 2025-03-05 11:59:00.000 72 /min Pulse 2025-02-21 11:19:00.000 64 /min Pulse 2025-02-11 14:22:00.000 70 /min Pulse 2025-02-07 11:10:00.000 66 /min Pulse 2025-02-05 13:20:00.000 70 /min Pulse 2025-01-30 14:03:00.000 69 /min Pulse 2025-01-30 10:45:00.000 68 /min Pulse 2025-01-23 16:13:00.000 69 /min Pulse 2025-01-22 14:44:00.000 66 /min Pulse 2025-01-14 13:14:00.000 75 /min Pulse 2025-01-10 10:35:00.000 61 /min Pulse 2025-01-06 13:36:00.000 78 /min O2 Saturation (%) 2025-03-05 12:03:00.000 95 % O2 Saturation (%) 2025-02-21 11:19:00.000 98 % O2 Saturation (%) 2025-02-07 11:15:00.000 99 % O2 Saturation (%) 2025-01-30 14:03:00.000 97 % O2 Saturation (%) 2025-01-22 14:44:00.000 96 % O2 Saturation (%) 2025-01-10 10:35:00.000 97 % O2 Saturation (%) 2025-01-06 13:36:00.000 96 % Respirations 2025-03-06 16:33:00.000 16 /min Respirations 2025-03-05 11:59:00.000 16 /min Respirations 2025-02-21 11:19:00.000 20 /min Respirations 2025-02-11 14:22:00.000 18 /min Respirations 2025-02-07 11:10:00.000 18 /min Respirations 2025-02-05 13:20:00.000 18 /min Respirations 2025-01-30 14:03:00.000 18 /min Respirations 2025-01-30 10:45:00.000 18 /min Respirations 2025-01-23 16:13:00.000 18 /min Respirations 2025-01-22 14:44:00.000 18 /min Respirations 2025-01-14 13:14:00.000 18 /min Respirations 2025-01-10 10:35:00.000 18 /min Respirations 2025-01-06 13:36:00.000 18 /min Weight (lbs) 2025-02-07 11:15:00.000 221 [lb_av] Weight (lbs) 2025-01-30 10:45:00.000 231 [lb_av] Weight (lbs) 2025-01-22 14:50:00.000 231 [lb_av] Weight (lbs) 2025-01-06 13:35:14.000 247 [lb_av] Systolic Blood Pressure 2025-03-06 16:33:00.000 122 mm [Hg] Systolic Blood Pressure 2025-03-05 11:59:00.000 120 mm [Hg] Systolic Blood Pressure 2025-02-21 11:19:00.000 138 mm [Hg] Systolic Blood Pressure 2025-02-11 14:22:00.000 132 mm [Hg] Systolic Blood Pressure 2025-02-07 11:10:00.000 122 mm [Hg] Systolic Blood Pressure 2025-02-05 13:20:00.000 130 mm [Hg] Systolic Blood Pressure 2025-01-30 14:03:00.000 140 mm [Hg] Systolic Blood Pressure 2025-01-30 10:45:00.000 120 mm [Hg] Systolic Blood Pressure 2025-01-23 16:13:00.000 110 mm [Hg] Systolic Blood Pressure 2025-01-22 14:44:00.000 130 mm [Hg] Systolic Blood Pressure 2025-01-14 13:14:00.000 128 mm [Hg] Systolic Blood Pressure 2025-01-10 10:35:00.000 122 mm [Hg] Systolic Blood Pressure 2025-01-06 13:36:00.000 118 mm [Hg] Diastolic Blood Pressure 2025-03-06 16:33:00.000 74 mm [Hg] Diastolic Blood Pressure 2025-03-05 11:59:00.000 70 mm [Hg] Diastolic Blood Pressure 2025-02-21 11:19:00.000 72 mm [Hg] Diastolic Blood Pressure 2025-02-11 14:22:00.000 65 mm [Hg] Diastolic Blood Pressure 2025-02-07 11:10:00.000 78 mm [Hg] Diastolic Blood Pressure 2025-02-05 13:20:00.000 63 mm [Hg] Diastolic Blood Pressure 2025-01-30 14:03:00.000 72 mm [Hg] Diastolic Blood Pressure 2025-01-30 10:45:00.000 70 mm [Hg] Diastolic Blood Pressure 2025-01-23 16:13:00.000 63 mm [Hg] Diastolic Blood Pressure 2025-01-22 14:44:00.000 64 mm [Hg] Diastolic Blood Pressure 2025-01-14 13:14:00.000 70 mm [Hg] Diastolic Blood Pressure 2025-01-10 10:35:00.000 72 mm [Hg] Diastolic Blood Pressure 2025-01-06 13:36:00.000 68 mm [Hg] Plan of Treatment Planned Activity Planned Date Details Comments Future Scheduled Test AGENCY MAY PERFORM A RESUMPTION OF CARE VISIT FOLLOWING ANY HOSPITAL ADMISSION. PT TO EVALUATE, OBSERVE / ASSESS, AND MONITOR, STORE STOCK HELP TO OBSERVE AND MONITOR, PROVIDE SKILLED THERAPEUTIC INTERVENTION, ACTIVITY, EDUCATION, AND TRAINING TO ADDRESS; [code = AGENCY MAY PERFORM A RESUMPTION OF CARE VISIT FOLLOWING ANY HOSPITAL ADMISSION. PT TO EVALUATE, OBSERVE / ASSESS, AND MONITOR, STORE STOCK HELP TO OBSERVE AND MONITOR, PROVIDE SKILLED THERAPEUTIC INTERVENTION, ACTIVITY, EDUCATION, AND TRAINING TO ADDRESS;] Future Scheduled Test THERAPEUTI C EXERCISES AND ESTABLISHING A HOME EXERCISE PROGRAM (PT/STORE STOCK HELP) [code = THERAPEUTIC EXERCISES AND ESTABLISHING A HOME EXERCISE PROGRAM (PT/STORE STOCK HELP)] Future Scheduled Test NEUROMUSCU LAR RE-EDUCATION / BALANCE / POSTURAL CONTROL (PT) [code = NEUROMUSCULAR RE-EDUCATION / BALANCE / POSTURAL CONTROL (PT)] Future Scheduled Test PT/STORE STOCK HELP TO PROVIDE GAIT TRAINING FOR IMPROVED MOBILITY AND /OR TO NORMALIZE GAIT PATTERN [code = PT/STORE STOCK HELP TO PROVIDE GAIT TRAINING FOR IMPROVED MOBILITY AND /OR TO NORMALIZE GAIT PATTERN] Future Scheduled Test SIT TO/FRO M STAND TRANSFERS (PT/STORE STOCK HELP) [code = SIT TO/FROM STAND TRANSFERS (PT/STORE STOCK HELP)] Future Scheduled Test PT/STORE STOCK HELP TO IDENTIFY FALL RISK FACTORS; EDUCATE THE PATIENT/CAREGIVER ON WAYS TO REDUCE FALL RISK FACTORS AND ESTABLISH HOME EXERCISE PROGRAM TO MINIMIZE FALL RISK. MAY TEACH THE PATIENT FLOOR RECOVERY WHEN CLINICALLY APPROPRIATE [code = PT/STORE STOCK HELP TO IDENTIFY FALL RISK FACTORS; EDUCATE THE PATIENT/CAREGIVER ON WAYS TO REDUCE FALL RISK FACTORS AND ESTABLISH HOME EXERCISE PROGRAM TO MINIMIZE FALL RISK. MAY TEACH THE PATIENT FLOOR RECOVERY WHEN CLINICALLY APPROPRIATE] Future Scheduled Test PT / STORE STOCK HELP T O EDUCATE ON DIABETES SELF- MANAGEMENT [code = PT / STORE STOCK HELP TO EDUCATE ON DIABETES SELF- MANAGEMENT] Future Scheduled Test PT / STORE STOCK HELP T O MONITOR FOR HYPO/HYPERGLYCEMIA AND CONDUCT ROUTINE FOOT INSPECTIONS. RECORD PATIENT REPORTED BLOOD SUGAR LEVELS AND NOTIFY PHYSICIAN AND/OR THE RN CLINICAL COMMERCIAL CARPENTER FOR PHYSICIAN NOTIFICATION IF BLOOD SUGAR LEVELS ARE OUTSIDE ORDERED PARAMETERS. TEACH PATIENT/CAREGIVER ON DAILY FOOT INSPECTIONS [code = PT / STORE STOCK HELP TO MONITOR FOR HYPO/HYPERGLYCEMIA AND CONDUCT ROUTINE FOOT INSPECTIONS. RECORD PATIENT REPORTED BLOOD SUGAR LEVELS AND NOTIFY PHYSICIAN AND/OR THE RN CLINICAL COMMERCIAL CARPENTER FOR PHYSICIAN NOTIFICATION IF BLOOD SUGAR LEVELS ARE OUTSIDE ORDERED PARAMETERS. TEACH PATIENT/CAREGIVER ON DAILY FOOT INSPECTIONS] Future Scheduled Test PT / STORE STOCK HELP T O INSTRUCT PATIENT/CAREGIVER ON RISK FOR HOSPITALIZATION/EMERGENCY ROOM VISITS, TEACH SIGNS AND SYMPTOMS THAT PUT PATIENT AT RISK, WHEN TO NOTIFY NURSE/PHYSICIAN OF COMPLICATIONS/DECLINE, AND WHEN TO CALL 911. [code = PT / STORE STOCK HELP TO INSTRUCT PATIENT/CAREGIVER ON RISK FOR HOSPITALIZATION/EMERGENCY ROOM VISITS, TEACH SIGNS AND SYMPTOMS THAT PUT PATIENT AT RISK, WHEN TO NOTIFY NURSE/PHYSICIAN OF COMPLICATIONS/DECLINE, AND WHEN TO CALL 911.] Future Scheduled Test PT / STORE STOCK HELP T O MONITOR AND EDUCATE ON OXYGEN SATURATION DURING ADLS/IADLS, NOTIFY PHYSICIAN AND/OR THE RN CLINICAL COMMERCIAL CARPENTER FOR PHYSICIAN NOTIFICATION AND IF O2 SATS BELOW PHYSICIAN ORDERED PARAMETERS AFTER 10 MIN OF REST [code = PT / STORE STOCK HELP TO MONITOR AND EDUCATE ON OXYGEN SATURATION DURING ADLS/IADLS, NOTIFY PHYSICIAN AND/OR THE RN CLINICAL COMMERCIAL CARPENTER FOR PHYSICIAN NOTIFICATION AND IF O2 SATS BELOW PHYSICIAN ORDERED PARAMETERS AFTER 10 MIN OF REST] Future Scheduled Test SKILLED NU RSING TO EVALUATE FOR PATHOLOGY AND MEDICATION MANAGEMENT. [code = SNF TO EVALUATE FOR PATHOLOGY AND MEDICATION MANAGEMENT. ] Future Scheduled Test RN TO OBSE RVE, ASSESS, EVALUATE, AND DEVELOP AN INDIVIDUALIZED PLAN OF CARE. AGENCY MAY ACCEPT ORDERS FROM CONSULTING PHYSICIANS RN TO OBSERVE AND ASSESS, FLEA MARKET SELLER/DUMPER MOLD CLEANER TO OBSERVE FOR RISK FOR FALLS AND INSTRUCT IN FALL PREVENTION, HOME SAFETY, MEDICATION MANAGEMENT, INFECTION PREVENTION, AND NUTRITION MANAGEMENT. RN/FLEA MARKET SELLER/DUMPER MOLD CLEANER NURSE MAY PERFORM O2 SATURATION LEVEL ON ADMISSION AND PRN FOR RN TO ASSESS/FLEA MARKET SELLER TO OBSERVE PATIENT, WITH NOTIFICATION TO THE PHYSICIAN IF SATURATION IS 90% IN THE ABSENCE OF MORE SPECIFIC PARAMETERS FROM THE PHYSICIAN. AGENCY MAY PERFORM A RESUMPTION OF CARE VISIT FOLLOWING ANY HOSPITAL ADMISSION. RN/FLEA MARKET SELLER/DUMPER MOLD CLEANER TO MONITOR CO-MORBID CONDITIONS LISTED ON THE PLAN OF CARE AND ANY NEW CONDITIONS THAT PRESENT THEMSELVES DURING THIS EPISODE TO IDENTIFY CHANGES AND INTERVENE TO MINIMIZE COMPLICATIONS. CARDIOVASCULAR SYSTEM; RN TO ASSESS/TEACH, FLEA MARKET SELLER/DUMPER MOLD CLEANER TO OBSERVE/TEACH RELATED TO ALTERED CARDIOVASCULAR STATUS TO MINIMIZE COMPLICATIONS AND REDUCE HOSPITALIZATION. HYPERTENSION MANAGEMENT; RN TO ASSESS AND TEACH, FLEA MARKET SELLER/DUMPER MOLD CLEANER TO OBSERVE AND TEACH WARNING SIGNS AND SYMPTOMS TO AVOID HOSPITALIZATION. MEDICATION MANAGEMENT; RN/FLEA MARKET SELLER/DUMPER MOLD CLEANER TO REVIEW MEDICATIONS FOR INTERACTIONS, EFFECTIVENESS OF DRUG THERAPY, AND SIGNS/SYMPTOMS OF ADVERSE REACTIONS. MAY INSTRUCT AND REINFORCE MEDICATION TEACHING RELATED TO THE USE OF MEDICATIONS, DOSAGE, FREQUENCY, PURPOSE, SIDE EFFECTS, AND TO REPORT COMPLICATIONS. FALL REDUCTION MANAGEMENT; RN TO ASSESS AND OBSERVE, FLEA MARKET SELLER/DUMPER MOLD CLEANER TO OBSERVE FALL RISK FACTORS AND EDUCATE PATIENT/CAREGIVER ON STRATEGIES TO MINIMIZE THE RISK OF FALLING. GENITOURINARY MANAGEMENT; RN TO ASSESS AND TEACH, FLEA MARKET SELLER/DUMPER MOLD CLEANER TO OBSERVE AND TEACH RELATED TO ALTERED GENITOURINARY STATUS TO MINIMIZE COMPLICATIONS AND REDUCE HOSPITALIZATION. URINARY MOLECULAR TESTING PROTOCOL UP TO 2 PRN RN/FLEA MARKET SELLER/DUMPER MOLD CLEANER VISITS MAY BE PERFORMED FOR S/S OF UTI. RN TO ASSESS, FLEA MARKET SELLER/DUMPER MOLD CLEANER TO OBSERVE INITIATION OF UTI PROTOCOL. RN/DUMPER MOLD CLEANER/FLEA MARKET SELLER TO INSTRUCT PATIENT AND/OR CAREGIVER ON S/S OF UTI TO REPORT TO RN/DUMPER MOLD CLEANER/FLEA MARKET SELLER IF NEW OR WORSENING SYMPTOMS. DRINK PLENTY OF WATER THROUGHOUT THE DAY TO MAINTAIN HYDRATION (UNLESS CONTRAINDICATED.) URINATE WHEN THE URGE IS FELT, DO NOT WAIT. WASH GENITALS DAILY. WIPE FROM FRONT TO BACK AFTER HAVING A BOWEL MOVEMENT. RN/DUMPER MOLD CLEANER/FLEA MARKET SELLER TO OBTAIN MOLECULAR URINE TESTING BY OPTION 1 OR OPTION 2 (OPTION 1) RN/DUMPER MOLD CLEANER/FLEA MARKET SELLER TO OBTAIN U/A WITH REFLEX TO UTI PANEL (MOLECULAR) VIA CLEAN CATCH URINE AND IF UNABLE TO OBTAIN MAY PERFORM AN IN AND OUT CATH. IF PATIENT HAS INDWELLING CATHETER MAY OBTAIN FROM SAMPLING PORT. (OPTION 2) RN/DUMPER MOLD CLEANER/FLEA MARKET SELLER TO OBTAIN UTI PANEL (MOLECULAR) VIA SWAB COLLECTION METHOD FROM ADULT BRIEF/DIAPER OR PAD IF PATIENT IS INCONTINENT. NOTIFY PROVIDER OF RESULTS AND OBTAIN FURTHER ORDERS. DIABETES MANAGEMENT; RN TO ASSESS AND TEACH, DUMPER MOLD CLEANER/FLEA MARKET SELLER TO OBSERVE AND TEACH INSTRUCTIONS OF DIABETIC CARE TO INCLUDE: DIET SKIN CARE, SIGNS AND SYMPTOMS OF HYPO/HYPERGLYCEMIA, PROPER ADMINISTRATION OF DIABETIC MEDICATION. RN/DUMPER MOLD CLEANER/FLEA MARKET SELLER TO INSTRUCT ON DIABETIC FOOT CARE AND MONITOR FOR SKIN LESIONS ON LOWER EXTREMITIES. BLOOD GLUCOSE TESTING RN TO ASSESS AND TEACH, DUMPER MOLD CLEANER/FLEA MARKET SELLER TO OBSERVE AND TEACH PATIENT/CAREGIVER ABILITY TO PERFORM AND RECORD BLOOD GLUCOSE TESTING ORDERED AND TO REPORT ABNORMAL FINDINGS TO PHYSICIAN. RN/DUMPER MOLD CLEANER/FLEA MARKET SELLER MAY PERFORM BLOOD GLUCOSE TEST NEEDED. RN/DUMPER MOLD CLEANER/FLEA MARKET SELLER TO REPORT TO PHYSICIAN BLOOD GLUCOSE READINGS GREATER THAN 200 OR LESS THAN 70 RN/DUMPER MOLD CLEANER/FLEA MARKET SELLER TO INSTRUCT PATIENT ON IMPORTANCE OF HGBA1C MONITORING, KIDNEY FUNCTION TEST, EYE AND FOOT EXAMS. ANEMIA MANAGEMENT; RN TO ASSESS AND TEACH, DUMPER MOLD CLEANER/FLEA MARKET SELLER TO OBSERVE AND TEACH AND PROVIDE EDUCATION ON ANEMIA. PAIN MANAGEMENT; RN TO ASSESS AND TEACH, DUMPER MOLD CLEANER/FLEA MARKET SELLER TO OBSERVE AND TEACH AND PROVIDE EDUCATION ON PAIN MANAGEMENT TECHNIQUES. RISK FOR HOSPITALIZATION; RN TO ASSESS/TEACH, DUMPER MOLD CLEANER/FLEA MARKET SELLER TO OBSERVE/TEACH PATIENT/CAREGIVER ON RISK FOR HOSPITALIZATION/EMERGENCY ROOM VISITS, TEACH SIGNS AND SYMPTOMS THAT PUT PATIENT AT RISK, WHEN TO NOTIFY NURSE/PHYSICIAN OF COMPLICATIONS/DECLINE, AND WHEN TO CALL 911. [code = RN TO OBSERVE, ASSESS, EVALUATE, AND DEVELOP AN INDIVIDUALIZED PLAN OF CARE. AGENCY MAY ACCEPT ORDERS FROM CONSULTING PHYSICIANS RN TO OBSERVE AND ASSESS, FLEA MARKET SELLER/DUMPER MOLD CLEANER TO OBSERVE FOR RISK FOR FALLS AND INSTRUCT IN FALL PREVENTION, HOME SAFETY, MEDICATION MANAGEMENT, INFECTION PREVENTION, AND NUTRITION MANAGEMENT. RN/FLEA MARKET SELLER/DUMPER MOLD CLEANER NURSE MAY PERFORM O2 SATURATION LEVEL ON ADMISSION AND PRN FOR RN TO ASSESS/FLEA MARKET SELLER TO OBSERVE PATIENT, WITH NOTIFICATION TO THE PHYSICIAN IF SATURATION IS 90% IN THE ABSENCE OF MORE SPECIFIC PARAMETERS FROM THE PHYSICIAN. AGENCY MAY PERFORM A RESUMPTION OF CARE VISIT FOLLOWING ANY HOSPITAL ADMISSION. RN/FLEA MARKET SELLER/DUMPER MOLD CLEANER TO MONITOR CO-MORBID CONDITIONS LISTED ON THE PLAN OF CARE AND ANY NEW CONDITIONS THAT PRESENT THEMSELVES DURING THIS EPISODE TO IDENTIFY CHANGES AND INTERVENE TO MINIMIZE COMPLICATIONS. CARDIOVASCULAR SYSTEM; RN TO ASSESS/TEACH, FLEA MARKET SELLER/DUMPER MOLD CLEANER TO OBSERVE/TEACH RELATED TO ALTERED CARDIOVASCULAR STATUS TO MINIMIZE COMPLICATIONS AND REDUCE HOSPITALIZATION. HYPERTENSION MANAGEMENT; RN TO ASSESS AND TEACH, FLEA MARKET SELLER/DUMPER MOLD CLEANER TO OBSERVE AND TEACH WARNING SIGNS AND SYMPTOMS TO AVOID HOSPITALIZATION. MEDICATION MANAGEMENT; RN/FLEA MARKET SELLER/DUMPER MOLD CLEANER TO REVIEW MEDICATIONS FOR INTERACTIONS, EFFECTIVENESS OF DRUG THERAPY, AND SIGNS/SYMPTOMS OF ADVERSE REACTIONS. MAY INSTRUCT AND REINFORCE MEDICATION TEACHING RELATED TO THE USE OF MEDICATIONS, DOSAGE, FREQUENCY, PURPOSE, SIDE EFFECTS, AND TO REPORT COMPLICATIONS. FALL REDUCTION MANAGEMENT; RN TO ASSESS AND OBSERVE, FLEA MARKET SELLER/DUMPER MOLD CLEANER TO OBSERVE FALL RISK FACTORS AND EDUCATE PATIENT/CAREGIVER ON STRATEGIES TO MINIMIZE THE RISK OF FALLING. GENITOURINARY MANAGEMENT; RN TO ASSESS AND TEACH, FLEA MARKET SELLER/DUMPER MOLD CLEANER TO OBSERVE AND TEACH RELATED TO ALTERED GENITOURINARY STATUS TO MINIMIZE COMPLICATIONS AND REDUCE HOSPITALIZATION. URINARY MOLECULAR TESTING PROTOCOL UP TO 2 PRN RN/FLEA MARKET SELLER/DUMPER MOLD CLEANER VISITS MAY BE PERFORMED FOR S/S OF UTI. RN TO ASSESS, FLEA MARKET SELLER/DUMPER MOLD CLEANER TO OBSERVE INITIATION OF UTI PROTOCOL. RN/DUMPER MOLD CLEANER/FLEA MARKET SELLER TO INSTRUCT PATIENT AND/OR CAREGIVER ON S/S OF UTI TO REPORT TO RN/DUMPER MOLD CLEANER/FLEA MARKET SELLER IF NEW OR WORSENING SYMPTOMS. DRINK PLENTY OF WATER THROUGHOUT THE DAY TO MAINTAIN HYDRATION (UNLESS CONTRAINDICATED.) URINATE WHEN THE URGE IS FELT, DO NOT WAIT. WASH GENITALS DAILY. WIPE FROM FRONT TO BACK AFTER HAVING A BOWEL MOVEMENT. RN/DUMPER MOLD CLEANER/FLEA MARKET SELLER TO OBTAIN MOLECULAR URINE TESTING BY OPTION 1 OR OPTION 2 (OPTION 1) RN/DUMPER MOLD CLEANER/FLEA MARKET SELLER TO OBTAIN U/A WITH REFLEX TO UTI PANEL (MOLECULAR) VIA CLEAN CATCH URINE AND IF UNABLE TO OBTAIN MAY PERFORM AN IN AND OUT CATH. IF PATIENT HAS INDWELLING CATHETER MAY OBTAIN FROM SAMPLING PORT. (OPTION 2) RN/DUMPER MOLD CLEANER/FLEA MARKET SELLER TO OBTAIN UTI PANEL (MOLECULAR) VIA SWAB COLLECTION METHOD FROM ADULT BRIEF/DIAPER OR PAD IF PATIENT IS INCONTINENT. NOTIFY PROVIDER OF RESULTS AND OBTAIN FURTHER ORDERS. DIABETES MANAGEMENT; RN TO ASSESS AND TEACH, DUMPER MOLD CLEANER/FLEA MARKET SELLER TO OBSERVE AND TEACH INSTRUCTIONS OF DIABETIC CARE TO INCLUDE: DIET SKIN CARE, SIGNS AND SYMPTOMS OF HYPO/HYPERGLYCEMIA, PROPER ADMINISTRATION OF DIABETIC MEDICATION. RN/DUMPER MOLD CLEANER/FLEA MARKET SELLER TO INSTRUCT ON DIABETIC FOOT CARE AND MONITOR FOR SKIN LESIONS ON LOWER EXTREMITIES. BLOOD GLUCOSE TESTING RN TO ASSESS AND TEACH, DUMPER MOLD CLEANER/FLEA MARKET SELLER TO OBSERVE AND TEACH PATIENT/CAREGIVER ABILITY TO PERFORM AND RECORD BLOOD GLUCOSE TESTING ORDERED AND TO REPORT ABNORMAL FINDINGS TO PHYSICIAN. RN/DUMPER MOLD CLEANER/FLEA MARKET SELLER MAY PERFORM BLOOD GLUCOSE TEST NEEDED. RN/DUMPER MOLD CLEANER/FLEA MARKET SELLER TO REPORT TO PHYSICIAN BLOOD GLUCOSE READINGS GREATER THAN 200 OR LESS THAN 70 RN/DUMPER MOLD CLEANER/FLEA MARKET SELLER TO INSTRUCT PATIENT ON IMPORTANCE OF HGBA1C MONITORING, KIDNEY FUNCTION TEST, EYE AND FOOT EXAMS. ANEMIA MANAGEMENT; RN TO ASSESS AND TEACH, DUMPER MOLD CLEANER/FLEA MARKET SELLER TO OBSERVE AND TEACH AND PROVIDE EDUCATION ON ANEMIA. PAIN MANAGEMENT; RN TO ASSESS AND TEACH, DUMPER MOLD CLEANER/FLEA MARKET SELLER TO OBSERVE AND TEACH AND PROVIDE EDUCATION ON PAIN MANAGEMENT TECHNIQUES. RISK FOR HOSPITALIZATION; RN TO ASSESS/TEACH, DUMPER MOLD CLEANER/[employer] MARKET SELLER TO OBSERVE/TEACH PATIENT/CAREGIVER ON RISK FOR HOSPITALIZATION/EMERGENCY ROOM VISITS, TEACH SIGNS AND SYMPTOMS THAT PUT PATIENT AT RISK, WHEN TO NOTIFY NURSE/PHYSICIAN OF COMPLICATIONS/DECLINE, AND WHEN TO CALL 911.] Goal 2025-03-06 Patient Goal - I NDEPENDENCE WITH FUNCTIONAL ACTIVITIES WITHIN HOME Goal Provider Goal - Goal Provider Goal - PT STG: PATIENT WILL DEMONSTRATE IMPROVED FUNCTIONAL STRENGTH EVIDENCED BY FIVE TIMES SIT TO STAND TEST (CUT SCORE >12 SECONDS INDICATES AN INCREASED FALL RISK) IMPROVING FROM 40 TO LESS THAN OR EQUAL TO 34 SECONDS WSECOND4 WEEKS IN ORDER TO DECREASE FALL RISK PT LTG: PATIENT WILL DEMONSTRATE IMPROVED FUNCTIONAL STRENGTH EVIDENCED BY FIVE TIMES SIT TO STAND TEST (CUT SCORE >12 SECONDS INDICATES AN INCREASED FALL RISK) IMPROVING FROM 40 TO LESS THAN OR EQUAL TO 12 SECONDS WITHIN 8 WEEKS IN ORDER TO DECREASE FALL RISK PT LTG: PATIENT WILL DEMONSTRATE INDEPENDENCE AND COMPLIANCE WITH HEP WITHIN 4 WEEKS Goal Provider Goal - PT LTG: PATIENT WILL DEMONSTRATE REDUCED FALL RISK EVIDENCED BY TUG TEST (CUT SCORE >11 SECONDS INDICATES INCREASED FALL RISK) IMPROVING FROM UNABLE TO LESS THAN OR EQUAL TO 11 SECONDS WITHIN 8 WEEKS Goal Provider Goal - PT STG: PATIENT WILL DEMONSTRATE IMPROVED 6 MINUTE WALK TEST AMBULATION FROM 50 FT CGA TO SBA FOR 150 FT WITH APPROPRIATE ADWITHIN 4 WEEKS PT LTG: PATIENT WILL DEMONSTRATE IMPROVED 6 MINUTE WALK TEST AMBULATION FROM 50 FT CGA TO IND FOR 300 FT WITH APPROPRIATE ADWITHIN 8 WEEKS Goal Provider Goal - PT STG: PATIENT WILL DEMONSTRATE IMPROVED ABILITY TO PERFORM SIT TO/FROM STAND TRANSFERS TO REDUCE THE RISK OF SKIN BREAKDOWN AND REDUCE FALL RISK FROM CGA TO SBA WITHIN 4 WEEKS PT LTG: PATIENT WILL DEMONSTRATE IMPROVED ABILITY TO PERFORM SIT TO/FROM STAND TRANSFERS TO REDUCE THE RISK OF SKIN BREAKDOWN AND REDUCE FALL RISK FROM CGA TO IND WITHIN 8 WEEKS Goal Provider Goal - PT LTG: PATIENT/CAREGIVER WILL DEMONSTRATE ADHERENCE TO FALL REDUCTION SELF-MANAGEMENT AND REDUCING FALL RISK FACTORS TO MINIMIZE FALL RISK BY END OF EPISODE. Goal Provider Goal - PATIENT/CAREGIVER WILL BE ABLE TO IDENTIFY SIGNS OF HYPER- AND HYPOGLYCEMIA AND VERBALIZE HOW TO MANAGE SYMPTOMS. Goal Provider Goal - PATIENTS BLOOD SUGAR WILL REMAIN WELL CONTROLLED WITH SELF-MANAGEMENT THROUGHOUT EPISODE OF CARE. Goal Provider Goal - PT GOAL: PATIENT/CAREGIVER WILL VERBALIZE UNDERSTANDING OF SIGNS AND SYMPTOMS THAT PUT THE PATIENT AT RISK FOR HOSPITALIZATION /EMERGENCY ROOM VISITS, WHEN TO NOTIFY NURSE/PHYSICIAN OF COMPLICATIONS/DECLINE AND WHEN TO CALL 911. Goal Provider Goal - PT LTG: PATIENT WILL MAINTAIN OXYGEN SATURATION WITHIN PHYSICIAN ORDERED PARAMETERS THROUGHOUT EPISODE OF CARE. Goal Provider Goal - Goal Provider Goal - A PLAN OF CARE WILL BE ESTABLISHED THAT MEETS THE PATIENTS NEEDS. PATIENT WILL DEMONSTRATE OXYGEN SATURATION WITHIN NORMAL LIMITS OR PATIENTS OPTIMAL LEVEL ESTABLISHED BY THE PHYSICIAN THROUGHOUT CARE. CHANGES TO CO-MORBID CONDITIONS AND ANY NEW CONDITIONS WILL BE IDENTIFIED AND REPORTED TO THE PHYSICIAN. PATIENT / CAREGIVER WILL VERBALIZE/DEMONSTRATE UNDERSTANDING OF MEASURES TO MANAGE ALTERED CARDIOVASCULAR STATUS BY 03/06/25 PATIENT / CAREGIVER WILL VERBALIZE/DEMONSTRATE AN ABILITY TO ADHERE TO SELF-MANAGEMENT OF HTN TO MINIMIZE COMPLICATIONS AND AVOID HOSPITALIZATION BY END OF EPISODE. PATIENT/CAREGIVER TO VERBALIZE, AND CONSISTENTLY DEMONSTRATE EFFECTIVE, SAFE MANAGEMENT OF MEDICATION INCLUDING KNOWLEDGE OF EFFECTIVENESS, POTENTIAL SIDE EFFECTS AND DRUG REACTIONS AND WHEN TO CONTACT THE APPROPRIATE CARE PROVIDER. PATIENT/CAREGIVER WILL BE ABLE TO VERBALIZE UNDERSTANDING OF MEDICATION REGIMEN AND ACCURATELY TAKE MEDICATIONS PRESCRIBED WITHOUT ADVERSE EFFECTS BY 02/25/25 PATIENT/CAREGIVER WILL VERBALIZE/DEMONSTRATE UNDERSTANDING OF FALL RISK FACTORS AND IMPLEMENT STRATEGIES TO MINIMIZE FALL RISK. PATIENT/CAREGIVER WILL VERBALIZE/DEMONSTRATE AN ABILITY TO ADHERE TO FALL REDUCTION SELF-MANAGEMENT AND LIFE-STYLE CHANGES BY 03/06/25 PATIENT / CAREGIVER WILL VERBALIZE/DEMONSTRATE UNDERSTANDING OF MEASURES TO MANAGE ALTERED GENITOURINARY STATUS BY END OF EPISODE. PATIENT WILL DEMONSTRATE IMPROVEMENT IN S/S OF UTI TO AVOID HOSPITALIZATION. PATIENT / CAREGIVER WILL VERBALIZE / DEMONSTRATE AN ABILITY TO ADHERE TO SELF-MANAGEMENT OF DIABETES MANAGEMENT BY 03/06/25 PATIENT/CAREGIVER WILL VERBALIZE UNDERSTANDING OF CARE AND MANAGEMENT OF ANEMIA BY END OF EPISODE. PATIENT / CAREGIVER WILL VERBALIZE / DEMONSTRATE UNDERSTANDING OF PAIN CONTROL MEASURES BY 03/06/25 PATIENT/CAREGIVER WILL VERBALIZE UNDERSTANDING OF SIGNS AND SYMPTOMS THAT PUT THE PATIENT AT RISK FOR HOSPITALIZATION /EMERGENCY ROOM VISITS, WHEN TO NOTIFY NURSE/PHYSICIAN OF COMPLICATIONS/DECLINE AND WHEN TO CALL 911. Reason for Visit INDEPENDENT WITH USE OF ASSISTIVE DEVICE Encounters Start Date/Time End Date/Time Encounter Type Admission Type Attending [facility] Care Facility Care Department Encounter ID Discharge Date Discharge Status Discharge Condition Discharge Reason Percent Goals Met 2025-01-06 00:00:00 2025-03-06 00:00:00 Outpatient NEW ADMISSION KVNGTARIK [facility] [id number] 2025-03-06 00:00:00 DISCHARGE TO HOME OR SELF CARE INDEPENDEN T WITH USE OF ASSISTIVE DEVICE HH OR PAL- GOALS MET 97.06
--- OUTSIDE RECORDS SUMMARY | 2025-05-02 13:41 | XMS_ITS | Data Portability ---
Author Organization [facility] & SHERRY Montiel ADMIN Address [address] [place] [phone] Assessment No assessment recorded. Plan of Treatment Reminders Order Date Submit Date Provider Last Modified By Organization Details Last Modified Time Details Appointments None recorded. Lab CBC w/ auto diff 2022 023 [email or web address] Not available 12:05:34 CMP, serum or plasma 2022 023 [email or web address] Not available 12:05:34 Referral None recorded. Procedures None recorded. Surgeries None recorded. Imaging electrocard iogram 2022 023 [email or web address] Not available 11:29:58 Medication Orders None recorded. Patient TargetsNo targets recorded. Patient InstructionsNo instructions recorded. Reason for Referral None Reported. Procedures Surgical History Date Name Laterality Status Provider Name and Address Organization Details Recorded Time 10/23/20 23 Gastric Band Adjustment completed MARY Lau [address] [facility], [place], [address], [facility] & [place] 10/23/2023 14:27:50 [facility] & [place] 10/09/2023 14:37:27 laparoscopic adjustable gastric banding [facility] [place] 10/09/2023 14:37:57 Imaging Results None recorded. Procedure Notes None recorded. Medical Equipment None Reported. Allergies Allergen ID Allergen Name Allergen Category Reaction Reaction Severity Criticality Documentation Date Start Date Code Code System Note Provider Name and Address Organization Details Recorded Time 681288 morphine medicatio n Not available Not available Not available 10/23/2023 7052 RxNorm Ena kam, [facility] 3 13:53:15 Medications Name Sig Start Date [...] 3 157.48 cm 97.7 [degF] 36.2 kg/m2 94409.2 9 g 88 /min 122 mm[Hg] 58 mm[Hg] Ena Hutchinson [facility] 3 13:56:59 Social History None recorded. Functional Status Question Answer Note LastModified by Organization D etails LastModified Time What is your level of alcohol consumption? None [email or web address] Information not available 10/09/2023 Mental Status None recorded. Family History Relationship Description Onset Age of this Age Resolved Age Notes LastModified by Organization Details LastModified Time Father Family history of stroke Not available 2022 13:54:27 Medical History Condition Response Diabetes Y None Y Anemia Y Arthritis Y Gynecological HistoryNo gynecological history recorded. Obstetrics History GPAL:G 0 P 0 0 0 0 Immunizations Vaccine Type Date Status Note Provider Nam e and Address Organization Details Recorded Time influenza, unspecified formulation 08/25/2023 completed Ena Jasper [place], [place] - [facility] - [place] & [place] 10/23/2023 13:53:47 Past Encounters Encounter ID Performer Location Encounter Start Date Encounter Closed Date Diagnosis/Indication Diagnosis SNOMED-CT Code Diagnosis ICD10 Code Diagnosis Note [id number] MARY Lau [facility] Bariatric s and Adv Surg [address] [facility] [address] [facility] [address] 10/23/2023 13:37:34 10/23/2023 14:28:41 Pre-surgery evaluation 732992961 Z01.818 Dysphagia 93816179 R13.1 0 Pt had band adjustment /unfill [...] surgery. History of laparoscopic adjustable gastric banding 916009775 Z98.84 Health Concerns Section Related Observation LastModified by Organization Detai ls LastModified Time None Recorded Concern Status LastModified by Organization Details LastModified Time None Recorded Advance Directives Directive None Recorded Payers Insurance Date Sequence Insurance Name Policy Number Policy Tuttle Covered Member ID Tuttle Member ID Guarantor Name 03/24/2021 1 [employer] (PPO) Babs Bruno [id number] Babs Bruno 10/20/2023 1 [employer] (MEDICARE REPLACEMENT/A DVANTAGE - PPO) Babs Bruno [id number] Babs Bruno Notes Date Note Type Note [...] EGD 08/03/[address] Annie Hicks at [facility] shows lap band out of position. Band removal has been advised.Patient states she lost 40 lb with band system. She is had no band care for many years. She is amiable to band removal. MARY Lau [address], [place], [address], [facility] - [place] - [place] & [place] 10/23/2023 14:32:29 OBGyn Episode No OBEpisode recorded.
--- NOTE | 2025-05-02 13:45 | US_ITS ---
FINAL REPORT TECHNIQUE: Sonographic images of the right upper quadrant were obtained. CLINICAL HISTORY: cirrhosis COMPARISON: None FINDINGS: PANCREAS: Unremarkable. LIVER: The liver is slightly nodular and coarse in texture. No focal hepatic lesion. No intrahepatic biliary ductal dilatation. GALLBLADDER: Has been surgically resected. COMMON DUCT: 4 mm. Normal for age. RIGHT KIDNEY: The right kidney measures 10.2 cm. There is no hydronephrosis, mass, or stone. FREE FLUID: None. PORTAL VEIN: The portal vein is patent with normal directional flow. IMPRESSION: Prior cholecystectomy. Nodular and coarse liver, without focal lesion, consistent with the clinical diagnosis of cirrhosis. Reviewed, Interpreted and Dictated by Felipa Solano MD Transcribed by Any Braun Authenticated and . [facility]
== END 2025-05-02 23:59 | disposition home or self-care (01) ==
LOC: RAD 13:39
PROVIDERS: PCP Internal Medicine; Visit Provider Nurse Practitioner Family
DX: K74.60 Unspecified cirrhosis of liver (principal); Z90.49 Acquired absence of other specified parts of digestive tract
CPT/HCPCS: 76705

== ENCOUNTER 2025-06-10 22:27 | Emergency (ER) | payer MEDICARE, MEDICAID, SELFPAY ==
--- OUTSIDE RECORDS SUMMARY | 2025-06-10 22:45 | XMS_ITS | Data Portability ---
Author Organization [facility] SHERRY Montiel ADMIN Address [address] [place] [id number] Assessment No assessment recorded. Plan of Treatment Reminders Order Date Submit Date Provider Last Modified By Organization Details Last Modified Time Details Appointments None recorded. Lab CBC w/ auto diff 2022 023 [email or web address] Not available 4 12:05:34 CMP, serum or plasma 2022 023 [email or web address] Not available 4 12:05:34 Referral None recorded. Procedures None recorded. Surgeries None recorded. Imaging electrocard iogram 2022 023 [email or web address] Not available 11:29:58 Medication Orders None recorded. Patient TargetsNo targets recorded. Patient InstructionsNo instructions recorded. Reason for Referral None Reported. Procedures Surgical History Date Name Laterality Status Provider Name and Address Organization Details Recorded Time 10/23/20 23 Gastric Band Adjustment completed MARY Lau [address] [facility], [place], [address], [facility] - [facility] - [place] & [place] 10/23/2023 14:27:50 Cholecystectomy completed Lou COBIAN - [facility] & [place] 10/09/2023 14:37:27 laparoscopic adjustable gastric banding completed Lou COBIAN - [facility] & [place] 10/09/2023 14:37:57 Imaging Results None recorded. Procedure Notes None recorded. Medical Equipment None Reported. Allergies Allergen ID Allergen Name Allergen Category Reaction Reaction Severity Criticality Documentation Date Start Date Code Code System Note Provider Name and Address Organization Details Recorded Time [id number] morphine medicatio n Not available Not available Not available 10/23/2023 7052 RxNorm Ena [facility] & [place] 3 13:53:15 Medications Name Sig Start Date [...] index (BMI) Body weight Heart rate Systolic And Diastolic Provider Name and Address Organization Details Last Updated DateTime 3 157.48 cm 97.7 [degF] 36.2 kg/m2 74029.2 9 g 88 /min 122/58 mm[Hg] Ena [facility] & [place] 3 13:56:59 Social History None recorded. Functional Status Question Answer Note LastModified by Organization D etails LastModified Time What is your level of alcohol consumption? None Information not available 10/09/2023 Mental Status None recorded. Family History Relationship Description Onset Age of this Age Resolved Age Notes LastModified by Organization Details LastModified Time Father Family history of stroke [email or web address] Not available 2022 13:54:27 Medical History Condition Response Diabetes Y None Y Anemia Y Arthritis Y Gynecological HistoryNo gynecological history recorded. Obstetrics History GPAL:G 0 P 0 0 0 0 Immunizations Vaccine Type Date Status Note Provider Nam e and Address Organization Details Recorded Time influenza, unspecified formulation 08/25/2023 completed Ena [place], [place] - [facility] - [place] & [place] 10/23/2023 13:53:47 Past Encounters Encounter ID Performer Location Encounter Start Date Encounter Closed Date Diagnosis/Indication Diagnosis SNOMED-CT Code Diagnosis ICD10 Code Diagnosis Note [id number] MARY Lau [facility] [address] [facility] [address] [facility] [id number] 10/23/2023 13:37:34 10/23/2023 14:28:41 Pre-surgery evaluation 175330958 Z01.818 Dysphagia 09304526 R13.1 0 Pt had band adjustment /unfill [...] surgery. History of laparoscopic adjustable gastric banding 143522473 Z98.84 Health Concerns Section Related Observation LastModified by Organization Detai ls LastModified Time None Recorded Concern Status LastModified by Organization Details LastModified Time None Recorded Advance Directives Directive None Recorded Payers Insurance Date Sequence Insurance Name Policy Number Policy Tuttle Covered Member ID Tuttle Member ID Guarantor Name 03/24/2021 1 [employer] (PPO) Babs Bruno [id number] Babs Bruno 10/20/2023 1 [employer] (MEDICARE REPLACEMENT/A DVANTAGE - PPO) Babs Bruno [id number] Bbas Bruno Notes Date Note Type Note Provider [...] 08/03/[address] Annie Hicks at [facility] shows lap band out of position. Band removal has been advised.Patient states she lost 40 lb with band system. She is had no band care for many years. She is amiable to band removal. MARY Lau [address], [place], [address], [facility] - [place] - [place] & [place] 10/23/2023 14:32:29 OBGyn Episode No OBEpisode recorded.
[2025-06-10 23:01] VITALS: BP 146/76; PULSE 78; RESP 14; TEMP 37.3; O2SAT 95; BMI 40.6
[2025-06-10 23:44] VITALS: PULSE 71; O2SAT 97
[2025-06-10 23:45] VITALS: BP 152/68; PULSE 71; O2SAT 97
--- NOTE | 2025-06-10 23:58 | CT_ITS ---
PROCEDURE INFORMATION: Exam: CT Abdomen And Pelvis With Contrast Exam date and time: 06/11/2025 12:52 AM Age: 80 years old Clinical indication: Abdominal pain; Additional info: R groin pain now radiating into anterior R leg TECHNIQUE: Imaging protocol: Computed tomography of the abdomen and pelvis with contrast. Radiation optimization: All CT scans at this facility use at least one of these dose optimization techniques: automated exposure control; mA and/or kV adjustment per patient size (includes targeted exams where dose is matched to clinical indication); or iterative reconstruction. Contrast material: ISOVUE; Contrast volume: 75 ml; Contrast route: IV; COMPARISON: CT ABDOMEN PELVIS WO CON 03/04/2025 2:49 AM FINDINGS: Tubes, catheters and devices: Stable lap band. Liver: Heterogeneous with irregular contour. No mass. Gallbladder and biliary ducts: Surgically absent gallbladder. No biliary ductal dilatation. Pancreas: Diffuse atrophy. No ductal dilatation or mass. Spleen: Unremarkable. No splenomegaly. Adrenal glands: Unremarkable. No mass. Kidneys and ureters: No nephroureterolithiasis or hydroureter. Stomach and bowel: Nonobstructive pattern. Sigmoid colonic diverticula without pericolonic fat stranding. Appendix: No evidence of appendicitis. Intraperitoneal space: Unremarkable. No free air. No significant fluid collection. Vasculature: Atherosclerotic calcification of aortoiliac arteries without aneurysm. Retroperitoneal collateral vessels. Lymph nodes: Shotty mesenteric lymph nodes with kelby mesenteric fat stranding. Urinary bladder: Unremarkable as visualized. Reproductive: Similar persistent left adnexal cyst measuring 6.3 x 0.0 cm. Ovaries not visualized. Bones/joints: Chronic right rib fractures. Degenerative changes of both hips and sacroiliac joints. No acute findings. Soft tissues: Unremarkable. IMPRESSION: 1. Mesenteric panniculitis. 2. Colonic diverticulosis. 3. Hepatic cirrhosis. 4. Chronic portal hypertension. 5. Stable left adnexal cyst.
--- NOTE | 2025-06-10 23:59 | XR_ITS ---
PROCEDURE INFORMATION: Exam: XR Right Hip Exam date and time: 06/11/2025 12:56 AM Age: 80 years old Clinical indication: Hip pain; Right hip; Additional info: Pain in R groin radiating into R anterior thigh TECHNIQUE: Imaging protocol: Radiologic exam of the right hip. Views: 2 or 3 views hip with pelvis when performed. COMPARISON: CT ABDOMEN PELVIS W CON 06/11/2025 12:52 AM FINDINGS: Bones/joints: Moderate degenerative changes of both hips and sacroiliac joints. No erosive changes. No acute fracture. Soft tissues: Unremarkable. IMPRESSION: No acute findings.
[2025-06-11] VITALS (17 sets, daily range): BP systolic 113–168; BP diastolic 50–90; PULSE 64–78; RESP 14; TEMP 37.3; O2SAT 96–98
--- NOTE | 2025-06-11 00:10 | HMH.EDGENADL ---
Discharge Plan Disposition Patient Disposition: Home, Self-Care Condition: Fair Prescriptions Prescriptions: New lidocaine 5 % adhesive patch,medicated See Rx Instructions .ROUTE .COMPLEX Qty: 15 0RF Rx Instructions: Apply to most painful area and leave on for 12 hours. Remove and leave off for 12 hours before using a new patch. No Action triamcinolone acetonide 0.1 % cream 1 applic topical TID PRN (Reason: Skin irritation on legs) Qty: 453.6 0RF Rx Instructions: Apply a thin application to both shins (DME) insulin syringe-needle U-100 [BD Veo Insulin Syringe UF] 1 mL 31 gauge x 15/64 syringe See Rx Instructions .ROUTE .MEDSUPPLY Qty: 10 6RF Rx Instructions: As directed folic acid 1 mg tablet 1 mg PO MOTUWETHFRSA Qty: 60 3RF Rx Instructions: 1 TAB EVERYDAY EXCEPT MONDAY Pro Fe 180 mg iron capsule 180 mg PO DAILY Qty: 90 1RF carvedilol 3.125 mg tablet 3.125 mg PO BID 30 Days Qty: 180 1RF pantoprazole 40 mg tablet,delayed release (DR/EC) 40 mg PO HS 30 Days Qty: 90 1RF spironolactone 50 mg tablet 50 mg PO DAILY Qty: 90 1RF levothyroxine [Synthroid] 125 mcg tablet 125 mcg PO DAILYDM Qty: 90 1RF pravastatin 80 mg tablet See Rx Instructions .ROUTE .COMPLEX Qty: 90 0RF Dose Instruction: TAKE 1 TABLET BY MOUTH AT BEDTIME NIGHTLY FOR CHOLESTEROL Rx Instructions: TAKE 1 TABLET BY MOUTH AT BEDTIME NIGHTLY FOR CHOLESTEROL (DME) pen needle, diabetic 31 gauge x 5/16 needle See Rx Instructions .ROUTE .MEDSUPPLY Qty: 1200 0RF Rx Instructions: use one 4 times daily Xifaxan 550 mg tablet 550 mg PO BID Qty: 180 3RF Creon 36,000-114,000- 180,000 unit capsule,delayed release(DR/EC) See Rx Instructions .ROUTE .COMPLEX Qty: 90 1RF Dose Instruction: TAKE ONE CAPSULE BY MOUTH BEFORE MEALS Rx Instructions: TAKE ONE CAPSULE BY MOUTH BEFORE MEALS Ozempic 0.25 mg or 0.5 mg (2 mg/3 mL) pen injector 0.25 mg SQ WEEKLY Qty: 3 0RF Rx Instructions: for 4 weeks insulin glargine [Lantus Solostar U-100 Insulin] 100 unit/mL (3 mL) insulin pen See Rx Instructions .ROUTE .COMPLEX Qty: 30 2RF Dose Instruction: inject 45 units SUBCUTANEOUSLY TWICE DAILY Rx Instructions: inject 45 units SUBCUTANEOUSLY TWICE DAILY (DME) Accu-Chek Guide test strips Strip See Rx Instructions .ROUTE .MEDSUPPLY Qty: 100 5RF Rx Instructions: As directed lactulose 10 gram/15 mL solution See Rx Instructions .ROUTE .COMPLEX Qty: 900 1RF Dose Instruction: take 30mls BY MOUTH EVERY DAY DIRECTED Rx Instructions: take 30mls BY MOUTH EVERY DAY DIRECTED insulin aspart U-100 [Novolog FlexPen U-100 Insulin] 100 unit/mL (3 mL) insulin pen 20 unit SQ BID methocarbamol 500 mg Tablet 500 mg PO Q12HP PRN (Reason: Muscle Spasm) 30 Days Qty: 60 0RF dapagliflozin propanediol [Farxiga] 10 mg tablet 10 mg PO DAILY bumetanide 2 mg tablet 1 mg PO DAILY Qty: 90 1RF Referrals Follow up/Referrals: Luis Maradiaga MD [Primary Care Provider, Medical] - See instructions Activity Restrictions/Add. Instructions Additional Instructions/Restrictions: You were evaluated in the ER and are believed to be appropriate for discharge at this time. Continue your home medications as prescribed. Use the prescribed lidocaine patches as directed if needed. The hospital will call you for DVT ultrasound scheduling. Make sure you answer any unfamiliar numbers. The ultrasound should be performed in the next few days. Follow-up with your primary care doctor for reevaluation in 2 to 3 days and to discuss your DVT ultrasound results. Return to the ER with any new, worsening, or otherwise concerning symptoms including but not limited to fever, chest pain, difficulty breathing, leg swelling or redness, or anything else that is worrying to you Clinical Impressions Clinical Impression: Acute pain of right thigh, Mesenteric panniculitis Print Language Print Language: Moldovan Discharge ED Provider: Jillian Riley General Adult HPI General Chief complaint: PAIN Stated complaint: right leg and hip pain Time Seen by Provider: 06/10/25 23:50 Mode of Arrival: Family Vehicle Source of Information: Patient Description of Symptoms (Recalled from ER Triage Doc. by RN): Leg Pain Pt presents to the ED with c/o R Leg pain X 6 months that got worse today. History of Present Illness HPI narrative: 80-year-old female presents to the ER complaining of right leg pain. Patient has a history of pain in the right groin that sometimes goes into the leg and this has been chronic for the last 6 months. She has been evaluated for it previously with no acute abnormalities identified based on my review of previous records including hospitalist admission notes. Patient reports tonight her pain got significantly worse, she did not have any sudden pop, pull, or tearing sensation. She has no numbness or tingling, she has pain with trying to flex the right hip but is able to stand and bear weight. She has not had any falls or other injuries. No numbness, tingling, or weakness. No fevers or chills. No recent illness. Prior to arrival patient took a methocarbamol, she did not take her regular Tylenol though. She denies back pain or other acute abnormalities. She states her pain started a few hours prior to arrival. Related Data Home Medications ?Medication ?Instructions ?Recorded ?Confirmed insulin aspart U-100 100 unit/mL 20 unit SQ BID 12/30/24 04/24/25 (3 mL) subcutaneous pen (Novolog FlexPen U-100 Insulin aspart) dapagliflozin propanediol 10 mg 10 mg PO DAILY 01/17/25 04/24/25 tablet (Farxiga) Held on 01/18/25. Instructions: Hold while treating UTI. Discuss with PCP prior to resuming Previous Rx's ?Medication ?Instructions ?Recorded insulin syringe-needle U-100 1 mL #10 ea 07/22/24 31 gauge x 15/64 (BD Veo Insulin Syringe Ultra-Fine) methocarbamol 500 mg tablet 500 mg PO Q12HP PRN Muscle Spasm 01/02/25 30 days #60 tabs carvedilol 3.125 mg tablet 3.125 mg PO BID 30 days #180 tabs 01/16/25 folic acid 1 mg tablet 1 mg PO MOTUWETHFRSA #60 tabs 01/16/25 pantoprazole 40 mg tablet,delayed 40 mg PO HS 30 days #90 tabs 01/16/25 release polysaccharide iron complex 180 mg 180 mg PO DAILY #90 caps 01/16/25 iron capsule (Pro Fe) spironolactone 50 mg tablet 50 mg PO DAILY #90 tabs 01/16/25 bumetanide 2 mg tablet 1 mg (1/2 x 2 mg) PO DAILY #90 tabs 01/18/25 triamcinolone acetonide 0.1 % 1 applic topical TID PRN Skin 02/05/25 topical cream irritation on legs #453.6 grams levothyroxine 125 mcg tablet 125 mcg PO DAILYDM #90 tabs 02/26/25 (Synthroid) pravastatin 80 mg tablet See Rx Instructions .Route 03/21/25 .COMPLEX #90 tabs pen needle, diabetic 31 gauge x #1,200 ea 04/11/2504/11 rifaximin 550 mg tablet (Xifaxan) 550 mg PO BID #180 tabs 04/30/25 [id number] See Rx Instructions .Route 05/02/25 36,000-114,000-180,000 unit .COMPLEX #90 caps capsule,delay rel (Creon) semaglutide 0.25 mg or 0.5 mg (2 0.25 mg (0.368 mL) SQ WEEKLY #3 mL 05/09/25 mg/3 mL) subcutaneous pen injector (Ozempic) insulin glargine 100 unit/mL (3 See Rx Instructions .Route 05/20/25 mL) subcutaneous pen (Lantus .COMPLEX #30 mL Solostar U-100 Insulin) blood sugar diagnostic (Accu-Chek #100 ea 05/29/25 Guide test strips) lactulose 10 gram/15 mL oral See Rx Instructions .Route 06/03/25 solution .COMPLEX #900 mL lidocaine 5 % topical patch See Rx Instructions topical 06/11/25 .COMPLEX #15 ea Allergies Allergy/AdvReac Type Severity Reaction Status Date / Time morphine AdvReac Unknown NA-NAUSEA/V Verified 06/10/25 23:10 OMITING gabapentin AdvReac Unknown Verified 06/10/25 23:10 allergy reaction [facility] Disclaimer: The information contained in this section may have been updated after the patient was seen, as this information can be updated by other users. Medical History Anemia Abnormal electrocardiogram [ECG] [EKG] Pre-operative cardiovascular examination HLD (hyperlipidemia) HTN (hypertension), benign Thyroid disorder T2DM (type 2 diabetes mellitus) Surgical History Hx of laparoscopic gastric banding History of cholecystectomy Family History Other Family history of cancer Family history of stroke Social History Smoking Status: Never smoker alcohol intake: never substance use type: denies use current occupational status: retired Travel in the last 8 weeks?: None household members: spouse housing: house lives independently: No marital status: caffeine: No Have you lived/traveled outside [place] in past 30 days?: No Contact w/someone who lives/traveled outside US past 30 days?: No Exposure to someone with infectious disease in past 14 days?: No Do you have a fever (greater than 100.4 F or 38 C)?: No Have you tested positive for COVID-19?: No Exposed to someone with COVID-19 in past 14 days?: No Do you have a sore throat?: No Do you have a cough?: No Do you have any weakness?: No Do you have any diarrhea?: No Are you experiencing any unusual bleeding?: No Do you have any muscle aches/pain?: No Do you have any abdominal pain?: No Are you experiencing loss of taste or smell?: No Other Medical History Have you received the Flu Vaccine for this season: No Have you received the Pneumonia Vaccine: Yes ROS Obtained: Yes Systems reviewed as appropriate & no additional complaints except as documented Per HPI Physical Exam General General appearance: alert, in no apparent distress and obese Head Head exam: atraumatic and normocephalic Eye Eye exam: Present PERRL and EOMI ENT ENT exam: Present mucous membranes moist Neck Neck exam: Present normal inspection and full ROM Chest Chest inspection: Present symmetric chest wall rise Respiratory Respiratory exam: Present normal lung sounds bilaterally; Absent respiratory distress, wheezes or stridor Cardiovascular Cardiovascular exam: Present regular rate and normal rhythm Abdominal Exam Abdominal exam: Present soft; Absent distention or tenderness Extremities Exam Extremities exam: Present full ROM (Patient has full range of motion of the right leg but it is severely painful for her to have flexion beyond 90 degrees of the right hip due to pain in the groin. She does not have pain of the right hip itself or describe pain in the joint.), edema (Mild +1 bilateral lower extremities) and other (Tenderness of the right anterior thigh with no deformity or swelling, no evidence of acute traumatic injury); Absent joint swelling or calf tenderness Back Exam Back exam: Absent tenderness Neurological Exam Neurological exam: Present alert and oriented X3; Absent motor sensory deficit Psychiatric Psychiatric exam: Present normal affect and normal mood Skin Skin exam: Present warm and dry Medical Decision Making Medical Records Medical records reviewed: Yes I reviewed the patient's medical records. Screening: Per USPSTF and CDC recommendations, given the prevalence of disease in our region, it is our hospital?s policy to screen for HIV and viral Hepatitis for all patients aged 18 and over and those with ongoing risk factors. Yash Inquiry Pt receiving controlled substance: No Vital Signs: 06/10/25 23:01 06/10/25 23:44 06/10/25 23:45 Temperature 99.1 F Temperature Source Oral Pulse Rate 71 71 Pulse Rate [Left] 78 Respiratory Rate 14 Blood Pressure Blood Pressure [Right Arm] 146/76 H Blood Pressure Mean Blood Pressure Mean [Right Arm] 99 Blood Pressure Source [Right Arm] Automatic Cuff Blood Pressure Position [Right Arm] Sitting 02 Sat by Pulse Oximetry 95 97 97 Oxygen Delivery Method Room Air 06/10/25 23:45 06/11/25 00:01 06/11/25 00:02 Temperature Temperature Source Pulse Rate 76 Pulse Rate [Left] Respiratory Rate Blood Pressure 152/68 H 142/78 H Blood Pressure [Right Arm] Blood Pressure Mean 96 99 Blood Pressure Mean [Right Arm] Blood Pressure Source [Right Arm] Blood Pressure Position [Right Arm] 02 Sat by Pulse Oximetry 97 Oxygen Delivery Method 06/11/25 00:02 06/11/25 00:15 06/11/25 00:15 Temperature Temperature Source Pulse Rate 75 74 Pulse Rate [Left] Respiratory Rate Blood Pressure 151/66 H Blood Pressure [Right Arm] Blood Pressure Mean 109 Blood Pressure Mean [Right Arm] Blood Pressure Source [Right Arm] Blood Pressure Position [Right Arm] 02 Sat by Pulse Oximetry 97 96 Oxygen Delivery Method 06/11/25 00:30 06/11/25 00:30 06/11/25 01:01 Temperature Temperature Source Pulse Rate 69 78 Pulse Rate [Left] Respiratory Rate Blood Pressure 156/70 H Blood Pressure [Right Arm] Blood Pressure Mean 100 Blood Pressure Mean [Right Arm] Blood Pressure Source [Right Arm] Blood Pressure Position [Right Arm] 02 Sat by Pulse Oximetry 96 96 Oxygen Delivery Method 06/11/25 01:15 06/11/25 01:16 06/11/25 01:16 Temperature Temperature Source Pulse Rate 64 67 Pulse Rate [Left] Respiratory Rate Blood Pressure 168/79 H Blood Pressure [Right Arm] Blood Pressure Mean 95 Blood Pressure Mean [Right Arm] Blood Pressure Source [Right Arm] Blood Pressure Position [Right Arm] 02 Sat by Pulse Oximetry 97 98 Oxygen Delivery Method 06/11/25 01:29 06/11/25 01:31 06/11/25 01:35 Temperature Temperature Source Pulse Rate 65 64 68 Pulse Rate [Left] Respiratory Rate Blood Pressure Blood Pressure [Right Arm] Blood Pressure Mean Blood Pressure Mean [Right Arm] Blood Pressure Source [Right Arm] Blood Pressure Position [Right Arm] 02 Sat by Pulse Oximetry 97 97 97 Oxygen Delivery Method 06/11/25 01:35 06/11/25 01:46 06/11/25 01:46 Temperature Temperature Source Pulse Rate 66 Pulse Rate [Left] Respiratory Rate Blood Pressure 140/90 133/62 Blood Pressure [Right Arm] Blood Pressure Mean 114 85 Blood Pressure Mean [Right Arm] Blood Pressure Source [Right Arm] Blood Pressure Position [Right Arm] 02 Sat by Pulse Oximetry 97 Oxygen Delivery Method 06/11/25 02:01 06/11/25 02:16 06/11/25 02:31 Temperature Temperature Source Pulse Rate 65 67 69 Pulse Rate [Left] Respiratory Rate Blood Pressure 120/67 113/50 L 131/61 Blood Pressure [Right Arm] Blood Pressure Mean 94 71 Blood Pressure Mean [Right Arm] Blood Pressure Source [Right Arm] Blood Pressure Position [Right Arm] 02 Sat by Pulse Oximetry 96 98 97 Oxygen Delivery Method 06/11/25 02:45 06/11/25 02:45 Temperature Temperature Source Pulse Rate 66 Pulse Rate [Left] Respiratory Rate Blood Pressure 131/60 Blood Pressure [Right Arm] Blood Pressure Mean 83 Blood Pressure Mean [Right Arm] Blood Pressure Source [Right Arm] Blood Pressure Position [Right Arm] 02 Sat by Pulse Oximetry 96 Oxygen Delivery Method Lab Data Lab Results 06/10/25 00:05: WBC 6.4, RBC 4.18 L, Hgb 9.7 L, Hct 32.2 L, MCV 77.0 L, MCH 23.2 L, MCHC 30.1 L, RDW 15.4, Plt Count 186, MPV 10.6 H, Neut % (Auto) 43.5, Lymph % (Auto) 38.3, Borden % (Auto) 14.2 H, Eos % (Auto) 3.1, Baso % (Auto) 0.6, Neut # (Auto) 2.8, Lymph # (Auto) 2.5, B[place] # (Auto) 0.9, Eos # (Auto) 0.2, Baso # (Auto) 0.0, D-Dimer 0.87 H, Sodium 133 L, Potassium 3.4 L, Chloride 94 L, Carbon Dioxide 27, Anion Gap 15.4 H, BUN 19 H, Creatinine 1.10 H, Estimated Creat Clear 64, Estimated GFR 48 L, Est GFR ( Amer) 58 L, Glucose 366 H, Calcium 8.7, Total Bilirubin 0.5, AST 35, ALT 20, Alkaline Phosphatase 114, Total Creatine Kinase 36, Total Protein 8.3 H, Albumin 4.0, Globulin 4.3 H, Albumin/Globulin Ratio 0.9 L 06/11/25 00:05: Acetone Level None detected 06/11/25 01:05: VBG pH 7.37, VBG pCO2 45.4, VBG pO2 39.2, VBG HCO3 25.5, VBG Total CO2 26.9, VBG O2 Saturation 69.3, VBG Base Excess 0.1, VBG Lactic Acid 2.1 H 06/10/25 00:05 06/10/25 00:05 Orders (Tests/Meds): ED MEDICATIONS Generic Name Dose Route Start Last Admin Trade Name Freq PRN Reason Stop Dose Admin Sodium Chloride 10 ml 06/11/25 01:01 06/11/25 01:02 Sodium Chloride 0.9% 10ml Syr (Rad Only) IV 07/11/25 01:00 10 ml NEEDED PRN Administration Maintain IV Site Discontinued Medications Generic Name Dose Route Start Last Admin Trade Name Freq PRN Reason Stop Dose Admin Acetaminophen 1,000 mg 06/11/25 00:01 06/11/25 00:30 Acetaminophen 500mg Tab PO 06/11/25 00:02 1,000 mg ONCE ONE Administration Iopamidol 75 ml 06/11/25 01:01 06/11/25 01:02 Iopamidol-370 (76%);100ml Bottle IV 06/11/25 01:02 75 ml ONCE ONE Administration Ketorolac Tromethamine 15 mg 06/11/25 02:39 06/11/25 02:43 Ketorolac 30mg/Ml Vial IV 06/11/25 02:40 15 mg ONCE ONE Administration Lidocaine 1 each 06/11/25 00:01 06/11/25 00:30 Lidocaine 5% Transdermal Patch TD 06/11/25 00:02 1 each ONCE ONE Administration Potassium Chloride 20 meq 06/11/25 00:49 06/11/25 00:59 Potassium Chloride 20meq Tab PO 06/11/25 00:50 20 meq ONCE ONE Administration ORDERS Category Date Time Status CT abdomen pelvis w con Stat Cat Scan 06/10/25 23:58 Completed Hip XR right minimum 2 views [XR hip RT 2-3V w/pelvis] Exams 06/10/25 23:59 Completed Stat POCUS Point of Care (ER Only) Stat Exams 06/10/25 23:56 Completed Acetone, Serum (Rapid) Stat Lab 06/11/25 00:05 Completed CBC w/Auto Diff [Complete Blood Count Auto Diff] Stat Lab 06/10/25 00:05 Completed CK [Creatine Kinase] Stat Lab 06/11/25 00:15 Completed CMP [Comprehensive Metabolic Panel] Stat Lab 06/10/25 00:05 Completed D-Dimer Stat Lab 06/10/25 00:05 Completed VBG [Venous Blood Gas] Stat RT 06/11/25 01:05 Completed Medical Decision Narrative: In summary, this 80-year-old female with history of iron deficiency anemia, [place] cirrhosis, anemia, psoriasis, hypothyroid, leg cramps, chronic right groin pain, type 2 diabetes with neuropathy, hypertension, hyperlipidemia presents to the emergency department today with right leg pain that is similar to her chronic pain but worse in intensity. On initial evaluation patient is rubbing her right thigh but not in acute distress, obese, exam notable for tenderness within the right inguinal crease with no lymphadenopathy or erythema, no swelling, no palpable mass, patient also has tenderness of the anterior right thigh diffusely with no evidence of acute traumatic injury, no tenderness of the back, no other acute abnormalities. Differential diagnosis includes but is not limited to muscle spasm, also considered femoral hernia, neuropathy, DVT, rhabdo, I have low suspicion for acute osseous injury without traumatic event but did consider this as well. I considered shingles because patient has rash, however this rash is consistent on both legs and she states it is her typical psoriasis rash, unchanged from prior. Family supports this. Based on these concerns, I ordered x-ray, CT abdomen pelvis, serum labs including D-dimer and CK, [id number] ultrasound. Patient received Tylenol, lidocaine patch initially for treatment. Labs personally reviewed demonstrate no leukocytosis, anemia stable from previous, normal platelets, CMP with trace hypokalemia, patient is receiving oral repletion, her anion gap is very mildly elevated so VBG and acetone were added to workup, acetone is negative. She was hyperglycemic which was the reason for adding these to rule out DKA. She does not have evidence of DKA, VBG pH 7.37. CK normal at 36 reassuring against rhabdomyolysis [id number] ultrasound person performed and interpreted does not demonstrate DVT within the areas of study. See procedure note for details. XR personally interpreted demonstrates no acute osseous injury, see radiology read for final interpretation. CT imaging personally interpreted demonstrate no bowel obstruction, there appears to be inflammatory changes within the abdomen but I cannot identify the exact source, see radiology read for final interpretation. Radiology read comments on mesenteric panniculitis, I called and spoke with the reading radiologist Dr. James. 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 I appreciate his thoughts and him reassured that there is nothing more acute or pathologic than this that seems to be causing her pain. On reassessment patient reports her pain had improved but is starting to have some aching again. I am going to give her 1 dose of Toradol, but I explained to her that I want her to be very careful with both NSAIDs and Tylenol due to her reduced kidney function and history of [place] cirrhosis. While the has bled score is typically used for considering anticoagulation for atrial fibrillation patients, it is still a decent restratification tool for any use of anticoagulation since the medication choices are typically the same. Has bled score 2 points, 4.1%, moderate risk of major bleeding. Her D-dimer is somewhat elevated and while I do not have suspicion for PE since she has no chest pain or shortness of breath and no changes in her vitals, I had extensive discussion with the patient and family about anticoagulation. I did recommend that since she has the elevated D-dimer which could indicate clot. We discussed that D-dimer does not always indicate clot and can be related to other things as well. I discussed the risks of not treating potential clot including developing PE, stroke, or other thromboembolism. We also discussed the risks of going on blood thinners including her moderate risk of major bleeding. After extensive discussion with patient and her adult daughters at bedside, they would prefer to not do anticoagulation at this time and instead pursue the outpatient ultrasound since it should happen in the next few days. They are willing to take the risk of potential worsening clot or thromboembolism complications rather than the risks of blood thinners at this time. Patient and family are reasonable and understand the risks and benefits fully and would prefer to proceed without blood thinners at this time. Patient is appropriate for discharge at this time. I provided outpatient order for ultrasound and appropriate phone calls have been made to facilitate this, the order was provided to the patient and family at the time of discharge as well. They were given instructions on continued symptomatic monitoring and close management, follow-up instructions, I did prescribe lidocaine patch to help with pain management, I also gave them strict return precautions for the ER. They all indicated understanding and the patient was discharged in stable condition. Procedures Miscellaneous Procedure Procedure Performed: Limited DVT ultrasound Indication: Limited compression ultrasonography of the right lower extremity was performed to evaluate for non-compressibility of the deep veins in the patient. The ultrasound was performed with the following indications, as noted in the H&P: Right thigh pain Identified structures: Right [common femoral vein, femoral vein, popliteal vein were examined.] Findings: Lower Extremity: Right CFV: Good compressibility Right FV: Good compressibility Right Popliteal vein: Good compressibility Impression: Normal right lower extremity DVT ultrasound Images were saved to permanent archive The study was technically adequate CPT: 82766-28-KA [id number] 57135-72 (complete bilateral study) This study was performed by me, and I personally interpreted all images/videos. Based on my clinical judgement, these images were adequate and did not necessitate further imaging. Critical Care Critical Care Time Critical Care Time: No
[2025-06-11 00:18] LABS: Hematocrit 32.2 % (37.0-47.0); Hemoglobin 9.7 g/dL (12.2-16.2); Immature Granulocytes % 0.3 %; Mean Corpuscular HGB Conc 30.1 g/dL (31.8-35.4); Mean Corpuscular Hemoglobin 23.2 pg (27.0-31.2); Mean Corpuscular Volume 77.0 fl (81-99); Nucleated Red Blood Cells % 0 %; Platelet Count 186 K/mm3 (142-424); Red Blood Count 4.18 M/mm3 (4.20-5.40); Red Cell Distribution Width-SD 42.8 fL; White Blood Count 6.4 K/mm3 (4.8-10.8)
[2025-06-11 00:25] LABS: Albumin Level 4.0 g/dl (3.5-5.0); Chloride 94 mmol/L (98-107); Potassium 3.4 mmoL/L (3.5-5.1); Sodium 133 mmol/L (136-145)
[2025-06-11 00:28] LABS: Alanine Aminotransferase 20 U/L (12-78); Albumin/Globulin Ratio 0.9 (1.1-1.8); Alkaline Phosphatase 114 U/L (38-126); Anion Gap 15.4 mEq/L (5-15); Aspartate Amino Transferase 35 U/L (14-36); Bilirubin,Total 0.5 mg/dl (0.2-1.3); Blood Urea Nitrogen 19 mg/dl (7-17); Carbon Dioxide 27 mmol/L (22.0-30.0); Creatine Kinase 36 U/L (30-135); Creatinine Clearance Estimated 64 mL/min (50-200); Creatinine,Serum 1.10 mg/dl (0.52-1.04); Estimated Glomerular Filt Rate 48 ml/min (>60); GFR (African American) 58 ML/MIN (>60); Globulin 4.3 g/dL (1.3-3.2); Total Protein,Serum 8.3 g/dl (6.3-8.2)
[2025-06-11 00:29] LABS: Calcium 8.7 mg/dl (8.4-10.2); Glucose 366 mg/dl (74-100)
[2025-06-11] MEDS: LIDOCAINE 5% TRANSDERMAL PATCH 1 EACH TD (00:30)
[2025-06-11] MEDS: ACETAMINOPHEN 500MG TAB 1000 MG PO (00:30)
[2025-06-11] MEDS: POTASSIUM CHLORIDE 20MEQ TAB 20 MEQ PO (00:59)
[2025-06-11] MEDS: IOPAMIDOL-370 (76%);100ML BOTTLE 75 ML IV (01:02)
[2025-06-11] MEDS: SODIUM CHLORIDE 0.9% 10ML SYR (RAD ONLY) 10 ML IV (01:02)
[2025-06-11 01:04] LABS: Acetone, Serum (Rapid) None Detected (None Detect)
[2025-06-11 01:09] LABS: VBG HCO3 25.5 mmol/L (23-30); VBG PCO2 45.4 mmol/L (35-51); VBG PH 7.37 mmol/L (7.31-7.41); VBG PO2 39.2 mmol/L (28-40)
[2025-06-11 01:12] LABS: Lactate Venous 2.1 mmol/L (0.4-2.0)
[2025-06-11 01:18] LABS: D-Dimer 0.87 ug/mL (0.0-0.5)
[2025-06-11] MEDS: KETOROLAC 30MG/ML VIAL 15 MG IV (02:43)
== END 2025-06-11 03:17 | disposition home or self-care (01) ==
PROVIDERS: Emergency Medicine; Emergency Provider Student in an Organized Health Care Education/Training Program; PCP Internal Medicine
DX: M79.651 Pain in right thigh (principal); K65.4 Sclerosing mesenteritis
CPT/HCPCS: 73502; 74177; 80053; 82009; 82550; 82803; 85025; 85378; 96374; 99284; J1885; Q9967

== ENCOUNTER 2025-06-11 12:44 | Outpatient (CLI) | payer MEDICARE, MEDICAID, SELFPAY ==
--- NOTE | 2025-06-11 | CA_ITS ---
FINAL REPORT TECHNIQUE: Multiple transverse and longitudinal images were performed of right the femoral-popliteal deep venous system with augmentation and compression maneuvers. CLINICAL HISTORY: RIGHT LEG PAIN FINDINGS: Right lower extremity duplex ultrasound demonstrates normal flow in the deep venous system. There is no abnormal echogenicity to suggest thrombus. There is normal compression and augmentation. IMPRESSION: No evidence of right DVT. Reviewed, Interpreted and Dictated by Moses Frederick MD Transcribed by Sonja Vicente Authenticated and . [facility]
== END 2025-06-11 23:59 | disposition home or self-care (01) ==
LOC: RT 12:44
PROVIDERS: PCP Internal Medicine; Visit Provider Emergency Medicine
DX: M79.651 Pain in right thigh (principal)
CPT/HCPCS: 93971

== ENCOUNTER 2025-06-30 14:22 | Outpatient (CLI) | payer MEDICARE, MEDICAID, SELFPAY ==
--- NOTE | 2025-06-30 14:30 | CT_ITS ---
FINAL REPORT TECHNIQUE: Thin section axial CT images with coronal and sagittal reformats were performed of the right hip. This study was performed with techniques to keep radiation doses as low as reasonably achievable (ALARA). Individualized dose reduction techniques using automated exposure control or adjustment of mA and/or kV according to the patient''s size were employed. CLINICAL HISTORY: Right thigh pain COMPARISON: None FINDINGS: There are no fractures. The hip joint space is preserved. The femoral head has a normal smooth contour. There are mild hypertrophic changes of the greater trochanter. There is a tiny os acetabuli at the margin of the hip joint. Small calcified fibroids are noted. There are no masses or fluid collections. There are no soft tissue abnormalities. IMPRESSION: Mild degenerative changes without acute bony abnormality. Reviewed, Interpreted and Dictated by Floyd Abraham MD Transcribed by Tracey Jones Authenticated and [facility]
== END 2025-06-30 23:59 | disposition home or self-care (01) ==
LOC: RAD 14:22
PROVIDERS: PCP Internal Medicine; Visit Provider Internal Medicine
DX: M16.11 Unilateral primary osteoarthritis, right hip (principal)
CPT/HCPCS: 73700

== ENCOUNTER 2025-07-02 13:57 | Outpatient (POV) | payer MEDICARE, MEDICAID, SELFPAY ==
--- NOTE | 2025-07-02 14:40 | EXP.PAIN.OV ---
HPI Data of Consult Patient: new to practice Consult date: 07/02/25 Requesting Physician: Juliana Isidro APRN Primary Care Provider: Luis Maradiaga MD Reason for consult: Low back pain, right hip pain, right thigh pain History of present illness: Ms. Bruno is a 80 year old female who presents today as a new patient. She is a referral from Dr. Maradiaga's office. Today she rates her pain a 5 out of 10. Patient states for the last 8 months she has had fairly constant low back, right hip and right thigh pain. Patient does state the pain is interfering with her ability perform activities of daily living such as cooking and cleaning. Patient does describe it as a sharp achy sensation that is worse when she is lying down. Patient does state that she has been having to sleep in a recliner due to the pain as well as the fact that she cannot lay flat because she cannot really breathe. Patient has tried oral medications such as Tylenol along with heat and ice and topicals such as IcyHot and Biofreeze with minimal relief. Patient does rely on a walker to help her with ambulation. She denies any prior history of injections or surgical intervention. Patient does try to be as active as possible and does at home exercising and stretching. Patient does have a history of diabetes and cirrhosis of the liver. Her Yash has been reviewed and is appropriate. Pain at rest (0-10 scale): 5 Has patient had previous pain injection?: No Conservative treatment options previously tried: Home exercise plan (Longer than 12 weeks) cc:: CC: Juliana Iisdro APRN [facility] Disclaimer: The information contained in this section may have been updated after the patient was seen, as this information can be updated by other users. Medical History Anemia Abnormal electrocardiogram [ECG] [EKG] Pre-operative cardiovascular examination HLD (hyperlipidemia) HTN (hypertension), benign Thyroid disorder T2DM (type 2 diabetes mellitus) Surgical History Hx of laparoscopic gastric banding History of cholecystectomy Family History Other Family history of cancer Family history of stroke Social History Smoking Status: Never smoker alcohol intake: never substance use type: denies use current occupational status: retired Travel in the last 8 weeks?: None household members: spouse housing: house lives independently: No marital status: caffeine: No Review of Systems Review of Systems Review of systems:: pertinent systems reviewed and negative unless documented below Review of systems (narrative): Review of Systems: General: No recent weight changes, no fever, no sleep disturbances Respiratory: No cough, no shortness of air, no recurring pulmonary infections Cardiovascular/peripheral vascular: No chest pain, no palpitations, no edema, no shortness of breath Gastrointestinal: No new onset incontinence, normal bowel movements reported Genitourinary: No new onset incontinence Musculoskeletal: Low back pain, right hip pain, right thigh pain Psychiatric: [Normal mood/affect] Neurological: [Denies weakness in extremities], [denies balance issues] Meds Home Medications and Allergies Home Medications ?Medication ?Instructions ?Recorded ?Confirmed ?Type insulin syringe-needle U-100 1 mL #10 ea 07/22/24 06/16/25 Rx 31 gauge x 15/64 (BD Veo Insulin Syringe Ultra-Fine) insulin aspart U-100 100 unit/mL 20 unit SQ BID 12/30/24 06/16/25 History (3 mL) subcutaneous pen (Novolog FlexPen U-100 Insulin aspart) methocarbamol 500 mg tablet 500 mg PO Q12HP PRN Muscle Spasm 01/02/25 06/16/25 Rx 30 days #60 tabs carvedilol 3.125 mg tablet 3.125 mg PO BID 30 days #180 tabs 01/16/25 06/16/25 Rx folic acid 1 mg tablet 1 mg PO MOTUWETHFRSA #60 tabs 01/16/25 06/16/25 Rx pantoprazole 40 mg tablet,delayed 40 mg PO HS 30 days #90 tabs 01/16/25 06/16/25 Rx release polysaccharide iron complex 180 mg 180 mg PO DAILY #90 caps 01/16/25 06/16/25 Rx iron capsule (Pro Fe) spironolactone 50 mg tablet 50 mg PO DAILY #90 tabs 01/16/25 06/16/25 Rx dapagliflozin propanediol 10 mg 10 mg PO DAILY 01/17/25 06/16/25 History tablet (Farxiga) Held on 01/18/25. Instructions: Hold while treating UTI. Discuss with PCP prior to resuming bumetanide 2 mg tablet 1 mg (1/2 x 2 mg) PO DAILY #90 tabs 01/18/25 06/16/25 Rx triamcinolone acetonide 0.1 % 1 applic topical TID PRN Skin 02/05/25 06/16/25 Rx topical cream irritation on legs #453.6 grams levothyroxine 125 mcg tablet 125 mcg PO DAILYDM #90 tabs 02/26/25 06/16/25 Rx (Synthroid) pravastatin 80 mg tablet See Rx Instructions .Route 03/21/25 06/16/25 Rx .COMPLEX #90 tabs rifaximin 550 mg tablet (Xifaxan) 550 mg PO BID #180 tabs 04/30/25 06/16/25 Rx [id number] See Rx Instructions .Route 05/02/25 06/16/25 Rx 36,000-114,000-180,000 unit .COMPLEX #90 caps capsule,delay rel (Creon) semaglutide 0.25 mg or 0.5 mg (2 0.25 mg (0.368 mL) SQ WEEKLY #3 mL 05/09/25 06/16/25 Rx mg/3 mL) subcutaneous pen injector (Ozempic) blood sugar diagnostic (Accu-Chek #100 ea 05/29/25 06/16/25 Rx Guide test strips) lactulose 10 gram/15 mL oral See Rx Instructions .Route 06/03/25 06/16/25 Rx solution .COMPLEX #900 mL lidocaine 5 % topical patch See Rx Instructions topical 06/11/25 06/16/25 Rx .COMPLEX #15 ea semaglutide 0.25 mg or 0.5 mg (2 0.25 mg (0.368 mL) SQ WEEKLY #3 mL 06/16/25 06/16/25 Rx mg/3 mL) subcutaneous pen injector (Ozempic) insulin glargine 100 unit/mL (3 See Rx Instructions .Route 06/17/25 Rx mL) subcutaneous pen (Lantus .COMPLEX #30 mL Solostar U-100 Insulin) lancets (Accu-Chek Softclix #100 ea 06/24/25 Rx Lancets) pen needle, diabetic 31 gauge x #1,200 ea 06/24/25 Rx 04/11 New Prescriptions to Start Prescriptions: Allergies Allergy/AdvReac Type Severity Reaction Status Date / Time morphine AdvReac Unknown NA-NAUSEA/V Verified 06/16/25 09:59 OMITING gabapentin AdvReac Unknown Verified 06/16/25 09:59 allergy reaction Objective Narrative: Physical Exam: General: Alert and oriented x3, no acute distress, pleasant and cooperative Lungs: Respirations even and unlabored, symmetrical chest expansion Eyes: PERRL Musculoskeletal: Flexion and extension of lumbar [spine] somewhat guarded secondary to pain, [antalgic gait noted] point tenderness along right SI with positive right Walt's, Yana's, Gaenslen's, compression and distraction exam Neurological: Speech clear, no gross sensory deficit Assessment and Plan *Assessment and plan (1) Sacroiliitis: Status: Acute Category: Medical Code(s): M46.1 - Sacroiliitis, not elsewhere classified (2) Right thigh pain: Status: Acute Category: Medical Code(s): M79.651 - Pain in right thigh (3) Chronic low back pain: Status: Acute Category: Medical Code(s): M54.50 - Low back pain, unspecified; G89.29 - Other chronic pain Plan Patient is experiencing worsening pain along her low back and right hip with limited range of motion. Patient did have point tenderness along her right SI with a positive right Walt's, Yana's, Gaenslen's, compression and distraction exam. I did discuss with patient that I do believe she would benefit from a right SI injection. Risk and benefits were discussed with the patient and she would like to proceed forward with this plan of care. Patient has had this pain for longer than 8 months unrelieved with conservative measures such as oral medication, heat and ice, topicals, at home stretching exercise for longer than 12 weeks. We did give the patient today physician guided low back exercises. Patient is not a candidate for ongoing physical therapy due to her comorbidities. Patient will be scheduled for a right SI injection under fluoroscopy. I will also order the patient a compounded cream. Patient has been instructed to contact the clinic with any concerns before the next appointment. Dr. Griffin has reviewed this note and agrees with this plan of care. This note was dictated using voice recognition software and make contain errors or omissions. All injections are used with Lidocaine, Bupivacaine and dexamethasone unless diagnostic in which case there is no steroids injected. Occasionally urine drug screen is needed to verify patient's compliance with our office pain contract. This is ordered based off specific treatments related to chronic pain with the potential to abuse certain medications.
[2025-07-02 15:02] VITALS: BP 127/63; PULSE 77; RESP 18; O2SAT 97; BMI 40.0
== END 2025-07-02 23:59 | disposition home or self-care (01) ==
LOC: SC.PAIN 13:59
PROVIDERS: PCP Internal Medicine; Visit Provider Nurse Practitioner Family
DX: M46.1 Sacroiliitis, not elsewhere classified (principal); M79.651 Pain in right thigh
CPT/HCPCS: 99202; G0463

== ENCOUNTER 2025-07-08 15:05 | Outpatient (CLI) | payer MEDICARE, MEDICAID, SELFPAY ==
[2025-07-08 17:26] LABS: Hematocrit 32.9 % (37.0-47.0); Hemoglobin 9.8 g/dL (12.2-16.2); Immature Granulocytes % 0.4 %; Mean Corpuscular HGB Conc 29.8 g/dL (31.8-35.4); Mean Corpuscular Hemoglobin 22.9 pg (27.0-31.2); Mean Corpuscular Volume 76.9 fl (81-99); Nucleated Red Blood Cells % 0 %; Platelet Count 247 K/mm3 (142-424); Red Blood Count 4.28 M/mm3 (4.20-5.40); Red Cell Distribution Width-SD 42.8 fL; White Blood Count 7.6 K/mm3 (4.8-10.8)
[2025-07-08 21:26] LABS: Hemoglobin A1C 10.4 % (4.0-6.0)
== END 2025-07-08 23:59 | disposition home or self-care (01) ==
LOC: LAB.DROPOF 07-09 11:01
PROVIDERS: PCP Internal Medicine; Visit Provider Internal Medicine
DX: D50.9 Iron deficiency anemia, unspecified (principal); E11.42 Type 2 diabetes mellitus with diabetic polyneuropathy
CPT/HCPCS: 83036; 85025

== ENCOUNTER 2025-08-05 14:17 | Day surgery (SDC) | payer MEDICARE, MEDICAID, SELFPAY ==
[2025-08-05 14:35] LABS: POC Glucose,Bedside 370 gm/dL (70-110)
--- NOTE | 2025-08-06 14:47 | PC.NURSE ---
late entry Date of service 08/05/25. At 1425 pt fsbs was checked prior to pt getting an injection, fsbs result [id number]. Provider REY Jin was notified per staff, reports pt will have to be rescheduled r/t glucose result. Pt notified of this, educated on glucose control prior to injection. Pt injection rescheduled. Pt verbalized understanding of provider stating glucose needs to be under 250 prior to injections r/t steroid usage.
== END 2025-08-05 14:40 | disposition home or self-care (01) ==
LOC: SC.PAINP 14:18
PROVIDERS: PCP Internal Medicine; Visit Provider Nurse Anesthetist, Certified Registered
DX: R52 Pain, unspecified (principal); Z53.09 Procedure and treatment not carried out because of other contraindication; R73.9 Hyperglycemia, unspecified
CPT/HCPCS: 82962

== ENCOUNTER 2025-09-23 09:11 | Day surgery (SDC) | payer MEDICARE, MEDICAID, SELFPAY ==
[2025-09-23 09:20] VITALS: BP 123/60; PULSE 73; RESP 18; O2SAT 95; BMI 38.4
--- NOTE | 2025-09-23 09:39 | EXP.PAIN.PRO ---
Procedure Date: 09/23/25 Time: 09:30 Anesthesiologist:: Madhav Newton CRNA Complications:: None Pre-procedure Diagnosis:: Right sacroiliitis Post-procedure Diagnosis:: Same Indications for Procedure:: Patient is a very pleasant 80-year-old female who comes to clinic today for right sacroiliac joint injection of cortisone and local anesthetic. Patient describes right low lumbar back pain as well as right posterior hip pain as constant, dull, aching. She is having difficulty with ambulation. Difficulty transitioning from sitting to standing. She rates her pain 8/10. Procedure Details:: Procedure: Right sacroliliac joint injection under fluoroscopy Informed consent was obtained and the risk and benefits of the procedure were explained to the patient.~ The patient was taken to the procedure room and noninvasive monitors were placed including noninvasive blood pressure cuff and pulse oximeter.~ The patient was placed prone on the procedure table.~ The~ right hip was cleansed using Betadine as a cleansing solution.~ C-arm fluorosocpy was used to view the right SI joint.~ The skin and subcutaneous tissues were anesthetized using Lidocaine 1.5% and a 25-gauge needle.~ After this, a 22-gauge spinal needle was inserted under fluoroscopic guidance into the inferior aspect of the right SI joint.~ Omnipaque dye was injected and a good spread was seen throughout the joint.~ After this, approximately 5 mL of bupivacaine 0.25% and dexamethasone 10 mg mg was incrementally injected into the sacroiliac joint.~ The patient tolerated the procedure well with no complications.~ The patient was observed in the Pain Clinic, then discharged home neurologically intact.~ Plan and Disposition:: Patient was discharged without incident.
[2025-09-23 09:42] VITALS: BP 132/67; PULSE 77; RESP 16; O2SAT 98
[2025-09-23 10:07] VITALS: BP 123/60; PULSE 73; RESP 18; O2SAT 95
[2025-09-23] MEDS: LIDOCAINE 1% 5ML PF VIAL 5 ML (10:07)
[2025-09-23] MEDS: BUPIVACAINE 0.25% 10ML INJ 25 MG IJ (10:07)
[2025-09-23] MEDS: DEXAMETHASONE 10MG/ML 1ML VIAL 10 MG (10:07)
[2025-09-23 10:09] VITALS: BP 123/60; PULSE 73; RESP 18; O2SAT 95
== END 2025-09-23 09:42 | disposition home or self-care (01) ==
PROVIDERS: PCP Internal Medicine; Visit Provider Nurse Anesthetist, Certified Registered
DX: M46.1 Sacroiliitis, not elsewhere classified (principal); E78.5 Hyperlipidemia, unspecified; I10 Essential (primary) hypertension; E11.9 Type 2 diabetes mellitus without complications; E07.9 Disorder of thyroid, unspecified; Z88.5 Allergy status to narcotic agent; Z88.8 Allergy status to other drugs, medicaments and biological substances; Z79.4 Long term (current) use of insulin; Z79.890 Hormone replacement therapy; Z79.85 Long-term (current) use of injectable non-insulin antidiabetic drugs; Z79.899 Other long term (current) drug therapy
CPT/HCPCS: G0260; J0665; J1100; J2003

== ENCOUNTER 2025-10-07 17:09 | Outpatient (CLI) | payer MEDICARE, MEDICAID, SELFPAY ==
[2025-10-07 15:17] LABS: Hematocrit 32.7 % (37.0-47.0); Hemoglobin 10.2 g/dL (12.2-16.2); Immature Granulocytes % 0.6 %; Mean Corpuscular HGB Conc 31.2 g/dL (31.8-35.4); Mean Corpuscular Hemoglobin 23.7 pg (27.0-31.2); Mean Corpuscular Volume 75.9 fl (81-99); Nucleated Red Blood Cells % 0 %; Platelet Count 101 K/mm3 (142-424); Red Blood Count 4.31 M/mm3 (4.20-5.40); Red Cell Distribution Width-SD 44.7 fL; White Blood Count 6.7 K/mm3 (4.8-10.8)
[2025-10-07 15:52] LABS: Alanine Aminotransferase 14 U/L (12-78); Albumin Level 3.7 g/dl (3.5-5.0); Albumin/Globulin Ratio 1.0 (1.1-1.8); Alkaline Phosphatase 96 U/L (38-126); Anion Gap 12.6 mEq/L (5-15); Aspartate Amino Transferase 27 U/L (14-36); Bilirubin,Total 1.6 mg/dl (0.2-1.3); Blood Urea Nitrogen 23 mg/dl (7-17); Calcium 8.5 mg/dl (8.4-10.2); Carbon Dioxide 27 mmol/L (22.0-30.0); Chloride 88 mmol/L (98-107); Cholesterol 136 mg/dl (140-200); Creatinine,Serum 1.60 mg/dl (0.52-1.04); Estimated Glomerular Filt Rate 31 ml/min (>60); GFR (African American) 37 ML/MIN (>60); Globulin 3.8 g/dL (1.3-3.2); Glucose 180 mg/dl (74-100); HDL Cholesterol 37 mg/dl (40-60); Potassium 3.6 mmoL/L (3.5-5.1); Sodium 124 mmol/L (136-145); Total Protein,Serum 7.5 g/dl (6.3-8.2); Triglycerides 174 mg/dl (30-150)
[2025-10-07 16:24] LABS: Hemoglobin A1C 8.9 % (4.0-6.0)
[2025-10-07 16:26] LABS: Thyroid Stimulating Hormone 1.78 uIU/mL (0.465-4.68)
== END 2025-10-07 23:59 | disposition home or self-care (01) ==
LOC: LAB.DROPOF 17:09
PROVIDERS: PCP Internal Medicine; Visit Provider Internal Medicine
DX: D50.9 Iron deficiency anemia, unspecified (principal); K74.60 Unspecified cirrhosis of liver; E11.42 Type 2 diabetes mellitus with diabetic polyneuropathy; E03.9 Hypothyroidism, unspecified; I12.9 Hypertensive chronic kidney disease with stage 1 through stage 4 chronic kidney disease, or unspecified chronic kidney disease; N18.9 Chronic kidney disease, unspecified; E78.5 Hyperlipidemia, unspecified
CPT/HCPCS: 80053; 80061; 83036; 84443; 85025

== ENCOUNTER 2025-10-14 10:58 | Outpatient (CLI) | payer MEDICARE, MEDICAID, SELFPAY ==
[2025-10-14 11:24] LABS: Hematocrit 35.8 % (37.0-47.0); Hemoglobin 11.2 g/dL (12.2-16.2); Immature Granulocytes % 1.3 %; Mean Corpuscular HGB Conc 31.3 g/dL (31.8-35.4); Mean Corpuscular Hemoglobin 23.8 pg (27.0-31.2); Mean Corpuscular Volume 76.2 fl (81-99); Nucleated Red Blood Cells % 0 %; Platelet Count 271 K/mm3 (142-424); Red Blood Count 4.70 M/mm3 (4.20-5.40); Red Cell Distribution Width-SD 44.1 fL; White Blood Count 6.3 K/mm3 (4.8-10.8)
[2025-10-14 11:31] LABS: INR 1.02 (0.9-1.1); Prothrombin Time 11.3 seconds (10.1-12.5)
[2025-10-14 11:32] LABS: Ammonia < 9 umol/L (9-30)
[2025-10-14 11:50] LABS: Alanine Aminotransferase 19 U/L (12-78); Albumin Level 3.8 g/dl (3.5-5.0); Albumin/Globulin Ratio 1.1 (1.1-1.8); Alkaline Phosphatase 90 U/L (38-126); Anion Gap 10.3 mEq/L (5-15); Aspartate Amino Transferase 26 U/L (14-36); Bilirubin,Total 0.8 mg/dl (0.2-1.3); Blood Urea Nitrogen 16 mg/dl (7-17); Calcium 9.7 mg/dl (8.4-10.2); Carbon Dioxide 30 mmol/L (22.0-30.0); Chloride 95 mmol/L (98-107); Creatinine,Serum 1.40 mg/dl (0.52-1.04); Estimated Glomerular Filt Rate 36 ml/min (>60); GFR (African American) 44 ML/MIN (>60); Globulin 3.4 g/dL (1.3-3.2); Glucose 194 mg/dl (74-100); Iron 57 ug/dL (37-170); Potassium 4.3 mmoL/L (3.5-5.1); Sodium 131 mmol/L (136-145); Total Protein,Serum 7.2 g/dl (6.3-8.2)
[2025-10-14 12:00] LABS: Total Iron Binding Capacity 376 ug/dL (265-497)
[2025-10-14 12:27] LABS: Ferritin 13.6 ng/ml (11.1-264)
== END 2025-10-14 23:59 | disposition home or self-care (01) ==
LOC: LAB 10:59
PROVIDERS: PCP Internal Medicine; Visit Provider Nurse Practitioner Family
DX: K74.60 Unspecified cirrhosis of liver (principal)
CPT/HCPCS: 36415; 80053; 82105; 82140; 82728; 83540; 83550; 85025; 85610

== ENCOUNTER 2025-10-16 08:51 | Outpatient (CLI) | payer MEDICARE, MEDICAID, SELFPAY ==
--- NOTE | 2025-10-16 09:00 | US_ITS ---
FINAL REPORT TECHNIQUE: Multiple transverse and longitudinal scans were performed of the right upper quadrant of the abdomen. CLINICAL HISTORY: Cirrhosis f/u/upper abd pain/bloating COMPARISON: None FINDINGS: HEPATIC ULTRASOUND There is coarsened echotexture which may be due to cirrhosis. No intrahepatic duct dilatation is identified. The common duct is not visualized. Doppler exam shows normal directional flow within patent hepatic and portal veins. The gallbladder is surgically absent. No evidence of perihepatic fluid is identified. IMPRESSION: Coarsened echotexture may be due to cirrhosis. Reviewed, Interpreted and Dictated by Floyd Abraham MD Transcribed by [place] Authenticated and [facility]
== END 2025-10-16 23:59 | disposition home or self-care (01) ==
LOC: RAD 08:51
PROVIDERS: PCP Internal Medicine; Visit Provider Nurse Practitioner Family
DX: K74.60 Unspecified cirrhosis of liver (principal); R93.2 Abnormal findings on diagnostic imaging of liver and biliary tract
CPT/HCPCS: 76705